=== PATIENT | female | born 1960 | race Caucasian/White ===

== ENCOUNTER → 2018-09-08 | Outpatient (CLI) | payer BC ==
--- NOTE | 2018-09-09 11:33 | CT ---
EXAMINATION TYPE: CT abdomen pelvis w con DATE OF EXAM: 09/08/2018 COMPARISON: 04/06/2013 INDICATION: small bowel obstruction, chronic diarrhea several times a day DLP: 399.50 mGycm, Automated exposure control for dose reduction was used. CONTRAST: 100 mL of Isovue 300. Study performed with Oral Contrast TECHNIQUE: Axial images were obtained from above the diaphragm to the pubic rami in the axial plane a t 5 mm thick sections. Reconstructed images are reviewed on the computer in the coronal plane. FINDINGS: Limited CT sections are obtained the lung bases. There are a few linear areas of opacity most likely atelectasis.. CT ABDOMEN: Liver: Normal Spleen: Normal Pancreas: Normal Adrenal glands: The adrenal glands are normal. Gallbladder: Normal Kidneys: No masses are evident. No hydronephrosis is present. There is a 1.1 cm cyst on the anterio r left mid kidney measuring 19 Hounsfield units. Tiny cortical renal cyst may be posterior medial on the left mid kidney. Aorta: Vascular calcification is within the aorta. Note is made of a stent within the right iliac ar sajan Inferior vena cava: Normal. CT PELVIS: There is some mild diffuse thickening of the sigmoid colon. Some small bowel loops within the pelvis likewise has some diffuse wall thickening. Correlate for colitis. This does not follow a specific vas cular distribution. No suspicious adjacent inflammatory changes are evident. The more proximal small bowel loops may have mild prominence and are filled with contrast.: In the pr oximal and transverse regions appears normal. Appendix: Not identified. There appears to be surgical suture present. Urinary bladder: Normal. Genitourinary structures: Uterus and ovaries are unremarkable Osseous structures: No suspicious lytic or sclerotic lesions. There is reversal of the previous right lower quadrant ostomy. Over the interval with previous ascite s has resolved. Subcutaneous edema likewise has resolved. IMPRESSIONS: 1. There appears to be some mild thickening of the distal colon as well as a few small bowel loops i n the lower quadrant. Correlate for colitis. Some ileitis may be present.
== END | disposition home or self-care (01) ==
LOC: RADCTMAIN 14:40
PROVIDERS: ATTEND Surgery Plastic and Reconstructive Surgery
DX: K56.609 Unspecified intestinal obstruction, unspecified as to partial versus complete obstruction (principal); Z88.2 Allergy status to sulfonamides
CPT/HCPCS: 74177; Q9967

== ENCOUNTER 2019-10-24 08:49 | Day surgery (SDC) | payer BC ==
[2019-10-20 11:06] VITALS: BMI 18.3
[~2019-10-24 08:49] MED LIST: LACTATED RINGERS 1,000 ML IV SCH; LIDOCAINE 1% 20 ML VIAL (10MG/ML) FOR IV START INTRADERMA PRN; MIDAZOLAM 2 MG/2 ML VIAL IV PRN
[2019-10-24 09:25] VITALS: TEMP 97.2
[2019-10-24] MEDS ORDERED: PROPOFOL 10 MG/ML 20 ML VIAL IV ONE (09:36)
[2019-10-24] MEDS ORDERED: LIDOCAINE 1% INJ 10MG/ML (20 ML MDV) ONE (09:36)
[2019-10-24] MEDS ORDERED: GLYCOPYRROLATE 0.2 MG/ML 2 ML VIAL ONE (09:36)
[2019-10-24] MEDS ORDERED: IV FLUID CONTINUATION 275 ML IV ONE (10:22)
--- NOTE | 2019-10-24 10:26 | P.PCN ---
Date of Procedure: 10/24/19 Description of Procedure: Brief history: Patient is a pleasant scheduled for an elective upper endoscopy as well as colonoscopy as a part of evaluation of anemia and diarrhea. Patient has a questionable history of inflammatory bowel disease including Crohn's disease in the past. She previously required a small bowel resection. She was seen in the office with complaints of fatigue and increased frequency of bowel movements. Procedure performed: Esophagogastroduodenoscopy with biopsy Colonoscopy with biopsy Estimated blood loss: Minimal. Preoperative diagnosis: Anemia, diarrhea, altered bowel function, history of IBD Anesthesia: MAC Procedure: After informed consent was obtained from the patient was brought into the endoscopy unit and IV sedation was administered by anesthesia under continuous monitoring. Initially upper endoscopy was done. The Olympus GF 190 video endoscope was inserted into the mouth and esophagus intubated without any difficulty and was gradually advanced into the stomach and duodenum and carefully examined. The bulb and second part of the duodenum appeared normal, with biopsies taken. The scope was then withdrawn into the stomach adequately insufflated with air and upon careful examination the antrum and body, cardia and fundus appeared normal, except for some mild punctate erythema and nodularity in the antrum and body suggestive of mild gastritis with biopsies taken. The scope was then withdrawn into the esophagus. The GE junction was lo cated at 38 cm to the incisors, with a small 1 cm hiatal hernia noted. It appeared regular with no erythema erosions or ulcerations. Rest of the esophagus appeared normal. Patient tolerated the procedure well. At this time the patient continued to remain sedation. Initial digital rectal examination was normal. Olympus CF 190 video colonoscope was then inserted into the rectum and gradually advanced to the cecum without any difficulty. Careful examination was performed as the scope was gradually being withdrawn. The prep was excellent. The cecum, ascending colon, transverse colon, descending colon, sigmoid colon and rectum appeared grossly normal, however there was noted to be erythema and superficial ulcerations/erosions predominantly in the cecum and left colon suggestive of moderate colitis. The terminal ileum could not be intubated due to technical difficulties likely related to the patient's prior intra-abdominal surgeries including small bowel resection and . Retroflexion was performed in the rectum and no lesions were noted, Internal hemorrhoids noted and nonthrombosed external hemorrhoids. Patient tolerated the procedure well. Impression: 1. Mild gastritis antrum body, biopsied. Duodenal biopsies. Small hiatal hernia. 2. Moderate colitis of the cecum and left colon. Terminal ileum unable to be intubated. Recommendations: Findings of this examination were discussed with the patient as well as Her mother. Results will be discussed with Deborah SCHMITZ, with plan for the patient follow-up in the gastroenterology office. Await pathology from biopsies. Further discussion on treatment pending pathology from biopsies. Okay to resume diet.
[2019-10-24 10:52] VITALS: BP 108/62; PULSE 61; RESP 18
== END 2019-10-24 10:52 | disposition home or self-care (01) ==
LOC: ORWHC2ENDO 08:49
PROVIDERS: ATTEND Internal Medicine
DX: K52.9 Noninfective gastroenteritis and colitis, unspecified (principal); K31.89 Other diseases of stomach and duodenum; K29.50 Unspecified chronic gastritis without bleeding; K52.3 Indeterminate colitis; K44.9 Diaphragmatic hernia without obstruction or gangrene; K64.8 Other hemorrhoids; K64.4 Residual hemorrhoidal skin tags; D64.9 Anemia, unspecified; Z90.49 Acquired absence of other specified parts of digestive tract; Z86.718 Personal history of other venous thrombosis and embolism; F17.200 Nicotine dependence, unspecified, uncomplicated; Z97.2 Presence of dental prosthetic device (complete) (partial); Z79.01 Long term (current) use of anticoagulants; Z79.890 Hormone replacement therapy; Z88.2 Allergy status to sulfonamides
CPT/HCPCS: 88305; 45380; 43239; J2001; J2704

== ENCOUNTER 2020-02-22 10:20 | Inpatient (IN) | payer BC ==
[2020-02-22] MEDS ORDERED: SODIUM CHLORIDE 0.9% 1,000 ML IV STA ×2 (10:37)
[2020-02-22] MEDS ORDERED: PANTOPRAZOLE 40 MG/10 ML VIAL IVP ONE (10:38)
[2020-02-22] MEDS ORDERED: PHYTONADIONE ORAL 5 MG/5 ML ORAL.SYRG PO STA (10:41)
--- NOTE | 2020-02-22 10:43 | ED ---
Weakness HPI <Jayson Pro - Last Filed: 02/22/20 11:04> - General Source: patient, family, RN notes reviewed, old records reviewed Mode of arrival: wheelchair Limitations: no limitations <Neda Glass - Last Filed: 02/22/20 13:34> - General Chief complaint: Weakness Stated complaint: low coumadin Time Seen by Provider: 02/22/20 10:27 - History of Present Illness Initial comments: Patient is a 59-year-old female presents emergency department today for elevated Coumadin level, and weakness progressing over the past 3 weeks. She does have a history of Crohn's disease. She's been having some diarrhea and does report some dark stools. She also reports that she slipped and fell 2 days ago causing some right sided rib pain when she attempted to go to the bathroom. Patient states that she is on Coumadin for history of blood clots many years ago. Surgical history includes a bowel resection with colostomy and then later a reversal. (Neda Glass) - Related Data Home Medications Medication Instructions Recorded Confirmed Levothyroxine Sodium [Synthroid] 100 mcg PO DAILY 10/20/19 02/22/20 Warfarin [Coumadin] 2.5 mg PO SUTUTHFR 10/20/19 02/22/20 Warfarin [Coumadin] 3.75 mg PO MOWESA 10/20/19 02/22/20 Allergies Allergy/AdvReac Type Severity Reaction Status Date / Time Sulfa (Sulfonamide Allergy Unknown Verified 02/22/20 11:40 Antibiotics) Review of Systems ROS Other: All systems not noted in ROS Statement are negative. <Jayson Pro - Last Filed: 02/22/20 11:04> ROS Other: All systems not noted in ROS Statement are negative. <Neda Glass - Last Filed: 02/22/20 13:34> ROS Statement: Those systems with pertinent positive or pertinent negative responses have been documented in the HPI. Past Medical History Past Medical History: Deep Vein Thrombosis (DVT) Additional Past Medical History / Comment(s): sinus allergies, diarrhea x1yr, blaine. DVT. heart murmur History of Any Multi-Drug Resistant Organisms: None Reported Past Surgical History: Bowel Resection, Section Additional Past Surgical History / Comment(s): bowel resection with colostomy and then colostomy reversal Past Anesthesia/Blood Transfusion Reactions: No Reported Reaction Past Psychological History: No Psychological Hx Reported Smoking Status: Current every day smoker Past Alcohol Use History: None Reported Past Drug Use History: None Reported - Past Family History Mother Family Medical History: No Reported History <Neda Glass - Last Filed: 02/22/20 13:34> General Exam Limitations: no limitations General appearance: alert Head exam: Present: atraumatic, normocephalic, normal inspection Eye exam: Present: normal appearance, PERRL, EOMI. Absent: scleral icterus, conjunctival injection, periorbital swelling ENT exam: Present: normal exam, mucous membranes moist Neck exam: Present: normal inspection. Absent: tenderness, meningismus, lymphadenopathy Respiratory exam: Present: normal lung sounds bilaterally, other (tenderness over right ribs). Absent: respiratory distress, wheezes, rales, rhonchi, stridor Cardiovascular Exam: Present: regular rate, normal rhythm, normal heart sounds. Absent: systolic murmur, diastolic murmur, rubs, gallop, clicks GI/Abdominal exam: Present: soft, normal bowel sounds. Absent: distended, tenderness, guarding, rebound, rigid Rectal exam: Present: heme (+) stool ( bright red blood per rectum), hemorrh oids. Absent: normal inspection External exam: Present: normal external exam Extremities exam: Present: normal inspection, full ROM, normal capillary refill. Absent: tenderness, pedal edema, joint swelling, calf tenderness Back exam: Present: normal inspection Neurological exam: Present: alert, oriented X3, CN II-XII intact Psychiatric exam: Present: normal affect, normal mood Skin exam: Present: warm, dry, intact, normal color. Absent: rash <Neda Glass - Last Filed: 02/22/20 13:34> - General Exam Comments Initial Comments: 5-year-old female. Alert and oriented 3. Patient appears weak, and pale. (Neda Glass) Course Vital Signs 02/22/20 02/22/20 02/22/20 10:20 10:59 11:00 Temperature 97.6 F Pulse Rate 76 75 Respiratory 18 22 20 Rate Blood Pressure 65/48 82/70 O2 Sat by Pulse 100 100 Oximetry 02/22/20 02/22/20 02/22/20 11:30 11:52 12:00 Temperature Pulse Rate 57 L 56 L 57 L Respiratory 20 16 16 Rate Blood Pressure 82/51 82/70 81/47 O2 Sat by Pulse 100 100 100 Oximetry 02/22/20 02/22/20 12:30 13:16 Temperature 98.0 F Pulse Rate 60 60 Respiratory 18 18 Rate Blood Pressure 101/44 80/47 O2 Sat by Pulse 100 100 Oximetry Medical Decision Making <Jayson Pro - Last Filed: 02/22/20 11:04> - Lab Data Result diagrams: 02/22/20 11:04 02/22/20 10:53 <Neda Glass - Last Filed: 02/22/20 13:34> - Medical Decision Making I, Richard Pro, personally saw and examined the patient. I have reviewed and agree with the PA findings, including all diagnostic interpretations and treatment plans as written unless otherwise stated. I was present for the small portions of any procedures performed and the inclusive time noted for any critical care statement. (Jayson Pro) Patient is a 59-year-old female history of Crohn's disease presents emergency Department today with complaints of elevated INR from lab work yesterday and general weakness for the past few weeks. Also complains some episodes of shortness of breath. Patient appears pale. Hemoglobin yesterday was 8.9. Today on recheck at 7.9. She does have a positive occult test with history of Crohn's disease she reports she's been having flareups for many weeks. Patient was given oral vitamin K when her INR was noted to be elevated at 8.5 yesterday. Today is greater than 10. I Patient is also hypotensive was given 2 L bolus and emergency department. She did fall 2 days ago and x-ray the right ribs shows no acute fractures or any other acute process. Patient will have repeat CBC to compare from the current hemoglobin of 7.9 after receiving fluid boluses. I discussed the case with Dr. Pro who discussed the case with Dr. Aguilar and Dr. Julio. Currently waiting further orders Patient should qualify for Concentra or to start administering blood products. Patient also was found to have low potassium of 2.6. She was given replacement oral as well as IV has been ordered. Sodium is low 129. Patient will be going to the ICU at this time. Consult to GI. (Neda Glass) - Lab Data Lab Results 02/22/20 02/22/20 02/22/20 Range/Units 10:53 10:53 10:53 WBC (3.8-10.6) k/uL RBC (3.80-5.40) m/uL Hgb (11.4-16.0) gm/dL Hct (34.0-46.0) % MCV (80.0-100.0) fL MCH (25.0-35.0) pg MCHC (31.0-37.0) g/dL RDW (11.5-15.5) % Plt Count (150-450) k/uL Neutrophils % % Lymphocytes % % Monocytes % % Eosinophils % % Basophils % % Neutrophils # (1.3-7.7) k/uL Lymphocytes # (1.0-4.8) k/uL Monocytes # (0-1.0) k/uL Eosinophils # (0-0.7) k/uL Basophils # (0-0.2) k/uL PT 127.1 H (9.0-12.0) sec INR >10.0 H* (<1.2) APTT 91.2 H (22.0-30.0) sec Sodium 129 L (137-145) mmol/L Potassium 2.6 L* (3.5-5.1) mmol/L Chloride 96 L (98-107) mmol/L Carbon Dioxide 21 L (22-30) mmol/L Anion Gap 12 mmol/L BUN 54 H (7-17) mg/dL Creatinine 1.60 H (0.52-1.04) mg/dL Est GFR (CKD-EPI)AfAm 40 (>60 ml/min/1.73 sqM) Est GFR (CKD-EPI)NonAf 35 (>60 ml/min/1.73 sqM) Glucose 82 (74-99) mg/dL POC Glucose (mg/dL) (75-99) mg/dL POC Glu [employer] ID Plasma Lactic Acid Ti 0.8 (0.7-2.0) mmol/L Calcium 7.8 L (8.4-10.2) mg/dL Magnesium 1.8 (1.6-2.3) mg/dL Total Bilirubin 0.2 (0.2-1.3) mg/dL AST 15 (14-36) U/L ALT 22 (4-34) U/L Alkaline Phosphatase 103 (38-126) U/L Troponin I (0.000-0.034) ng/mL Total Protein 5.8 L (6.3-8.2) g/dL Albumin 2.6 L (3.5-5.0) g/dL Stool Occult Blood (Negative) Blood Type Blood Type Recheck Bld Type Recheck Status Antibody Screen Spec Expiration Date 02/22/20 02/22/20 02/22/20 Range/Units 10:53 10:53 11:04 WBC 4.6 (3.8-10.6) k/uL RBC 2.77 L (3.80-5.40) m/uL Hgb 7.9 L (11.4-16.0) gm/dL Hct 24.6 L (34.0-46.0) % MCV 89.1 (80.0-100.0) fL MCH 28.4 (25.0-35.0) pg MCHC 31.9 (31.0-37.0) g/dL RDW 14.4 (11.5-15.5) % Plt Count 548 H (150-450) k/uL Neutrophils % 78 % Lymphocytes % 14 % Monocytes % 5 % Eosinophils % 1 % Basophils % 0 % Neutrophils # 3.6 (1.3-7.7) k/uL Lymphocytes # 0.6 L (1.0-4.8) k/uL Monocytes # 0.2 (0-1.0) k/uL Eosinophils # 0.0 (0-0.7) k/uL Basophils # 0.0 (0-0.2) k/uL PT (9.0-12.0) sec INR (<1.2) APTT (22.0-30.0) sec Sodium (137-145) mmol/L Potassium (3.5-5.1) mmol/L Chloride (98-107) mmol/L Carbon Dioxide (22-30) mmol/L Anion Gap mmol/L BUN (7-17) mg/dL Creatinine (0.52-1.04) mg/dL Est GFR (CKD-EPI)AfAm (>60 ml/min/1.73 sqM) Est GFR (CKD-EPI)NonAf (>60 ml/min/1.73 sqM) Glucose (74-99) mg/dL POC Glucose (mg/dL) (75-99) mg/dL POC Glu [employer] ID Plasma Lactic Acid Ti (0.7-2.0) mmol/L Calcium (8.4-10.2) mg/dL Magnesium (1.6-2.3) mg/dL Total Bilirubin (0.2-1.3) mg/dL AST (14-36) U/L ALT (4-34) U/L Alkaline Phosphatase (38-126) U/L Troponin I <0.012 (0.000-0.034) ng/mL Total Protein (6.3-8.2) g/dL Albumin (3.5-5.0) g/dL Stool Occult Blood (Negative) Blood Type A Negative Blood Type Recheck A Neg Bld Type Recheck Status No Antibody Screen NEGATIVE Spec Expiration Date 02/25/2020 - 235202/22/20 02/22/20 Range/Units 11:07 12:38 WBC (3.8-10.6) k/uL RBC (3.80-5.40) m/uL Hgb (11.4-16.0) gm/dL Hct (34.0-46.0) % MCV (80.0-100.0) fL MCH (25.0-35.0) pg MCHC (31.0-37.0) g/dL RDW (11.5-15.5) % Plt Count (150-450) k/uL Neutrophils % % Lymphocytes % % Monocytes % % Eosinophils % % Basophils % % Neutrophils # (1.3-7.7) k/uL Lymphocytes # (1.0-4.8) k/uL Monocytes # (0-1.0) k/uL Eosinophils # (0-0.7) k/uL Basophils # (0-0.2) k/uL PT (9.0-12.0) sec INR (<1.2) APTT (22.0-30.0) sec Sodium (137-145) mmol/L Potassium (3.5-5.1) mmol/L Chloride (98-107) mmol/L Carbon Dioxide (22-30) mmol/L Anion Gap mmol/L BUN (7-17) mg/dL Creatinine (0.52-1.04) mg/dL Est GFR (CKD-EPI)AfAm (>60 ml/min/1.73 sqM) Est GFR (CKD-EPI)NonAf (>60 ml/min/1.73 sqM) Glucose (74-99) mg/dL POC Glucose (mg/dL) 73 L (75-99) mg/dL POC Glu [employer] ID Althea Harp Plasma Lactic Acid Ti (0.7-2.0) mmol/L Calcium (8.4-10.2) mg/dL Magnesium (1.6-2.3) mg/dL Total Bilirubin (0.2-1.3) mg/dL AST (14-36) U/L ALT (4-34) U/L Alkaline Phosphatase (38-126) U/L Troponin I (0.000-0.034) ng/mL Total Protein (6.3-8.2) g/dL Albumin (3.5-5.0) g/dL Stool Occult Blood Positive H (Negative) Blood Type Blood Type Recheck Bld Type Recheck Status Antibody Screen Spec Expiration Date 02/22/20 11:17 EKG performed at 11:14 AM shows normal sinus rhythm normal EKG. Ventricular rate of 62 bpm. Intervals 134 ms. QRS duration is 92 ms. QT QTc is 448/454 ms. (Neda Glass) Critical Care Time Critical Care Time: Yes Total Critical Care Time: 35 <Neda Glass - Last Filed: 02/22/20 13:34> Disposition <Jayson Pro - Last Filed: 02/22/20 11:04> Is patient prescribed a controlled substance at d/c from ED?: No Time of Disposition: 12:59 <Ndea Glass - Last Filed: 02/22/20 13:34> Clinical Impression: GI bleed, Elevated INR, Weakness, Crohn disease, Hypokalemia Disposition: ADMITTED IP TO THIS HOSP Condition: Serious
[2020-02-22] MEDS ORDERED: SODIUM CHLORIDE 0.9% 2,000 ML IV STA (11:17)
[2020-02-22 11:22] LABS: Basophils % (A) 0 %; Eosinophils % (A) 1 %; HCT 24.6 % (34.0-46.0); HGB 7.9 gm/dL (11.4-16.0); Lymphocytes # (A) 0.6 k/uL (1.0-4.8); Lymphocytes % (A) 14 %; MCH 28.4 pg (25.0-35.0); MCHC 31.9 g/dL (31.0-37.0); MCV 89.1 fL (80.0-100.0); Mean Platelet Volume 7.1; Monocytes # (A) 0.2 k/uL (0-1.0); Monocytes % (A) 5 %; Neutrophils # (A) 3.6 k/uL (1.3-7.7); Neutrophils % (A) 78 %; Platelet Count 548 k/uL (150-450); RBC 2.77 m/uL (3.80-5.40); RDW 14.4 % (11.5-15.5); WBC 4.6 k/uL (3.8-10.6)
[2020-02-22] MEDS ORDERED: SODIUM CHLORIDE 0.9% 1,000 ML IV ONE ×2 (11:26→14:31)
--- NOTE | 2020-02-22 11:38 | XR ---
EXAMINATION TYPE: XR chest 2V DATE OF EXAM: 02/22/2020 COMPARISON: Chest x-ray October 23, 2013. HISTORY: Weakness. TECHNIQUE: Frontal and lateral views of the chest are obtained. FINDINGS: There is some chronic parenchymal change without suspicious new focal air space opacity, p leural effusion, or pneumothorax seen. The cardiac silhouette size remains within normal limits. T he osseous structures are demineralized. Overlying EKG leads noted on current study. IMPRESSION: Chronic changes without acute process.
[2020-02-22 12:16] LABS: Prothrombin Time 127.1 sec (9.0-12.0)
[2020-02-22 12:20] LABS: INR >10.0 (<1.2)
[2020-02-22 12:21] LABS: Partial Thromboplastin Time 91.2 sec (22.0-30.0)
[2020-02-22 12:42] LABS: Glucose,Whole Blood 73 mg/dL (75-99)
[2020-02-22] MEDS ORDERED: HYDROmorphone 0.5 MG/0.5 ML SYRINGE IVP PRN (13:00)
[2020-02-22] MEDS ORDERED: IBUPROFEN 400 MG TAB PO PRN (13:00)
[2020-02-22] MEDS ORDERED: MORPHINE SULFATE 4 MG/ML SYRINGE IV PRN (13:00)
[2020-02-22] MEDS ORDERED: ONDANSETRON 4 MG/2 ML VIAL IVP PRN (13:00)
[2020-02-22] MEDS ORDERED: NALOXONE 0.4 MG/ML 1 ML VIAL IV PRN (13:00)
[2020-02-22] MEDS ORDERED: ACETAMINOPHEN TAB 325 MG TAB PO PRN (13:00)
[2020-02-22 13:13] LABS: Albumin 2.6 g/dL (3.5-5.0); Calcium 7.8 mg/dL (8.4-10.2); Magnesium 1.8 mg/dL (1.6-2.3); Total Bilirubin 0.2 mg/dL (0.2-1.3); Total Protein 5.8 g/dL (6.3-8.2)
[2020-02-22 13:17] LABS: Potassium 2.6 mmol/L (3.5-5.1)
[2020-02-22] MEDS ORDERED: Potassium Replacement Protocol 1 EACH MISC MISCELLANE PRN (13:29)
--- NOTE | 2020-02-22 13:40 | P.CNPUL ---
History of Present Illness Consult date: 02/22/20 Requesting physician: Kendall Parish Reason for consult: other (Critical care management) Chief complaint: Elevated INR History of present illness: This is a pleasant 59-year-old female patient who follows with Dr. peacock as her primary care provider. She has a history of chronic and ongoing tobacco dependence, hypothyroidism, Crohn's disease with previous colectomy and subsequent reversal, previous DVT with thrombectomy at [facility] greater than 10 years ago. She has been maintained on warfarin since that time. She takes 2.5 mg on Thursday and 3.75 mg on Thursday and Thursday. She was found to have an elevated INR and directed here to the emergency room this morning for the same. She has been having some diarrhea and reports some dark stools but not too much unusual for her. She states she also had fallen 2 days ago with some right-sided rib pain. Her INR today is greater than 10 and her hemoglobin has dropped to 7.9 and she is also hypotensive. She has received 3 L of fluid resuscitation, 10 mg of vitamin K and IV Protonix. She is seen today in consultation in the emergency room. She is awake and alert in no acute distress. She is maintaining O2 saturation of 100% on room air. She is pale. No shortness of breath, no chest pain. Somewhat dizzy. Current blood pressure 80/47. She's afebrile. 0.9 normal saline at 130 MLS per hour. Review of Systems REVIEW OF SYSTEMS: CONSTITUTIONAL: Positive for weakness. Denies any recent significant weight loss or weight gain. EYES: Denies change in vision. EARS, NOSE, MOUTH, THROAT: Denies headaches, denies sore throat. CARDIOVASCULAR: Denies chest pain, palpitations or syncopal episodes. RESPIRATORY: Denies shortness of breath, cough, congestion or hemoptysis. GASTROINTESTINAL: Positive for dark stool, diarrhea GENITOURINARY: Denies hematuria, denies infections. MUSKULOSKELETAL: Denies pain, denies swelling. INTEGUMENTARY: Denies rash, denies eczema. NEUROLOGICAL: Denies recent memory loss, no recent seizure activity. PSYCHIATRIC: Denies anxiety, denies depression. HEMATOLOGIC/LYMPHATIC: Denies anemia, denies enlarged lymph nodes. Past Medical History Past Medical History: Deep Vein Thrombosis (DVT) Additional Past Medical History / Comment(s): sinus allergies, diarrhea x1yr, blaine. DVT. heart murmur History of Any Multi-Drug Resistant Organisms: None Reported Past Surgical History: Bowel Resection, Section Additional Past Surgical History / Comment(s): bowel resection with colostomy and then colostomy reversal Past Anesthesia/Blood Transfusion Reactions: No Reported Reaction Past Psychological History: No Psychological Hx Reported Smoking Status: Current every day smoker Past Alcohol Use History: None Reported Past Drug Use History: None Reported - Past Family History Mother Family Medical History: No Reported History Medications and Allergies Home Medications Medication Instructions Recorded Confirmed Type Levothyroxine Sodium [Synthroid] 100 mcg PO DAILY 10/20/19 02/22/20 History Warfarin [Coumadin] 2.5 mg PO SUTUTHFR 10/20/19 02/22/20 History Warfarin [Coumadin] 3.75 mg PO MOWESA 10/20/19 02/22/20 History Allergies Allergy/AdvReac Type Severity Reaction Status Date / Time Sulfa (Sulfonamide Allergy Unknown Verified 02/22/20 11:40 Antibiotics) Physical Exam Vitals: Vital Signs Temp Pulse Resp BP Pulse Ox 02/22/20 13:16 98.0 F 60 18 80/47 100 02/22/20 12:30 60 18 101/44 100 02/22/20 12:00 57 L 16 81/47 100 02/22/20 11:52 56 L 16 82/70 100 02/22/20 11:30 57 L 20 82/51 100 02/22/20 11:00 75 20 82/70 100 02/22/20 10:59 22 02/22/20 10:20 97.6 F 76 18 65/48 100 Intake and Output 02/21/20 02/22/20 02/22/20 22:59 06:59 14:59 Other: Weight 54.431 kg GENERAL EXAM: Alert, pale, pleasant 59-year-old female, on room air, comfortable in no apparent distress. HEAD: Normocephalic. EYES: Normal reaction of pupils, equal size. NOSE: Clear with pink turbinates. THROAT: No erythema or exudates. NECK: No masses, no JVD. CHEST: No chest wall deformity. LUNGS: Equal air entry with no crackles, wheeze, rhonchi or dullness. CVS: S1 and S2 normal with no audible murmur, regular rhythm. ABDOMEN: No hepatosplenomegaly, normal bowel sounds, no guarding or rigidity. SPINE: No scoliosis or deformity SKIN: No rashes CENTRAL NERVOUS SYSTEM: No focal deficits, tone is normal in all 4 extremities. EXTREMITIES: There is no peripheral edema. No clubbing, no cyanosis. Peripheral pulses are intact. Results - Laboratory Findings CBC and BMP: 02/22/20 11:04 02/22/20 10:53 PT/INR, D-dimer PT 127.1 sec (9.0-12.0) H 02/22/20 10:53 INR >10.0 (<1.2) H* 02/22/20 10:53 Abnormal lab findings: Abnormal Labs 02/22/20 02/22/20 02/22/20 10:53 10:53 11:04 RBC 2.77 L Hgb 7.9 L Hct 24.6 L Plt Count 548 H Lymphocytes # 0.6 L PT 127.1 H INR >10.0 H* APTT 91.2 H Sodium 129 L Potassium 2.6 L* Chloride 96 L Carbon Dioxide 21 L BUN 54 H Creatinine 1.60 H POC Glucose (mg/dL) Calcium 7.8 L Total Protein 5.8 L Albumin 2.6 L Stool Occult Blood 02/22/20 02/22/20 11:07 12:38 RBC Hgb Hct Plt Count Lymphocytes # PT INR APTT Sodium Potassium Chloride Carbon Dioxide BUN Creatinine POC Glucose (mg/dL) 73 L Calcium Total Protein Albumin Stool Occult Blood Positive H - Diagnostic Findings Chest x-ray: image reviewed (No acute pulmonary process) Assessment and Plan Assessment: 1 Coagulopathy with an INR of greater than 10 and the patient is on chronic warfarin for previous history of DVT 2 Previous history of lower extremity DVT with thrombectomy over 10 years ago at [facility] 3 Anemia secondary to above, stool for occult blood positive 4 Hypokalemia 5 Hyponatremia 6 Acute renal failure 7 History of Crohn's disease 8 History of colectomy with subsequent reversal 9 Hypothyroidism 10 History of chronic tobacco dependence Plan: The patient was seen and evaluated by Dr. Julio The patient will be admitted to the intensive care unit Continue with fluid resuscitation Continue Protonix Replace electrolytes Continue to monitor hemoglobin GI consult pending We'll continue to follow and make further recommendations based on her clinical status I, the cosigning physician, performed a history & physical examination of the patient. Lungs sounds are clear. Maintaining good O2 saturations in the 90s on room air. I discussed the assessment and plan of care with my nurse practitioner, Justine Ochoa. I attest to the above consultation as dictated by her. Time with Patient: Greater than 30
[2020-02-22 13:52] LABS: Basophils % (A) 0 %; Eosinophils % (A) 1 %; Hypochromasia Slight; Lymphocytes # (A) 0.6 k/uL (1.0-4.8); Lymphocytes % (A) 16 %; MCH 28.6 pg (25.0-35.0); MCHC 31.9 g/dL (31.0-37.0); MCV 89.8 fL (80.0-100.0); Mean Platelet Volume 7.5; Monocytes # (A) 0.2 k/uL (0-1.0); Monocytes % (A) 6 %; Neutrophils # (A) 2.7 k/uL (1.3-7.7); Neutrophils % (A) 76 %; Platelet Count 434 k/uL (150-450); RBC 2.07 m/uL (3.80-5.40); RDW 14.4 % (11.5-15.5); WBC 3.6 k/uL (3.8-10.6)
[2020-02-22 14:00] LABS: HGB 5.9 gm/dL (11.4-16.0)
[2020-02-22 14:00] LABS: Glucose,Whole Blood 80 mg/dL (75-99)
[2020-02-22] MEDS ORDERED: POTASSIUM CHLORIDE ER 20 MEQ TAB.ER PO SCH (14:00)
[2020-02-22 14:01] LABS: HCT 18.6 % (34.0-46.0)
[2020-02-22] MEDS: POTASSIUM CHLORIDE 10 MEQ in WATER FOR INJECTION 1 100ML.BAG IVPB SCH ×6 (15:10→20:24)
[2020-02-22] MEDS: methylPREDNISolone SOD SUCCI 40 MG/ML 1 ML VIAL IV SCH (15:42)
--- NOTE | 2020-02-22 17:30 | P.HPIM ---
History of Present Illness H&P Date: 02/22/20 Jacquie Chowdhury, is a 59-year-old female patient of Dr. Ornelas with known history of Crohn's disease with previous colectomy and subsequent reversal, and history of DVT 10 years ago maintained on Coumadin. Who presented to [facility] emergency room with a chief complaint of rectal bleeding, patient stated that she was having small amount of blood per rectum she thought it was related to her hemorrhoids she was evaluated in the emergency room and was found to have an elevated INR She states she also had fallen 2 days ago with some right-sided rib pain. Her INR today is greater than 10 and her hemoglobin has dropped to 7.9 and she is also hypotensive. She has received 3 L of fluid resuscitation, 10 mg of vitamin K and IV Protonix. Patient was admitted to intensive care unit critical care consultation and gastroenterology consultation were requested. Patient was seen and examined in ICU she is alert and oriented in no apparent distress she looks pale she is complaining of mild dizziness otherwise she denies any complaints there is no fever or chills no headache or dizziness no chest pain no shortness of breath no cough no nausea or vomiting no abdominal pain no diarrhea no burning was urination no frequency or urgency no hematuria. Past Medical History Past Medical History: Deep Vein Thrombosis (DVT) Additional Past Medical History / Comment(s): sinus allergies, diarrhea x1yr, blaine. DVT. heart murmur History of Any Multi-Drug Resistant Organisms: None Reported Past Surgical History: Bowel Resection, Section Additional Past Surgical History / Comment(s): bowel resection with colostomy and then colostomy reversal Past Anesthesia/Blood Transfusion Reactions: No Reported Reaction Past Psychological History: No Psychological Hx Reported Smoking Status: Current every day smoker Past Alcohol Use History: None Reported Past Drug Use History: None Reported - Past Family History Mother Family Medical History: No Reported History Medications and Allergies Home Medications Medication Instructions Recorded Confirmed Type Levothyroxine Sodium [Synthroid] 100 mcg PO DAILY 10/20/19 02/22/20 History Warfarin [Coumadin] 2.5 mg PO SUTUTHFR 10/20/19 02/22/20 History Warfarin [Coumadin] 3.75 mg PO MOWESA 10/20/19 02/22/20 History Allergies Allergy/AdvReac Type Severity Reaction Status Date / Time Sulfa (Sulfonamide Allergy Unknown Verified 02/22/20 11:40 Antibiotics) Physical Exam Vitals: Vital Signs Temp Pulse Resp BP Pulse Ox 02/22/20 16:05 63 14 79/48 100 02/22/20 16:00 58 L 12 75/48 100 02/22/20 15:35 97.5 F L 58 L 14 75/48 02/22/20 15:30 59 L 11 L 80/49 100 02/22/20 15:25 97.6 F 61 18 77/42 100 02/22/20 15:00 61 10 L 78/47 99 02/22/20 14:30 62 11 L 82/42 100 02/22/20 14:00 96.5 F L 56 L 20 83/37 99 02/22/20 13:30 16 78/44 100 02/22/20 13:16 98.0 F 60 18 80/47 100 02/22/20 12:30 60 18 101/44 100 02/22/20 12:00 57 L 16 81/47 100 02/22/20 11:52 56 L 16 82/70 100 02/22/20 11:30 57 L 20 82/51 100 02/22/20 11:00 75 20 82/70 100 02/22/20 10:59 22 02/22/20 10:20 97.6 F 76 18 65/48 100 Intake and Output 02/22/20 02/22/20 02/22/20 06:59 14:59 22:59 Intake Total 100 0 Output Total 150 Balance -50 0 Intake: Intake, IV Titration 100 Amount Sodium Chloride 0.9% 1, 100 000 ml @ 999 mls/hr IV . Q1H1M STA Rx#:[id number] Blood Product 0 Rc Pheresis As-3 Unit 0 [id number] Output: Urine 150 Other: Voiding Method Toilet Bedside Commode Weight 54.431 kg In general patient is alert and oriented 3 in no apparent distress HEENT head normocephalic and atraumatic, pale otherwise normal Neck is supple no JVD no goiter no lymphadenopathy Chest exam is clear to auscultation no crackles no wheezing there is tenderness with palpation over the lower right sided ribs Cardiac exam reveals regular heart sounds S1 and S2 no gallops no murmurs Abdomen is soft nontender no organomegaly with normal bowel sounds Extremity exam reveals no edema no cyanosis or clubbing Neurological examination reveals no gross focal deficit Results CBC & Chem 7: 02/22/20 13:09 02/22/20 10:53 Labs: Abnormal Lab Results - Last 24 Hours (Table) 02/22/20 02/22/20 02/22/20 Range/Units 10:53 10:53 10:53 WBC (3.8-10.6) k/uL RBC (3.80-5.40) m/uL Hgb (11.4-16.0) gm/dL Hct (34.0-46.0) % Plt Count (150-450) k/uL Lymphocytes # (1.0-4.8) k/uL PT 127.1 H (9.0-12.0) sec INR >10.0 H* (<1.2) APTT 91.2 H (22.0-30.0) sec Sodium 129 L (137-145) mmol/L Potassium 2.6 L* (3.5-5.1) mmol/L Chloride 96 L (98-107) mmol/L Carbon Dioxide 21 L (22-30) mmol/L BUN 54 H (7-17) mg/dL Creatinine 1.60 H (0.52-1.04) mg/dL POC Glucose (mg/dL) (75-99) mg/dL Calcium 7.8 L (8.4-10.2) mg/dL Total Protein 5.8 L (6.3-8.2) g/dL Albumin 2.6 L (3.5-5.0) g/dL Stool Occult Blood (Negative) Crossmatch See Detail 02/22/20 02/22/20 02/22/20 Range/Units 11:04 11:07 12:38 WBC (3.8-10.6) k/uL RBC 2.77 L (3.80-5.40) m/uL Hgb 7.9 L (11.4-16.0) gm/dL Hct 24.6 L (34.0-46.0) % Plt Count 548 H (150-450) k/uL Lymphocytes # 0.6 L (1.0-4.8) k/uL PT (9.0-12.0) sec INR (<1.2) APTT (22.0-30.0) sec Sodium (137-145) mmol/L Potassium (3.5-5.1) mmol/L Chloride (98-107) mmol/L Carbon Dioxide (22-30) mmol/L BUN (7-17) mg/dL Creatinine (0.52-1.04) mg/dL POC Glucose (mg/dL) 73 L (75-99) mg/dL Calcium (8.4-10.2) mg/dL Total Protein (6.3-8.2) g/dL Albumin (3.5-5.0) g/dL Stool Occult Blood Positive H (Negative) Crossmatch 02/22/20 Range/Units 13:09 WBC 3.6 L (3.8-10.6) k/uL RBC 2.07 L (3.80-5.40) m/uL Hgb 5.9 L* D (11.4-16.0) gm/dL Hct 18.6 L* (34.0-46.0) % Plt Count (150-450) k/uL Lymphocytes # 0.6 L (1.0-4.8) k/uL PT (9.0-12.0) sec INR (<1.2) APTT (22.0-30.0) sec Sodium (137-145) mmol/L Potassium (3.5-5.1) mmol/L Chloride (98-107) mmol/L Carbon Dioxide (22-30) mmol/L BUN (7-17) mg/dL Creatinine (0.52-1.04) mg/dL POC Glucose (mg/dL) (75-99) mg/dL Calcium (8.4-10.2) mg/dL Total Protein (6.3-8.2) g/dL Albumin (3.5-5.0) g/dL Stool Occult Blood (Negative) Crossmatch Thrombosis Risk Factor Assmnt - Choose All That Apply Each Factor Represents 1 point: Age 41-60 years Each Risk Factor Represents 3 Points: History of DVT/PE Thrombosis Risk Factor Assessment Total Risk Factor Score: 4 Thrombosis Risk Factor Assessment Level: Moderate Risk Assessment and Plan Plan: 1. Rectal bleeding with anemia 2. Coagulopathy with INR more than 10 3. Underlying history of Crohn's disease 4. History of DVT more than 10 years ago maintained on Coumadin 5. Acute kidney injury 6. Severe hypokalemia, correcting 7. Underlying history of hypothyroidism 8. Tobacco abuse Plan at this time patient is admitted to intensive care unit She is receiving IV fluid for pressure support Coumadin is held and patient was given vitamin K 10 mg Red blood cell transfusion was ordered Will monitor CBC closely Consultation for critical care and gastroenterology was initiated Will follow closely
[2020-02-22] MEDS: PANTOPRAZOLE 40 MG/10 ML VIAL IV SCH (20:24)
[2020-02-22 21:57] LABS: HCT 28.1 % (34.0-46.0); Hypochromasia Slight; MCH 30.2 pg (25.0-35.0); MCHC 32.6 g/dL (31.0-37.0); MCV 92.7 fL (80.0-100.0); Mean Platelet Volume 7.3; Platelet Count 362 k/uL (150-450); RBC 3.03 m/uL (3.80-5.40); RDW 14.2 % (11.5-15.5)
[2020-02-22 21:59] LABS: HGB 9.1 gm/dL (11.4-16.0)
[2020-02-22] MEDS: SODIUM CHLORIDE 0.9% 1,000 ML IV SCH (22:00)
[2020-02-22] MEDS: NOREPINEPHRINE 4 MG in SODIUM CHLORIDE 0.9% 250 ML IV SCH (22:01)
[2020-02-23] MEDS: methylPREDNISolone SOD SUCCI 40 MG/ML 1 ML VIAL IV SCH ×4 (00:07→23:46)
[2020-02-23] MEDS: SODIUM CHLORIDE 0.9% 1,000 ML IV SCH ×2 (00:09→17:01)
[2020-02-23 01:32] LABS: Appearance,Urine Clear (Clear); Bilirubin,Urine Negative (Negative); Blood,Urine Negative (Negative); Color,Urine Yellow; Glucose,Urine (UA) Negative (Negative); Ketones,Urine Negative (Negative); Leukocyte Esterase,Urine Negative (Negative); Nitrite,Urine Negative (Negative); Protein,Urine Trace (Negative); Specific Gravity,Urine 1.011 (1.001-1.035); Urobilinogen,Urine <2.0 mg/dL (<2.0)
[2020-02-23] MEDS: POTASSIUM BICARBONATE/CIT AC 20 MEQ TABLET.EFF NG-TUBE SCH ×2 (02:07→03:13)
[2020-02-23 05:13] LABS: Basophils % (A) 0 %; Eosinophils % (A) 0 %; HCT 29.3 % (34.0-46.0); HGB 8.9 gm/dL (11.4-16.0); Hypochromasia Slight; Lymphocytes # (A) 0.3 k/uL (1.0-4.8); Lymphocytes % (A) 6 %; MCH 27.9 pg (25.0-35.0); MCHC 30.5 g/dL (31.0-37.0); MCV 91.4 fL (80.0-100.0); Mean Platelet Volume 7.6; Monocytes # (A) 0.1 k/uL (0-1.0); Monocytes % (A) 2 %; Neutrophils # (A) 4.6 k/uL (1.3-7.7); Neutrophils % (A) 91 %; Platelet Count 514 k/uL (150-450); RDW 14.5 % (11.5-15.5)
[2020-02-23 05:26] LABS: C Reactive Protein 63.2 mg/L (<10.0); Calcium 7.1 mg/dL (8.4-10.2); INR 3.2 (<1.2); Prothrombin Time 31.7 sec (9.0-12.0)
[2020-02-23 05:37] LABS: Potassium 4.3 mmol/L (3.5-5.1)
[2020-02-23 06:06] LABS: Erythrocyte Sedimentation Rate 50 mm/hr (0-20)
--- NOTE | 2020-02-23 07:05 | P.CONS ---
History of Present Illness - Reason for Consult Consult date: 02/23/20 Anemia, Crohn's disease Requesting physician: Marcell Aguilar - Chief Complaint Elevated INR - History of Present Illness 59-year-old female with a medical history significant for DVT in the past on anticoagulation therapy as well as Crohn's disease requiring prior partial co lectomy with reversal who presented to the ER secondary to elevation in her INR. The patient had laboratory evaluation performed in the outpatient setting which was significant for elevation in her INR. Recently she fell and reports rib pain secondary to this. She denies any abdominal pain. Of note the patient is a very poor historian. She has had Crohn's disease for approximately 10 years or less per her reports and has required a partial colectomy with subsequent reversal. In the past she has been on biologic therapy with Humira. Currently she was started on an oral agent after colonoscopy a few months ago was significant for active disease however was unable to tolerate the message and stopped it on her own. She reports she is been having 5-6 bowel movements daily. She denies any blood per rectum however on rectal exam in the ER blood was noted. On presentation WBC 3.6, hemoglobin 5.9 and platelet count 434,000. INR on presentation was 10. She has been given reversal agents. Review of Systems REVIEW OF SYSTEMS: CONSTITUTIONAL: Denies any fevers, chills, weight change or fatigue. CARDIOVASCULAR: Denies any chest pain, palpitations high or low blood pressures RESPIRATORY: Denies any shortness of breath, hemoptysis or cough. GENITOURINARY: No dysuria or hematuria. MUSCULOSKELETAL: No weakness reported, does have rib soreness status post mechanical fall. SKIN: Denies any new rashes or lesions, jaundice or pallor. PSYCHIATRIC: Denies any depression or anxiety. NEUROLOGY: Denies headache, denies any new focal deficits. EARS/NOSE/THROAT: No recent hearing change, congestion, nasal discharge or sore throat. EYES: No pain in eyes, discharge or change in vision. GASTROINTESTINAL: As per HPI. Past Medical History Past Medical History: Deep Vein Thrombosis (DVT) Additional Past Medical History / Comment(s): sinus allergies, diarrhea x1yr, blaine. DVT. heart murmur History of Any Multi-Drug Resistant Organisms: None Reported Past Surgical History: Bowel Resection, Section Additional Past Surgical History / Comment(s): bowel resection with colostomy and then colostomy reversal Past Anesthesia/Blood Transfusion Reactions: No Reported Reaction Past Psychological History: No Psychological Hx Reported Smoking Status: Current every day smoker Past Alcohol Use History: None Reported Past Drug Use History: None Reported - Past Family History Mother Family Medical History: No Reported History Medications and Allergies Home Medications Medication Instructions Recorded Confirmed Type Levothyroxine Sodium [Synthroid] 100 mcg PO DAILY 10/20/19 02/22/20 History Warfarin [Coumadin] 2.5 mg PO SUTUTHFR 10/20/19 02/22/20 History Warfarin [Coumadin] 3.75 mg PO MOWESA 10/20/19 02/22/20 History Allergies Allergy/AdvReac Type Severity Reaction Status Date / Time Sulfa (Sulfonamide Allergy Unknown Verified 02/22/20 11:40 Antibiotics) Physical Exam Vitals: Vital Signs Temp Pulse Resp BP Pulse Ox 02/22/20 14:00 96.5 F L 56 L 20 83/37 99 02/22/20 13:30 16 78/44 100 02/22/20 13:16 98.0 F 60 18 80/47 100 02/22/20 12:30 60 18 101/44 100 02/22/20 12:00 57 L 16 81/47 100 02/22/20 11:52 56 L 16 82/70 100 02/22/20 11:30 57 L 20 82/51 100 02/22/20 11:00 75 20 82/70 100 02/22/20 10:59 22 02/22/20 10:20 97.6 F 76 18 65/48 100 Intake and Output 02/21/20 02/22/20 02/22/20 22:59 06:59 14:59 Intake Total 100 Output Total 150 Balance -50 Intake: Intake, IV Titration 100 Amount Sodium Chloride 0.9% 1, 100 000 ml @ 999 mls/hr IV . Q1H1M STA Rx#:[id number] Output: Urine 150 Other: Weight 54.431 kg On physical examination, patient appears comfortable in no apparent distress. HEAD: Normocephalic, atraumatic. EYES: No scleral icterus. No conjunctival injection. MOUTH: No lesions, tongue midline. NECK: Trachea midline, no gross abnormalities. CHEST: Clear to auscultation with no wheezing or rhonchi appreciated. HEART: Regular rate and rhythm. ABDOMEN: Soft, obese. Bowel sounds are positive. No organomegaly. No guarding or rigidity. EXTREMITIES: No pedal edema. SKIN: No rashes, no jaundice. NEUROLOGIC: Alert and oriented x3. No focal deficits. Results CBC & Chem 7: 02/23/20 04:36 02/23/20 04:36 Labs: Abnormal Lab Results - Last 24 Hours (Table) 02/22/20 02/22/20 02/22/20 Range/Units 10:53 10:53 10:53 WBC (3.8-10.6) k/uL RBC (3.80-5.40) m/uL Hgb (11.4-16.0) gm/dL Hct (34.0-46.0) % Plt Count (150-450) k/uL Lymphocytes # (1.0-4.8) k/uL PT 127.1 H (9.0-12.0) sec INR >10.0 H* (<1.2) APTT 91.2 H (22.0-30.0) sec Sodium 129 L (137-145) mmol/L Potassium 2.6 L* (3.5-5.1) mmol/L Chloride 96 L (98-107) mmol/L Carbon Dioxide 21 L (22-30) mmol/L BUN 54 H (7-17) mg/dL Creatinine 1.60 H (0.52-1.04) mg/dL POC Glucose (mg/dL) (75-99) mg/dL Calcium 7.8 L (8.4-10.2) mg/dL Total Protein 5.8 L (6.3-8.2) g/dL Albumin 2.6 L (3.5-5.0) g/dL Stool Occult Blood (Negative) Crossmatch See Detail 02/22/20 02/22/20 02/22/20 Range/Units 11:04 11:07 12:38 WBC (3.8-10.6) k/uL RBC 2.77 L (3.80-5.40) m/uL Hgb 7.9 L (11.4-16.0) gm/dL Hct 24.6 L (34.0-46.0) % Plt Count 548 H (150-450) k/uL Lymphocytes # 0.6 L (1.0-4.8) k/uL PT (9.0-12.0) sec INR (<1.2) APTT (22.0-30.0) sec Sodium (137-145) mmol/L Potassium (3.5-5.1) mmol/L Chloride (98-107) mmol/L Carbon Dioxide (22-30) mmol/L BUN (7-17) mg/dL Creatinine (0.52-1.04) mg/dL POC Glucose (mg/dL) 73 L (75-99) mg/dL Calcium (8.4-10.2) mg/dL Total Protein (6.3-8.2) g/dL Albumin (3.5-5.0) g/dL Stool Occult Blood Positive H (Negative) Crossmatch 02/22/20 Range/Units 13:09 WBC 3.6 L (3.8-10.6) k/uL RBC 2.07 L (3.80-5.40) m/uL Hgb 5.9 L* D (11.4-16.0) gm/dL Hct 18.6 L* (34.0-46.0) % Plt Count (150-450) k/uL Lymphocytes # 0.6 L (1.0-4.8) k/uL PT (9.0-12.0) sec INR (<1.2) APTT (22.0-30.0) sec Sodium (137-145) mmol/L Potassium (3.5-5.1) mmol/L Chloride (98-107) mmol/L Carbon Dioxide (22-30) mmol/L BUN (7-17) mg/dL Creatinine (0.52-1.04) mg/dL POC Glucose (mg/dL) (75-99) mg/dL Calcium (8.4-10.2) mg/dL Total Protein (6.3-8.2) g/dL Albumin (3.5-5.0) g/dL Stool Occult Blood (Negative) Crossmatch Assessment and Plan (1) Crohn disease Narrative/Plan: 59-year-old female with a history of Crohn's disease requiring partial colectomy status post reversal in the past 2 presented due to elevated INR and was found to be anemic. Patient has active disease noted on colonoscopy recently and had been started on an oral agent however stopped this because she was unable to tolerate it. She denies any gross bleeding and his been having 5-6 bowel movements daily. She was scheduled for follow-up with the GI service. Current Visit: Yes Status: Acute Code(s): K50.90 - CROHN'S DISEASE, UNSPECIFIED, WITHOUT COMPLICATIONS SNOMED Code(s): 49164615 (2) Anemia associated with acute blood loss Current Visit: Yes Status: Acute Code(s): D62 - ACUTE POSTHEMORRHAGIC ANEMIA SNOMED Code(s): 327197257 (3) Elevated INR Current Visit: Yes Status: Acute Code(s): R79.1 - ABNORMAL COAGULATION PROFILE SNOMED Code(s): 470108527 Plan: Supportive care Okay for low fiber diet Solu-Medrol 20 every morning initiated Monitor for signs or symptoms of GI bleeding Patient underwent recent colonoscopy with evidence of active disease, no plan for endoscopic evaluation at this time with the patient denying any signs or symptoms of GI bleeding Continue to monitor CBC, CMP INR reversal agents given Patient will need follow-up with the GI service after discharge for optimization of medications Thank you for allowing us to participate in the care of the patient
[2020-02-23] MEDS: PANTOPRAZOLE 40 MG/10 ML VIAL IV SCH ×2 (08:08→20:14)
[2020-02-23] MEDS: NOREPINEPHRINE 4 MG in SODIUM CHLORIDE 0.9% 250 ML IV SCH (08:08)
[2020-02-23] MEDS ORDERED: PANTOPRAZOLE 40 MG/10 ML VIAL IV SCH (09:00)
--- NOTE | 2020-02-23 09:13 | P.PN ---
Subjective Progress Note Date: 02/23/20 Principal diagnosis: Anemia This is a pleasant 59-year-old female patient who follows with Dr. peacock as her primary care provider. She has a history of chronic and ongoing tobacco dependence, hypothyroidism, Crohn's disease with previous colectomy and subsequent reversal, previous DVT with thrombectomy at [facility] greater than 10 years ago. She has been maintained on warfarin since that time. She takes 2.5 mg on Thursday and 3.75 mg on Thursday and Thursday. She was found to have an elevated INR and directed here to the emergency room this morning for the same. She has been having some diarrhea and reports some dark stools but not too much unusual for her. She states she also had fallen 2 days ago with some right-sided rib pain. Her INR today is greater than 10 and her hemoglobin has dropped to 7.9 and she is also hypotensive. She has received 3 L of fluid resuscitation, 10 mg of vitamin K and IV Protonix. She is seen today in consultation in the emergency room. She is awake and alert in no acute distress. She is maintaining O2 saturation of 100% on room air. She is pale. No shortness of breath, no chest pain. Somewhat dizzy. Current blood pressure 80/47. She's afebrile. 0.9 normal saline at 130 MLS per hour. The patient is seen today 02/23/2020 in follow-up in the intensive care unit. She is currently awake and alert in no acute distress. She continues to maintain good O2 saturations up to 100% on room air. She's afebrile. She is bradycardic. She is continuing to require norepinephrine at 4.8 mcg/m. 0.9 normal saline at 125 ML's per hour. He did have a black tarry bowel movement this morning. White count 5.0. Hemoglobin 8.9. INR 3.2. Sodium 129. Potassium 4.3. Chloride 109. Bicarb 15. Creatinine 1.13. She had been seen and evaluated by GI services. She's been initiated on IV Solu-Medrol 20 mg every other day hours. Remains on IV Protonix. She had undergone EGD in 2019. There was evidence of mild gastritis. Small hiatal hernia. Moderate colitis of the cecum and left colon. No plans for repeat procedure at this time. She currently denies any abdominal discomfort. She is status post 2 units of packed red blood cells this admission thus far. Objective - Vital Signs Vital signs: Vital Signs Temp 97.8 F 02/23/20 08:00 Pulse 38 L 02/23/20 08:15 Resp 14 02/23/20 08:15 BP 100/63 02/23/20 08:15 Pulse Ox 100 02/23/20 08:15 Intake & Output 02/22/20 02/23/20 02/23/20 18:59 06:59 18:59 Intake Total 1610 2562.372 22.018 Output Total 350 920 Balance 1260 1642.372 22.018 Weight 54.431 kg 60.9 kg Intake: IV 0 1 Unit PRBC 310 Potassium Chloride 10 meq 100 In Water For Injection 1 100ml.bag @ 100 mls/hr IVPB Q1HR ELVIA Rx#: [id number] Sodium Chloride 0.9% 1, 1640 000 ml @ 130 mls/hr IV . Q7H42M STA Rx#:[id number] Intake, IV Titration 1300 202.372 22.018 Amount Norepinephrine 4 mg In 202.372 22.018 Sodium Chloride 0.9% 250 ml @ 0.05 MCG/KG/MIN 10. 369 mls/hr IV .Q24H ELVIA Rx#:[id number] Potassium Chloride 10 meq 200 In Water For Injection 1 100ml.bag @ 100 mls/hr IVPB Q1HR ELVIA Rx#: [id number] Sodium Chloride 0.9% 1, 1000 000 ml @ 999 mls/hr IV . Q1H1M ONE Rx#:[id number] Sodium Chloride 0.9% 1, 100 000 ml @ 999 mls/hr IV . Q1H1M STA Rx#:[id number] Blood Product 310 310 Rc As-3 Unit 0 310 [id number] Rc Pheresis As-3 Unit 310 [id number] Output: Urine 350 920 Other: Voiding Method Toilet Indwelling Catheter Bedside Commode # Voids 1 # Bowel Movements 1 - Exam GENERAL EXAM: Alert, pale, pleasant 59-year-old female, on room air, comfortable in no apparent distress. HEAD: Normocephalic. EYES: Normal reaction of pupils, equal size. NOSE: Clear with pink turbinates. THROAT: No erythema or exudates. NECK: No masses, no JVD. CHEST: No chest wall deformity. LUNGS: Equal air entry with no crackles, wheeze, rhonchi or dullness. CVS: S1 and S2 normal with no audible murmur, regular rhythm. ABDOMEN: No hepatosplenomegaly, normal bowel sounds, no guarding or rigidity. SPINE: No scoliosis or deformity SKIN: No rashes CENTRAL NERVOUS SYSTEM: No focal deficits, tone is normal in all 4 extremities. EXTREMITIES: There is no peripheral edema. No clubbing, no cyanosis. Peripheral pulses are intact. - Labs CBC & Chem 7: 02/23/20 04:36 02/23/20 04:36 Labs: Abnormal Lab Results - Last 24 Hours (Table) 02/22/20 02/22/20 02/22/20 Range/Units 10:53 10:53 10:53 WBC (3.8-10.6) k/uL RBC (3.80-5.40) m/uL Hgb (11.4-16.0) gm/dL Hct (34.0-46.0) % MCHC (31.0-37.0) g/dL Plt Count (150-450) k/uL Lymphocytes # (1.0-4.8) k/uL ESR (0-20) mm/hr PT 127.1 H (9.0-12.0) sec INR >10.0 H* (<1.2) APTT 91.2 H (22.0-30.0) sec Sodium 129 L (137-145) mmol/L Potassium 2.6 L* (3.5-5.1) mmol/L Chloride 96 L (98-107) mmol/L Carbon Dioxide 21 L (22-30) mmol/L BUN 54 H (7-17) mg/dL Creatinine 1.60 H (0.52-1.04) mg/dL Glucose (74-99) mg/dL POC Glucose (mg/dL) (75-99) mg/dL Calcium 7.8 L (8.4-10.2) mg/dL C-Reactive Protein (<10.0) mg/L Total Protein 5.8 L (6.3-8.2) g/dL Albumin 2.6 L (3.5-5.0) g/dL Urine Protein (Negative) Stool Occult Blood (Negative) Crossmatch See Detail 02/22/20 02/22/20 02/22/20 Range/Units 11:04 11:07 12:38 WBC (3.8-10.6) k/uL RBC 2.77 L (3.80-5.40) m/uL Hgb 7.9 L (11.4-16.0) gm/dL Hct 24.6 L (34.0-46.0) % MCHC (31.0-37.0) g/dL Plt Count 548 H (150-450) k/uL Lymphocytes # 0.6 L (1.0-4.8) k/uL ESR (0-20) mm/hr PT (9.0-12.0) sec INR (<1.2) APTT (22.0-30.0) sec Sodium (137-145) mmol/L Potassium (3.5-5.1) mmol/L Chloride (98-107) mmol/L Carbon Dioxide (22-30) mmol/L BUN (7-17) mg/dL Creatinine (0.52-1.04) mg/dL Glucose (74-99) mg/dL POC Glucose (mg/dL) 73 L (75-99) mg/dL Calcium (8.4-10.2) mg/dL C-Reactive Protein (<10.0) mg/L Total Protein (6.3-8.2) g/dL Albumin (3.5-5.0) g/dL Urine Protein (Negative) Stool Occult Blood Positive H (Negative) Crossmatch 02/22/20 02/22/20 02/23/20 Range/Units 13:09 21:45 00:59 WBC 3.6 L 3.0 L (3.8-10.6) k/uL RBC 2.07 L 3.03 L (3.80-5.40) m/uL Hgb 5.9 L* D 9.1 L D (11.4-16.0) gm/dL Hct 18.6 L* 28.1 L (34.0-46.0) % MCHC (31.0-37.0) g/dL Plt Count (150-450) k/uL Lymphocytes # 0.6 L (1.0-4.8) k/uL ESR (0-20) mm/hr PT (9.0-12.0) sec INR (<1.2) APTT (22.0-30.0) sec Sodium (137-145) mmol/L Potassium (3.5-5.1) mmol/L Chloride (98-107) mmol/L Carbon Dioxide (22-30) mmol/L BUN (7-17) mg/dL Creatinine (0.52-1.04) mg/dL Glucose (74-99) mg/dL POC Glucose (mg/dL) (75-99) mg/dL Calcium (8.4-10.2) mg/dL C-Reactive Protein (<10.0) mg/L Total Protein (6.3-8.2) g/dL Albumin (3.5-5.0) g/dL Urine Protein Trace H (Negative) Stool Occult Blood (Negative) Crossmatch 02/23/20 02/23/20 02/23/20 Range/Units 01:01 04:36 04:36 WBC (3.8-10.6) k/uL RBC 3.20 L (3.80-5.40) m/uL Hgb 8.9 L (11.4-16.0) gm/dL Hct 29.3 L (34.0-46.0) % MCHC 30.5 L (31.0-37.0) g/dL Plt Count 514 H (150-450) k/uL Lymphocytes # 0.3 L (1.0-4.8) k/uL ESR 50 H (0-20) mm/hr PT (9.0-12.0) sec INR (<1.2) APTT (22.0-30.0) sec Sodium 129 L (137-145) mmol/L Potassium 3.4 L (3.5-5.1) mmol/L Chloride 109 H (98-107) mmol/L Carbon Dioxide 15 L (22-30) mmol/L BUN 35 H (7-17) mg/dL Creatinine 1.13 H (0.52-1.04) mg/dL Glucose 107 H (74-99) mg/dL POC Glucose (mg/dL) (75-99) mg/dL Calcium 7.1 L (8.4-10.2) mg/dL C-Reactive Protein 63.2 H (<10.0) mg/L Total Protein (6.3-8.2) g/dL Albumin (3.5-5.0) g/dL Urine Protein (Negative) Stool Occult Blood (Negative) Crossmatch 02/23/20 Range/Units 04:36 WBC (3.8-10.6) k/uL RBC (3.80-5.40) m/uL Hgb (11.4-16.0) gm/dL Hct (34.0-46.0) % MCHC (31.0-37.0) g/dL Plt Count (150-450) k/uL Lymphocytes # (1.0-4.8) k/uL ESR (0-20) mm/hr PT 31.7 H (9.0-12.0) sec INR 3.2 H (<1.2) APTT (22.0-30.0) sec Sodium (137-145) mmol/L Potassium (3.5-5.1) mmol/L Chloride (98-107) mmol/L Carbon Dioxide (22-30) mmol/L BUN (7-17) mg/dL Creatinine (0.52-1.04) mg/dL Glucose (74-99) mg/dL POC Glucose (mg/dL) (75-99) mg/dL Calcium (8.4-10.2) mg/dL C-Reactive Protein (<10.0) mg/L Total Protein (6.3-8.2) g/dL Albumin (3.5-5.0) g/dL Urine Protein (Negative) Stool Occult Blood (Negative) Crossmatch Assessment and Plan Assessment: 1 Coagulopathy with an INR of greater than 10 and the patient is on chronic warfarin for previous history of DVT, current INR 3.2 2 Previous history of lower extremity DVT with thrombectomy over 10 years ago at [facility], bilateral doppler pending today 3 Anemia secondary to above, stool for occult blood positive and is status post 2 units of packed red blood cells. Current hemoglobin 8.9 4 Hypotension secondary to above, currently on norepinephrine 5 Hyponatremia with sodium 129 6 Acute renal failure improving. Current creatinine 1.13 7 History of Crohn's disease 8 History of colectomy with subsequent reversal 9 Hypothyroidism 10 History of chronic tobacco dependence Plan: The patient was seen and evaluated by Dr. Julio Titrate down the norepinephrine as tolerated Continue Protonix Replace electrolytes Continue to monitor hemoglobin GI consult appreciated We'll continue to follow and make further recommendations based on her clinical status I, the cosigning physician, performed a history & physical examination of the patient. Lungs sounds are clear. Maintaining good O2 saturations in the 90s on room air. I discussed the assessment and plan of care with my nurse practitioner, Justine Ochoa. I attest to the above note as dictated by her.
--- NOTE | 2020-02-23 10:42 | US ---
EXAMINATION TYPE: US venous doppler duplex LE DATE OF EXAM: 02/23/2020 9:02 AM COMPARISON: US 2013 CLINICAL HISTORY: rule out DVT. Bilateral leg pain, history of DVT, patient on blood thinners SIDE PERFORMED: Bilateral TECHNIQUE: The lower extremity deep venous system is examined utilizing real time linear array sonog kye with graded compression, doppler sonography and color-flow sonography. VESSELS IMAGED: External Iliac Vein (EIV) Common Femoral Vein Deep Femoral Vein Greater Saphenous Vein * Femoral Vein Popliteal Vein Small Saphenous Vein * Proximal Calf Veins (* superficial vessels) There is normal flow, compressibility, vascular waveforms. Right Leg: Appears negative for DVT Left Leg: Appears negative for DVT IMPRESSION: No evident deep venous thrombosis at or above the knees.
--- NOTE | 2020-02-23 14:30 | CDI ---
Dear Dr. Marcell Aguilar: Your patient has the documented diagnosis of Crohn's disease and Coagulopathy on chronic Coumadin for history of DVTs & history of Crohns disease status post partial colectomy and reversal, per your History & Physical dated 02/21. A relationship between diagnoses cannot be assumed unless documented as such by the attending physician. In order to capture the severity of condition; please document the relationship, if any, between these diagnoses. 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 Clinical Indicators: Patient presented to the ED on 02/21 with rectal bleeding, elevated INR & weakness. Diagnosed with Rectal bleeding with anemia (acute blood loss anemia per GI Consult), Coagulopathy w/INR >10, History of Crohn's disease, History of DVT >10 years ago on [facility] Coumadin. VS 02/21: P 76 - 57*, R 18-22 (sob), BP 65/48 LAB: Hgb 7.9 - 5.9, Hct 24.6* - 18.6, Pl Ct 548^, PT 127.1^, INR >10.0^^, APTT 91.2^, Na 129*, K 2.6. Stool occult blood: Positive. C Diff: Negative Treatment: IV fluid 1,000 mls @ 999/hr x3, IV fluid 1,00 mls @ 130 mls/hr, IV Protonix, po Vit K, IV Kcl, IV Solumedrol, IV Norepinephrine Bitartrate, IV fluid 1,000 @125 mls/hr. Transfused 2 units PRBCs 02/21. GI Consult: Crohn's disease, Anemia associated with acute blood loss, Elevated INR Pulm/Critical Care Consult: Coagulopathy w/INR >10, Anemia sec to above, stool for occult blood positive. Please clarify and document your clinical opinion in the progress notes and discharge summary if any relationship exists between these diagnoses. Please include clinical findings supporting your diagnosis. Crohn's Disease with rectal bleeding Chron's Disease without rectal bleeding Coagulopathy due to [facility] Coumadin (Hemorrhagic disorder due to circulating anticoagulants) Coagulopathy not due to [facility] Coumadin (Hemorrhagic disorder due to circulating anticoagulants) Other explanation of clinical findings (please specify) Unable to determine (no explanation for clinical findings) (Last Revision: June 2017) Coagulopathy de to lng term coumadin MTDD
[2020-02-24] MEDS: NOREPINEPHRINE 4 MG in SODIUM CHLORIDE 0.9% 250 ML IV SCH (01:15)
[2020-02-24] MEDS: SODIUM CHLORIDE 0.9% 1,000 ML IV SCH ×2 (02:33→02:34)
[2020-02-24] MEDS: LEVOTHYROXINE 100 MCG TAB PO SCH ×2 (03:14→03:36)
[2020-02-24 05:07] LABS: Basophils % (A) 0 %; Eosinophils % (A) 1 %; HCT 26.8 % (34.0-46.0); HGB 8.5 gm/dL (11.4-16.0); Hypochromasia Moderate; Lymphocytes # (A) 0.4 k/uL (1.0-4.8); Lymphocytes % (A) 11 %; MCH 29.7 pg (25.0-35.0); MCHC 31.9 g/dL (31.0-37.0); MCV 93.2 fL (80.0-100.0); Mean Platelet Volume 7.2; Monocytes # (A) 0.1 k/uL (0-1.0); Monocytes % (A) 3 %; Neutrophils # (A) 2.9 k/uL (1.3-7.7); Neutrophils % (A) 85 %; Platelet Count 437 k/uL (150-450); RBC 2.88 m/uL (3.80-5.40); RDW 14.6 % (11.5-15.5); WBC 3.4 k/uL (3.8-10.6)
[2020-02-24 05:17] LABS: Prothrombin Time 29.6 sec (9.0-12.0)
[2020-02-24 05:24] LABS: C Reactive Protein 32.6 mg/L (<10.0); Calcium 7.5 mg/dL (8.4-10.2); Total Bilirubin 0.2 mg/dL (0.2-1.3)
[2020-02-24 05:33] LABS: Albumin 2.1 g/dL (3.5-5.0); Potassium 4.2 mmol/L (3.5-5.1)
--- NOTE | 2020-02-24 05:52 | P.PN ---
Subjective Progress Note Date: 02/23/20 Principal diagnosis: Crohn's disease, anemia associated with acute blood loss The patient is seen lying in bed today reporting 2 bowel movements this morning. No signs or symptoms of GI bleeding. No nausea or vomiting. No abdominal pain reported. Objective - Vital Signs Vital signs: Vital Signs Temp 97.7 F 02/23/20 12:00 Pulse 56 L 02/23/20 12:15 Resp 17 02/23/20 12:15 BP 108/62 02/23/20 12:15 Pulse Ox 85 L 02/23/20 12:15 Intake & Output 02/22/20 02/23/20 02/23/20 18:59 06:59 18:59 Intake Total 1610 2562.372 703.599 Output Total 350 920 220 Balance 1260 1642.372 483.599 Weight 54.431 kg 60.9 kg Intake: IV 0 1 Unit PRBC 310 Potassium Chloride 10 meq 100 In Water For Injection 1 100ml.bag @ 100 mls/hr IVPB Q1HR [facility] Rx#: [id number] Sodium Chloride 0.9% 1, 1640 000 ml @ 130 mls/hr IV . Q7H42M STA Rx#:[id number] Intake, IV Titration 1300 202.372 703.599 Amount Norepinephrine 4 mg In 202.372 78.599 Sodium Chloride 0.9% 250 ml @ 0.05 MCG/KG/MIN 10. 369 mls/hr IV .Q24H [facility] Rx#:[id number] Potassium Chloride 10 meq 200 In Water For Injection 1 100ml.bag @ 100 mls/hr IVPB Q1HR [facility] Rx#: [id number] Sodium Chloride 0.9% 1, 625 000 ml @ 125 mls/hr IV . Q8H [facility] Rx#:[id number] Sodium Chloride 0.9% 1, 1000 000 ml @ 999 mls/hr IV . Q1H1M ONE Rx#:[id number] Sodium Chloride 0.9% 1, 100 000 ml @ 999 mls/hr IV . Q1H1M STA Rx#:[id number] Blood Product 310 310 Rc As-3 Unit 0 310 [id number] Rc Pheresis As-3 Unit 310 [id number] Output: Urine 350 920 220 Other: Voiding Method Toilet Indwelling Catheter Indwelling Catheter Bedside Commode # Voids 1 # Bowel Movements 1 1 - Exam On physical examination, patient appears comfortable in no apparent distress. HEAD: Normocephalic, atraumatic. EYES: No scleral icterus. No conjunctival injection. MOUTH: No lesions, tongue midline. NECK: Trachea midline, no gross abnormalities. ABDOMEN: Soft, nontender to palpation. Bowel sounds are positive. No organomegaly. No guarding or rigidity. EXTREMITIES: No pedal edema. SKIN: No rashes, no jaundice. NEUROLOGIC: Alert and oriented x3. No focal deficits. - Labs CBC & Chem 7: 02/24/20 04:40 02/24/20 04:40 Labs: Abnormal Lab Results - Last 24 Hours (Table) 02/22/20 02/22/20 02/22/20 Range/Units 10:53 13:09 21:45 WBC 3.6 L 3.0 L (3.8-10.6) k/uL RBC 2.07 L 3.03 L (3.80-5.40) m/uL Hgb 5.9 L* D 9.1 L D (11.4-16.0) gm/dL Hct 18.6 L* 28.1 L (34.0-46.0) % MCHC (31.0-37.0) g/dL Plt Count (150-450) k/uL Lymphocytes # 0.6 L (1.0-4.8) k/uL ESR (0-20) mm/hr PT (9.0-12.0) sec INR (<1.2) Sodium (137-145) mmol/L Potassium (3.5-5.1) mmol/L Chloride (98-107) mmol/L Carbon Dioxide (22-30) mmol/L BUN (7-17) mg/dL Creatinine (0.52-1.04) mg/dL Glucose (74-99) mg/dL Calcium (8.4-10.2) mg/dL C-Reactive Protein (<10.0) mg/L Urine Protein (Negative) Crossmatch See Detail 02/23/20 02/23/20 02/23/20 Range/Units 00:59 01:01 04:36 WBC (3.8-10.6) k/uL RBC 3.20 L (3.80-5.40) m/uL Hgb 8.9 L (11.4-16.0) gm/dL Hct 29.3 L (34.0-46.0) % MCHC 30.5 L (31.0-37.0) g/dL Plt Count 514 H (150-450) k/uL Lymphocytes # 0.3 L (1.0-4.8) k/uL ESR 50 H (0-20) mm/hr PT (9.0-12.0) sec INR (<1.2) Sodium (137-145) mmol/L Potassium 3.4 L (3.5-5.1) mmol/L Chloride (98-107) mmol/L Carbon Dioxide (22-30) mmol/L BUN (7-17) mg/dL Creatinine (0.52-1.04) mg/dL Glucose (74-99) mg/dL Calcium (8.4-10.2) mg/dL C-Reactive Protein (<10.0) mg/L Urine Protein Trace H (Negative) Crossmatch 02/23/20 02/23/20 Range/Units 04:36 04:36 WBC (3.8-10.6) k/uL RBC (3.80-5.40) m/uL Hgb (11.4-16.0) gm/dL Hct (34.0-46.0) % MCHC (31.0-37.0) g/dL Plt Count (150-450) k/uL Lymphocytes # (1.0-4.8) k/uL ESR (0-20) mm/hr PT 31.7 H (9.0-12.0) sec INR 3.2 H (<1.2) Sodium 129 L (137-145) mmol/L Potassium (3.5-5.1) mmol/L Chloride 109 H (98-107) mmol/L Carbon Dioxide 15 L (22-30) mmol/L BUN 35 H (7-17) mg/dL Creatinine 1.13 H (0.52-1.04) mg/dL Glucose 107 H (74-99) mg/dL Calcium 7.1 L (8.4-10.2) mg/dL C-Reactive Protein 63.2 H (<10.0) mg/L Urine Protein (Negative) Crossmatch Assessment and Plan (1) Crohn disease Narrative/Plan: 59-year-old female with a history of Crohn's disease requiring partial colectomy status post reversal in the past 2 presented due to elevated INR and was found to be anemic. Patient has active disease noted on colonoscopy recently and had been started on an oral agent however stopped this because she was unable to tolerate it. She denies any gross bleeding and his been having 5-6 bowel movements daily. She was scheduled for follow-up with the GI service. Yobani carbajal patient has been initiated on steroid therapy with improvement in symptoms. Current Visit: Yes Status: Acute Code(s): K50.90 - CROHN'S DISEASE, UNSPECIFIED, WITHOUT COMPLICATIONS SNOMED Code(s): 89593320 (2) Anemia associated with acute blood loss Current Visit: Yes Status: Acute Code(s): D62 - ACUTE POSTHEMORRHAGIC ANEMIA SNOMED Code(s): 413611578 (3) Elevated INR Current Visit: Yes Status: Acute Code(s): R79.1 - ABNORMAL COAGULATION PROFILE SNOMED Code(s): 337495025 Plan: Supportive care Okay for low fiber diet Solu-Medrol 20 every 8 hours Monitor for signs or symptoms of GI bleeding Patient underwent recent colonoscopy with evidence of active disease, no plan for endoscopic evaluation at this time with the patient denying any signs or symptoms of GI bleeding Continue to monitor CBC, CMP Patient will need follow-up with the GI service after discharge for optimization of medications Thank you for allowing us to participate in the care of the patient
[2020-02-24 05:59] LABS: Erythrocyte Sedimentation Rate 44 mm/hr (0-20)
[2020-02-24] MEDS: methylPREDNISolone SOD SUCCI 40 MG/ML 1 ML VIAL IV SCH ×3 (07:58→23:58)
[2020-02-24] MEDS: PANTOPRAZOLE 40 MG/10 ML VIAL IV SCH ×2 (07:59→22:22)
--- NOTE | 2020-02-24 08:25 | P.PN ---
Subjective Progress Note Date: 02/24/20 Principal diagnosis: Anemia This is a pleasant 59-year-old female patient who follows with Dr. peacock as her primary care provider. She has a history of chronic and ongoing tobacco dependence, hypothyroidism, Crohn's disease with previous colectomy and subsequent reversal, previous DVT with thrombectomy at [facility] greater than 10 years ago. She has been maintained on warfarin since that time. She takes 2.5 mg on Thursday and 3.75 mg on Thursday and Thursday. She was found to have an elevated INR and directed here to the emergency room this morning for the same. She has been having some diarrhea and reports some dark stools but not too much unusual for her. She states she also had fallen 2 days ago with some right-sided rib pain. Her INR today is greater than 10 and her hemoglobin has dropped to 7.9 and she is also hypotensive. She has received 3 L of fluid resuscitation, 10 mg of vitamin K and IV Protonix. She is seen today in consultation in the emergency room. She is awake and alert in no acute distress. She is maintaining O2 saturation of 100% on room air. She is pale. No shortness of breath, no chest pain. Somewhat dizzy. Current blood pressure 80/47. She's afebrile. 0.9 normal saline at 130 MLS per hour. The patient is seen today 02/23/2020 in follow-up in the intensive care unit. She is currently awake and alert in no acute distress. She continues to maintain good O2 saturations up to 100% on room air. She's afebrile. She is bradycardic. She is continuing to require norepinephrine at 4.8 mcg/m. 0.9 normal saline at 125 ML's per hour. He did have a black tarry bowel movement this morning. White count 5.0. Hemoglobin 8.9. INR 3.2. Sodium 129. Potassium 4.3. Chloride 109. Bicarb 15. Creatinine 1.13. She had been seen and evaluated by GI services. She's been initiated on IV Solu-Medrol 20 mg every other day hours. Remains on IV Protonix. She had undergone EGD in 2019. There was evidence of mild gastritis. Small hiatal hernia. Moderate colitis of the cecum and left colon. No plans for repeat procedure at this time. She currently denies any abdominal discomfort. She is status post 2 units of packed red blood cells this admission thus far. The patient is seen today 02/24/2020 follow-up in the intensive care unit. She is currently sitting up in a chair at the bedside. Awake and alert in no acute distress. He is maintaining O2 saturation in the 90s on room air. She is 0.9 normal sinus 125 ML's per hour. She is still requiring norepinephrine currently at 1.3 mcg/m. Dopplers of the lower extremity were negative. INR 3.0. She did have issues with bradycardia yesterday. Synthroid has been resumed. White count 3.4. Hemoglobin 8.5. Sodium 134. Potassium 4.2. Bicarb 16. Creatinine 1.00. ESR 44. C-reactive protein 32.6. Stools remain dark and tarry. She's on IV Solu-Medrol, Protonix 40 mg IV every 12 hours. Objective - Vital Signs Vital signs: Vital Signs Temp 97.5 F L 02/24/20 04:00 Pulse 43 L 02/24/20 07:00 Resp 16 02/24/20 07:00 BP 82/57 02/24/20 07:00 Pulse Ox 98 02/24/20 07:00 Intake & Output 02/23/20 02/24/20 02/24/20 18:59 06:59 18:59 Intake Total 2330.545 4228.198 125 Output Total 465 537 47 Balance 134.698 9481.198 78 Weight 65.1 kg Intake: IV 1375 125 Sodium Chloride 0.9% 1, 1375 125 000 ml @ 125 mls/hr IV . Q8H [facility] Rx#:[id number] Intake, IV Titration 1453.599 342.198 0 Amount Norepinephrine 4 mg In 78.599 217.198 0 Sodium Chloride 0.9% 250 ml @ 0.05 MCG/KG/MIN 10. 369 mls/hr IV .Q24H [facility] Rx#:[id number] Sodium Chloride 0.9% 1, 1375 125 000 ml @ 125 mls/hr IV . Q8H [facility] Rx#:[id number] Output: Urine 465 537 47 Other: Voiding Method Indwelling Catheter Indwelling Catheter # Bowel Movements 1 1 - Exam GENERAL EXAM: Alert, pale, pleasant 59-year-old female, on room air, comfortable in no apparent distress. HEAD: Normocephalic. EYES: Normal reaction of pupils, equal size. NOSE: Clear with pink turbinates. THROAT: No erythema or exudates. NECK: No masses, no JVD. CHEST: No chest wall deformity. LUNGS: Equal air entry with no crackles, wheeze, rhonchi or dullness. CVS: S1 and S2 normal with no audible murmur, regular rhythm. ABDOMEN: No hepatosplenomegaly, normal bowel sounds, no guarding or rigidity. SPINE: No scoliosis or deformity SKIN: No rashes CENTRAL NERVOUS SYSTEM: No focal deficits, tone is normal in all 4 extremities. EXTREMITIES: There is no peripheral edema. No clubbing, no cyanosis. Peripheral pulses are intact. - Labs CBC & Chem 7: 02/24/20 04:40 02/24/20 04:40 Labs: Abnormal Lab Results - Last 24 Hours (Table) 02/22/20 02/24/20 02/24/20 Range/Units 10:53 04:40 04:40 WBC 3.4 L (3.8-10.6) k/uL RBC 2.88 L (3.80-5.40) m/uL Hgb 8.5 L (11.4-16.0) gm/dL Hct 26.8 L (34.0-46.0) % Lymphocytes # 0.4 L (1.0-4.8) k/uL ESR 44 H (0-20) mm/hr PT 29.6 H (9.0-12.0) sec INR 3.0 H (<1.2) Sodium (137-145) mmol/L Chloride (98-107) mmol/L Carbon Dioxide (22-30) mmol/L BUN (7-17) mg/dL Glucose (74-99) mg/dL Calcium (8.4-10.2) mg/dL AST (14-36) U/L C-Reactive Protein (<10.0) mg/L Total Protein (6.3-8.2) g/dL Albumin (3.5-5.0) g/dL Crossmatch See Detail 02/24/20 Range/Units 04:40 WBC (3.8-10.6) k/uL RBC (3.80-5.40) m/uL Hgb (11.4-16.0) gm/dL Hct (34.0-46.0) % Lymphocytes # (1.0-4.8) k/uL ESR (0-20) mm/hr PT (9.0-12.0) sec INR (<1.2) Sodium 134 L (137-145) mmol/L Chloride 112 H (98-107) mmol/L Carbon Dioxide 16 L (22-30) mmol/L BUN 30 H (7-17) mg/dL Glucose 107 H (74-99) mg/dL Calcium 7.5 L (8.4-10.2) mg/dL AST 12 L (14-36) U/L C-Reactive Protein 32.6 H (<10.0) mg/L Total Protein 5.0 L (6.3-8.2) g/dL Albumin 2.1 L (3.5-5.0) g/dL Crossmatch Assessment and Plan Assessment: 1 Coagulopathy with an INR of greater than 10 and the patient is on chronic warfarin for previous history of DVT, current INR 3.0 2 Previous history of lower extremity DVT with thrombectomy over 10 years ago at [facility], bilateral doppler revealed no evidence of DVT currently 3 Anemia secondary to above, stool for occult blood positive and is status post 2 units of packed red blood cells. Current hemoglobin 8.5 4 Hypotension secondary to above, currently on norepinephrine 5 Hyponatremia with sodium 134, improved 6 Acute renal failure improving. Current creatinine 1.00 7 History of Crohn's disease 8 History of colectomy with subsequent reversal 9 Hypothyroidism 10 History of chronic tobacco dependence 11 Non-anion gap metabolic acidosis sodium corrected to 134, chloride 112, bicarbonate 16 Plan: The patient was seen and evaluated by Dr. Julio Titrate down and off the norepinephrine if tolerated Continue Protonix Discontinue 0.9 normal saline and change to 0.45 normal saline at 40 ML's per hour Continue to monitor hemoglobin We'll continue to follow and make further recommendations based on her clinical status I, the cosigning physician, performed a history & physical examination of the patient. Lungs sounds are clear. Maintaining good O2 saturations in the 90s on room air. I discussed the assessment and plan of care with my nurse practitioner, Justine Ochoa. I attest to the above note as dictated by her.
[2020-02-24] MEDS: SODIUM CHLORIDE 0.45% 1,000 ML IV SCH (09:25)
--- NOTE | 2020-02-24 13:34 | P.PN ---
Subjective Progress Note Date: 02/23/20 Jacquie Chowdhury, is a 59-year-old female patient of Dr. Ornelas with known history of Crohn's disease with previous colectomy and subsequent reversal, and history of DVT 10 years ago maintained on Coumadin. Who presented to [facility] emergency room with a chief complaint of rectal bleeding, patient stated that she was having small amount of blood per rectum she thought it was related to her hemorrhoids she was evaluated in the emergency room and was found to have an elevated INR She states she also had fallen 2 days ago with some right-sided rib pain. Her INR today is greater than 10 and her hemoglobin has dropped to 7.9 and she is also hypotensive. She has received 3 L of fluid resuscitation, 10 mg of vitamin K and IV Protonix. Patient was admitted to intensive care unit critical care consultation and gastroenterology consultation were requested. Patient was seen and examined in ICU she is alert and oriented in no apparent distress she looks pale she is complaining of mild dizziness otherwise she denies any complaints there is no fever or chills no headache or dizziness no chest pain no shortness of breath no cough no nausea or vomiting no abdominal pain no diarrhea no burning was urination no frequency or urgency no hematuria. On 02/23/2020 patient is alert and oriented in no apparent distress she remains in ICU she received 2 units of red blood cell transfusion hemoglobin is 8.9 INR 3.2 patient is denying any obvious bleeding at this time she denying any nausea vomiting abdominal pain or diarrhea there is no fever or chills no headache or dizziness no chest pain no shortness of breath no cough and no urinary symptoms, she remains on IV fluid and pressure support and ICU. GI input reviewed no plans for repeat endoscopy at this time. Objective - Vital Signs Vital signs: Vital Signs Temp 97.8 F 02/23/20 08:00 Pulse 46 L 02/23/20 09:30 Resp 18 02/23/20 09:30 BP 95/71 02/23/20 09:30 Pulse Ox 99 02/23/20 09:30 Intake & Output 02/22/20 02/23/20 02/23/20 18:59 06:59 18:59 Intake Total 1610 2562.372 22.018 Output Total 350 920 Balance 1260 1642.372 22.018 Weight 54.431 kg 60.9 kg Intake: IV 2050 1 Unit PRBC 310 Potassium Chloride 10 meq 100 In Water For Injection 1 100ml.bag @ 100 mls/hr IVPB Q1HR [facility] Rx#: [id number] Sodium Chloride 0.9% 1, 1640 000 ml @ 130 mls/hr IV . Q7H42M STA Rx#:[id number] Intake, IV Titration 1300 202.372 22.018 Amount Norepinephrine 4 mg In 202.372 22.018 Sodium Chloride 0.9% 250 ml @ 0.05 MCG/KG/MIN 10. 369 mls/hr IV .Q24H [facility] Rx#:[id number] Potassium Chloride 10 meq 200 In Water For Injection 1 100ml.bag @ 100 mls/hr IVPB Q1HR [facility] Rx#: [id number] Sodium Chloride 0.9% 1, 1000 000 ml @ 999 mls/hr IV . Q1H1M ONE Rx#:[id number] Sodium Chloride 0.9% 1, 100 000 ml @ 999 mls/hr IV . Q1H1M STA Rx#:[id number] Blood Product 310 310 Rc As-3 Unit 0 310 [id number] Rc Pheresis As-3 Unit 310 [id number] Output: Urine 350 920 Other: Voiding Method Toilet Indwelling Catheter Indwelling Catheter Bedside Commode # Voids 1 # Bowel Movements 1 - Exam In general patient is alert and oriented 3 in no apparent distress HEENT head normocephalic and atraumatic, pale otherwise normal Neck is supple no JVD no goiter no lymphadenopathy Chest exam is clear to auscultation no crackles no wheezing there is tenderness with palpation over the lower right sided ribs Cardiac exam reveals regular heart sounds S1 and S2 no gallops no murmurs Abdomen is soft nontender no organomegaly with normal bowel sounds Extremity exam reveals no edema no cyanosis or clubbing Neurological examination reveals no gross focal deficit - Labs CBC & Chem 7: 02/23/20 04:36 02/23/20 04:36 Labs: Abnormal Lab Results - Last 24 Hours (Table) 02/22/20 02/22/20 02/22/20 Range/Units 10:53 10:53 10:53 WBC (3.8-10.6) k/uL RBC (3.80-5.40) m/uL Hgb (11.4-16.0) gm/dL Hct (34.0-46.0) % MCHC (31.0-37.0) g/dL Plt Count (150-450) k/uL Lymphocytes # (1.0-4.8) k/uL ESR (0-20) mm/hr PT 127.1 H (9.0-12.0) sec INR >10.0 H* (<1.2) APTT 91.2 H (22.0-30.0) sec Sodium 129 L (137-145) mmol/L Potassium 2.6 L* (3.5-5.1) mmol/L Chloride 96 L (98-107) mmol/L Carbon Dioxide 21 L (22-30) mmol/L BUN 54 H (7-17) mg/dL Creatinine 1.60 H (0.52-1.04) mg/dL Glucose (74-99) mg/dL POC Glucose (mg/dL) (75-99) mg/dL Calcium 7.8 L (8.4-10.2) mg/dL C-Reactive Protein (<10.0) mg/L Total Protein 5.8 L (6.3-8.2) g/dL Albumin 2.6 L (3.5-5.0) g/dL Urine Protein (Negative) Stool Occult Blood (Negative) Crossmatch See Detail 02/22/20 02/22/20 02/22/20 Range/Units 11:04 11:07 12:38 WBC (3.8-10.6) k/uL RBC 2.77 L (3.80-5.40) m/uL Hgb 7.9 L (11.4-16.0) gm/dL Hct 24.6 L (34.0-46.0) % MCHC (31.0-37.0) g/dL Plt Count 548 H (150-450) k/uL Lymphocytes # 0.6 L (1.0-4.8) k/uL ESR (0-20) mm/hr PT (9.0-12.0) sec INR (<1.2) APTT (22.0-30.0) sec Sodium (137-145) mmol/L Potassium (3.5-5.1) mmol/L Chloride (98-107) mmol/L Carbon Dioxide (22-30) mmol/L BUN (7-17) mg/dL Creatinine (0.52-1.04) mg/dL Glucose (74-99) mg/dL POC Glucose (mg/dL) 73 L (75-99) mg/dL Calcium (8.4-10.2) mg/dL C-Reactive Protein (<10.0) mg/L Total Protein (6.3-8.2) g/dL Albumin (3.5-5.0) g/dL Urine Protein (Negative) Stool Occult Blood Positive H (Negative) Crossmatch 02/22/20 02/22/20 02/23/20 Range/Units 13:09 21:45 00:59 WBC 3.6 L 3.0 L (3.8-10.6) k/uL RBC 2.07 L 3.03 L (3.80-5.40) m/uL Hgb 5.9 L* D 9.1 L D (11.4-16.0) gm/dL Hct 18.6 L* 28.1 L (34.0-46.0) % MCHC (31.0-37.0) g/dL Plt Count (150-450) k/uL Lymphocytes # 0.6 L (1.0-4.8) k/uL ESR (0-20) mm/hr PT (9.0-12.0) sec INR (<1.2) APTT (22.0-30.0) sec Sodium (137-145) mmol/L Potassium (3.5-5.1) mmol/L Chloride (98-107) mmol/L Carbon Dioxide (22-30) mmol/L BUN (7-17) mg/dL Creatinine (0.52-1.04) mg/dL Glucose (74-99) mg/dL POC Glucose (mg/dL) (75-99) mg/dL Calcium (8.4-10.2) mg/dL C-Reactive Protein (<10.0) mg/L Total Protein (6.3-8.2) g/dL Albumin (3.5-5.0) g/dL Urine Protein Trace H (Negative) Stool Occult Blood (Negative) Crossmatch 02/23/20 02/23/20 02/23/20 Range/Units 01:01 04:36 04:36 WBC (3.8-10.6) k/uL RBC 3.20 L (3.80-5.40) m/uL Hgb 8.9 L (11.4-16.0) gm/dL Hct 29.3 L (34.0-46.0) % MCHC 30.5 L (31.0-37.0) g/dL Plt Count 514 H (150-450) k/uL Lymphocytes # 0.3 L (1.0-4.8) k/uL ESR 50 H (0-20) mm/hr PT (9.0-12.0) sec INR (<1.2) APTT (22.0-30.0) sec Sodium 129 L (137-145) mmol/L Potassium 3.4 L (3.5-5.1) mmol/L Chloride 109 H (98-107) mmol/L Carbon Dioxide 15 L (22-30) mmol/L BUN 35 H (7-17) mg/dL Creatinine 1.13 H (0.52-1.04) mg/dL Glucose 107 H (74-99) mg/dL POC Glucose (mg/dL) (75-99) mg/dL Calcium 7.1 L (8.4-10.2) mg/dL C-Reactive Protein 63.2 H (<10.0) mg/L Total Protein (6.3-8.2) g/dL Albumin (3.5-5.0) g/dL Urine Protein (Negative) Stool Occult Blood (Negative) Crossmatch 02/23/20 Range/Units 04:36 WBC (3.8-10.6) k/uL RBC (3.80-5.40) m/uL Hgb (11.4-16.0) gm/dL Hct (34.0-46.0) % MCHC (31.0-37.0) g/dL Plt Count (150-450) k/uL Lymphocytes # (1.0-4.8) k/uL ESR (0-20) mm/hr PT 31.7 H (9.0-12.0) sec INR 3.2 H (<1.2) APTT (22.0-30.0) sec Sodium (137-145) mmol/L Potassium (3.5-5.1) mmol/L Chloride (98-107) mmol/L Carbon Dioxide (22-30) mmol/L BUN (7-17) mg/dL Creatinine (0.52-1.04) mg/dL Glucose (74-99) mg/dL POC Glucose (mg/dL) (75-99) mg/dL Calcium (8.4-10.2) mg/dL C-Reactive Protein (<10.0) mg/L Total Protein (6.3-8.2) g/dL Albumin (3.5-5.0) g/dL Urine Protein (Negative) Stool Occult Blood (Negative) Crossmatch Assessment and Plan Plan: 1. Rectal bleeding with anemia 2. Coagulopathy with INR more than 10 given vitamin K INR today 3.2 3. Underlying history of Crohn's disease 4. History of DVT more than 10 years ago maintained on Coumadin 5. Acute kidney injury, improved creatinine down from 1.6 yesterday to 1.13 today 6. Severe hypokalemia, correcting 7. Underlying history of hypothyroidism 8. Tobacco abuse Plan at this time patient is admitted to intensive care unit She is receiving IV fluid for pressure support Coumadin is held and patient was given vitamin K 10 mg Red blood cell transfusion was ordered Will monitor CBC closely Consultation for critical care and gastroenterology was initiated Will follow closely
--- NOTE | 2020-02-24 14:17 | P.PN ---
Subjective Progress Note Date: 02/24/20 Jacquie Chowdhury, is a 59-year-old female patient of Dr. Ornelas with known history of Crohn's disease with previous colectomy and subsequent reversal, and history of DVT 10 years ago maintained on Coumadin. Who presented to [facility] emergency room with a chief complaint of rectal bleeding, patient stated that she was having small amount of blood per rectum she thought it was related to her hemorrhoids she was evaluated in the emergency room and was found to have an elevated INR She states she also had fallen 2 days ago with some right-sided rib pain. Her INR today is greater than 10 and her hemoglobin has dropped to 7.9 and she is also hypotensive. She has received 3 L of fluid resuscitation, 10 mg of vitamin K and IV Protonix. Patient was admitted to intensive care unit critical care consultation and gastroenterology consultation were requested. Patient was seen and examined in ICU she is alert and oriented in no apparent distress she looks pale she is complaining of mild dizziness otherwise she denies any complaints there is no fever or chills no headache or dizziness no chest pain no shortness of breath no cough no nausea or vomiting no abdominal pain no diarrhea no burning was urination no frequency or urgency no hematuria. On 02/23/2020 patient is alert and oriented in no apparent distress she remains in ICU she received 2 units of red blood cell transfusion hemoglobin is 8.9 INR 3.2 patient is denying any obvious bleeding at this time she denying any nausea vomiting abdominal pain or diarrhea there is no fever or chills no headache or dizziness no chest pain no shortness of breath no cough and no urinary symptoms, she remains on IV fluid and pressure support and ICU. GI input reviewed no plans for repeat endoscopy at this time. On 02/24/2020 patient was seen and examined in the ICU she is alert and oriented 3 in no apparent distress she is complaining of pain in the rectal area otherwise she denies any complaints she had 3 bowel movements today there is no fever or chills no headache or dizziness no chest pain no shortness of breath no cough no nausea or vomiting no abdominal pain no diarrhea no burning with urination no frequency or urgency and no hematuria. Hemoglobin is 8.5 INR 3.0 kidney function is normalizing Objective - Vital Signs Vital signs: Vital Signs Temp 98.0 F 02/24/20 12:00 Pulse 54 L 02/24/20 12:30 Resp 25 H 02/24/20 12:30 BP 112/64 02/24/20 12:30 Pulse Ox 99 02/24/20 12:30 Intake & Output 02/23/20 02/24/20 02/24/20 18:59 06:59 18:59 Intake Total 8191.973 0257.198 410 Output Total 465 537 322 Balance 073.877 5027.198 88 Weight 65.1 kg Intake: IV 1375 250 Sodium Chloride 0.9% 1, 1375 250 000 ml @ 125 mls/hr IV . Q8H [facility] Rx#:[id number] Intake, IV Titration 1453.599 342.198 160 Amount Norepinephrine 4 mg In 78.599 217.198 0 Sodium Chloride 0.9% 250 ml @ 0.05 MCG/KG/MIN 10. 369 mls/hr IV .Q24H [facility] Rx#:[id number] Sodium Chloride 0.45% 1, 160 000 ml @ 40 mls/hr IV . Q24H [facility] Rx#:[id number] Sodium Chloride 0.9% 1, 1375 125 000 ml @ 125 mls/hr IV . Q8H [facility] Rx#:[id number] Output: Urine 465 537 322 Other: Voiding Method Indwelling Catheter Indwelling Catheter Indwelling Catheter # Bowel Movements 1 1 1 - Exam In general patient is alert and oriented 3 in no apparent distress HEENT head normocephalic and atraumatic, pale otherwise normal Neck is supple no JVD no goiter no lymphadenopathy Chest exam is clear to auscultation no crackles no wheezing there is tenderness with palpation over the lower right sided ribs Cardiac exam reveals regular heart sounds S1 and S2 no gallops no murmurs Abdomen is soft nontender no organomegaly with normal bowel sounds Extremity exam reveals no edema no cyanosis or clubbing Neurological examination reveals no gross focal deficit - Labs CBC & Chem 7: 02/24/20 04:40 02/24/20 04:40 Labs: Abnormal Lab Results - Last 24 Hours (Table) 02/22/20 02/24/20 02/24/20 Range/Units 10:53 04:40 04:40 WBC 3.4 L (3.8-10.6) k/uL RBC 2.88 L (3.80-5.40) m/uL Hgb 8.5 L (11.4-16.0) gm/dL Hct 26.8 L (34.0-46.0) % Lymphocytes # 0.4 L (1.0-4.8) k/uL ESR 44 H (0-20) mm/hr PT 29.6 H (9.0-12.0) sec INR 3.0 H (<1.2) Sodium (137-145) mmol/L Chloride (98-107) mmol/L Carbon Dioxide (22-30) mmol/L BUN (7-17) mg/dL Glucose (74-99) mg/dL Calcium (8.4-10.2) mg/dL AST (14-36) U/L C-Reactive Protein (<10.0) mg/L Total Protein (6.3-8.2) g/dL Albumin (3.5-5.0) g/dL Crossmatch See Detail 02/24/20 Range/Units 04:40 WBC (3.8-10.6) k/uL RBC (3.80-5.40) m/uL Hgb (11.4-16.0) gm/dL Hct (34.0-46.0) % Lymphocytes # (1.0-4.8) k/uL ESR (0-20) mm/hr PT (9.0-12.0) sec INR (<1.2) Sodium 134 L (137-145) mmol/L Chloride 112 H (98-107) mmol/L Carbon Dioxide 16 L (22-30) mmol/L BUN 30 H (7-17) mg/dL Glucose 107 H (74-99) mg/dL Calcium 7.5 L (8.4-10.2) mg/dL AST 12 L (14-36) U/L C-Reactive Protein 32.6 H (<10.0) mg/L Total Protein 5.0 L (6.3-8.2) g/dL Albumin 2.1 L (3.5-5.0) g/dL Crossmatch Assessment and Plan Plan: 1. Rectal bleeding with anemia 2. Coagulopathy with INR more than 10 given vitamin K INR today 3.2 3. Underlying history of Crohn's disease 4. History of DVT more than 10 years ago maintained on Coumadin, patient had 1 episode of bilateral lower extremity DVT requiring thrombectomy at [facility] with consult hematology to assess if there is any need for continued anticoagulation 5. Acute kidney injury, improved creatinine down from 1.6 yesterday to 1.13 today 6. Severe hypokalemia, correcting 7. Underlying history of hypothyroidism 8. Tobacco abuse Plan at this time patient is admitted to intensive care unit She is receiving IV fluid for pressure support Coumadin is held and patient was given vitamin K 10 mg Red blood cell transfusion was ordered Will monitor CBC closely Consultation for critical care and gastroenterology was initiated Will follow closely
[2020-02-24 16:07] LABS: Partial Thromboplastin Time 36.3 sec (22.0-30.0)
--- NOTE | 2020-02-24 19:18 | P.PN ---
Subjective Progress Note Date: 02/24/20 Principal diagnosis: Crohn's disease, anemia associated with acute blood loss The patient is seen lying in bed today reporting 3 bowel movements today. Tolerating diet. No nausea or vomiting. Objective - Vital Signs Vital signs: Vital Signs Temp 98.0 F 02/24/20 12:00 Pulse 65 02/24/20 14:15 Resp 29 H 02/24/20 14:15 BP 98/61 02/24/20 14:15 Pulse Ox 100 02/24/20 14:15 Intake & Output 02/23/20 02/24/20 02/24/20 18:59 06:59 18:59 Intake Total 7572.141 3340.198 410 Output Total 465 537 322 Balance 931.951 8369.198 88 Weight 65.1 kg Intake: IV 1375 250 Sodium Chloride 0.9% 1, 1375 250 000 ml @ 125 mls/hr IV . Q8H [facility] Rx#:[id number] Intake, IV Titration 1453.599 342.198 160 Amount Norepinephrine 4 mg In 78.599 217.198 0 Sodium Chloride 0.9% 250 ml @ 0.05 MCG/KG/MIN 10. 369 mls/hr IV .Q24H [facility] Rx#:[id number] Sodium Chloride 0.45% 1, 160 000 ml @ 40 mls/hr IV . Q24H [facility] Rx#:[id number] Sodium Chloride 0.9% 1, 1375 125 000 ml @ 125 mls/hr IV . Q8H [facility] Rx#:[id number] Output: Urine 465 537 322 Other: Voiding Method Indwelling Catheter Indwelling Catheter Indwelling Catheter # Bowel Movements 1 1 1 - Exam On physical examination, patient appears comfortable in no apparent distress. HEAD: Normocephalic, atraumatic. EYES: No scleral icterus. No conjunctival injection. MOUTH: No lesions, tongue midline. NECK: Trachea midline, no gross abnormalities. ABDOMEN: Soft, nontender to palpation. Bowel sounds are positive. No organomegaly. No guarding or rigidity. EXTREMITIES: No pedal edema. SKIN: No rashes, no jaundice. NEUROLOGIC: Alert and oriented x3. No focal deficits. - Labs CBC & Chem 7: 02/24/20 04:40 02/24/20 04:40 Labs: Abnormal Lab Results - Last 24 Hours (Table) 02/22/20 02/24/20 02/24/20 Range/Units 10:53 04:40 04:40 WBC 3.4 L (3.8-10.6) k/uL RBC 2.88 L (3.80-5.40) m/uL Hgb 8.5 L (11.4-16.0) gm/dL Hct 26.8 L (34.0-46.0) % Lymphocytes # 0.4 L (1.0-4.8) k/uL ESR 44 H (0-20) mm/hr PT 29.6 H (9.0-12.0) sec INR 3.0 H (<1.2) Sodium (137-145) mmol/L Chloride (98-107) mmol/L Carbon Dioxide (22-30) mmol/L BUN (7-17) mg/dL Glucose (74-99) mg/dL Calcium (8.4-10.2) mg/dL AST (14-36) U/L C-Reactive Protein (<10.0) mg/L Total Protein (6.3-8.2) g/dL Albumin (3.5-5.0) g/dL Crossmatch See Detail 02/24/20 Range/Units 04:40 WBC (3.8-10.6) k/uL RBC (3.80-5.40) m/uL Hgb (11.4-16.0) gm/dL Hct (34.0-46.0) % Lymphocytes # (1.0-4.8) k/uL ESR (0-20) mm/hr PT (9.0-12.0) sec INR (<1.2) Sodium 134 L (137-145) mmol/L Chloride 112 H (98-107) mmol/L Carbon Dioxide 16 L (22-30) mmol/L BUN 30 H (7-17) mg/dL Glucose 107 H (74-99) mg/dL Calcium 7.5 L (8.4-10.2) mg/dL AST 12 L (14-36) U/L C-Reactive Protein 32.6 H (<10.0) mg/L Total Protein 5.0 L (6.3-8.2) g/dL Albumin 2.1 L (3.5-5.0) g/dL Crossmatch Assessment and Plan (1) Crohn disease Narrative/Plan: 59-year-old female with a history of Crohn's disease requiring partial colectomy status post reversal in the past 2 presented due to elevated INR and was found to be anemic. Patient has active disease noted on colonoscopy recently and had been started on an oral agent however stopped this because she was unable to tolerate it. She denies any gross bleeding and his been having 5-6 bowel movements daily. She was scheduled for follow-up with the GI service. Currently patient has been initiated on steroid therapy with improvement in symptoms. Current Visit: Yes Status: Acute Code(s): K50.90 - CROHN'S DISEASE, UNSPECIFIED, WITHOUT COMPLICATIONS SNOMED Code(s): 71143987 (2) Anemia associated with acute blood loss Current Visit: Yes Status: Acute Code(s): D62 - ACUTE POSTHEMORRHAGIC ANEMIA SNOMED Code(s): 974736598 (3) Elevated INR Current Visit: Yes Status: Acute Code(s): R79.1 - ABNORMAL COAGULATION PROFILE SNOMED Code(s): 114780143 Plan: Supportive care Okay for low fiber diet Solu-Medrol 20 every 8 hours Monitor for signs or symptoms of GI bleeding Patient underwent recent colonoscopy with evidence of active disease, no plan for endoscopic evaluation at this time with the patient denying any signs or symptoms of GI bleeding Continue to monitor CBC, CMP Patient will need follow-up with the GI service after discharge for optimization of medications Thank you for allowing us to participate in the care of the patient
--- NOTE | 2020-02-24 19:56 | P.CONS ---
History of Present Illness - Reason for Consult Consult date: 02/24/20 Hx: DVT coagulopathy Requesting physician: Marcell Aguilar - Chief Complaint Dark stools - History of Present Illness Ms. Chowdhury is a 59 yr old female patient who has a known history of chronic and ongoing tobacco dependence, hypothyroidism, Crohn's disease with previous col ectomy and subsequent reversal, previous DVT with thrombectomy at [facility] greater than 10 years ago. She was advised to be evaluated in emergency for dark stools and elevated INR. On admission her INR >10. She has been on warfarin for greater than 10 years. S She voiced diarrhea some dark stools but not too much unusual for her. She also noted bright red hemorroidal blood, but again claims mild. On admission her hemoglobin was 5.9, stool OB positive. She did have a recent fall and from that she complains of right-sided rib pain. She was also hypotensive and anemic on admission. PPI, Vitamin K and IV bolus's were administered. Stool for OB was positive. Repeat Ultrasound of BLE negative for new or chronic DVT. She states she has been on medical leave from work since September not only regarding COVID but because she started to experience persistent diarrhea. She has lost over 25lbs since that times approximately. She has decreased appetite and scared to eat because of the diarrhea. She apparently had a GI work-up in October this year and per patient she was diagnosed at that time with chronic colitis. She also states over the past few months she has noticed increase bilateral peripheral neuropathy: from knees down and bilateral hands. She states she will follow-up with her chiropractor and wants to hold off on further diagnostics until then. She states its from working at [employer] she thinks she has "pinched nerves" To her knowledge she never underwent hypercoagulable work-up or seen a registered radiographer. She does not know the indication for lifelong warfarin and only remembers one DVT which they intervened with thrombectomy. Review of Systems A 14 point review of systems assessed and completed and all negative except hpi Past Medical History Past Medical History: Deep Vein Thrombosis (DVT) Additional Past Medical History / Comment(s): sinus allergies, diarrhea x1yr, blaine. DVT. heart murmur History of Any Multi-Drug Resistant Organisms: None Reported Past Surgical History: Bowel Resection, Section Additional Past Surgical History / Comment(s): bowel resection with colostomy and then colostomy reversal Past Anesthesia/Blood Transfusion Reactions: No Reported Reaction Past Psychological History: No Psychological Hx Reported Smoking Status: Current every day smoker Past Alcohol Use History: None Reported Past Drug Use History: None Reported - Past Family History Mother Family Medical History: No Reported History Medications and Allergies Home Medications Medication Instructions Recorded Confirmed Type Levothyroxine Sodium [Synthroid] 100 mcg PO DAILY 10/20/19 02/22/20 History Warfarin [Coumadin] 2.5 mg PO SUTUTHFR 10/20/19 02/22/20 History Warfarin [Coumadin] 3.75 mg PO MOWESA 10/20/19 02/22/20 History Allergies Allergy/AdvReac Type Severity Reaction Status Date / Time Sulfa (Sulfonamide Allergy Unknown Verified 02/22/20 11:40 Antibiotics) Physical Exam Vitals: Vital Signs Temp Pulse Resp BP Pulse Ox 02/24/20 14:15 65 29 H 98/61 100 02/24/20 14:00 49 L 17 98/61 98 02/24/20 13:45 59 L 12 84/58 86 L 02/24/20 13:30 60 17 93/61 100 02/24/20 13:15 61 16 98/62 99 02/24/20 13:00 64 12 109/65 93 L 02/24/20 12:45 61 18 114/63 94 L 02/24/20 12:30 54 L 25 H 112/64 99 02/24/20 12:15 12 97/71 99 02/24/20 12:00 98.0 F 53 L 14 101/65 98 02/24/20 11:45 47 L 13 102/63 97 02/24/20 11:30 42 L 12 106/61 97 02/24/20 11:15 48 L 14 109/62 98 02/24/20 11:00 47 L 13 108/66 98 02/24/20 10:45 42 L 24 96/66 98 02/24/20 10:30 39 L 12 108/63 98 02/24/20 10:15 45 L 12 97/60 100 02/24/20 10:00 47 L 16 102/61 99 02/24/20 09:45 42 L 14 104/73 100 02/24/20 09:30 43 L 13 99/61 100 02/24/20 09:15 52 L 18 95/66 99 02/24/20 09:00 54 L 19 92/61 99 02/24/20 08:45 60 20 86/58 100 02/24/20 08:30 53 L 14 91/58 100 02/24/20 08:15 64 17 89/62 02/24/20 08:00 97.7 F 61 17 107/67 98 02/24/20 07:45 62 18 101/70 02/24/20 07:30 71 20 112/72 91 L 02/24/20 07:15 58 L 17 97/63 89 L 02/24/20 07:00 43 L 16 82/57 98 02/24/20 06:45 44 L 10 L 85/56 97 02/24/20 06:30 44 L 10 L 104/59 96 02/24/20 06:15 38 L 12 117/70 98 02/24/20 06:00 42 L 13 97/62 100 02/24/20 05:45 45 L 14 92/60 99 02/24/20 05:30 45 L 12 110/67 99 02/24/20 05:15 43 L 13 106/60 98 02/24/20 05:00 41 L 11 L 111/63 98 02/24/20 04:45 41 L 13 112/65 98 02/24/20 04:30 51 L 16 121/57 96 02/24/20 04:15 40 L 10 L 119/66 99 02/24/20 04:00 97.5 F L 44 L 15 117/61 98 02/24/20 03:45 41 L 13 126/116 99 02/24/20 03:30 45 L 16 139/118 99 02/24/20 03:15 58 L 14 129/66 98 02/24/20 03:00 35 L 13 123/71 98 02/24/20 02:45 47 L 15 118/68 97 02/24/20 02:30 44 L 15 120/74 97 02/24/20 02:15 47 L 15 114/60 98 02/24/20 02:00 48 L 12 124/60 99 02/24/20 01:45 36 L 11 L 111/57 96 02/24/20 01:30 39 L 14 92/58 97 02/24/20 01:15 37 L 10 L 105/63 98 02/24/20 01:00 42 L 10 L 117/71 97 02/24/20 00:45 44 L 11 L 104/69 97 02/24/20 00:30 52 L 16 103/63 98 02/24/20 00:15 49 L 14 88/55 98 02/24/20 00:00 97.9 F 59 L 13 84/56 97 02/23/20 23:45 44 L 10 L 89/52 97 02/23/20 23:30 49 L 10 L 93/50 97 02/23/20 23:15 48 L 11 L 95/54 97 02/23/20 23:00 47 L 16 110/70 98 02/23/20 22:45 50 L 18 107/64 97 02/23/20 22:30 46 L 14 111/58 97 02/23/20 22:15 39 L 12 108/67 98 02/23/20 22:00 44 L 13 100/61 98 02/23/20 21:45 46 L 15 103/57 98 02/23/20 21:30 44 L 15 83/57 96 02/23/20 21:15 56 L 37 H 91/58 97 02/23/20 21:00 44 L 14 88/58 97 02/23/20 20:45 56 L 16 77/67 96 02/23/20 20:30 54 L 20 95/70 98 02/23/20 20:15 56 L 15 100/65 96 02/23/20 20:00 97.5 F L 47 L 16 82/62 97 02/23/20 19:45 53 L 13 96/62 96 02/23/20 19:30 49 L 14 89/64 97 02/23/20 19:15 51 L 16 95/60 94 L 02/23/20 19:00 52 L 14 78/50 96 02/23/20 18:45 61 12 110/61 98 02/23/20 18:30 47 L 18 91/60 98 02/23/20 18:15 52 L 13 87/57 97 02/23/20 18:00 54 L 16 90/55 97 02/23/20 17:45 57 L 16 89/65 99 02/23/20 17:30 26 H 99/62 86 L 02/23/20 17:15 57 L 18 115/60 90 L 02/23/20 17:00 59 L 21 96/61 98 02/23/20 16:45 44 L 17 98/60 99 02/23/20 16:30 44 L 18 95/56 98 02/23/20 16:15 46 L 15 97/62 99 02/23/20 16:00 97.7 F 51 L 19 94/54 98 02/23/20 15:45 48 L 14 93/62 99 02/23/20 15:30 48 L 12 96/54 100 02/23/20 15:15 48 L 15 96/64 99 Intake and Output 02/24/20 02/24/20 02/24/20 06:59 14:59 22:59 Intake Total 1019.755 410 Output Total 292 322 Balance 727.755 88 Intake: IV 875 250 Sodium Chloride 0.9% 1, 875 250 000 ml @ 125 mls/hr IV . Q8H [facility] Rx#:[id number] Intake, IV Titration 144.755 160 Amount Norepinephrine 4 mg In 144.755 0 Sodium Chloride 0.9% 250 ml @ 0.05 MCG/KG/MIN 10. 369 mls/hr IV .Q24H [facility] Rx#:[id number] Sodium Chloride 0.45% 1, 160 000 ml @ 40 mls/hr IV . Q24H [facility] Rx#:[id number] Output: Urine 292 322 Other: Voiding Method Indwelling Catheter Indwelling Catheter # Bowel Movements 1 1 Weight 65.1 kg - Constitutional General appearance: cooperative, no acute distress - EENT Eyes: EOMI, dentition normal ENT: NA/AT, normal oropharynx - Neck Neck: normal ROM - Respiratory Respiratory: bilateral: CTA - Cardiovascular Rhythm: regular Heart sounds: normal: S1, S2 - Gastrointestinal General gastrointestinal: soft, tenderness - Integumentary Integumentary: pale - Neurologic Neurologic: CNII-XII intact - Musculoskeletal Musculoskeletal: generalized weakness - Psychiatric Psychiatric: A&O x's 3, appropriate affect, intact judgment & insight Results CBC & Chem 7: 02/24/20 04:40 02/24/20 04:40 Labs: Abnormal Lab Results - Last 24 Hours (Table) 02/22/20 02/24/20 02/24/20 Range/Units 10:53 04:40 04:40 WBC 3.4 L (3.8-10.6) k/uL RBC 2.88 L (3.80-5.40) m/uL Hgb 8.5 L (11.4-16.0) gm/dL Hct 26.8 L (34.0-46.0) % Lymphocytes # 0.4 L (1.0-4.8) k/uL ESR 44 H (0-20) mm/hr PT 29.6 H (9.0-12.0) sec INR 3.0 H (<1.2) Sodium (137-145) mmol/L Chloride (98-107) mmol/L Carbon Dioxide (22-30) mmol/L BUN (7-17) mg/dL Glucose (74-99) mg/dL Calcium (8.4-10.2) mg/dL AST (14-36) U/L C-Reactive Protein (<10.0) mg/L Total Protein (6.3-8.2) g/dL Albumin (3.5-5.0) g/dL Crossmatch See Detail 02/24/20 Range/Units 04:40 WBC (3.8-10.6) k/uL RBC (3.80-5.40) m/uL Hgb (11.4-16.0) gm/dL Hct (34.0-46.0) % Lymphocytes # (1.0-4.8) k/uL ESR (0-20) mm/hr PT (9.0-12.0) sec INR (<1.2) Sodium 134 L (137-145) mmol/L Chloride 112 H (98-107) mmol/L Carbon Dioxide 16 L (22-30) mmol/L BUN 30 H (7-17) mg/dL Glucose 107 H (74-99) mg/dL Calcium 7.5 L (8.4-10.2) mg/dL AST 12 L (14-36) U/L C-Reactive Protein 32.6 H (<10.0) mg/L Total Protein 5.0 L (6.3-8.2) g/dL Albumin 2.1 L (3.5-5.0) g/dL Crossmatch Venous US: report reviewed Assessment and Plan (1) Coagulopathy Current Visit: Yes Status: Acute Code(s): D68.9 - COAGULATION DEFECT, UNSPECIFIED SNOMED Code(s): 30674562 (2) Hx of deep venous thrombosis Current Visit: Yes Status: Acute Code(s): Z86.718 - PERSONAL HISTORY OF OTHER VENOUS THROMBOSIS AND EMBOLISM SNOMED Code(s): 527767398 (3) Crohn disease Current Visit: Yes Status: Acute Code(s): K50.90 - CROHN'S DISEASE, UNS PECIFIED, WITHOUT COMPLICATIONS SNOMED Code(s): 21769414 Plan: Assessment and Recommendations: Crohns Disease: - GI is following - Unsure of treatment she received but apparently was on treatment but stopped due to inability to tolerate - Partial Colectomy and reversal in past Persistent Diarrhea: - Acute on Chronic - Persistent last few months requiring her to take time off on a leave from work Normocytic Anemia: - Secondary to GI blood loss, coagulopathy and chronic inflammation - transfuse less than 7 Coagulopathy: - Likely consumptive/absorbtion - Lack of PO intake - Will recheck PTT, fibrinogen, - Check Iron and B12 studies Hypotension and syncopal episodes resulting in falls x2 - ICU monitoring - Complains of right rib pain Unintentional Weight Loss: - Greater than approx 20lbs in 6 months Hx: DVT: - Unclear if she has had full hypercoagulable work-up which has placed her on lifelong anti-coagulation or if because of her chronic inflammatory state, tobacco use, and sedetary lifestyle she was felt to be at increased risk - BLE dopplers are negative at this time. - Warfarin has been held at this time. Would continue to hold until full GI evaluation can confirm no active bleeding. Continue to trend CBC and hemoglobin. Plan and recommendations - Will assess for nutritional deficits B12, Iron studies and folate - Continue to monitor CBC, Coags - Continue to hold anticoagulation until confirmation of no active bleeding - We discussed hypercoagulable work-up and need for life long AC therapy. With her current chronic inflammation and sedetary lifestyle she would be at increased risk for thombolic event, although with decreased absorption and decreased PO intake warfarin use to use as choice for anticoagulation poses increased risk of bleeding and/or potentially clotting. Would recommend trialing on DOAC since this will not affect coagulopathy. - In light of potential GI bleed will need to confirm no active bleeding and would recommend close monitoring on heparin gtt (no bolus) with serial CBC 24 hours prior to switching to DOAC 24 hours and if no evidence of bleeding then close outpatient monitoring CBC and potential infusions of iron. - Will obtain records from [facility] regarding her thrombolic event 10 years ago - Recommend neurological evaluation as outpatient for paresthesia Thank you for allowing us to participate in the care of this patient
[2020-02-24] MEDS: HYDROCORTISONE 2.5% RECTAL CREAM 30 GM TUBE RECTAL SCH (22:23)
[2020-02-25] MEDS: LEVOTHYROXINE 100 MCG TAB PO SCH (06:21)
[2020-02-25 06:24] LABS: Basophils % (A) 0 %; Eosinophils % (A) 1 %; HCT 26.7 % (34.0-46.0); HGB 8.1 gm/dL (11.4-16.0); Hypochromasia Slight; Lymphocytes # (A) 0.4 k/uL (1.0-4.8); Lymphocytes % (A) 16 %; MCH 28.2 pg (25.0-35.0); MCHC 30.3 g/dL (31.0-37.0); MCV 92.9 fL (80.0-100.0); Mean Platelet Volume 7.1; Monocytes # (A) 0.2 k/uL (0-1.0); Monocytes % (A) 7 %; Neutrophils % (A) 75 %; Platelet Count 366 k/uL (150-450); RBC 2.88 m/uL (3.80-5.40); RDW 14.9 % (11.5-15.5); WBC 2.6 k/uL (3.8-10.6)
[2020-02-25 06:27] LABS: INR 3.1 (<1.2); Prothrombin Time 29.8 sec (9.0-12.0)
[2020-02-25 06:57] LABS: Calcium 7.3 mg/dL (8.4-10.2); Potassium 3.9 mmol/L (3.5-5.1)
[2020-02-25] MEDS: PANTOPRAZOLE 40 MG/10 ML VIAL IV SCH ×2 (08:07→20:50)
[2020-02-25] MEDS: methylPREDNISolone SOD SUCCI 40 MG/ML 1 ML VIAL IV SCH ×3 (08:08→23:33)
[2020-02-25] MEDS: HYDROCORTISONE 2.5% RECTAL CREAM 30 GM TUBE RECTAL SCH ×2 (08:08→20:50)
[2020-02-25] MEDS: SODIUM CHLORIDE 0.45% 1,000 ML IV SCH (08:09)
[2020-02-25] MEDS ORDERED: LEVOTHYROXINE 100 MCG TAB PO SCH (09:00)
--- NOTE | 2020-02-25 10:13 | P.PN ---
Subjective Progress Note Date: 02/25/20 Principal diagnosis: Anemia This is a pleasant 59-year-old female patient who follows with Dr. peacock as her primary care provider. She has a history of chronic and ongoing tobacco dependence, hypothyroidism, Crohn's disease with previous colectomy and subsequent reversal, previous DVT with thrombectomy at [facility] greater than 10 years ago. She has been maintained on warfarin since that time. She takes 2.5 mg on Thursday and 3.75 mg on Thursday and Thursday. She was found to have an elevated INR and directed here to the emergency room this morning for the same. She has been having some diarrhea and reports some dark stools but not too much unusual for her. She states she also had fallen 2 days ago with some right-sided rib pain. Her INR today is greater than 10 and her hemoglobin has dropped to 7.9 and she is also hypotensive. She has received 3 L of fluid resuscitation, 10 mg of vitamin K and IV Protonix. She is seen today in consultation in the emergency room. She is awake and alert in no acute distress. She is maintaining O2 saturation of 100% on room air. She is pale. No shortness of breath, no chest pain. Somewhat dizzy. Current blood pressure 80/47. She's afebrile. 0.9 normal saline at 130 MLS per hour. The patient is seen today 02/23/2020 in follow-up in the intensive care unit. She is currently awake and alert in no acute distress. She continues to maintain good O2 saturations up to 100% on room air. She's afebrile. She is bradycardic. She is continuing to require norepinephrine at 4.8 mcg/m. 0.9 normal saline at 125 ML's per hour. He did have a black tarry bowel movement this morning. White count 5.0. Hemoglobin 8.9. INR 3.2. Sodium 129. Potassium 4.3. Chloride 109. Bicarb 15. Creatinine 1.13. She had been seen and evaluated by GI services. She's been initiated on IV Solu-Medrol 20 mg every other day hours. Remains on IV Protonix. She had undergone EGD in 2019. There was evidence of mild gastritis. Small hiatal hernia. Moderate colitis of the cecum and left colon. No plans for repeat procedure at this time. She currently denies any abdominal discomfort. She is status post 2 units of packed red blood cells this admission thus far. The patient is seen today 02/24/2020 follow-up in the intensive care unit. She is currently sitting up in a chair at the bedside. Awake and alert in no acute distress. He is maintaining O2 saturation in the 90s on room air. She is 0.9 normal sinus 125 ML's per hour. She is still requiring norepinephrine currently at 1.3 mcg/m. Dopplers of the lower extremity were negative. INR 3.0. She did have issues with bradycardia yesterday. Synthroid has been resumed. White count 3.4. Hemoglobin 8.5. Sodium 134. Potassium 4.2. Bicarb 16. Creatinine 1.00. ESR 44. C-reactive protein 32.6. Stools remain dark and tarry. She's on IV Solu-Medrol, Protonix 40 mg IV every 12 hours. The patient is seen today 02/25/2020 follow-up in the intensive care unit. She is currently resting comfortably in bed. More awake and alert today. Feeling better. Titrate O2 saturations up to 100% on room air. She's been afebrile. Hemodynamically stable. Off norepinephrine for 24 hours. 0.45% normal saline at 40 ML's per hour. White count 2.6. Hemoglobin 8.1. INR 3.1. Sodium 135. Potassium 3.9. Bicarb 18. Creatinine 1.01. She did have a bowel movement this morning that was brown he remains on IV Solu-Medrol, Protonix. Objective - Vital Signs Vital signs: Vital Signs Temp 98.1 F 02/25/20 08:00 Pulse 53 L 02/25/20 09:00 Resp 14 02/25/20 09:00 BP 105/69 02/25/20 09:00 Pulse Ox 100 02/25/20 09:00 Intake & Output 02/24/20 02/25/20 02/25/20 18:59 06:59 18:59 Intake Total 715.925 440 120 Output Total 567 670 175 Balance 148.925 -230 -55 Weight 69.1 kg Intake: IV 250 440 120 Sodium Chloride 0.45% 1, 440 120 000 ml @ 40 mls/hr IV . Q24H [facility] Rx#:[id number] Sodium Chloride 0.9% 1, 250 000 ml @ 125 mls/hr IV . Q8H [facility] Rx#:[id number] Intake, IV Titration 465.925 Amount Norepinephrine 4 mg In 25.925 Sodium Chloride 0.9% 250 ml @ 0.05 MCG/KG/MIN 10. 369 mls/hr IV .Q24H [facility] Rx#:[id number] Sodium Chloride 0.45% 1, 440 000 ml @ 40 mls/hr IV . Q24H [facility] Rx#:[id number] Output: Urine 567 670 175 Other: Voiding Method Indwelling Catheter Indwelling Catheter Indwelling Catheter # Bowel Movements 1 1 - Exam GENERAL EXAM: Alert, pleasant 59-year-old female, on room air, comfortable in no apparent distress. HEAD: Normocephalic. EYES: Normal reaction of pupils, equal size. NOSE: Clear with pink turbinates. THROAT: No erythema or exudates. NECK: No masses, no JVD. CHEST: No chest wall deformity. LUNGS: Equal air entry with no crackles, wheeze, rhonchi or dullness. CVS: S1 and S2 normal with no audible murmur, regular rhythm. ABDOMEN: No hepatosplenomegaly, normal bowel sounds, no guarding or rigidity. SPINE: No scoliosis or deformity SKIN: No rashes CENTRAL NERVOUS SYSTEM: No focal deficits, tone is normal in all 4 extremities. EXTREMITIES: There is no peripheral edema. No clubbing, no cyanosis. Per ipheral pulses are intact. - Labs CBC & Chem 7: 02/25/20 05:49 02/25/20 05:49 Labs: Abnormal Lab Results - Last 24 Hours (Table) 02/24/20 02/24/20 02/25/20 Range/Units 15:18 15:18 05:49 WBC 2.6 L (3.8-10.6) k/uL RBC 2.88 L (3.80-5.40) m/uL Hgb 8.1 L (11.4-16.0) gm/dL Hct 26.7 L (34.0-46.0) % MCHC 30.3 L (31.0-37.0) g/dL Lymphocytes # 0.4 L (1.0-4.8) k/uL PT (9.0-12.0) sec INR (<1.2) APTT 36.3 H (22.0-30.0) sec Sodium (137-145) mmol/L Chloride (98-107) mmol/L Carbon Dioxide (22-30) mmol/L BUN (7-17) mg/dL Calcium (8.4-10.2) mg/dL Lactate Dehydrogenase 1169 H (313-618) U/L 02/25/20 02/25/20 Range/Units 05:49 05:49 WBC (3.8-10.6) k/uL RBC (3.80-5.40) m/uL Hgb (11.4-16.0) gm/dL Hct (34.0-46.0) % MCHC (31.0-37.0) g/dL Lymphocytes # (1.0-4.8) k/uL PT 29.8 H (9.0-12.0) sec INR 3.1 H (<1.2) APTT (22.0-30.0) sec Sodium 135 L (137-145) mmol/L Chloride 115 H (98-107) mmol/L Carbon Dioxide 18 L (22-30) mmol/L BUN 24 H (7-17) mg/dL Calcium 7.3 L (8.4-10.2) mg/dL Lactate Dehydrogenase (313-618) U/L Assessment and Plan Assessment: 1 Coagulopathy with an INR of greater than 10 and the patient is on chronic warfarin for previous history of DVT, current INR 3.1 2 Previous history of lower extremity DVT with thrombectomy over 10 years ago at [facility], bilateral doppler revealed no evidence of DVT currently 3 Anemia secondary to above, stool for occult blood positive and is status post 2 units of packed red blood cells. Current hemoglobin 8.5 4 Hypotension secondary to above, currently on norepinephrine 5 Hyponatremia with sodium 135, improved 6 Acute renal failure improving. Current creatinine 1.01 7 History of Crohn's disease 8 History of colectomy with subsequent reversal 9 Hypothyroidism 10 History of chronic tobacco dependence 11 Non-anion gap metabolic acidosis sodium corrected to 135, chloride 115, bicarbonate 18 Plan: The patient was seen and evaluated by Dr. Nori Vincent from the critical care standpoint Continue Protonix Continue to monitor hemoglobin We'll continue to follow and make further recommendations based on her clinical status I, the cosigning physician, performed a history & physical examination of the patient. Lungs sounds are clear. Maintaining good O2 saturations in the 90s on room air. I discussed the assessment and plan of care with my nurse practitioner, Justine Ochoa. I attest to the above note as dictated by her.
--- NOTE | 2020-02-25 13:43 | P.PN ---
Subjective Progress Note Date: 02/25/20 Jacquie Chowdhury, is a 59-year-old female patient of Dr. Ornelas with known history of Crohn's disease with previous colectomy and subsequent reversal, and history of DVT 10 years ago maintained on Coumadin. Who presented to [facility] emergency room with a chief complaint of rectal bleeding, patient stated that she was having small amount of blood per rectum she thought it was related to her hemorrhoids she was evaluated in the emergency room and was found to have an elevated INR She states she also had fallen 2 days ago with some right-sided rib pain. Her INR today is greater than 10 and her hemoglobin has dropped to 7.9 and she is also hypotensive. She has received 3 L of fluid resuscitation, 10 mg of vitamin K and IV Protonix. Patient was admitted to intensive care unit critical care consultation and gastroenterology consultation were requested. Patient was seen and examined in ICU she is alert and oriented in no apparent distress she looks pale she is complaining of mild dizziness otherwise she denies any complaints there is no fever or chills no headache or dizziness no chest pain no shortness of breath no cough no nausea or vomiting no abdominal pain no diarrhea no burning was urination no frequency or urgency no hematuria. On 02/23/2020 patient is alert and oriented in no apparent distress she remains in ICU she received 2 units of red blood cell transfusion hemoglobin is 8.9 INR 3.2 patient is denying any obvious bleeding at this time she denying any nausea vomiting abdominal pain or diarrhea there is no fever or chills no headache or dizziness no chest pain no shortness of breath no cough and no urinary symptoms, she remains on IV fluid and pressure support and ICU. GI input reviewed no plans for repeat endoscopy at this time. On 02/24/2020 patient was seen and examined in the ICU she is alert and oriented 3 in no apparent distress she is complaining of pain in the rectal area otherwise she denies any complaints she had 3 bowel movements today there is no fever or chills no headache or dizziness no chest pain no shortness of breath no cough no nausea or vomiting no abdominal pain no diarrhea no burning with urination no frequency or urgency and no hematuria. Hemoglobin is 8.5 INR 3.0 kidney function is normalizing. On 02/25/2020 patient was seen and examined in the ICU he is alert and oriented 3, still complaining of pain in the rectal area otherwise she denies any complaints there is no fever or chills no headache or dizziness no chest pain no shortness of breath no cough no nausea or vomiting no abdominal pain no diarrhea no burning was urination no frequency or urgency no hematuria Objective - Vital Signs Vital signs: Vital Signs Temp 98 F 02/25/20 12:00 Pulse 50 L 02/25/20 12:00 Resp 14 02/25/20 12:00 BP 100/65 02/25/20 12:00 Pulse Ox 98 02/25/20 12:00 Intake & Output 02/24/20 02/25/20 02/25/20 18:59 06:59 18:59 Intake Total 715.925 440 120 Output Total 567 670 175 Balance 148.925 -230 -55 Weight 69.1 kg Intake: IV 250 440 120 Sodium Chloride 0.45% 1, 440 120 000 ml @ 40 mls/hr IV . Q24H [facility] Rx#:[id number] Sodium Chloride 0.9% 1, 250 000 ml @ 125 mls/hr IV . Q8H [facility] Rx#:[id number] Intake, IV Titration 465.925 Amount Norepinephrine 4 mg In 25.925 Sodium Chloride 0.9% 250 ml @ 0.05 MCG/KG/MIN 10. 369 mls/hr IV .Q24H [facility] Rx#:[id number] Sodium Chloride 0.45% 1, 440 000 ml @ 40 mls/hr IV . Q24H [facility] Rx#:[id number] Output: Urine 567 670 175 Other: Voiding Method Indwelling Catheter Indwelling Catheter Indwelling Catheter # Bowel Movements 1 1 - Exam In general patient is alert and oriented 3 in no apparent distress HEENT head normocephalic and atraumatic, pale otherwise normal Neck is supple no JVD no goiter no lymphadenopathy Chest exam is clear to auscultation no crackles no wheezing there is tenderness with palpation over the lower right sided ribs Cardiac exam reveals regular heart sounds S1 and S2 no gallops no murmurs Abdomen is soft nontender no organomegaly with normal bowel sounds Extremity exam reveals no edema no cyanosis or clubbing Neurological examination reveals no gross focal deficit - Labs CBC & Chem 7: 02/25/20 05:49 02/25/20 05:49 Labs: Abnormal Lab Results - Last 24 Hours (Table) 02/24/20 02/24/20 02/25/20 Range/Units 15:18 15:18 05:49 WBC 2.6 L (3.8-10.6) k/uL RBC 2.88 L (3.80-5.40) m/uL Hgb 8.1 L (11.4-16.0) gm/dL Hct 26.7 L (34.0-46.0) % MCHC 30.3 L (31.0-37.0) g/dL Lymphocytes # 0.4 L (1.0-4.8) k/uL PT (9.0-12.0) sec INR (<1.2) APTT 36.3 H (22.0-30.0) sec Sodium (137-145) mmol/L Chloride (98-107) mmol/L Carbon Dioxide (22-30) mmol/L BUN (7-17) mg/dL Calcium (8.4-10.2) mg/dL Lactate Dehydrogenase 1169 H (313-618) U/L 02/25/20 02/25/20 Range/Units 05:49 05:49 WBC (3.8-10.6) k/uL RBC (3.80-5.40) m/uL Hgb (11.4-16.0) gm/dL Hct (34.0-46.0) % MCHC (31.0-37.0) g/dL Lymphocytes # (1.0-4.8) k/uL PT 29.8 H (9.0-12.0) sec INR 3.1 H (<1.2) APTT (22.0-30.0) sec Sodium 135 L (137-145) mmol/L Chloride 115 H (98-107) mmol/L Carbon Dioxide 18 L (22-30) mmol/L BUN 24 H (7-17) mg/dL Calcium 7.3 L (8.4-10.2) mg/dL Lactate Dehydrogenase (313-618) U/L Assessment and Plan Plan: 1. Rectal bleeding with anemia, stable at this time 2. Coagulopathy with INR more than 10 given vitamin K INR today 3.2 3. Underlying history of Crohn's disease 4. History of DVT more than 10 years ago maintained on Coumadin, patient had 1 episode of bilateral lower extremity DVT requiring thrombectomy at [facility], will consult hematology to assess if there is any need for continued anticoagulation 5. Acute kidney injury, improved creatinine down from 1.6 yesterday to 1.13 today 6. Severe hypokalemia, correcting 7. Underlying history of hypothyroidism 8. Tobacco abuse Plan at this time patient is admitted to intensive care unit She is receiving IV fluid for pressure support Coumadin is held and patient was given vitamin K 10 mg Red blood cell transfusion was ordered Will monitor CBC closely Consultation for critical care and gastroenterology was initiated Will follow closely
--- NOTE | 2020-02-25 15:59 | P.PN ---
Subjective Progress Note Date: 02/25/20 Principal diagnosis: Crohn's disease, anemia associated with acute blood loss The patient is seen lying in bed today reporting a normal brown nonbloody bowel movement this morning. Tolerating diet. No abdominal pain reported.. Objective - Vital Signs Vital signs: Vital Signs Temp 97.8 F 02/25/20 04:00 Pulse 45 L 02/25/20 07:00 Resp 12 02/25/20 07:00 BP 96/64 02/25/20 07:00 Pulse Ox 96 02/25/20 06:00 Intake & Output 02/24/20 02/25/20 02/25/20 18:59 06:59 18:59 Intake Total 715.925 440 40 Output Total 567 670 50 Balance 148.925 -230 -10 Weight 69.1 kg Intake: IV 250 440 40 Sodium Chloride 0.45% 1, 440 40 000 ml @ 40 mls/hr IV . Q24H [facility] Rx#:[id number] Sodium Chloride 0.9% 1, 250 000 ml @ 125 mls/hr IV . Q8H [facility] Rx#:[id number] Intake, IV Titration 465.925 Amount Norepinephrine 4 mg In 25.925 Sodium Chloride 0.9% 250 ml @ 0.05 MCG/KG/MIN 10. 369 mls/hr IV .Q24H [facility] Rx#:[id number] Sodium Chloride 0.45% 1, 440 000 ml @ 40 mls/hr IV . Q24H [facility] Rx#:[id number] Output: Urine 567 670 50 Other: Voiding Method Indwelling Catheter Indwelling Catheter # Bowel Movements 1 1 - Exam On physical examination, patient appears comfortable in no apparent distress. HEAD: Normocephalic, atraumatic. EYES: No scleral icterus. No conjunctival injection. MOUTH: No lesions, tongue midline. NECK: Trachea midline, no gross abnormalities. ABDOMEN: Soft, nontender to palpation. Bowel sounds are positive. No organomegaly. No guarding or rigidity. EXTREMITIES: No pedal edema. SKIN: No rashes, no jaundice. NEUROLOGIC: Alert and oriented x3. No focal deficits. - Labs CBC & Chem 7: 02/25/20 05:49 02/25/20 05:49 Labs: Abnormal Lab Results - Last 24 Hours (Table) 02/24/20 02/24/20 02/25/20 Range/Units 15:18 15:18 05:49 WBC 2.6 L (3.8-10.6) k/uL RBC 2.88 L (3.80-5.40) m/uL Hgb 8.1 L (11.4-16.0) gm/dL Hct 26.7 L (34.0-46.0) % MCHC 30.3 L (31.0-37.0) g/dL Lymphocytes # 0.4 L (1.0-4.8) k/uL PT (9.0-12.0) sec INR (<1.2) APTT 36.3 H (22.0-30.0) sec Sodium (137-145) mmol/L Chloride (98-107) mmol/L Carbon Dioxide (22-30) mmol/L BUN (7-17) mg/dL Calcium (8.4-10.2) mg/dL Lactate Dehydrogenase 1169 H (313-618) U/L 02/25/20 02/25/20 Range/Units 05:49 05:49 WBC (3.8-10.6) k/uL RBC (3.80-5.40) m/uL Hgb (11.4-16.0) gm/dL Hct (34.0-46.0) % MCHC (31.0-37.0) g/dL Lymphocytes # (1.0-4.8) k/uL PT 29.8 H (9.0-12.0) sec INR 3.1 H (<1.2) APTT (22.0-30.0) sec Sodium 135 L (137-145) mmol/L Chloride 115 H (98-107) mmol/L Carbon Dioxide 18 L (22-30) mmol/L BUN 24 H (7-17) mg/dL Calcium 7.3 L (8.4-10.2) mg/dL Lactate Dehydrogenase (313-618) U/L Assessment and Plan (1) Crohn disease Narrative/Plan: 59-year-old female with a history of Crohn's disease requiring partial colectomy status post reversal in the past 2 presented due to elevated INR and was found to be anemic. Patient has active disease noted on colonoscopy recently and had been started on an oral agent however stopped this because she was unable to tolerate it. She denies any gross bleeding and his been having 5-6 bowel movements daily. She was scheduled for follow-up with the GI service. Currently patient has been initiated on steroid therapy with improvement in symptoms. Current Visit: Yes Status: Acute Code(s): K50.90 - CROHN'S DISEASE, UNSPECIFIED, WITHOUT COMPLICATIONS SNOMED Code(s): 65391459 (2) Anemia associated with acute blood loss Current Visit: Yes Status: Acute Code(s): D62 - ACUTE POSTHEMORRHAGIC ANEMIA SNOMED Code(s): 324008600 (3) Elevated INR Current Visit: Yes Status: Acute Code(s): R79.1 - ABNORMAL COAGULATION PROFILE SNOMED Code(s): 886148484 Plan: Supportive care Okay for low fiber diet Solu-Medrol 20 every 8 hours Monitor for signs or symptoms of GI bleeding Patient underwent recent colonoscopy with evidence of active disease, no plan for endoscopic evaluation at this time with the patient denying any signs or symptoms of GI bleeding Continue to monitor CBC, CMP Patient will need follow-up with the GI service after discharge for optimization of medications Thank you for allowing us to participate in the care of the patient
[2020-02-26 00:17] VITALS: TEMP 98.1
[2020-02-26 06:15] LABS: INR 2.6 (<1.2); Prothrombin Time 25.8 sec (9.0-12.0)
[2020-02-26] MEDS: LEVOTHYROXINE 100 MCG TAB PO SCH (06:16)
[2020-02-26] MEDS: SODIUM CHLORIDE 0.45% 1,000 ML IV SCH (06:16)
[2020-02-26 06:24] LABS: Basophils % (A) 0 %; Calcium 7.2 mg/dL (8.4-10.2); Eosinophils % (A) 0 %; HCT 27.7 % (34.0-46.0); HGB 8.6 gm/dL (11.4-16.0); Hypochromasia Marked; Lymphocytes # (A) 0.4 k/uL (1.0-4.8); Lymphocytes % (A) 14 %; MCH 29.6 pg (25.0-35.0); MCV 95.4 fL (80.0-100.0); Mean Platelet Volume 7.1; Monocytes # (A) 0.2 k/uL (0-1.0); Monocytes % (A) 7 %; Neutrophils # (A) 2.2 k/uL (1.3-7.7); Neutrophils % (A) 77 %; Platelet Count 387 k/uL (150-450); Potassium 3.9 mmol/L (3.5-5.1); RDW 15.2 % (11.5-15.5); WBC 2.8 k/uL (3.8-10.6)
[2020-02-26] MEDS: methylPREDNISolone SOD SUCCI 40 MG/ML 1 ML VIAL IV SCH (08:11)
[2020-02-26] MEDS: PANTOPRAZOLE 40 MG/10 ML VIAL IV SCH (08:12)
[2020-02-26] MEDS: HYDROCORTISONE 2.5% RECTAL CREAM 30 GM TUBE RECTAL SCH (08:14)
[2020-02-26 08:17] VITALS: BP 92/61; PULSE 61; RESP 16
--- NOTE | 2020-02-26 11:36 | P.PN ---
Subjective Progress Note Date: 02/26/20 Principal diagnosis: Anemia This is a pleasant 59-year-old female patient who follows with Dr. peacock as her primary care provider. She has a history of chronic and ongoing tobacco dependence, hypothyroidism, Crohn's disease with previous colectomy and subsequent reversal, previous DVT with thrombectomy at [facility] greater than 10 years ago. She has been maintained on warfarin since that time. She takes 2.5 mg on Thursday and 3.75 mg on Thursday and Thursday. She was found to have an elevated INR and directed here to the emergency room this morning for the same. She has been having some diarrhea and reports some dark stools but not too much unusual for her. She states she also had fallen 2 days ago with some right-sided rib pain. Her INR today is greater than 10 and her hemoglobin has dropped to 7.9 and she is also hypotensive. She has received 3 L of fluid resuscitation, 10 mg of vitamin K and IV Protonix. She is seen today in consultation in the emergency room. She is awake and alert in no acute distress. She is maintaining O2 saturation of 100% on room air. She is pale. No shortness of breath, no chest pain. Somewhat dizzy. Current blood pressure 80/47. She's afebrile. 0.9 normal saline at 130 MLS per hour. The patient is seen today 02/23/2020 in follow-up in the intensive care unit. She is currently awake and alert in no acute distress. She continues to maintain good O2 saturations up to 100% on room air. She's afebrile. She is bradycardic. She is continuing to require norepinephrine at 4.8 mcg/m. 0.9 normal saline at 125 ML's per hour. He did have a black tarry bowel movement this morning. White count 5.0. Hemoglobin 8.9. INR 3.2. Sodium 129. Potassium 4.3. Chloride 109. Bicarb 15. Creatinine 1.13. She had been seen and evaluated by GI services. She's been initiated on IV Solu-Medrol 20 mg every other day hours. Remains on IV Protonix. She had undergone EGD in 2019. There was evidence of mild gastritis. Small hiatal hernia. Moderate colitis of the cecum and left colon. No plans for repeat procedure at this time. She currently denies any abdominal discomfort. She is status post 2 units of packed red blood cells this admission thus far. The patient is seen today 02/24/2020 follow-up in the intensive care unit. She is currently sitting up in a chair at the bedside. Awake and alert in no acute distress. He is maintaining O2 saturation in the 90s on room air. She is 0.9 normal sinus 125 ML's per hour. She is still requiring norepinephrine currently at 1.3 mcg/m. Dopplers of the lower extremity were negative. INR 3.0. She did have issues with bradycardia yesterday. Synthroid has been resumed. White count 3.4. Hemoglobin 8.5. Sodium 134. Potassium 4.2. Bicarb 16. Creatinine 1.00. ESR 44. C-reactive protein 32.6. Stools remain dark and tarry. She's on IV Solu-Medrol, Protonix 40 mg IV every 12 hours. The patient is seen today 02/25/2020 follow-up in the intensive care unit. She is currently resting comfortably in bed. More awake and alert today. Feeling better. Titrate O2 saturations up to 100% on room air. She's been afebrile. Hemodynamically stable. Off norepinephrine for 24 hours. 0.45% normal saline at 40 ML's per hour. White count 2.6. Hemoglobin 8.1. INR 3.1. Sodium 135. Potassium 3.9. Bicarb 18. Creatinine 1.01. She did have a bowel movement this morning that was brown he remains on IV Solu-Medrol, Protonix. The patient is seen today 02/26/2020 in follow-up in the intensive care unit. She remains a general medical floor over flow. She is maintaining good O2 saturations in the 90s on room air. She's a 0.45 normal saline at 40 mL per hour. Hemoglobin today is 8.6. No black tarry stool. Status post 2 units packed red blood cells this admission. White count 2.8. INR 2.6. Sodium 136. Potassium 3.9. Bicarb 16. Creatinine 1.00. Objective - Vital Signs Vital signs: Vital Signs Temp 98.1 F 02/26/20 00:00 Pulse 61 02/26/20 08:00 Resp 16 02/26/20 08:00 BP 92/61 02/26/20 08:00 Pulse Ox 97 02/26/20 08:00 Intake & Output 02/25/20 02/26/20 02/26/20 18:59 06:59 18:59 Intake Total 320 800 Output Total 725 1850 Balance -405 -1050 Weight 69.9 kg Intake: IV 320 680 Sodium Chloride 0.45% 1, 320 680 000 ml @ 40 mls/hr IV . Q24H [facility] Rx#:[id number] Oral 120 Output: Urine 725 1850 Other: Voiding Method Indwelling Catheter Indwelling Catheter Toilet # Bowel Movements 1 - Exam GENERAL EXAM: Alert, pleasant 59-year-old female, on room air, comfortable in no apparent distress. HEAD: Normocephalic. EYES: Normal reaction of pupils, equal size. NOSE: Clear with pink turbinates. THROAT: No erythema or exudates. NECK: No masses, no JVD. CHEST: No chest wall deformity. LUNGS: Equal air entry with no crackles, wheeze, rhonchi or dullness. CVS: S1 and S2 normal with no audible murmur, regular rhythm. ABDOMEN: No hepatosplenomegaly, normal bowel sounds, no guarding or rigidity. SPINE: No scoliosis or deformity SKIN: No rashes CENTRAL NERVOUS SYSTEM: No focal deficits, tone is normal in all 4 extremities. EXTREMITIES: There is no peripheral edema. No clubbing, no cyanosis. Peripheral pulses are intact. - Labs CBC & Chem 7: 02/26/20 05:55 02/26/20 05:55 Labs: Abnormal Lab Results - Last 24 Hours (Table) 02/26/20 02/26/20 02/26/20 Range/Units 05:55 05:55 05:55 WBC 2.8 L (3.8-10.6) k/uL RBC 2.90 L (3.80-5.40) m/uL Hgb 8.6 L (11.4-16.0) gm/dL Hct 27.7 L (34.0-46.0) % Lymphocytes # 0.4 L (1.0-4.8) k/uL PT 25.8 H (9.0-12.0) sec INR 2.6 H (<1.2) Sodium 136 L (137-145) mmol/L Chloride 117 H (98-107) mmol/L Carbon Dioxide 16 L (22-30) mmol/L BUN 26 H (7-17) mg/dL Calcium 7.2 L (8.4-10.2) mg/dL Assessment and Plan Assessment: 1 Coagulopathy with an INR of greater than 10 and the patient is on chronic warfarin for previous history of DVT, current INR 2.6 2 Previous history of lower extremity DVT with thrombectomy over 10 years ago at [facility], bilateral doppler revealed no evidence of DVT currently 3 Anemia secondary to above, stool for occult blood positive and is status post 2 units of packed red blood cells. Current hemoglobin 8.6 4 Hypotension secondary to above, currently on norepinephrine 5 Hyponatremia with sodium 136, improved 6 Acute renal failure improving. Current creatinine 1.00 7 History of Crohn's disease 8 History of colectomy with subsequent reversal 9 Hypothyroidism 10 History of chronic tobacco dependence 11 Non-anion gap metabolic acidosis sodium corrected to 136, chloride 117, bicarbonate 16 Plan: The patient was seen and evaluated by Dr. Julio Cleared for discharge from the pulmonary standpoint Discontinue IV Solu-Medrol initiate prednisone 20 mg daily Discontinue IV Protonix, oral Protonix daily I, the cosigning physician, performed a history & physical examination of the pa tient. Lungs sounds are clear. Maintaining good O2 saturations in the 90s on room air. I discussed the assessment and plan of care with my nurse practitioner, Justine Ochoa. I attest to the above note as dictated by her.
--- NOTE | 2020-02-26 14:53 | P.DS ---
Providers Date of admission: 02/22/20 13:08 Expected date of discharge: 02/26/20 Attending physician: Marcell Aguilar Consults: 02/22/20 13:00 Consult Physician Stat Consulting Provider: Tatyana Sunshine Consult Reason/Comments: GI bleed, chron's, elevated inr Do you want consulting provider notified?: Yes 02/22/20 13:34 Consult Physician ONCE Consulting Provider: Luca Julio Consult Reason/Comments: GI bleed, icu mgmt Do you want consulting provider notified?: Yes 02/24/20 14:19 Consult Physician Routine Consulting Provider: Myke Katz Consult Reason/Comments: lower extremity DVT 10 years ago ? need for anticoagulation Do you want consulting provider notified?: Yes Primary care physician: Sarahi Ornelas Hospital Course: Diagnosis on discharge: 1. Rectal bleeding with anemia, stable at this time 2. Coagulopathy with INR more than 10 given vitamin K INR today 2.6 3. Underlying history of Crohn's disease 4. History of DVT more than 10 years ago maintained on Coumadin, patient had 1 episode of bilateral lower extremity DVT requiring thrombectomy at [facility], will consult hematology to assess if there is any need for continued anticoagulation. Patient was evaluated by hematology, they will try to obtain her records from 10 years ago from [facility], to assess if patient had any hypercoagulable state testing done. Patient should follow with Dr. Katz within one week for further evaluation and assessment whether patient needs to be on anticoagulation again. I have discussed this case in length with multiple consultants and the consensus was that for the short-term patient should be off anticoagulation, for the medium to fdc she will need to be evaluated to assess if patient needs to be on anticoagulation. Bilateral lower extremity Doppler was done during this visit and was negative for any evidence of DVT. INR at the time of discharge is still 2.6 patient should follow with her primary care physician Dr. Ornelas within one week she should also follow-up with Dr. Katz for further evaluation of long term acute care registered nurse need for anticoagulation. 5. Acute kidney injury, improved creatinine down from 1.6 yesterday to 1.13 today 6. Severe hypokalemia, correcting 7. Underlying history of hypothyroidism 8. Tobacco abuse, patient was counseled during this admission to quit smoking counseling more than 5 minutes Hospital course: Jacquie Chowdhury, is a 59-year-old female patient of Dr. Ornelas with known history of Crohn's disease with previous colectomy and subsequent reversal, and history of DVT 10 years ago maintained on Coumadin. Who presented to [facility] emergency room with a chief complaint of rectal bleeding, patient stated that she was having small amount of blood per rectum she thought it was related to her hemorrhoids she was evaluated in the emergency room and was found to have an elevated INR She states she also had fallen 2 days ago with some right-sided rib pain. Her INR today is greater than 10 and her hemoglobin has dropped to 7.9 and she is also hypotensive. She has received 3 L of fluid resuscitation, 10 mg of vitamin K and IV Protonix. Patient was admitted to intensive care unit critical care consultation and gastroenterology consultation were requested. Patient was seen and examined in ICU she is alert and oriented in no apparent distress she looks pale she is complaining of mild dizziness otherwise she denies any complaints there is no fever or chills no headache or dizziness no chest pain no shortness of breath no cough no nausea or vomiting no abdominal pain no diarrhea no burning was urination no frequency or urgency no hematuria. On 02/23/2020 patient is alert and oriented in no apparent distress she remains in ICU she received 2 units of red blood cell transfusion hemoglobin is 8.9 INR 3.2 patient is denying any obvious bleeding at this time she denying any nausea vomiting abdominal pain or diarrhea there is no fever or chills no headache or dizziness no chest pain no shortness of breath no cough and no urinary symptoms, she remains on IV fluid and pressure support and ICU. GI input reviewed no plans for repeat endoscopy at this time. On 02/24/2020 patient was seen and examined in the ICU she is alert and oriented 3 in no apparent distress she is complaining of pain in the rectal area otherwise she denies any complaints she had 3 bowel movements today there is no fever or chills no headache or dizziness no chest pain no shortness of breath no cough no nausea or vomiting no abdominal pain no diarrhea no burning with urination no frequency or urgency and no hematuria. Hemoglobin is 8.5 INR 3.0 kidney function is normalizing. On 02/25/2020 patient was seen and examined in the ICU he is alert and oriented 3, still complaining of pain in the rectal area otherwise she denies any complaints there is no fever or chills no headache or dizziness no chest pain no shortness of breath no cough no nausea or vomiting no abdominal pain no diarrhea no burning was urination no frequency or urgency no hematuria On 02/26/2020 patient was seen and examined in the ICU he was evaluated by pulmonary and gastroenterology today and was cleared for discharge recommendation was to give patient a course of oral prednisone, there are no clear recommendation from anybody whether patient should be on long-term anticoagulation or not in regard to history of bilateral lower extremity DVT 10 years ago patient should follow-up with Dr. Katz within one week for further evaluation and decision making regarding anticoagulation. Patient had bilateral lower extremity DVT 10 years ago, hematology will try to obtain any testing done back then at [facility] to assess if patient had any hypercoagulable state if no testing were done patient may need to go through testing at this time to assess whether patient needs to be on anticoagulation for the rest of her life or not, patient was encouraged to follow-up with Dr. Katz as soon as possible in the next week Patient Condition at Discharge: Serious Plan - Discharge Summary Discharge Rx Participant: Yes New Discharge Prescriptions: New predniSONE [Deltasone] 20 mg PO DAILY tab Hydrocortisone Pr Cream [Proctosol-Hc 2.5%] 1 applic RECTAL BID applic Pantoprazole [Protonix] 40 mg PO AC-BRKFST tablet.dr Cortés Levothyroxine Sodium [Synthroid] 100 mcg PO DAILY Discontinued Warfarin [Coumadin] 3.75 mg PO MOWESA Warfarin [Coumadin] 2.5 mg PO SUTUTHFR Discharge Medication List Levothyroxine Sodium [Synthroid] 100 mcg PO DAILY 10/20/19 [History] Hydrocortisone Pr Cream [Proctosol-Hc 2.5%] 1 applic RECTAL BID applic 02/26/20 [Rx] Pantoprazole [Protonix] 40 mg PO AC-BRKFST tablet. 02/26/20 [Rx] predniSONE [Deltasone] 20 mg PO DAILY tab 02/26/20 [Rx] Follow up Appointment(s)/Referral(s): Myke Katz MD [STAFF PHYSICIAN] - 2 Weeks Sarahi Ornelas MD [Primary Care Provider] - 1-2 days Nicholas Davila MD [STAFF PHYSICIAN] - 2 Weeks Patient Instructions/Handouts: Rectal Bleeding (DC), Crohn Disease (DC)
--- NOTE | 2020-02-26 15:33 | P.PN ---
Subjective Progress Note Date: 02/26/20 Principal diagnosis: Crohn's disease, anemia associated with acute blood loss The patient is seen lying in bed today, again reporting a brown nonbloody normal bowel movement this morning. Has tolerated her diet. No signs or symptoms of GI bleed. Objective - Vital Signs Vital signs: Vital Signs Temp 98.1 F 02/26/20 00:00 Pulse 61 02/26/20 08:00 Resp 16 02/26/20 08:00 BP 92/61 02/26/20 08:00 Pulse Ox 97 02/26/20 08:00 Intake & Output 02/25/20 02/26/20 02/26/20 18:59 06:59 18:59 Intake Total 320 800 Output Total 725 1850 Balance -405 -1050 Weight 69.9 kg Intake: IV 320 680 Sodium Chloride 0.45% 1, 320 680 000 ml @ 40 mls/hr IV . Q24H [facility] Rx#:[id number] Oral 120 Output: Urine 725 1850 Other: Voiding Method Indwelling Catheter Indwelling Catheter # Bowel Movements 1 - Exam On physical examination, patient appears comfortable in no apparent distress. HEAD: Normocephalic, atraumatic. EYES: No scleral icterus. No conjunctival injection. MOUTH: No lesions, tongue midline. NECK: Trachea midline, no gross abnormalities. ABDOMEN: Soft, nontender to palpation. Bowel sounds are positive. No organomegaly. No guarding or rigidity. EXTREMITIES: No pedal edema. SKIN: No rashes, no jaundice. NEUROLOGIC: Alert and oriented x3. No focal deficits. - Labs CBC & Chem 7: 02/26/20 05:55 02/26/20 05:55 Labs: Abnormal Lab Results - Last 24 Hours (Table) 02/26/20 02/26/20 02/26/20 Range/Units 05:55 05:55 05:55 WBC 2.8 L (3.8-10.6) k/uL RBC 2.90 L (3.80-5.40) m/uL Hgb 8.6 L (11.4-16.0) gm/dL Hct 27.7 L (34.0-46.0) % Lymphocytes # 0.4 L (1.0-4.8) k/uL PT 25.8 H (9.0-12.0) sec INR 2.6 H (<1.2) Sodium 136 L (137-145) mmol/L Chloride 117 H (98-107) mmol/L Carbon Dioxide 16 L (22-30) mmol/L BUN 26 H (7-17) mg/dL Calcium 7.2 L (8.4-10.2) mg/dL Assessment and Plan (1) Crohn disease Narrative/Plan: 59-year-old female with a history of Crohn's disease requiring partial colectomy status post reversal in the past 2 presented due to elevated INR and was found to be anemic. Patient has active disease noted on colonoscopy recently and had been started on an oral agent however stopped this because she was unable to tolerate it. She denies any gross bleeding and his been having 5-6 bowel movements daily. She was scheduled for follow-up with the GI service. Currently patient has been initiated on steroid therapy with improvement in symptoms. Current Visit: Yes Status: Acute Code(s): K50.90 - CROHN'S DISEASE, UNSPECIFIED, WITHOUT COMPLICATIONS SNOMED Code(s): 38122527 (2) Anemia associated with acute blood loss Current Visit: Yes Status: Acute Code(s): D62 - ACUTE POSTHEMORRHAGIC ANEMIA SNOMED Code(s): 594499750 (3) Elevated INR Current Visit: Yes Status: Acute Code(s): R79.1 - ABNORMAL COAGULATION PROFI LE SNOMED Code(s): 923730652 Plan: Supportive care Okay for low fiber diet Solu-Medrol 20 every 8 hours, okay to discharge on steroid taper Monitor for signs or symptoms of GI bleeding Patient underwent recent colonoscopy with evidence of active disease, no plan for endoscopic evaluation at this time with the patient denying any signs or s ymptoms of GI bleeding Continue to monitor CBC, CMP Patient will need follow-up with the GI service after discharge for optimization of medications Thank you for allowing us to participate in the care of the patient
[2020-02-27] MEDS ORDERED: PANTOPRAZOLE 40 MG TABLET PO SCH (07:30)
[2020-02-27] MEDS ORDERED: predniSONE 20 MG TAB PO SCH (09:00)
[2020-02-27 15:02] LABS: APTT 73 Sec(s) (<43); APTT 1:1 Mix 44 Sec(s) (<43); DRVVT 1:1 Mix 45 Sec(s) (<44); DRVVT Confirmation Negative (Negative); Dilute Russell Viper Venom 72 Sec(s) (<44); Hexagonal Phase Neutralization Negative (Negative)
[2020-02-28 09:33] LABS: Methylmalonic Acid 1.37 umol/L (<0.40)
[2020-02-29 16:34] LABS: Fibrinogen Antigen 278 mg/dL (<350)
== END 2020-02-26 15:34 | disposition home or self-care (01) | DRG 378 ==
LOC: EC 10:20 → 2SICU 13:08
PROVIDERS: ADMIT Internal Medicine; ATTEND Internal Medicine
PROC: 30233N1 Transfusion of Nonautologous Red Blood Cells into Peripheral Vein, Percutaneous Approach (ICD-10-PCS; principal; 2020-02-22)
DX: K62.5 Hemorrhage of anus and rectum (principal); D62 Acute posthemorrhagic anemia; E87.1 Hypo-osmolality and hyponatremia; E87.2 Acidosis; K50.90 Crohn's disease, unspecified, without complications; N17.9 Acute kidney failure, unspecified; T45.515A Adverse effect of anticoagulants, initial encounter; E03.9 Hypothyroidism, unspecified; E87.6 Hypokalemia; F17.200 Nicotine dependence, unspecified, uncomplicated; G62.9 Polyneuropathy, unspecified; K44.9 Diaphragmatic hernia without obstruction or gangrene; K64.9 Unspecified hemorrhoids; I95.89 Other hypotension; R00.1 Bradycardia, unspecified; Z11.59 Encounter for screening for other viral diseases; R79.1 Abnormal coagulation profile; R07.81 Pleurodynia; R19.7 Diarrhea, unspecified; R63.4 Abnormal weight loss; Z79.01 Long term (current) use of anticoagulants; Z79.890 Hormone replacement therapy; Z86.718 Personal history of other venous thrombosis and embolism; Z90.49 Acquired absence of other specified parts of digestive tract; Z88.2 Allergy status to sulfonamides; W01.0XXA Fall on same level from slipping, tripping and stumbling without subsequent striking against object, initial encounter
CPT/HCPCS: 36415; 71046; 80048; 80053; 80061; 81003; 82272; 82607; 82728; 82746; 83010; 83036; 83540; 83550; 83605; 83615; 83735; 83921; 84132; 84443; 84484; 85025; 85027; 85384; 85385; 85598; 85610; 85613; 85652; 85730; 85732; 86038; 86140; 86431; 86850; 86900; 86901; 86920; 87324; 93005; 93970; 96360; 96361; 96374; 99291

== ENCOUNTER 2020-04-10 17:53 | Inpatient (IN) | payer BC ==
[2020-04-10] MEDS ORDERED: PANTOPRAZOLE 40 MG/10 ML VIAL IVP STA (18:26)
--- NOTE | 2020-04-10 18:29 | ED ---
General Adult HPI - General Chief complaint: Shortness of Breath Stated complaint: Fatigue Time Seen by Provider: 04/10/20 18:10 Source: patient, RN notes reviewed Mode of arrival: wheelchair Limitations: no limitations - History of Present Illness Initial comments: Patient is a pleasant 59-year-old female presenting to the emergency Department with left leg swelling. Patient was in the hospital with GI bleed around a month ago. Patient was taken off her blood thinner at that time. Patient states she has had increased leg swelling over the past 2 weeks of the left leg. Patient also complains of fatigue and some exertional dyspnea. Patient does have history of previous blood clot in her leg. - Related Data Home Medications Medication Instructions Recorded Confirmed Levothyroxine Sodium [Synthroid] 100 mcg PO DAILY 10/20/19 04/10/20 Multivitamins, Thera Liquid 15 ml PO DAILY 04/10/20 04/10/20 [Theragran Liquid (formulary)] predniSONE 30 mg PO DAILY 04/10/20 04/10/20 Previous Rx's Medication Instructions Recorded Pantoprazole [Protonix] 40 mg PO AC-BRKFST tablet. 02/26/20 Allergies Allergy/AdvReac Type Severity Reaction Status Date / Time Sulfa (Sulfonamide Allergy Unknown Verified 04/10/20 18:58 Antibiotics) Review of Systems ROS Statement: Those systems with pertinent positive or pertinent negative responses have been documented in the HPI. ROS Other: All systems not noted in ROS Statement are negative. Constitutional: Denies: fever, chills Eyes: Denies: eye pain ENT: Denies: ear pain Respiratory: Reports: dyspnea. Denies: cough Cardiovascular: Denies: chest pain Endocrine: Reports: fatigue Gastrointestinal: Denies: abdominal pain, melena, hematochezia Genitourinary: Denies: dysuria Musculoskeletal: Denies: back pain Skin: Denies: rash Neurological: Denies: weakness Past Medical History Past Medical History: Deep Vein Thrombosis (DVT) Additional Past Medical History / Comment(s): sinus allergies, diarrhea x1yr, blaine. DVT. heart murmur History of Any Multi-Drug Resistant Organisms: None Reported Past Surgical History: Bowel Resection, Section Additional Past Surgical History / Comment(s): bowel resection with colostomy and then colostomy reversal Past Anesthesia/Blood Transfusion Reactions: No Reported Reaction Past Psychological History: No Psychological Hx Reported Past Alcohol Use History: None Reported Past Drug Use History: None Reported - Past Family History Mother Family Medical History: No Reported History General Exam Limitations: no limitations General appearance: alert, in no apparent distress Head exam: Present: normocephalic Eye exam: Present: normal appearance ENT exam: Present: normal oropharynx Neck exam: Present: normal inspection Respiratory exam: Present: normal lung sounds bilaterally Cardiovascular Exam: Present: regular rate, normal rhythm Expanded Peripheral pulses: 2+: Dorsalis Pedis (R), Dorsalis Pedis (L) GI/Abdominal exam: Present: soft. Absent: distended, tenderness Extremities exam: Present: calf tenderness, other (Mild to moderate left leg swelling with posterior calf tenderness) Neurological exam: Present: alert Psychiatric exam: Present: normal affect, normal mood Skin exam: Present: rash Course Vital Signs 04/10/20 04/10/20 18:07 19:35 Temperature 98.2 F Pulse Rate 100 87 Respiratory 21 18 Rate Blood Pressure 107/65 94/56 O2 Sat by Pulse 100 100 Oximetry EKG Findings - EKG Comments: EKG Findings:: Normal sinus rhythm 89. LA 150. QRS 86. QT 356. QTc 433. Normal axis. Right atrial enlargement. Normal QRS. Nonspecific ST-T. Medical Decision Making - Medical Decision Making Patient reevaluated. Patient updated on results and plan. Case was discussed in detail with Dr. Aguilar who will admit. Heparin restarted. - Lab Data Result diagrams: 04/10/20 18:38 04/10/20 18:38 Lab Results 04/10/20 04/10/20 04/10/20 Range/Units 18:38 18:38 18:38 WBC 6.9 (3.8-10.6) k/uL RBC 3.44 L (3.80-5.40) m/uL Hgb 10.4 L (11.4-16.0) gm/dL Hct 33.2 L (34.0-46.0) % MCV 96.5 (80.0-100.0) fL MCH 30.1 (25.0-35.0) pg MCHC 31.3 (31.0-37.0) g/dL RDW 17.6 H (11.5-15.5) % Plt Count 250 (150-450) k/uL Neutrophils % 88 % Lymphocytes % 7 % Monocytes % 4 % Eosinophils % 0 % Basophils % 0 % Neutrophils # 6.1 (1.3-7.7) k/uL Lymphocytes # 0.5 L (1.0-4.8) k/uL Monocytes # 0.3 (0-1.0) k/uL Eosinophils # 0.0 (0-0.7) k/uL Basophils # 0.0 (0-0.2) k/uL Hypochromasia Slight Anisocytosis Slight PT 10.3 (9.0-12.0) sec INR 1.0 (<1.2) APTT 26.4 (22.0-30.0) sec Sodium 133 L (137-145) mmol/L Potassium 3.1 L (3.5-5.1) mmol/L Chloride 106 (98-107) mmol/L Carbon Dioxide 22 (22-30) mmol/L Anion Gap 5 mmol/L BUN 19 H (7-17) mg/dL Creatinine 1.30 H (0.52-1.04) mg/dL Est GFR (CKD-EPI)AfAm 52 (>60 ml/min/1.73 sqM) Est GFR (CKD-EPI)NonAf 45 (>60 ml/min/1.73 sqM) Glucose 137 H (74-99) mg/dL Plasma Lactic Acid Ti (0.7-2.0) mmol/L Calcium 7.1 L (8.4-10.2) mg/dL Total Bilirubin 0.5 (0.2-1.3) mg/dL AST 17 (14-36) U/L ALT 11 (4-34) U/L Alkaline Phosphatase 122 (38-126) U/L Troponin I (0.000-0.034) ng/mL NT-Pro-B Natriuret Pep pg/mL Total Protein 5.2 L (6.3-8.2) g/dL Albumin 2.1 L (3.5-5.0) g/dL 04/10/20 04/10/20 04/10/20 Range/Units 18:38 18:38 18:38 WBC (3.8-10.6) k/uL RBC (3.80-5.40) m/uL Hgb (11.4-16.0) gm/dL Hct (34.0-46.0) % MCV (80.0-100.0) fL MCH (25.0-35.0) pg MCHC (31.0-37.0) g/dL RDW (11.5-15.5) % Plt Count (150-450) k/uL Neutrophils % % Lymphocytes % % Monocytes % % Eosinophils % % Basophils % % Neutrophils # (1.3-7.7) k/uL Lymphocytes # (1.0-4.8) k/uL Monocytes # (0-1.0) k/uL Eosinophils # (0-0.7) k/uL Basophils # (0-0.2) k/uL Hypochromasia Anisocytosis PT (9.0-12.0) sec INR (<1.2) APTT (22.0-30.0) sec Sodium (137-145) mmol/L Potassium (3.5-5.1) mmol/L Chloride (98-107) mmol/L Carbon Dioxide (22-30) mmol/L Anion Gap mmol/L BUN (7-17) mg/dL Creatinine (0.52-1.04) mg/dL Est GFR (CKD-EPI)AfAm (>60 ml/min/1.73 sqM) Est GFR (CKD-EPI)NonAf (>60 ml/min/1.73 sqM) Glucose (74-99) mg/dL Plasma Lactic Acid Ti 1.8 (0.7-2.0) mmol/L Calcium (8.4-10.2) mg/dL Total Bilirubin (0.2-1.3) mg/dL AST (14-36) U/L ALT (4-34) U/L Alkaline Phosphatase (38-126) U/L Troponin I <0.012 (0.000-0.034) ng/mL NT-Pro-B Natriuret Pep 899 pg/mL Total Protein (6.3-8.2) g/dL Albumin (3.5-5.0) g/dL - Radiology Data Radiology results: report reviewed (Computed tomography scan as discussed with radiologist shows multilevel pulmonary embolism without heart strain. Ultrasound shows chronic DVT.), image reviewed (Chest x-ray reveals minimal pleural thickening right midlung.) Critical Care Time Critical Care Time: Yes Total Critical Care Time: 32 Disposition Clinical Impression: Pulmonary embolus Disposition: ADMITTED IP TO THIS HOSP Condition: Serious Is patient prescribed a controlled substance at d/c from ED?: No Referrals: Sarahi Ornelas MD [Primary Care Provider] - 1-2 days Decision Time: 20:09
[2020-04-10 18:46] LABS: Anisocytosis Slight; Basophils % (A) 0 %; Eosinophils % (A) 0 %; HCT 33.2 % (34.0-46.0); HGB 10.4 gm/dL (11.4-16.0); Hypochromasia Slight; Lymphocytes # (A) 0.5 k/uL (1.0-4.8); Lymphocytes % (A) 7 %; MCH 30.1 pg (25.0-35.0); MCHC 31.3 g/dL (31.0-37.0); MCV 96.5 fL (80.0-100.0); Monocytes # (A) 0.3 k/uL (0-1.0); Monocytes % (A) 4 %; Neutrophils # (A) 6.1 k/uL (1.3-7.7); Neutrophils % (A) 88 %; Platelet Count 250 k/uL (150-450); RBC 3.44 m/uL (3.80-5.40); RDW 17.6 % (11.5-15.5); WBC 6.9 k/uL (3.8-10.6)
[2020-04-10 18:55] LABS: Albumin 2.1 g/dL (3.5-5.0); Calcium 7.1 mg/dL (8.4-10.2); Potassium 3.1 mmol/L (3.5-5.1); Total Bilirubin 0.5 mg/dL (0.2-1.3); Total Protein 5.2 g/dL (6.3-8.2)
[2020-04-10 18:57] LABS: Partial Thromboplastin Time 26.4 sec (22.0-30.0); Prothrombin Time 10.3 sec (9.0-12.0)
[2020-04-10] MEDS ORDERED: SODIUM CHLORIDE 0.9% 1,000 ML IV STA (19:03)
--- NOTE | 2020-04-10 19:20 | XR ---
EXAMINATION TYPE: XR chest 2V DATE OF EXAM: 04/10/2020 COMPARISON: NONE HISTORY: Weakness TECHNIQUE: 2 views FINDINGS: Heart and mediastinum are normal. Lungs are clear of consolidation. Diaphragm is normal. Wilber ny thorax appears normal. Pulmonary vascularity is normal. There is minimal pleural thickening on the right lateral chest wall. IMPRESSION: Minimal pleural thickening in the lateral right midlung field appears new compared to old exam. Normal heart.
--- NOTE | 2020-04-10 19:40 | US ---
EXAMINATION TYPE: US venous doppler duplex LE LT DATE OF EXAM: 04/10/2020 7:21 PM COMPARISON: US 2019 CLINICAL HISTORY: swelling. Swelling left leg x 2.5 weeks. Hx of DVT. Patient does not take blood thi nners. SIDE PERFORMED: Left TECHNIQUE: The lower extremity deep venous system is examined utilizing real time linear array sonog kye with graded compression, doppler sonography and color-flow sonography. VESSELS IMAGED: External Iliac Vein (EIV) Common Femoral Vein Deep Femoral Vein Greater Saphenous Vein * Femoral Vein Popliteal Vein Small Saphenous Vein * Proximal Calf Veins (* superficial vessels) Left Leg: There appear to be internal echoes from the CFV/GSV down through the popliteal vein. Vesse ls appear noncompressible from CFV/GSV to popliteal vein. Prox calf veins not well seen. IMPRESSION: There is evidence of chronic deep vein thrombosis in the left leg. No definite acute yogesh p vein thrombosis.
--- NOTE | 2020-04-10 20:04 | CT ---
EXAMINATION TYPE: CT angio chest DATE OF EXAM: 04/10/2020 COMPARISON: 06/01/2012 HISTORY: Leg swelling, elevated d-dimer CT DLP: 206.9 mGycm Automated exposure control for dose reduction was used. CONTRAST: Performed with IV Contrast, patient injected with 80 mL of Isovue 370. There are 3-D post processed images. Mediastinum is normal. Thoracic aorta is intact. There is no aortic dissection. Ascending aorta measu res 3.5 cm. There are no hilar masses. Heart size is normal. There is no pericardial effusion. There is some infiltrate and atelectasis at the posterior lung bases bilaterally. There is no pleural effus ion. There is linear filling defect in the left lower lobe pulmonary artery extending into the basal segme nt branches. There is small filling defect in the posterior basal segment branch of the right lower l obe pulmonary artery. There is filling defect in the posterior branch of the left upper lobe pulmonar y artery. There is filling defects in the anterior and posterior branch segments of the right upper l obe pulmonary artery. There is some patchy peripheral reticular nodular infiltrates in the right lung on the posterior late ral chest wall. There is mild pulmonary emphysema. The bony thorax is intact. Sternum is intact. Ther e is 2 cm irregular nodular infiltrate at the left posterior lung base. IMPRESSION: Multiple upper and lower lobe pulmonary emboli bilaterally appear new compared to old exam. Normal he art. No evidence of right heart strain. Multiple peripheral patchy reticular nodular infiltrates with a changing pattern compared to old exam . Exam findings were discussed with Dr. Barba at 8:00 PM.
[2020-04-10] MEDS ORDERED: NALOXONE 0.4 MG/ML 1 ML VIAL IV PRN (20:06)
[2020-04-10] MEDS ORDERED: HEPARIN SODIUM,PORCINE 10,000 UNIT/ML 1 ML VIAL IV ONE (20:06)
[2020-04-10] MEDS ORDERED: HEPARIN SODIUM,PORCINE 5,000 UNIT/ML 1 ML VIAL IV PRN (20:06)
[2020-04-10] MEDS: HEPARIN SOD,PORK IN 0.45% NACL 25,000 UNIT in 0.45% NACL 1 250ML.BAG IV SCH (20:26)
[2020-04-10 22:27] LABS: Glucose,Whole Blood 140 mg/dL (75-99)
[2020-04-11 04:45] LABS: Anisocytosis Slight; Basophils % (A) 0 %; Eosinophils % (A) 1 %; HCT 25.8 % (34.0-46.0); Hypochromasia Moderate; INR 1.1 (<1.2); Lymphocytes # (A) 0.8 k/uL (1.0-4.8); Lymphocytes % (A) 23 %; MCH 30.3 pg (25.0-35.0); MCV 97.6 fL (80.0-100.0); Macrocytosis Slight; Mean Platelet Volume 7.6; Monocytes # (A) 0.2 k/uL (0-1.0); Monocytes % (A) 5 %; Neutrophils # (A) 2.5 k/uL (1.3-7.7); Neutrophils % (A) 70 %; Partial Thromboplastin Time 33.7 sec (22.0-30.0); Platelet Count 197 k/uL (150-450); Prothrombin Time 10.9 sec (9.0-12.0); RBC 2.64 m/uL (3.80-5.40); RDW 17.4 % (11.5-15.5); WBC 3.6 k/uL (3.8-10.6)
[2020-04-11 04:51] LABS: Calcium 6.5 mg/dL (8.4-10.2)
[2020-04-11 04:57] LABS: Potassium 2.4 mmol/L (3.5-5.1)
[2020-04-11] MEDS ORDERED: Potassium Replacement Protocol 1 EACH MISC MISCELLANE PRN ×3 (04:59→17:26)
[2020-04-11] MEDS: POTASSIUM CHLORIDE ER 20 MEQ TAB.ER PO SCH ×6 (05:06→14:30)
[2020-04-11 06:24] LABS: Glucose,Whole Blood 78 mg/dL (75-99)
[2020-04-11] MEDS: PANTOPRAZOLE 40 MG/10 ML VIAL IV SCH (07:58)
[2020-04-11] MEDS ORDERED: PANTOPRAZOLE 40 MG TABLET PO SCH (09:45)
[2020-04-11] MEDS ORDERED: predniSONE 10 MG TAB PO SCH (09:45)
[2020-04-11 10:25] VITALS: BMI 19.8
[2020-04-11] MEDS: LEVOTHYROXINE 100 MCG TAB PO SCH (10:25)
[2020-04-11] MEDS ORDERED: Magnesium Replacement Protocol 1 EACH MISC MISCELLANE PRN (10:43)
[2020-04-11] MEDS: MAGNESIUM SULFATE-D5W PMX 1 GM in DEXTROSE/WATER 1 100ML.BAG IVPB SCH ×3 (12:50→16:51)
--- NOTE | 2020-04-11 14:22 | P.CNPUL ---
History of Present Illness Consult date: 04/11/20 Reason for consult: pulmonary embolism History of present illness: A 59-year-old female patient with a remote history of DVT plasma 10 on long-term medical condition with warfarin. Recently the patient was having difficulties with GI bleeding and she was taken off the antibiotic ventilation approximately 3 months ago. She came into the emergency department yesterday because of pain and swelling of the left lower extremity tingling going on for the past 7-10 days. Subsequently she started having increased shortness of breath and increas ed fatigue and exertional dyspnea. For that reason she came into the hospital. The Doppler of the lower extremity was done and the patient was found to have a DVT and a common femoral vein, greater saphenous vein extending to the popliteal vein. The CTA of the chest was also done that showed multiple peripheral patchy reticulonodular infiltrates in addition to THE upper and lower lobe only artery emboli bilaterally which are new findings. The patient was started on IV heparin. No hemodynamic instability. No hypotension. No pleurisy. No hemoptysis. She is hemodynamically stable at this point in time. Note that she has history of inflammatory bowel disease, Crohn's disease and the patient has undergone previous history of colectomy. The patient also has undergone previous EGD that showed ongoing colitis for which the patient was started on prednisone burst taper and currently she is down to 30 mg as part of her burst taper. She is being followed up by gastroenterology. During her most recent admission of February 2020, she was taken off anticoagulation as the patient came in with a toxic INR of above 10. Noted the patient was also seen by hematology and outpatient hematologic hypercoagulable workup was done and I do not think she was found to have any significant abnormalities. Her current hemoglobin is at 8.0. Review of Systems Constitutional: Denies chills, Denies fever Eyes: denies as per HPI, denies blurred vision, denies bulging eye, denies decreased vision, denies diplopia, denies discharge, denies dry eye, denies irritation, denies itching, denies pain, denies photophobia, denies loss of frances pheral vision, denies loss of vision, denies tunnel vision/blind spots Ears: deny: decreased hearing, ear discharge, earache, tinnitus Ears, nose, mouth and throat: Denies headache, Denies sore throat Breasts: absent: as per HPI, change in shape, gynecomastia, masses, nipple discharge, pain, skin changes, swelling Cardiovascular: Reports decreased exercise tolerance, Reports leg edema Respiratory: Reports dyspnea Gastrointestinal: Reports as per HPI, Reports BRBPR (Previous history of GI bleed), Reports diarrhea Genitourinary: Reports as per HPI Menstruation: Reports as per HPI, Reports cycle > 35 days Musculoskeletal: left: ankle swelling, absent: ankle pain, ankle stiffness Integumentary: Reports as per HPI Neurological: Reports as per HPI Psychiatric: Reports as per HPI Endocrine: Reports as per HPI Hematologic/Lymphatic: Reports as per HPI Allergic/Immunologic: Reports as per HPI Past Medical History Past Medical History: Deep Vein Thrombosis (DVT), GI Bleed, Thyroid Disorder Additional Past Medical History / Comment(s): sinus allergies, history blaine. DVT more than 10 years ago and she has been maintained on Warfarin, cardiac murmur , Gi bleeding and EGD /colonoscopy on 10/24/2019 showing mild gastritis, small HH and colonoscopy showed colitis of the cecum and left colon and biopsy was consistent with colitis, nonspecific. She has history of Crohn's disease and has hisotry of colectomy , chronic anemia History of Any Multi-Drug Resistant Organisms: None Reported Past Surgical History: Bowel Resection, Section Additional Past Surgical History / Comment(s): bowel resection with colostomy and then colostomy reversal Past Anesthesia/Blood Transfusion Reactions: No Reported Reaction Past Psychological History: No Psychological Hx Reported Smoking Status: Current every day smoker Past Alcohol Use History: None Reported Additional Past Alcohol Use History / Comment(s): smoker for 20 years on and off 1/2 ppd or less Past Drug Use History: None Reported - Past Family History Mother Family Medical History: No Reported History Medications and Allergies Home Medications Medication Instructions Recorded Confirmed Type Levothyroxine Sodium [Synthroid] 100 mcg PO DAILY 10/20/19 04/10/20 History Pantoprazole [Protonix] 40 mg PO AC-BRKFST tablet. 02/26/20 04/10/20 Rx Multivitamins, Thera Liquid 15 ml PO DAILY 04/10/20 04/10/20 History [Theragran Liquid (formulary)] predniSONE 30 mg PO DAILY 04/10/20 04/10/20 History Apixaban [Eliquis Starter Pack 0 mg PO DIRECTED 30 Days #1 pack 04/11/20 Rx (for VTE)] Allergies Allergy/AdvReac Type Severity Reaction Status Date / Time Sulfa (Sulfonamide Allergy Unknown Verified 04/10/20 18:58 Antibiotics) Physical Exam Vitals: Vital Signs Temp Pulse Resp BP Pulse Ox 04/11/20 08:00 97.8 F 75 21 111/75 95 04/11/20 07:00 60 16 04/11/20 06:00 60 19 04/11/20 05:00 58 L 10 L 04/11/20 04:00 97.8 F 60 16 97/62 98 04/11/20 00:00 98 F 66 13 99/72 100 04/10/20 22:30 97.8 F 72 24 99/72 94 L 04/10/20 22:11 79 18 103/67 100 04/10/20 20:42 98 F 67 18 95/67 100 04/10/20 19:35 87 18 94/56 100 04/10/20 18:07 98.2 F 100 21 107/65 100 Intake and Output 04/10/20 04/11/20 04/11/20 22:59 06:59 14:59 Intake Total 75 302.010 Balance 75 302.010 Intake: IV 75 225 Sodium Chloride 0.9% 1, 75 225 000 ml @ 75 mls/hr IV . [id number] [facility] Rx#:[id number] Intake, IV Titration 77.010 Amount Heparin Sod,Pork in 0.45% 77.010 NaCl 25,000 unit In 0.45 % NaCl 1 250ml.bag @ 18 UNITS/KG/HR 10.614 mls/hr IV .[id number] [facility] Rx#: [id number] Other: Voiding Method Bedpan Weight 58.967 kg 59.2 kg The patient appeared well nourished and normally developed. Vital signs as documented. Head exam is unremarkable. No scleral icterus or corneal arcus noted. Neck is without jugular venous distension, thyromegaly, or carotid bruits. Carotid upstrokes are brisk bilaterally. Lungs are clear to auscultation and percussion. Cardiac exam reveals the PMI to be normally sized and situated. Rhythm is regular. First and second heart sounds normal. No murmurs, rubs or gallops. Abdominal exam reveals normal bowel sounds, no masses, no organomegaly and no aortic enlargement. Extremities are nonedematous and both femoral and pedal pulses are normal. The left lower extremity slightly swollen compared to the right lower extremity. Examination of the skin revealed no evidence of significant rashes, suspicious appearing nevi or other concerning lesions. Neurologically, the patient is awake and alert and the patient does not have any focal neurological deficit. Cranial nerves are essentially intact. Results - Laboratory Findings CBC and BMP: 04/11/20 04:01 04/11/20 09:09 PT/INR, D-dimer PT 10.9 sec (9.0-12.0) 04/11/20 04:01 INR 1.1 (<1.2) 04/11/20 04:01 Abnormal lab findings: Abnormal Labs 04/10/20 04/10/20 04/10/20 18:38 18:38 22:25 WBC RBC 3.44 L Hgb 10.4 L Hct 33.2 L RDW 17.6 H Lymphocytes # 0.5 L APTT Sodium 133 L Potassium 3.1 L Chloride BUN 19 H Creatinine 1.30 H Glucose 137 H POC Glucose (mg/dL) 140 H Calcium 7.1 L Total Protein 5.2 L Albumin 2.1 L 04/11/20 04/11/20 04/11/20 01:32 04:01 04:01 WBC 3.6 L RBC 2.64 L Hgb 8.0 L D Hct 25.8 L RDW 17.4 H Lymphocytes # 0.8 L APTT 92.3 H 33.7 H Sodium Potassium Chloride BUN Creatinine Glucose POC Glucose (mg/dL) Calcium Total Protein Albumin 04/11/20 04:01 WBC RBC Hgb Hct RDW Lymphocytes # APTT Sodium 134 L Potassium 2.4 L* Chloride 108 H BUN 19 H Creatinine 1.14 H Glucose 66 L POC Glucose (mg/dL) Calcium 6.5 L Total Protein Albumin - Diagnostic Findings Chest x-ray: image reviewed CT scan - chest: image reviewed Assessment and Plan Plan: 1 acute left lower extremity DVT and pulmonary embolism , bilaterally with secondary shortness of breath. The patient has had a remote history of DVT many years back, at least 10 years ago and the patient has been receiving antipro nation a long-term basis and this in the correlation was discontinued as of February 2020 because of concerns of GI bleeding and Coumadin toxicity. 2 remote history of DVT 3 previous history of inflammatory bowel disease and the patient is currently taking a course of steroids with prednisone at 30 mg by mouth daily 4 previous history of rectal bleeding secondary to anticoagulation and inflammatory bowel disease 5 history of Crohn's disease 6 mild gastritis based on the previous EGD 7 hypothyroidism Plan This patient will need long-term anticoagulation. The ongoing concern is the episodes of GI bleed that she may have related to her underlying affirmative bowel disease. For now the patient is being treated adequately regarding her IBD and I'm going to continue the prednisone for now. She is on IV heparin it's reasonable to continue dietary heparin for another 24 hours to watch for any signs of GI bleed. If none, I think it's reasonable to switch this patient to long-term and to coagulation with Eliquis. One concern is the recurrent GI bleed and if this occurs she will be considered for a filter placement due to failure of long-term and to coagulation. I would however give the patient another chance of anticoagulation corporate security officer and I will also ask GI to consult on this patient and assess her risk for bleeding in the future and give further advice regarding her IBD treatment. We'll continue to follow.
[2020-04-11] MEDS: methylPREDNISolone SOD SUCCI 40 MG/ML 1 ML VIAL IV SCH ×2 (16:52→23:38)
[2020-04-11] MEDS ORDERED: POTASSIUM CHLORIDE ER 20 MEQ TAB.ER PO SCH (18:00)
--- NOTE | 2020-04-11 18:11 | P.HPIM ---
History of Present Illness H&P Date: 04/11/20 Jacquie Romo, is a 59-year-old female who presented to [facility] emergency room with a chief complaint of worsening shortness of breath and left lower extremity swelling she was evaluated in the emergency room and had evidence of lower extremity DVT with pulmonary embolism patient was admitted to intensive care unit she was started on IV heparin critical care consultation was requested. Patient was admitted to [facility] 6 weeks ago at that time she had coagulopathy with INR more than 10 and had gastrointestinal bleeding patient was maintained on Coumadin after a history of lower extremity DVT diagnosed 10 years ago, during the last hospitalization patient was seen by gastroenterology and was diagnosed was inflammatory bowel disease she was also seen by hematology for assessment whether she needs to be on anticoagulation or not. Patient was seen by hematology as outpatient she was not restarted on any anticoagulation, she returns now to the hospital with evidence of DVT and pulmonary embolism. Patient is complaining of shortness of breath and left lower extremity edema otherwise she denies any complaints there is no fever or chills no headache no dizziness no chest pain no cough no nausea or vomiting no abdominal pain no diarrhea no blood in the stools no burning with urination no frequency or urgency no hematuria Past Medical History Past Medical History: Deep Vein Thrombosis (DVT), GI Bleed, Thyroid Disorder Additional Past Medical History / Comment(s): sinus allergies, history blaine. DVT more than 10 years ago and she has been maintained on Warfarin, cardiac murmur , Gi bleeding and EGD /colonoscopy on 10/24/2019 showing mild gastritis, small HH and colonoscopy showed colitis of the cecum and left colon and biopsy was consistent with colitis, nonspecific. She has history of Crohn's disease and has hisotry of colectomy , chronic anemia History of Any Multi-Drug Resistant Organisms: None Reported Past Surgical History: Bowel Resection, Section Additional Past Surgical History / Comment(s): bowel resection with colostomy and then colostomy reversal Past Anesthesia/Blood Transfusion Reactions: No Reported Reaction Past Psychological History: No Psychological Hx Reported Smoking Status: Current every day smoker Past Alcohol Use History: None Reported Additional Past Alcohol Use History / Comment(s): smoker for 20 years on and off 1/2 ppd or less Past Drug Use History: None Reported - Past Family History Mother Family Medical History: No Reported History Medications and Allergies Home Medications Medication Instructions Recorded Confirmed Type Levothyroxine Sodium [Synthroid] 100 mcg PO DAILY 10/20/19 04/10/20 History Pantoprazole [Protonix] 40 mg PO [id number] tablet. 02/26/20 04/10/20 Rx Multivitamins, Thera Liquid 15 ml PO DAILY 04/10/20 04/10/20 History [Theragran Liquid (formulary)] predniSONE 30 mg PO DAILY 04/10/20 04/10/20 History Apixaban [Eliquis Starter Pack 0 mg PO DIRECTED 30 Days #1 pack 04/11/20 Rx (for VTE)] Apixaban [Eliquis] 5 mg PO BID 30 Days #60 tab 04/11/20 Rx Allergies Allergy/AdvReac Type Severity Reaction Status Date / Time Sulfa (Sulfonamide Allergy Unknown Verified 04/10/20 18:58 Antibiotics) Physical Exam Vitals: Vital Signs Temp Pulse Resp BP Pulse Ox 04/11/20 16:00 98.2 F 68 16 106/74 95 04/11/20 15:00 65 10 L 04/11/20 14:00 72 13 04/11/20 13:00 84 12 04/11/20 12:00 97.8 F 64 12 98/71 95 04/11/20 11:00 64 10 L 04/11/20 10:00 68 12 04/11/20 09:00 82 14 04/11/20 08:00 97.8 F 75 21 111/75 95 04/11/20 07:00 60 16 04/11/20 06:00 60 19 04/11/20 05:00 58 L 10 L 04/11/20 04:00 97.8 F 60 16 97/62 98 04/11/20 00:00 98 F 66 13 99/72 100 04/10/20 22:30 97.8 F 72 24 99/72 94 L 04/10/20 22:11 79 18 103/67 100 04/10/20 20:42 98 F 67 18 95/67 100 04/10/20 19:35 87 18 94/56 100 04/10/20 18:07 98.2 F 100 21 107/65 100 Intake and Output 04/11/20 04/11/20 04/11/20 06:59 14:59 22:59 Intake Total 302.010 295 50 Output Total 200 Balance 302.010 295 -150 Intake: IV 225 295 50 .9 kvo 220 50 Sodium Chloride 0.9% 1, 225 75 000 ml @ 75 mls/hr IV . [id number] [facility] Rx#:[id number] Intake, IV Titration 77.010 Amount Heparin Sod,Pork in 0.45% 77.010 NaCl 25,000 unit In 0.45 % NaCl 1 250ml.bag @ 18 UNITS/KG/HR 10.614 mls/hr IV .[id number] [facility] Rx#: [id number] Output: Urine 200 Other: Voiding Method Bedpan Bedside Commode Bedside Commode # Voids 1 # Bowel Movements 1 1 Weight 59.2 kg 59.2 kg In general patient is alert and oriented 3 in no apparent distress HEENT head normocephalic and atraumatic Neck is supple no JVD no goiter no lymphadenopathy no carotid bruit Chest exam reveals a scattered crackles bilaterally no wheezing Cardiac exam reveals regular heart sounds no gallops no murmurs Abdomen is soft nontender no organomegaly with normal bowel sounds Extremity exam reveals left sided 2+ edema no cyanosis or clubbing Neurological examination reveals no gross focal deficit Results CBC & Chem 7: 04/11/20 04:01 04/11/20 16:26 Labs: Abnormal Lab Results - Last 24 Hours (Table) 04/10/20 04/10/20 04/10/20 Range/Units 18:38 18:38 22:25 WBC (3.8-10.6) k/uL RBC 3.44 L (3.80-5.40) m/uL Hgb 10.4 L (11.4-16.0) gm/dL Hct 33.2 L (34.0-46.0) % RDW 17.6 H (11.5-15.5) % Lymphocytes # 0.5 L (1.0-4.8) k/uL APTT (22.0-30.0) sec Sodium 133 L (137-145) mmol/L Potassium 3.1 L (3.5-5.1) mmol/L Chloride (98-107) mmol/L BUN 19 H (7-17) mg/dL Creatinine 1.30 H (0.52-1.04) mg/dL Glucose 137 H (74-99) mg/dL POC Glucose (mg/dL) 140 H (75-99) mg/dL Calcium 7.1 L (8.4-10.2) mg/dL Magnesium (1.6-2.3) mg/dL Total Protein 5.2 L (6.3-8.2) g/dL Albumin 2.1 L (3.5-5.0) g/dL 04/11/20 04/11/20 04/11/20 Range/Units 01:32 04:01 04:01 WBC 3.6 L (3.8-10.6) k/uL RBC 2.64 L (3.80-5.40) m/uL Hgb 8.0 L D (11.4-16.0) gm/dL Hct 25.8 L (34.0-46.0) % RDW 17.4 H (11.5-15.5) % Lymphocytes # 0.8 L (1.0-4.8) k/uL APTT 92.3 H 33.7 H (22.0-30.0) sec Sodium (137-145) mmol/L Potassium (3.5-5.1) mmol/L Chloride (98-107) mmol/L BUN (7-17) mg/dL Creatinine (0.52-1.04) mg/dL Glucose (74-99) mg/dL POC Glucose (mg/dL) (75-99) mg/dL Calcium (8.4-10.2) mg/dL Magnesium (1.6-2.3) mg/dL Total Protein (6.3-8.2) g/dL Albumin (3.5-5.0) g/dL 04/11/20 04/11/20 04/11/20 Range/Units 04:01 09:09 09:09 WBC (3.8-10.6) k/uL RBC (3.80-5.40) m/uL Hgb (11.4-16.0) gm/dL Hct (34.0-46.0) % RDW (11.5-15.5) % Lymphocytes # (1.0-4.8) k/uL APTT (22.0-30.0) sec Sodium 134 L (137-145) mmol/L Potassium 2.4 L* 2.6 L* (3.5-5.1) mmol/L Chloride 108 H (98-107) mmol/L BUN 19 H (7-17) mg/dL Creatinine 1.14 H (0.52-1.04) mg/dL Glucose 66 L (74-99) mg/dL POC Glucose (mg/dL) (75-99) mg/dL Calcium 6.5 L (8.4-10.2) mg/dL Magnesium 1.4 L (1.6-2.3) mg/dL Total Protein (6.3-8.2) g/dL Albumin (3.5-5.0) g/dL 04/11/20 Range/Units 11:05 WBC (3.8-10.6) k/uL RBC (3.80-5.40) m/uL Hgb (11.4-16.0) gm/dL Hct (34.0-46.0) % RDW (11.5-15.5) % Lymphocytes # (1.0-4.8) k/uL APTT 55.3 H (22.0-30.0) sec Sodium (137-145) mmol/L Potassium (3.5-5.1) mmol/L Chloride (98-107) mmol/L BUN (7-17) mg/dL Creatinine (0.52-1.04) mg/dL Glucose (74-99) mg/dL POC Glucose (mg/dL) (75-99) mg/dL Calcium (8.4-10.2) mg/dL Magnesium (1.6-2.3) mg/dL Total Protein (6.3-8.2) g/dL Albumin (3.5-5.0) g/dL Thrombosis Risk Factor Assmnt - Choose All That Apply Any of the Below Risk Factors Present?: Yes Each Factor Represents 1 point: Age 41-60 years, Medical pt on bed rest, Swollen legs (current) Other Risk Factors: Yes Each Risk Factor Represents 2 Points: Patient confined to bed Each Risk Factor Represents 3 Points: History of DVT/PE Thrombosis Risk Factor Assessment Total Risk Factor Score: 8 Thrombosis Risk Factor Assessment Level: High Risk Assessment and Plan Plan: 1. Acute left lower extremity DVT with pulmonary embolism 2. Shortness of breath related to pulmonary embolism 3. History of DVT once in the past 10 years ago 4. Recent diagnosis of inflammatory bowel disease patient is maintained on tapering dose of prednisone 5. Recent admission 6 weeks ago with rectal bleeding and coagulopathy 6. Underlying history of hypothyroidism At this time patient was restarted on anticoagulation she is currently on IV heparin Hematology consultation and gastroenterology consultation are requested Likely patient will need to be anticoagulated for life
[2020-04-11] MEDS: HEPARIN SOD,PORK IN 0.45% NACL 25,000 UNIT in 0.45% NACL 1 250ML.BAG IV SCH (20:05)
--- NOTE | 2020-04-11 21:06 | CONS ---
CONSULTATION DATE OF DICTATION: April 11, 2020. REASON FOR CONSULTATION: History of Crohn's colitis, need for anticoagulation because of newly diagnosed pulmonary embolism. HISTORY OF PRESENT ILLNESS: The patient is a 59-year-old pleasant white female came to the emergency room with left lower extremity swelling for the last 2 days duration. She did have a Doppler study that revealed a chronic deep vein thrombosis of the left leg. Subsequently she did have a CT of the chest that revealed pulmonary embolism. We are consulted for possible anticoagulation therapy at this time because of recent episode of GI bleed. The patient has history of Crohn's, longstanding history of Crohn's disease diagnosed about 10 or 12 years ago. In the past, she had a small bowel resection because of refractory Crohn disease, initially had an ileostomy and subsequently was reversed in 2013. She recently had a colonoscopy by Dr. Davila in October of 2019 that revealed mild active colitis involving the right colon as well as in the sigmoid colon. She was subsequently started on low-dose steroids, but she continued to have side effects with prednisone. She was evaluated by my PA Denisse Orta in the office and is being approved for Stelara infusion. About a month ago, she was having active colitis and she was started on prednisone on an outpatient basis. She has longstanding history of DVT for 10 years and has been on Coumadin. She was admitted to the hospital with severe symptomatic anemia and active GI bleed and Coumadin has been on hold since then. Recently, she was started on prednisone on an outpatient basis and presently it appears she is taking Entocort 9 mg daily. She has 3-4 bowel movements daily. No bleeding. No abdominal pain. No nausea, vomiting. PAST MEDICAL HISTORY: Significant for past history of Crohn's colitis diagnosed 10 years ago, status post small bowel resection with colostomy and subsequent reversal in 2013, now with active Crohn's colitis and detected on recent colonoscopy in October of 2019, history of DVT diagnosed 10 years ago, was on Coumadin but stopped because of acute GI bleed. PAST SURGICAL HISTORY: Small bowel resection, ileostomy followed by reversal in 2013. MEDICATIONS: Medications at home include Entocort 9 mg daily, multivitamin, levothyroxine. ALLERGIES: SULFA. SOCIAL HISTORY: No smoking. No alcohol use. FAMILY HISTORY: Unremarkable. REVIEW OF SYSTEMS: CARDIOPULMONARY: No chest pain, shortness of breath. no dysuria or hematuria. MUSCULOSKELETAL unremarkable. Skin unremarkable. Neurological: Unremarkable. ENT: Vision unremarkable. CONSTITUTIONAL: No recent weight loss. No fever, chills, night sweats. PHYSICAL EXAMINATION: She appears comfortable. No apparent distress. Vital signs stable. Blood pressure is 112/86, pulse is 64, temperature 97.8. HEENT examination unremarkable. Conjunctivae pink. Sclerae anicteric. Oral cavity no lesions. NECK no JVD or lymph node enlargement. Chest was clear to auscultation. HEART: Regular rate and rhythm. ABDOMEN: Soft. Bowel sounds are positive. It was nontender. EXTREMITIES: No pedal edema. SKIN no rashes. NEUROLOGIC: Alert and oriented x3. No focal deficits. LABS: Hemoglobin is 8, yesterday 10.4, WBC 3.6, platelets normal. Basic metabolic panel, potassium is 2.4, sodium 134, ALT/AST, T-bilirubin and alk phos are within normal limits. IMPRESSION: 1. Deep vein thrombosis/pulmonary embolism diagnosed on CTA. 2. History of Crohn's colitis with recent hospitalization a month ago with severe symptomatic anemia and hemoglobin of 5 requiring blood transfusions. She has been on prednisone therapy. Coumadin has been on hold since then. Currently not having any active gastrointestinal bleed. Has 3 to 4 bowel movements daily and symptoms are consistent with [id number] actively Crohn's disease. She was seen on outpatient basis 2 weeks ago and being approved for biologic therapy with Mallara on an outpatient basis. 3. History of hypothyroidism. 4. Anemia. RECOMMENDATIONS: 1. Since there is no evidence of active bleeding, recommend to start her on anticoagulation for DVT/PE. 2. We will start her on IV steroids with Solu-Medrol 20 mg q.8 hours. 3. Monitor CBC on a daily basis. 4. Obtain sedimentation rate and CRP. 5. We will follow with you closely. Thank you for this consultation. MMODL / IJN: [id number] /
[2020-04-12] MEDS: LEVOTHYROXINE 100 MCG TAB PO SCH (06:02)
[2020-04-12 07:08] LABS: Anisocytosis Slight; Basophils % (A) 0 %; Eosinophils % (A) 0 %; HCT 28.4 % (34.0-46.0); HGB 8.6 gm/dL (11.4-16.0); Hypochromasia Moderate; Lymphocytes # (A) 0.5 k/uL (1.0-4.8); Lymphocytes % (A) 7 %; MCH 29.3 pg (25.0-35.0); MCHC 30.3 g/dL (31.0-37.0); MCV 96.7 fL (80.0-100.0); Macrocytosis Slight; Mean Platelet Volume 7.9; Monocytes # (A) 0.2 k/uL (0-1.0); Monocytes % (A) 3 %; Neutrophils # (A) 7.1 k/uL (1.3-7.7); Neutrophils % (A) 90 %; Platelet Count 230 k/uL (150-450); RBC 2.94 m/uL (3.80-5.40); RDW 17.6 % (11.5-15.5); WBC 7.9 k/uL (3.8-10.6)
[2020-04-12 07:17] LABS: Albumin 1.6 g/dL (3.5-5.0); Calcium 6.9 mg/dL (8.4-10.2); Magnesium 1.9 mg/dL (1.6-2.3); Potassium 4.5 mmol/L (3.5-5.1); Total Bilirubin 0.3 mg/dL (0.2-1.3)
[2020-04-12 07:18] LABS: Partial Thromboplastin Time 50.5 sec (22.0-30.0); Prothrombin Time 10.5 sec (9.0-12.0)
[2020-04-12] MEDS: methylPREDNISolone SOD SUCCI 40 MG/ML 1 ML VIAL IV SCH ×3 (08:08→22:50)
[2020-04-12] MEDS: PANTOPRAZOLE 40 MG/10 ML VIAL IV SCH (08:08)
--- NOTE | 2020-04-12 11:41 | P.PN ---
Subjective Progress Note Date: 04/12/20 Principal diagnosis: Pulmonary embolism A 59-year-old female patient with a remote history of DVT plasma 10 on long-term medical condition with warfarin. Recently the patient was having difficulties with GI bleeding and she was taken off the antibiotic ventilation approximately 3 months ago. She came into the emergency department yesterday because of pain and swelling of the left lower extremity tingling going on for the past 7-10 days. Subsequently she started having increased shortness of breath and increased fatigue and exertional dyspnea. For that reason she came into the hospital. The Doppler of the lower extremity was done and the patient was found to have a DVT and a common femoral vein, greater saphenous vein extending to the popliteal vein. The CTA of the chest was also done that showed multiple peripheral patchy reticulonodular infiltrates in addition to THE upper and lower lobe only artery emboli bilaterally which are new findings. The patient was started on IV heparin. No hemodynamic instability. No hypotension. No pleurisy. No hemoptysis. She is hemodynamically stable at this point in time. Note that she has history of inflammatory bowel disease, Crohn's disease and the patient has undergone previous history of colectomy. The patient also has undergone previous EGD that showed ongoing colitis for which the patient was started on prednisone burst taper and currently she is down to 30 mg as part of her burst taper. She is being followed up by gastroenterology. During her most recent admission of February 2020, she was taken off anticoagulation as the patient came in with a toxic INR of above 10. Noted the patient was also seen by hematology and outpatient hematologic hypercoagulable workup was done and I do not think she was found to have any significant abnormalities. Her current hemoglobin is at 8.0. The patient is seen today 04/12/2020 in follow-up on the selective care unit. She is awake and alert in no acute distress. Currently resting comfortably in bed. No worsening shortness of breath, cough or congestion noted hemoptysis. She is maintaining good O2 saturations in the 90s on room air. She's been afebrile. Hemodynamically stable. White count 7.9. Hemoglobin 8.6. Sodium 135. Potassium 4.5. Creatinine 1.05. She remains on heparin drip. She been transitioned to Eliquis. Continued on IV Solu-Medrol for her colitis. Objective - Vital Signs Vital signs: Vital Signs Temp 97.7 F 04/12/20 08:00 Pulse 85 04/12/20 08:00 Resp 17 04/12/20 08:00 BP 97/71 04/12/20 08:00 Pulse Ox 96 04/12/20 08:00 Intake & Output 04/11/20 04/12/20 04/12/20 18:59 06:59 18:59 Intake Total 345 390.694 Output Total 200 375 Balance 145 15.694 Weight 59.2 kg Intake: IV 345 120 .9 kvo 270 120 Sodium Chloride 0.9% 1, 75 000 ml @ 75 mls/hr IV . [id number] [facility] Rx#:[id number] Intake, IV Titration 150.694 Amount Heparin Sod,Pork in 0.45% 150.694 NaCl 25,000 unit In 0.45 % NaCl 1 250ml.bag @ 18 UNITS/KG/HR 10.614 mls/hr IV .[id number] [facility] Rx#: [id number] Oral 120 Output: Urine 200 375 Other: Voiding Method Bedside Commode Bedside Commode Toilet # Voids 1 1 1 # Bowel Movements 1 3 - Exam A pleasant 59-year-old female patient, on room air, well nourished and normally developed. Vital signs as documented. Head exam is unremarkable. No scleral icte elly or corneal arcus noted. Neck is without jugular venous distension, thyromegaly, or carotid bruits. Carotid upstrokes are brisk bilaterally. Lungs are clear to auscultation and percussion. Cardiac exam reveals the PMI to be normally sized and situated. Rhythm is regular. First and second heart sounds normal. No murmurs, rubs or gallops. Abdominal exam reveals normal bowel sounds, no masses, no organomegaly and no aortic enlargement. Extremities are nonedematous and both femoral and pedal pulses are normal. The left lower extremity slightly swollen compared to the right lower extremity. Examination of the skin revealed no evidence of significant rashes, suspicious appearing nevi or other concerning lesions. Neurologically, the patient is awake and alert and the patient does not have any focal neurological deficit. Cranial nerves are essentially intact. - Labs CBC & Chem 7: 04/12/20 06:28 04/12/20 06:28 Labs: Abnormal Lab Results - Last 24 Hours (Table) 04/11/20 04/12/20 04/12/20 Range/Units 11:05 06:28 06:28 RBC 2.94 L (3.80-5.40) m/uL Hgb 8.6 L (11.4-16.0) gm/dL Hct 28.4 L (34.0-46.0) % MCHC 30.3 L (31.0-37.0) g/dL RDW 17.6 H (11.5-15.5) % Lymphocytes # 0.5 L (1.0-4.8) k/uL APTT 55.3 H 50.5 H (22.0-30.0) sec Sodium (137-145) mmol/L Chloride (98-107) mmol/L BUN (7-17) mg/dL Creatinine (0.52-1.04) mg/dL Calcium (8.4-10.2) mg/dL AST (14-36) U/L C-Reactive Protein (<10.0) mg/L Total Protein (6.3-8.2) g/dL Albumin (3.5-5.0) g/dL 04/12/20 04/12/20 Range/Units 06:28 06:28 RBC (3.80-5.40) m/uL Hgb (11.4-16.0) gm/dL Hct (34.0-46.0) % MCHC (31.0-37.0) g/dL RDW (11.5-15.5) % Lymphocytes # (1.0-4.8) k/uL APTT (22.0-30.0) sec Sodium 135 L (137-145) mmol/L Chloride 112 H (98-107) mmol/L BUN 20 H (7-17) mg/dL Creatinine 1.05 H (0.52-1.04) mg/dL Calcium 6.9 L (8.4-10.2) mg/dL AST 12 L (14-36) U/L C-Reactive Protein 45.2 H (<10.0) mg/L Total Protein 4.0 L (6.3-8.2) g/dL Albumin 1.6 L (3.5-5.0) g/dL Assessment and Plan Assessment: 1 acute left lower extremity DVT and pulmonary embolism , bilaterally with secondary shortness of breath. The patient has had a remote history of DVT many years back, at least 10 years ago and the patient has been receiving antipronation a long-term basis and this in the correlation was discontinued as of February 2020 because of concerns of GI bleeding and Coumadin toxicity. 2 remote history of DVT 3 previous history of inflammatory bowel disease and the patient is currently taking a course of steroids with prednisone at 30 mg by mouth daily 4 previous history of rectal bleeding secondary to anticoagulation and inflammatory bowel disease 5 history of Crohn's disease 6 mild gastritis based on the previous EGD 7 hypothyroidism Plan The patient was seen and evaluated by Dr. China Vincent from the pulmonary standpoint To be transitioned to Eliquis Increase her activity as tolerated We'll continue to follow I, the cosigning physician, performed a history & physical examination of the patient. Lungs sounds are clear. Maintaining good O2 saturations in the 90s on room air. I discussed the assessment and plan of care with my nurse practitioner, Justine Ochoa. I attest to the above note as dictated by her.
[2020-04-12] MEDS: DICYCLOMINE 10 MG CAP PO PRN ×2 (15:31→20:15)
[2020-04-12] MEDS: APIXABAN 5 MG TAB PO SCH ×2 (15:33→21:09)
--- NOTE | 2020-04-12 18:25 | P.CONS ---
History of Present Illness - Reason for Consult Consult date: 04/12/20 PE Requesting physician: Marcell Aguilar - Chief Complaint SOB - History of Present Illness Mrs. Romo is a very pleasant 59-year-old female with a history of Crohn's disease, previous colectomy and subsequent reversal, no systemic treatment other then steroids. She also has a history of a DVT with thrombectomy at [facility] more than 10 years ago. Just admitted to [facility] in February for black stools, INR was greater than 10 on admission. She was anemic at that time. Anticoagulation was held. Patient is now presenting with shortness of breath, workup showing bilateral pulmonary emboli, she also has a left lower extremity DVT. Review of Systems 14 point ROS is negative except as stated in HPI Past Medical History Past Medical History: Deep Vein Thrombosis (DVT), GI Bleed, Thyroid Disorder Additional Past Medical History / Comment(s): sinus allergies, history blaine. DVT more than 10 years ago and she has been maintained on Warfarin, cardiac murmur , Gi bleeding and EGD /colonoscopy on 10/24/2019 showing mild gastritis, small HH and colonoscopy showed colitis of the cecum and left colon and biopsy was consistent with colitis, nonspecific. She has history of Crohn's disease and has hisotry of colectomy , chronic anemia History of Any Multi-Drug Resistant Organisms: None Reported Past Surgical History: Bowel Resection, Section Additional Past Surgical History / Comment(s): bowel resection with colostomy and then colostomy reversal Past Anesthesia/Blood Transfusion Reactions: No Reported Reaction Past Psychological History: No Psychological Hx Reported Smoking Status: Current every day smoker Past Alcohol Use History: None Reported Additional Past Alcohol Use History / Comment(s): smoker for 20 years on and off 1/2 ppd or less Past Drug Use History: None Reported - Past Family History Mother Family Medical History: No Reported History Medications and Allergies Home Medications Medication Instructions Recorded Confirmed Type Levothyroxine Sodium [Synthroid] 100 mcg PO DAILY 10/20/19 04/10/20 History Pantoprazole [Protonix] 40 mg PO AC-[id number] tablet. 02/26/20 04/10/20 Rx Multivitamins, Thera Liquid 15 ml PO DAILY 04/10/20 04/10/20 History [Theragran Liquid (formulary)] predniSONE 30 mg PO DAILY 04/10/20 04/10/20 History Apixaban [Eliquis Starter Pack 0 mg PO DIRECTED 30 Days #1 pack 04/11/20 Rx (for VTE)] Apixaban [Eliquis] 5 mg PO BID 30 Days #60 tab 04/11/20 Rx Allergies Allergy/AdvReac Type Severity Reaction Status Date / Time Sulfa (Sulfonamide Allergy Unknown Verified 04/10/20 18:58 Antibiotics) Physical Exam Vitals: Vital Signs Temp Pulse Pulse Resp BP BP Pulse Ox 04/12/20 08:00 97.7 F 85 17 97/71 96 04/12/20 04:00 98.2 F 83 15 108/67 95 04/12/20 00:00 97.9 F 63 12 98/76 97 04/11/20 20:00 98 F 79 17 103/72 95 04/11/20 16:00 98.2 F 68 16 106/74 95 04/11/20 15:00 65 10 L 04/11/20 14:00 72 13 04/11/20 13:00 84 12 Intake and Output 04/11/20 04/12/20 04/12/20 22:59 06:59 14:59 Intake Total 240.694 200 Output Total 375 200 Balance -134.306 0 Intake: IV 90 80 .9 kvo 90 80 Intake, IV Titration 150.694 Amount Heparin Sod,Pork in 0.45% 150.694 NaCl 25,000 unit In 0.45 % NaCl 1 250ml.bag @ 18 UNITS/KG/HR 10.614 mls/hr IV .[id number] [facility] Rx#: [id number] Oral 120 Output: Urine 375 200 Other: Voiding Method Bedside Commode Bedside Commode Toilet # Voids 1 1 # Bowel Movements 1 3 - Constitutional General appearance: average body habitus, cooperative, no acute distress - EENT Eyes: anicteric sclerae, EOMI ENT: hearing grossly normal, normal oropharynx - Neck Neck: no lymphadenopathy - Respiratory Respiratory: bilateral: CTA - Cardiovascular Rhythm: regular Heart sounds: normal: S1, S2 Abnormal Heart Sounds: no systolic murmur, no diastolic murmur, no rub, no S3 Gallop, no S4 Gallop, no click, no other leg Peripheral Edema: bilateral: None - Gastrointestinal General gastrointestinal: no absent bowel sounds, no decreased bowel sounds, no distended, no hepatomegaly, no hyperactive bowel sounds, normal bowel sounds, no organomegaly, no rigid, no scaphoid, soft, no splenomegaly, no tenderness, no umbilical hernia, no ventral hernia - Neurologic Neurologic: CNII-XII intact - Musculoskeletal Musculoskeletal: strength equal bilaterally - Psychiatric Psychiatric: A&O x's 3, appropriate affect, intact judgment & insight Results CBC & Chem 7: 04/12/20 06:28 04/12/20 06:28 Labs: Abnormal Lab Results - Last 24 Hours (Table) 04/12/20 04/12/20 04/12/20 Range/Units 06:28 06:28 06:28 RBC 2.94 L (3.80-5.40) m/uL Hgb 8.6 L (11.4-16.0) gm/dL Hct 28.4 L (34.0-46.0) % MCHC 30.3 L (31.0-37.0) g/dL RDW 17.6 H (11.5-15.5) % Lymphocytes # 0.5 L (1.0-4.8) k/uL APTT 50.5 H (22.0-30.0) sec Sodium 135 L (137-145) mmol/L Chloride 112 H (98-107) mmol/L BUN 20 H (7-17) mg/dL Creatinine 1.05 H (0.52-1.04) mg/dL Calcium 6.9 L (8.4-10.2) mg/dL AST 12 L (14-36) U/L C-Reactive Protein (<10.0) mg/L Total Protein 4.0 L (6.3-8.2) g/dL Albumin 1.6 L (3.5-5.0) g/dL 04/12/20 Range/Units 06:28 RBC (3.80-5.40) m/uL Hgb (11.4-16.0) gm/dL Hct (34.0-46.0) % MCHC (31.0-37.0) g/dL RDW (11.5-15.5) % Lymphocytes # (1.0-4.8) k/uL APTT (22.0-30.0) sec Sodium (137-145) mmol/L Chloride (98-107) mmol/L BUN (7-17) mg/dL Creatinine (0.52-1.04) mg/dL Calcium (8.4-10.2) mg/dL AST (14-36) U/L C-Reactive Protein 45.2 H (<10.0) mg/L Total Protein (6.3-8.2) g/dL Albumin (3.5-5.0) g/dL CT scan - chest: report reviewed Venous US: report reviewed (reviewed bilateral lower extremity Doppler from February 2020) Assessment and Plan (1) Pulmonary embolus Current Visit: Yes Status: Acute Priority: High Code(s): I26.99 - OTHER PULMONARY EMBOLISM WITHOUT ACUTE COR PULMONALE SNOMED Code(s): 24976389 (2) Hx of deep venous thrombosis Current Visit: Yes Status: Acute Priority: High Code(s): Z86.718 - PERSONAL HISTORY OF OTHER VENOUS THROMBOSIS AND EMBOLISM SNOMED Code(s): 190171108 (3) Anemia Narrative/Plan: Anemia workup ordered, also evaluate for paraproteinemia Current Visit: Yes Status: Acute Priority: Medium Code(s): D64.9 - ANEMIA, UNSPECIFIED SNOMED Code(s): 031682290 Plan: Patient has a history of DVT with thrombectomy many years ago. 02/23/20 patient had a Doppler that was negative for bilateral lower extremity DVT. The 04/10/20 report is stating a chronic left lower extremity DVT but there was no DVT evident on 02/23/20 so, we are going to call this is an acute. The bilateral pulmonary emboli are also acute. Patient was taken off anticoagulation in February for bleeding. The bleeding was felt to be secondary to significantly elevated INR. Recommendation is for patient to be anticoagulated with an injectable such as Arixtra, for a few months, until her Crohn's is under control. Patient is going to be starting still ANGEL soon. Then, once Crohn's is controlled, patient can be transitioned to an oral agent. Patient is going to need to be on indefinite anticoagulation due to her underlying medical history, chronic inflammatory medical condition and her history of blood clots. Doctor attests: I performed a history and physical examination of this patient, developed impression and plan of care, discussed with dictator. I agree with dictators note, documented as a scribe.
--- NOTE | 2020-04-12 18:53 | P.PN ---
Subjective Progress Note Date: 04/12/20 Jacquie Romo, is a 59-year-old female who presented to [facility] emergency room with a chief complaint of worsening shortness of breath and left lower extremity swelling she was evaluated in the emergency room and had evidence of lower extremity DVT with pulmonary embolism patient was admitted to intensive care unit she was started on IV heparin critical care consultation was requested. Patient was admitted to [facility] 6 weeks ago at that time she had coagulopathy with INR more than 10 and had gastrointestinal bleeding patient was maintained on Coumadin after a history of lower extremity DVT diagnosed 10 years ago, during the last hospitalization patient was seen by gastroenterology and was diagnosed was inflammatory bowel disease she was also seen by hematology for assessment whether she needs to be on anticoagulation or not. Patient was seen by hematology as outpatient she was not restarted on any anticoagulation, she returns now to the hospital with evidence of DVT and pulmonary embolism. Patient is complaining of shortness of breath and left lower extremity edema otherwise she denies any complaints there is no fever or chills no headache no dizziness no chest pain no cough no nausea or vomiting no abdominal pain no diarrhea no blood in the stools no burning with urination no frequency or urgency no hematuria On 04/12/2020 patient was seen and examined on the medical floor she is alert and oriented 3 in no apparent distress she is complaining of shortness of breath with activity she is also complaining of pain and swelling in the left l ower extremity otherwise she denies any complaints there is no fever or chills no headache or dizziness no chest pain no cough no nausea or vomiting no abdominal pain no diarrhea no burning with urination no frequency or urgency no hematuria no blood in the urine or in the stools Objective - Vital Signs Vital signs: Vital Signs Temp 98.4 F 04/12/20 16:00 Pulse 77 04/12/20 16:00 Resp 16 04/12/20 16:00 BP 105/77 04/12/20 16:00 Pulse Ox 96 04/12/20 16:00 Intake & Output 04/11/20 04/12/20 04/12/20 18:59 06:59 18:59 Intake Total 345 390.694 0 Output Total 200 375 Balance 145 15.694 0 Weight 59.2 kg Intake: IV 345 120 .9 kvo 270 120 Sodium Chloride 0.9% 1, 75 000 ml @ 75 mls/hr IV . [id number] [facility] Rx#:[id number] Intake, IV Titration 150.694 Amount Heparin Sod,Pork in 0.45% 150.694 NaCl 25,000 unit In 0.45 % NaCl 1 250ml.bag @ 18 UNITS/KG/HR 10.614 mls/hr IV .[id number] [facility] Rx#: [id number] Oral 120 0 Output: Urine 200 375 Other: Voiding Method Bedside Commode Bedside Commode Toilet # Voids 1 1 3 # Bowel Movements 1 4 - Exam In general patient is alert and oriented 3 in no apparent distress HEENT head normocephalic and atraumatic Neck is supple no JVD no goiter no lymphadenopathy no carotid bruit Chest exam reveals a scattered crackles bilaterally no wheezing Cardiac exam reveals regular heart sounds no gallops no murmurs Abdomen is soft nontender no organomegaly with normal bowel sounds Extremity exam reveals left sided 2+ edema no cyanosis or clubbing Neurological examination reveals no gross focal deficit - Labs CBC & Chem 7: 04/12/20 06:28 04/12/20 06:28 Labs: Abnormal Lab Results - Last 24 Hours (Table) 04/12/20 04/12/20 04/12/20 Range/Units 06:28 06:28 06:28 RBC 2.94 L (3.80-5.40) m/uL Hgb 8.6 L (11.4-16.0) gm/dL Hct 28.4 L (34.0-46.0) % MCHC 30.3 L (31.0-37.0) g/dL RDW 17.6 H (11.5-15.5) % Lymphocytes # 0.5 L (1.0-4.8) k/uL APTT 50.5 H (22.0-30.0) sec Sodium 135 L (137-145) mmol/L Chloride 112 H (98-107) mmol/L BUN 20 H (7-17) mg/dL Creatinine 1.05 H (0.52-1.04) mg/dL Calcium 6.9 L (8.4-10.2) mg/dL AST 12 L (14-36) U/L C-Reactive Protein (<10.0) mg/L Total Protein 4.0 L (6.3-8.2) g/dL Albumin 1.6 L (3.5-5.0) g/dL 04/12/20 Range/Units 06:28 RBC (3.80-5.40) m/uL Hgb (11.4-16.0) gm/dL Hct (34.0-46.0) % MCHC (31.0-37.0) g/dL RDW (11.5-15.5) % Lymphocytes # (1.0-4.8) k/uL APTT (22.0-30.0) sec Sodium (137-145) mmol/L Chloride (98-107) mmol/L BUN (7-17) mg/dL Creatinine (0.52-1.04) mg/dL Calcium (8.4-10.2) mg/dL AST (14-36) U/L C-Reactive Protein 45.2 H (<10.0) mg/L Total Protein (6.3-8.2) g/dL Albumin (3.5-5.0) g/dL Assessment and Plan Plan: 1. Acute left lower extremity DVT with pulmonary embolism 2. Shortness of breath related to pulmonary embolism 3. History of DVT once in the past 10 years ago 4. Recent diagnosis of inflammatory bowel disease patient is maintained on tapering dose of prednisone 5. Recent admission 6 weeks ago with rectal bleeding and coagulopathy 6. Underlying history of hypothyroidism At this time patient was restarted on anticoagulation she is currently on IV heparin Hematology consultation and gastroenterology consultation are requested Likely patient will need to be anticoagulated for life
--- NOTE | 2020-04-12 20:14 | PN ---
PROGRESS NOTE DATE OF DICTATION: 04/12/2020 This patient is a 59-year-old white female with history of active Crohn's colitis, status post small bowel resection several years ago, admitted to the hospital with acute pulmonary embolism. She is on IV heparin and was started on Eliquis today. She continues to have 4 to 5 soft bowel movements daily. No bleeding. She continues to complain of cramping and lower abdominal pain. She is also on IV steroids Solu-Medrol 20 mg q.8 hours for active Crohn's colitis. PHYSICAL EXAMINATION: She appears comfortable. No apparent distress. Vital signs are stable. Blood pressure 112/82, pulse rate 77, temperature 98.4. HEENT examination unremarkable. Conjunctivae pink. Sclerae anicteric. Oral cavity no lesions. NECK: No JVD or lymph node enlargement. CHEST: Clear to auscultation. HEART: Regular rate and rhythm. ABDOMEN: Mild diffuse tenderness. EXTREMITIES: No pedal edema. SKIN: No rashes. NEUROLOGIC: Alert and oriented x3. No focal deficits. LABS: Labs from today show WBC 7.6, hemoglobin 8.6, platelets 230. Basic metabolic panel is within normal limits. CRP is 45.2, albumin 1.6. BUN 20, creatinine 1.05. IMPRESSION: 1. Acute pulmonary embolism, on Eliquis. 2. Active Crohn's colitis, status post colonoscopy in October of this year that showed active colitis noted in the right colon as well as in the sigmoid colon. Presently on IV Solu-Medrol 20 mg q.8 hours. Patient being approved for Stelara on an outpatient basis. 3. Cramping lower abdominal pain secondary to active Crohn's colitis. 4. Elevated BUN and creatinine consistent with acute kidney injury. RECOMMENDATIONS: 1. Continue Eliquis. 2. Continue Solu-Medrol 20 mg q.8 hours. 3. Start her on Bentyl 10 mg 3 times daily. 4. Continue with clear liquid diet. 5. Repeat labs in the morning. Will follow with you closely. Thank you for this consultation. MMODL / IJN: [id number] /
[2020-04-12] MEDS: IOPAMIDOL CONTRAST (ORAL USE) VIAL PO PRN ×2 (20:15→21:08)
--- NOTE | 2020-04-12 22:21 | CT ---
EXAMINATION TYPE: CT abdomen pelvis w con DATE OF EXAM: 04/12/2020 COMPARISON: September 08, 2018 HISTORY: Abdominal pain CT DLP: 638.4 mGycm Automated exposure control for dose reduction was used. CONTRAST: Performed with IV Contrast, patient injected with 100 mL of Isovue 300. Exam performed with oral and IV contrast. There is some mild reticular infiltrate and atelectasis at the posterior lung bases. Heart size is no rmal. There is no pericardial effusion. Liver spleen pancreas stomach appear intact. Bile ducts are not dilated. Gallbladder is intact. There is no adrenal mass. Kidneys show satisfactory contrast opacification. There is no hydronephrosis. Th ere is very little contrast in the collecting systems on the delayed images that suggests some renal failure. There is 2 cm cortical cyst anterior left kidney. Ureters are not dilated. There is no retroperitoneal adenopathy. Abdominal aorta is atheromatous. The re is apparent stent in the right iliac vein. Bladder distends smoothly. There is no inguinal hernia. Uterus appears normal. Lumbar vertebra have normal alignment. There is some osteopenia. Posterior el ements are intact. Bony pelvis is intact. Appendix is not definitely seen. There is no sign of thicke humble appendix. There is oral contrast in the small bowel with some dilated loops of small bowel in the mid abdomen t hat measure up to 4.3 cm. There is some wall thickening and dilation of the distal ileum. Distal ileu m measures up to 6 cm. There is high attenuation material in the large bowel that could be pre-existi ng contrast. The oral contrast for this exam does not appear to reach the large bowel. Size of the de scending colon and rectosigmoid colon is normal. There is mild dilation of the ascending colon. The c ecum measures 6.8 cm in diameter. There is no free air. There is no ascites. IMPRESSION: Dilated small bowel and proximal large bowel consistent with severe ileus or partial mechanical obstr uction.Obstructing lesion not identified.. Extensive atherosclerotic vascular disease. Dilated bowel increased compared to old exam. Mild infiltrate and atelectasis at the posterior lung b ases increased compared to old exam. Decreased delayed renal excretion suggestive of some degree of renal failure.
[2020-04-13 03:21] LABS: Ferritin 201.4 ng/mL (10.0-291.0)
[2020-04-13 04:20] LABS: % Iron Saturation 15.33 (12.00-45.00)
[2020-04-13 05:05] LABS: Protein, Total 3.8 g/dL (6.2-8.2)
[2020-04-13 06:53] LABS: Anisocytosis Slight; Basophils % (A) 0 %; Eosinophils % (A) 0 %; HCT 31.7 % (34.0-46.0); HGB 9.4 gm/dL (11.4-16.0); Hypochromasia Marked; Lymphocytes # (A) 0.6 k/uL (1.0-4.8); Lymphocytes % (A) 13 %; MCH 29.4 pg (25.0-35.0); MCHC 29.5 g/dL (31.0-37.0); MCV 99.8 fL (80.0-100.0); Macrocytosis Slight; Monocytes # (A) 0.2 k/uL (0-1.0); Monocytes % (A) 3 %; Neutrophils # (A) 4.2 k/uL (1.3-7.7); Neutrophils % (A) 83 %; Platelet Count 254 k/uL (150-450); RBC 3.18 m/uL (3.80-5.40); RDW 17.5 % (11.5-15.5); WBC 5.1 k/uL (3.8-10.6)
[2020-04-13 07:00] LABS: INR 1.1 (<1.2); Prothrombin Time 11.6 sec (9.0-12.0)
[2020-04-13 07:15] LABS: Albumin 1.7 g/dL (3.5-5.0); Potassium 4.5 mmol/L (3.5-5.1); Total Bilirubin 0.4 mg/dL (0.2-1.3); Total Protein 4.4 g/dL (6.3-8.2)
[2020-04-13] MEDS: APIXABAN 5 MG TAB PO SCH ×3 (09:19→21:52)
[2020-04-13] MEDS: PANTOPRAZOLE 40 MG TABLET PO SCH (10:05)
[2020-04-13] MEDS: LEVOTHYROXINE 100 MCG TAB PO SCH (10:05)
[2020-04-13] MEDS: methylPREDNISolone SOD SUCCI 40 MG/ML 1 ML VIAL IV SCH ×3 (10:05→23:08)
[2020-04-13 10:50] LABS: Free Kappa Lt Chain Qnt, Serum 4.86 mg/dL (0.33-1.94)
--- NOTE | 2020-04-13 12:24 | P.PN ---
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 Recently the patient was having difficulties with GI bleeding and she was taken off the antibiotic ventilation approximately 3 months ago. She came into the emergency department yesterday because of pain and swelling of the left lower extremity tingling going on for the past 7-10 days. Subsequently she started having increased shortness of breath and increased fatigue and exertional dyspnea. For that reason she came into the hospital. The Doppler of the lower extremity was done and the patient was found to have a DVT and a common femoral vein, greater saphenous vein extending to the popliteal vein. The CTA of the chest was also done that showed multiple peripheral patchy reticulonodular infiltrates in addition to THE upper and lower lobe only artery emboli bilaterally which are new findings. The patient was started on IV heparin. No hemodynamic instability. No hypotension. No pleurisy. No hemoptysis. She is hemodynamically stable at this point in time. Note that she has history of inflammatory bowel disease, Crohn's disease and the patient has undergone previous history of colectomy. The patient also has undergone previous EGD that showed ongoing colitis for which the patient was started on prednisone burst taper and currently she is down to 30 mg as part of her burst taper. She is being followed up by gastroenterology. During her most recent admission of February 2020, she was taken off anticoagulation as the patient came in with a toxic INR of above 10. Noted the patient was also seen by hematology and outpatient hematologic hypercoagulable workup was done and I do not think she was found to have any significant abnormalities. Her current hemoglobin is at 8.0. The patient is seen today 04/12/2020 in follow-up on the selective care unit. She is awake and alert in no acute distress. Currently resting comfortably in bed. No worsening shortness of breath, cough or congestion noted hemoptysis. She is maintaining good O2 saturations in the 90s on room air. She's been afebrile. Hemodynamically stable. White count 7.9. Hemoglobin 8.6. Sodium 135. Potassium 4.5. Creatinine 1.05. She remains on heparin drip. She been transitioned to Eliquis. Continued on IV Solu-Medrol for her colitis. On 04/13/2020 patient seen in follow-up on selective care unit, she is awake and alert, she is in no acute distress, resting comfortably in bed, yesterday she had some increased abdominal discomfort, and CT of the abdomen and pelvis showed severe ileus or partial mechanical obstruction, patient has been passing bowel movements, she had 5 or 6 overnight, and she is passing some gas, her abdomen is less distended on today's exam. She denies any difficulty breathing, room air pulse ox is 100%, she does have some exertional dyspnea, but no acute distress, vital signs have been stable, she has been started on oral Eliquis for acute pulmonary embolism she has had no recurrent GI bleeding and her hemoglobin is 9.4 on today's labs. Renal profile is stable, sodium is 132, potassium is 4.5, chloride is 110, CO2 is 20. She remains on IV Solu-Medrol 20 mg every 8 hours. GI service is following. Objective - Vital Signs Vital signs: Vital Signs Temp 97.7 F 04/13/20 08:00 Pulse 89 04/13/20 08:00 Resp 20 04/13/20 08:00 BP 93/62 04/13/20 08:00 Pulse Ox 100 04/13/20 08:00 Intake & Output 04/12/20 04/13/20 04/13/20 18:59 06:59 18:59 Intake Total 0 Balance 0 Weight 58.4 kg Intake: Oral 0 Other: Voiding Method Toilet Toilet # Voids 3 3 # Bowel Movements 4 3 - Exam GENERAL EXAM: Alert, very pleasant 59-year-old white female, on room air with a pulse also 100% comfortable in no apparent distress. HEAD: Normocephalic/atraumatic. EYES: Normal reaction of pupils, equal size. Conjunctiva pink, sclera white. NOSE: Clear with pink turbinates. THROAT: No erythema or exudates. NECK: No masses, no JVD, no thyroid enlargement, no adenopathy. CHEST: No chest wall deformity. Symmetrical expansion. LUNGS: Equal air entry with no crackles, wheeze, rhonchi or dullness. CVS: Regular rate and rhythm, normal S1 and S2, no gallops, no murmurs, no rubs ABDOMEN: Soft, nontender. No hepatosplenomegaly, normal bowel sounds, no guarding or rigidity. EXTREMITIES: No clubbing, swelling 1+ edema in her left lower extremity, and trace edema in her right lower extremity no cyanosis, 2+ pulses and upper and l ower extremities. MUSCULOSKELETAL: Muscle strength and tone normal. SPINE: No scoliosis or deformity SKIN: No rashes CENTRAL NERVOUS SYSTEM: Alert and oriented -3. No focal deficits, tone is normal in all 4 extremities. PSYCHIATRIC: Alert and oriented -3. Appropriate affect. Intact judgment and insight. - Labs CBC & Chem 7: 04/13/20 05:53 04/13/20 05:53 Labs: Abnormal Lab Results - Last 24 Hours (Table) 04/12/20 04/12/20 04/13/20 Range/Units 06:28 06:28 05:53 RBC 3.18 L (3.80-5.40) m/uL Hgb 9.4 L (11.4-16.0) gm/dL Hct 31.7 L (34.0-46.0) % MCHC 29.5 L (31.0-37.0) g/dL RDW 17.5 H (11.5-15.5) % Lymphocytes # 0.6 L (1.0-4.8) k/uL Sodium (137-145) mmol/L Chloride (98-107) mmol/L Carbon Dioxide (22-30) mmol/L BUN (7-17) mg/dL Creatinine (0.52-1.04) mg/dL Glucose (74-99) mg/dL Calcium (8.4-10.2) mg/dL Iron 23 L (50-170) ug/dL TIBC 150 L (228-460) ug/dL Total Protein (6.3-8.2) g/dL Total Protein (PEP) 3.8 L (6.2-8.2) g/dL Albumin (3.5-5.0) g/dL Free [place] LC, Quant 4.86 H (0.33-1.94) mg/dL Free [place] LC, Quant 5.41 H (0.57-2.63) mg/dL 04/13/20 Range/Units 05:53 RBC (3.80-5.40) m/uL Hgb (11.4-16.0) gm/dL Hct (34.0-46.0) % MCHC (31.0-37.0) g/dL RDW (11.5-15.5) % Lymphocytes # (1.0-4.8) k/uL Sodium 132 L (137-145) mmol/L Chloride 110 H (98-107) mmol/L Carbon Dioxide 20 L (22-30) mmol/L BUN 25 H (7-17) mg/dL Creatinine 1.09 H (0.52-1.04) mg/dL Glucose 70 L (74-99) mg/dL Calcium 7.0 L (8.4-10.2) mg/dL Iron (50-170) ug/dL TIBC (228-460) ug/dL Total Protein 4.4 L (6.3-8.2) g/dL Total Protein (PEP) (6.2-8.2) g/dL Albumin 1.7 L (3.5-5.0) g/dL Free [place] LC, Quant (0.33-1.94) mg/dL Free [place] LC, Quant (0.57-2.63) mg/dL Assessment and Plan Plan: 1 acute left lower extremity DVT and pulmonary embolism , bilaterally with secondary shortness of breath. The patient has had a remote history of DVT many years back, at least 10 years ago and the patient has been receiving antipronation a long-term basis and this in the correlation was discontinued as of February 2020 because of concerns of GI bleeding and Coumadin toxicity. 2 remote history of DVT 3 previous history of inflammatory bowel disease and the patient is currently taking a course of steroids with prednisone at 30 mg by mouth daily 4 previous history of rectal bleeding secondary to anticoagulation and inflammatory bowel disease 5 history of Crohn's disease 6 mild gastritis based on the previous EGD 7 hypothyroidism 8 severe ileus or partial bowel obstruction, however patient is passing bowel movements and gas, abdomen is less tender and distended on today's exam on 04/13/2020 Plan: We'll continue oral anticoagulation for now, we considered switching the patient to IV heparin in case of surgical intervention was needed for small bowel obstruction however patient is passing bowel movements and gas, and abdomen is less tender, if surgical intervention is needed we'll switch to IV heparin. Otherwise hemodynamically she has remained stable no difficulty breathing, no chest pain. We'll continue to follow with the primary care team I performed a history & physical examination of the patient and discussed their management with my nurse practitioner, Mariely Mcmanus. I reviewed the nurse practitioner's note and agree with the documented findings and plan of care. Lung sounds are positive for diminished breath sounds. The findings and the impression was discussed with the patient. I attest to the documentation by the nurse practitioner. Time with Patient: Less than 30
--- NOTE | 2020-04-13 12:37 | P.PN ---
Subjective Progress Note Date: 04/13/20 Principal diagnosis: Bilateral Pulmonary Emoboli and LLE DVT (Acute) Resting comfortably, She complained of increased abdominal pain and CT abdomen and pelvis revealed severe ileus or partial mechanical obstruction, + flatus +wattery stools. SOB improved and oxygenating well on RA. Eliquis has been initiated and her cbc is being monitored closely and holding hemoglobin 9.4 tod ay Objective - Vital Signs Vital signs: Vital Signs Temp 97.7 F 04/13/20 08:00 Pulse 89 04/13/20 08:00 Resp 20 04/13/20 08:00 BP 93/62 04/13/20 08:00 Pulse Ox 100 04/13/20 08:00 Intake & Output 04/12/20 04/13/20 04/13/20 18:59 06:59 18:59 Intake Total 0 Balance 0 Weight 58.4 kg Intake: Oral 0 Other: Voiding Method Toilet Toilet # Voids 3 3 # Bowel Movements 4 3 - Exam - Constitutional General appearance: average body habitus, cooperative, no acute distress - EENT Eyes: anicteric sclerae, EOMI ENT: hearing grossly normal, normal oropharynx - Neck Neck: no lymphadenopathy - Respiratory Respiratory: bilateral: CTA - Cardiovascular Rhythm: regular Heart sounds: normal: S1, S2 Abnormal Heart Sounds: no systolic murmur, no diastolic murmur, no rub, no S3 Gallop, no S4 Gallop, no click, no other leg Peripheral Edema: bilateral: None - Gastrointestinal General gastrointestinal: no absent bowel sounds, no decreased bowel sounds, no distended, no hepatomegaly, no hyperactive bowel sounds, normal bowel sounds, no organomegaly, no rigid, no scaphoid, soft, no splenomegaly, no tenderness, no umbilical hernia, no ventral hernia - Neurologic Neurologic: CNII-XII intact - Musculoskeletal Musculoskeletal: strength equal bilaterally - Psychiatric Psychiatric: A&O x's 3, appropriate affect, intact judgment & insight - Labs CBC & Chem 7: 04/13/20 05:53 04/13/20 05:53 Labs: Abnormal Lab Results - Last 24 Hours (Table) 04/12/20 04/12/20 04/13/20 Range/Units 06:28 06:28 05:53 RBC 3.18 L (3.80-5.40) m/uL Hgb 9.4 L (11.4-16.0) gm/dL Hct 31.7 L (34.0-46.0) % MCHC 29.5 L (31.0-37.0) g/dL RDW 17.5 H (11.5-15.5) % Lymphocytes # 0.6 L (1.0-4.8) k/uL Sodium (137-145) mmol/L Chloride (98-107) mmol/L Carbon Dioxide (22-30) mmol/L BUN (7-17) mg/dL Creatinine (0.52-1.04) mg/dL Glucose (74-99) mg/dL Calcium (8.4-10.2) mg/dL Iron 23 L (50-170) ug/dL TIBC 150 L (228-460) ug/dL Total Protein (6.3-8.2) g/dL Total Protein (PEP) 3.8 L (6.2-8.2) g/dL Albumin (3.5-5.0) g/dL Free [place] LC, Quant 4.86 H (0.33-1.94) mg/dL Free [place] LC, Quant 5.41 H (0.57-2.63) mg/dL 04/13/20 Range/Units 05:53 RBC (3.80-5.40) m/uL Hgb (11.4-16.0) gm/dL Hct (34.0-46.0) % MCHC (31.0-37.0) g/dL RDW (11.5-15.5) % Lymphocytes # (1.0-4.8) k/uL Sodium 132 L (137-145) mmol/L Chloride 110 H (98-107) mmol/L Carbon Dioxide 20 L (22-30) mmol/L BUN 25 H (7-17) mg/dL Creatinine 1.09 H (0.52-1.04) mg/dL Glucose 70 L (74-99) mg/dL Calcium 7.0 L (8.4-10.2) mg/dL Iron (50-170) ug/dL TIBC (228-460) ug/dL Total Protein 4.4 L (6.3-8.2) g/dL Total Protein (PEP) (6.2-8.2) g/dL Albumin 1.7 L (3.5-5.0) g/dL Free [place] LC, Quant (0.33-1.94) mg/dL Free [place] LC, Quant (0.57-2.63) mg/dL Assessment and Plan Plan: CT scan - chest: report reviewed Venous US: report reviewed (reviewed bilateral lower extremity Doppler from February 2020) Assessment and Plan Pulmonary embolus Current Visit: Yes Status: Acute Priority: High Code(s): I26.99 - OTHER PULMONARY EMBOLISM WITHOUT ACUTE COR PULMONALE SNOMED Code(s): 49263909 Hx of deep venous thrombosis Current Visit: Yes Status: Acute Priority: High Code(s): Z86.718 - PERSONAL HISTORY OF OTHER VENOUS THROMBOSIS AND EMBOLISM SNOMED Code(s): 141764723 Anemia Current Visit: Yes Status: Acute Priority: Medium Code(s): D64.9 - ANEMIA, UNSPECIFIED SNOMED Code(s): 677752720 Acute Bilateral Pulmonary Emboli and Chronic LLE DVT (Determined to be Acute) found on 04/10/20 (Although Negative LLE doppler in February, therefore question of Chronic definition). - recommendations patient continue anticoagulation with DOAC or Arixtra at this time. She has been started on Eliquis due to copay on arixtra - She is high risk for recurrent thrombolic events as mentioned previously with chronic inflammation from crohns, sedetary lifestyle, tobacco abuse, and hx: PE/DVTs - She will need close monitoring for her persistent anemia and likely parental iron infusions. Recent Coagulopathy Acute Blood Loss Anemia while on Anti-coagulation: Normocytic Anemia: - Secondary to GI blood loss, coagulopathy and chronic inflammation - Coumadin Coagulopathy secondary to - Transfuse less than 7 - Full anemia work-up was completed in February, although there was QNS and this was never redrawn. Therefore a repeat anemia work-up has been ordered. Crohns Disease: - Unsure of treatment she received but apparently was on treatment but stopped due to inability to tolerate - Partial Colectomy and reversal in past Persistent Diarrhea: - Acute on Chronic - Persistent last few months requiring her to take time off on a leave from work Recent Hospitalization with Hypotension and syncopal episodes resulting in falls x2 - This was in February 2020, secondary to severe dehydration (persistent diarrhea/crohns) and severe anemia with coumadin coagulapathy. - Hematology recommended patient continue on lifelong AC therapy after GI cleared and to be discharged on DOAC Unintentional Weight Loss: - Greater than approx 20lbs in 6 months Physician Attest: I have completed the full history and physical and developed the complete assessment and plan. Agree with dictation by [employer], Dictated as a scribe
--- NOTE | 2020-04-13 13:38 | P.PN ---
Subjective Progress Note Date: 04/13/20 Jacquie Romo, is a 59-year-old female who presented to [facility] emergency room with a chief complaint of worsening shortness of breath and left lower extremity swelling she was evaluated in the emergency room and had evidence of lower extremity DVT with pulmonary embolism patient was admitted to intensive care unit she was started on IV heparin critical care consultation was requested. Patient was admitted to [facility] 6 weeks ago at that time she had coagulopathy with INR more than 10 and had gastrointestinal bleeding patient was maintained on Coumadin after a history of lower extremity DVT diagnosed 10 years ago, during the last hospitalization patient was seen by gastroenterology and was diagnosed was inflammatory bowel disease she was also seen by hematology for assessment whether she needs to be on anticoagulation or not. Patient was seen by hematology as outpatient she was not restarted on any anticoagulation, she returns now to the hospital with evidence of DVT and pulmonary embolism. Patient is complaining of shortness of breath and left lower extremity edema otherwise she denies any complaints there is no fever or chills no headache no dizziness no chest pain no cough no nausea or vomiting no abdominal pain no diarrhea no blood in the stools no burning with urination no frequency or urgency no hematuria On 04/12/2020 patient was seen and examined on the medical floor she is alert and oriented 3 in no apparent distress she is complaining of shortness of breath with activity she is also complaining of pain and swelling in the left l ower extremity otherwise she denies any complaints there is no fever or chills no headache or dizziness no chest pain no cough no nausea or vomiting no abdominal pain no diarrhea no burning with urination no frequency or urgency no hematuria no blood in the urine or in the stools On 04/13/2020 patient was seen and examined on the medical floor she is alert and oriented 3 in no apparent distress she is having multiple bowel movements today she states her abdominal pain has improved significantly , she is still complaining of left lower extremity swelling and some shortness of breath with activity otherwise she denies any complaints there is no fever or chills no headache or dizziness no chest pain no cough no nausea or vomiting no abdominal pain no diarrhea no blood in the stools no burning with urination no frequency or urgency and no hematuria. Objective - Vital Signs Vital signs: Vital Signs Temp 97.7 F 04/13/20 08:00 Pulse 68 04/13/20 12:00 Resp 20 04/13/20 12:00 BP 110/69 04/13/20 12:00 Pulse Ox 97 04/13/20 12:00 Intake & Output 04/12/20 04/13/20 04/13/20 18:59 06:59 18:59 Intake Total 0 Balance 0 Weight 58.4 kg Intake: Oral 0 Other: Voiding Method Toilet Toilet # Voids 3 3 # Bowel Movements 4 3 - Exam In general patient is alert and oriented 3 in no apparent distress HEENT head normocephalic and atraumatic Neck is supple no JVD no goiter no lymphadenopathy no carotid bruit Chest exam reveals a scattered crackles bilaterally no wheezing Cardiac exam reveals regular heart sounds no gallops no murmurs Abdomen is soft nontender no organomegaly with normal bowel sounds Extremity exam reveals left sided 2+ edema no cyanosis or clubbing Neurological examination reveals no gross focal deficit - Labs CBC & Chem 7: 04/13/20 05:53 04/13/20 05:53 Labs: Abnormal Lab Results - Last 24 Hours (Table) 04/12/20 04/12/20 04/13/20 Range/Units 06:28 06:28 05:53 RBC 3.18 L (3.80-5.40) m/uL Hgb 9.4 L (11.4-16.0) gm/dL Hct 31.7 L (34.0-46.0) % MCHC 29.5 L (31.0-37.0) g/dL RDW 17.5 H (11.5-15.5) % Lymphocytes # 0.6 L (1.0-4.8) k/uL Sodium (137-145) mmol/L Chloride (98-107) mmol/L Carbon Dioxide (22-30) mmol/L BUN (7-17) mg/dL Creatinine (0.52-1.04) mg/dL Glucose (74-99) mg/dL Calcium (8.4-10.2) mg/dL Iron 23 L (50-170) ug/dL TIBC 150 L (228-460) ug/dL Total Protein (6.3-8.2) g/dL Total Protein (PEP) 3.8 L (6.2-8.2) g/dL Albumin (3.5-5.0) g/dL Free [place] LC, Quant 4.86 H (0.33-1.94) mg/dL Free [place] LC, Quant 5.41 H (0.57-2.63) mg/dL 04/13/20 Range/Units 05:53 RBC (3.80-5.40) m/uL Hgb (11.4-16.0) gm/dL Hct (34.0-46.0) % MCHC (31.0-37.0) g/dL RDW (11.5-15.5) % Lymphocytes # (1.0-4.8) k/uL Sodium 132 L (137-145) mmol/L Chloride 110 H (98-107) mmol/L Carbon Dioxide 20 L (22-30) mmol/L BUN 25 H (7-17) mg/dL Creatinine 1.09 H (0.52-1.04) mg/dL Glucose 70 L (74-99) mg/dL Calcium 7.0 L (8.4-10.2) mg/dL Iron (50-170) ug/dL TIBC (228-460) ug/dL Total Protein 4.4 L (6.3-8.2) g/dL Total Protein (PEP) (6.2-8.2) g/dL Albumin 1.7 L (3.5-5.0) g/dL Free [place] LC, Quant (0.33-1.94) mg/dL Free [place] LC, Quant (0.57-2.63) mg/dL Assessment and Plan Plan: 1. Acute left lower extremity DVT with pulmonary embolism 2. Shortness of breath related to pulmonary embolism 3. History of DVT once in the past 10 years ago 4. Recent diagnosis of inflammatory bowel disease patient is maintained on tapering dose of prednisone 5. Recent admission 6 weeks ago with rectal bleeding and coagulopathy 6. Underlying history of hypothyroidism 7. Evidence of bowel obstruction on computed tomography scan however clinically patient is improving her abdominal pain has improved and she is having multiple bowel movements will monitor closely, surgical consultation was requested in case patient fails to improve At this time patient was restarted on anticoagulation she is currently on IV heparin Hematology consultation and gastroenterology consultation are requested Likely patient will need to be anticoagulated for life
[2020-04-14] MEDS: PANTOPRAZOLE 40 MG TABLET PO SCH (06:57)
[2020-04-14] MEDS: LEVOTHYROXINE 100 MCG TAB PO SCH (06:57)
--- NOTE | 2020-04-14 07:25 | XR ---
EXAMINATION TYPE: XR abdomen 2V DATE OF EXAM: 04/14/2020 COMPARISON: 21/01/2013 HISTORY: Pain TECHNIQUE: One view abdominal series FINDINGS: The osseous structures are intact. The bowel gas pattern is nonspecific. Occasional air-fluid levels are seen. Contrast is noted within the left colon. Lung bases clear. Contrast in the bladder seen. P unctate calcification overlying the lower pole right kidney could be related to tiny renal stone. Vas cular stent noted in the right pelvis. IMPRESSION: 1. Nonspecific abdomen with occasional air-fluid levels. Correlate for ileus, enteritis or partial ob struction.
[2020-04-14] MEDS: methylPREDNISolone SOD SUCCI 40 MG/ML 1 ML VIAL IV SCH ×3 (08:24→23:01)
[2020-04-14] MEDS: APIXABAN 5 MG TAB PO SCH ×2 (08:24→20:16)
--- NOTE | 2020-04-14 10:53 | P.GSCN ---
History of Present Illness Consult date: 04/14/20 Reason for Consult: Abdominal pain History of present illness: 59-year-old female with history of known Crohn's disease and history of previous DVT came to the hospital with left leg swelling and shortness of breath. She was found to have acute PE with DVT. During this hospital stay the patient had abdominal bloating and increased abdominal pain. CAT scan performed 2 nights ago showed significant bowel distention. Later after CAT scan patient had multiple loose stools and her pain resolved. She is pain-free currently. X-ray nonspecific at this time. History of previous right colectomy by Dr. May 6 years ago. White blood cell count 5.1. Did have 2 [place] today. Yesterday had multiple loose stools. She is being followed by GI. Last colonoscopy in October. Review of Systems The patient denies any acute changes in vision or hearing, no dysphagia or odynophagia, no chest pain or shortness of breath, no dysuria or hematuria, no headache, no runny nose, no unexplained weight loss Past Medical History Past Medical History: Deep Vein Thrombosis (DVT), GI Bleed, Thyroid Disorder Additional Past Medical History / Comment(s): sinus allergies, history blaine. DVT more than 10 years ago and she has been maintained on Warfarin, cardiac murmur , Gi bleeding and EGD /colonoscopy on 10/24/2019 showing mild gastritis, small HH a nd colonoscopy showed colitis of the cecum and left colon and biopsy was consistent with colitis, nonspecific. She has history of Crohn's disease and has hisotry of colectomy , chronic anemia History of Any Multi-Drug Resistant Organisms: None Reported Past Surgical History: Bowel Resection, Section Additional Past Surgical History / Comment(s): bowel resection with colostomy and then colostomy reversal Past Anesthesia/Blood Transfusion Reactions: No Reported Reaction Past Psychological History: No Psychological Hx Reported Smoking Status: Current every day smoker Past Alcohol Use History: None Reported Additional Past Alcohol Use History / Comment(s): smoker for 20 years on and off 1/2 ppd or less Past Drug Use History: None Reported - Past Family History Mother Family Medical History: No Reported History Medications and Allergies Home Medications Medication Instructions Recorded Confirmed Type Levothyroxine Sodium [Synthroid] 100 mcg PO DAILY 10/20/19 04/10/20 History Pantoprazole [Protonix] 40 mg PO [id number] tablet. 02/26/20 04/10/20 Rx Multivitamins, Thera Liquid 15 ml PO DAILY 04/10/20 04/10/20 History [Theragran Liquid (formulary)] predniSONE 30 mg PO DAILY 04/10/20 04/10/20 History Apixaban [Eliquis Starter Pack 0 mg PO DIRECTED 30 Days #1 pack 04/11/20 Rx (for VTE)] Apixaban [Eliquis] 5 mg PO BID 30 Days #60 tab 04/11/20 Rx Allergies Allergy/AdvReac Type Severity Reaction Status Date / Time Sulfa (Sulfonamide Allergy Unknown Verified 04/10/20 18:58 Antibiotics) Surgical - Exam Vital Signs Temp Pulse Resp BP Pulse Ox 98.2 F 100 21 107/65 100 04/10/20 18:07 04/10/20 18:07 04/10/20 18:07 04/10/20 18:07 04/10/20 18:07 Physical exam: General: Well-developed, well-nourished HEENT: Normocephalic, sclerae nonicteric Abdomen: Nontender, nondistended Extremities: No edema Neuro: Alert and oriented Results - Labs 04/13/20 05:53 04/13/20 05:53 Abnormal Lab Results - Last 24 Hours (Table) 04/12/20 Range/Units 06:28 Free [place] LC, Quant 4.86 H (0.33-1.94) mg/dL Assessment and Plan (1) Abdominal pain Narrative/Plan: 59-year-old female with history of Crohn's disease and recent complaints of abdominal pain that has resolved. Patient doing well currently. Will advance diet at this time. Possible discharge tomorrow. Current Visit: Yes Status: Acute Code(s): R10.9 - UNSPECIFIED ABDOMINAL PAIN SNOMED Code(s): 28007436
--- NOTE | 2020-04-14 12:02 | P.PN ---
Subjective Progress Note Date: 04/13/20 Principal diagnosis: Crohn's colitis, abdominal pain Patient is seen lying in bed still reporting some abdominal pain but improved. Still having some was bowel movements. Tolerating her diet. Objective - Vital Signs Vital signs: Vital Signs Temp 97.7 F 04/13/20 08:00 Pulse 82 04/13/20 16:00 Resp 20 04/13/20 16:00 BP 94/64 04/13/20 16:00 Pulse Ox 98 04/13/20 16:00 Intake & Output 04/12/20 04/13/20 04/13/20 18:59 06:59 18:59 Intake Total 0 240 Balance 0 240 Weight 58.4 kg Intake: Oral 0 240 Other: Voiding Method Toilet Toilet # Voids 3 3 1 # Bowel Movements 4 3 - Exam On physical examination, patient appears comfortable in no apparent distress. HEAD: Normocephalic, atraumatic. EYES: No scleral icterus. No conjunctival injection. MOUTH: No lesions, tongue midline. NECK: Trachea midline, no gross abnormalities. ABDOMEN: Soft, mildly tender to palpation. Bowel sounds are positive. No organomegaly. No guarding or rigidity. EXTREMITIES: No pedal edema. SKIN: No rashes, no jaundice. NEUROLOGIC: Alert and oriented x3. No focal deficits. - Labs CBC & Chem 7: 04/13/20 05:53 04/13/20 05:53 Labs: Abnormal Lab Results - Last 24 Hours (Table) 04/12/20 04/12/20 04/13/20 Range/Units 06:28 06:28 05:53 RBC 3.18 L (3.80-5.40) m/uL Hgb 9.4 L (11.4-16.0) gm/dL Hct 31.7 L (34.0-46.0) % MCHC 29.5 L (31.0-37.0) g/dL RDW 17.5 H (11.5-15.5) % Lymphocytes # 0.6 L (1.0-4.8) k/uL Sodium (137-145) mmol/L Chloride (98-107) mmol/L Carbon Dioxide (22-30) mmol/L BUN (7-17) mg/dL Creatinine (0.52-1.04) mg/dL Glucose (74-99) mg/dL Calcium (8.4-10.2) mg/dL Iron 23 L (50-170) ug/dL TIBC 150 L (228-460) ug/dL Total Protein (6.3-8.2) g/dL Total Protein (PEP) 3.8 L (6.2-8.2) g/dL Albumin (3.5-5.0) g/dL Free [place] LC, Quant 4.86 H (0.33-1.94) mg/dL Free Lambda LC, Quant 5.41 H (0.57-2.63) mg/dL 04/13/20 Range/Units 05:53 RBC (3.80-5.40) m/uL Hgb (11.4-16.0) gm/dL Hct (34.0-46.0) % MCHC (31.0-37.0) g/dL RDW (11.5-15.5) % Lymphocytes # (1.0-4.8) k/uL Sodium 132 L (137-145) mmol/L Chloride 110 H (98-107) mmol/L Carbon Dioxide 20 L (22-30) mmol/L BUN 25 H (7-17) mg/dL Creatinine 1.09 H (0.52-1.04) mg/dL Glucose 70 L (74-99) mg/dL Calcium 7.0 L (8.4-10.2) mg/dL Iron (50-170) ug/dL TIBC (228-460) ug/dL Total Protein 4.4 L (6.3-8.2) g/dL Total Protein (PEP) (6.2-8.2) g/dL Albumin 1.7 L (3.5-5.0) g/dL Free [place] LC, Quant (0.33-1.94) mg/dL Free Lambda LC, Quant (0.57-2.63) mg/dL Assessment and Plan (1) Crohn disease Narrative/Plan: 59-year-old female with a history of active Crohn's colitis status post colonoscopy in October which showed active colitis in the right colon as well as the sigmoid colon. The patient is followed up in the outpatient setting with plans for initiation of biologic therapy. Current Visit: No Status: Acute Code(s): K50.90 - CROHN'S DISEASE, UNSPECIFIED, WITHOUT COMPLICATIONS SNOMED Code(s): 34332858 (2) Abdominal pain Current Visit: Yes Status: Acute Code(s): R10.9 - UNSPECIFIED ABDOMINAL PAIN SNOMED Code(s): 87745672 Plan: Supportive care Okay to continue Eliquis Continue Solu-Medrol 20 mg every 8 hours Patient started on Bentyl 10 mg 3 times a day Okay to continue clear liquid diet, advance to low fiber, low residual diet as tolerated Continue monitor CBC, BMP Thank you for allowing us to participate in the care of the patient
--- NOTE | 2020-04-14 13:23 | P.PN ---
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 Recently the patient was having difficulties with GI bleeding and she was taken off the antibiotic ventilation approximately 3 months ago. She came into the emergency department yesterday because of pain and swelling of the left lower extremity tingling going on for the past 7-10 days. Subsequently she started having increased shortness of breath and increased fatigue and exertional dyspnea. For that reason she came into the hospital. The Doppler of the lower extremity was done and the patient was found to have a DVT and a common femoral vein, greater saphenous vein extending to the popliteal vein. The CTA of the chest was also done that showed multiple peripheral patchy reticulonodular infiltrates in addition to THE upper and lower lobe only artery emboli bilaterally which are new findings. The patient was started on IV heparin. No hemodynamic instability. No hypotension. No pleurisy. No hemoptysis. She is hemodynamically stable at this point in time. Note that she has history of inflammatory bowel disease, Crohn's disease and the patient has undergone previous history of colectomy. The patient also has undergone previous EGD that showed ongoing colitis for which the patient was started on prednisone burst taper and currently she is down to 30 mg as part of her burst taper. She is being followed up by gastroenterology. During her most recent admission of February 2020, she was taken off anticoagulation as the patient came in with a toxic INR of above 10. Noted the patient was also seen by hematology and outpatient hematologic hypercoagulable workup was done and I do not think she was found to have any significant abnormalities. Her current hemoglobin is at 8.0. The patient is seen today 04/12/2020 in follow-up on the selective care unit. She is awake and alert in no acute distress. Currently resting comfortably in bed. No worsening shortness of breath, cough or congestion noted hemoptysis. She is maintaining good O2 saturations in the 90s on room air. She's been afebrile. Hemodynamically stable. White count 7.9. Hemoglobin 8.6. Sodium 135. Potassium 4.5. Creatinine 1.05. She remains on heparin drip. She been transitioned to Eliquis. Continued on IV Solu-Medrol for her colitis. The patient is seen today 04/14/2020 in follow-up on the selective care unit. She is awake and alert in no acute distress. No shortness of breath, cough or congestion. Maintaining O2 saturations in the high 90s on room air. Afebrile. Hemodynamically stable. No significant abdominal discomfort. Currently on Eliquis. Objective - Vital Signs Vital signs: Vital Signs Temp 98.0 F 04/14/20 11:17 Pulse 76 04/14/20 11:17 Resp 16 04/14/20 11:17 BP 91/60 04/14/20 11:17 Pulse Ox 99 04/14/20 11:17 Intake & Output 04/13/20 04/14/20 04/14/20 18:59 06:59 18:59 Intake Total 240 240 Balance 240 240 Weight 59.5 kg Intake: Oral 240 240 Other: Voiding Method Toilet Toilet # Voids 1 - Exam A pleasant 59-year-old female patient, on room air, well nourished and normally developed. Vital signs as documented. Head exam is unremarkable. No scleral icterus or corneal arcus noted. Neck is without jugular venous distension, thyromegaly, or carotid bruits. Carotid upstrokes are brisk bilaterally. Lungs are clear to auscultation and percussion. Cardiac exam reveals the PMI to be normally sized and situated. Rhythm is regular. First and second heart sounds normal. No murmurs, rubs or gallops. Abdominal exam reveals normal bowel sounds, no masses, no organomegaly and no aortic enlargement. Extremities are nonedem atous and both femoral and pedal pulses are normal. The left lower extremity slightly swollen compared to the right lower extremity. Examination of the skin revealed no evidence of significant rashes, suspicious appearing nevi or other concerning lesions. Neurologically, the patient is awake and alert and the patient does not have any focal neurological deficit. Cranial nerves are essentially intact. - Labs CBC & Chem 7: 04/13/20 05:53 04/13/20 05:53 Assessment and Plan Assessment: 1 acute left lower extremity DVT and pulmonary embolism , bilaterally with secondary shortness of breath. The patient has had a remote history of DVT many years back, at least 10 years ago and the patient has been receiving anticoagulation a long-term basis and this in the correlation was discontinued as of February 2020 because of concerns of GI bleeding and Coumadin toxicity. Currently on Eliquis. 2 remote history of DVT 3 previous history of inflammatory bowel disease and the patient is currently taking a course of steroids with prednisone at 30 mg by mouth daily 4 previous history of rectal bleeding secondary to anticoagulation and inflammatory bowel disease 5 history of Crohn's disease 6 mild gastritis based on the previous EGD 7 hypothyroidism Plan The patient was seen and evaluated by Dr. China Vincent from the pulmonary standpoint Home once cleared medically I, the cosigning physician, performed a history & physical examination of the patient. Lungs sounds are clear. Maintaining good O2 saturations in the 90s on room air. I discussed the assessment and plan of care with my nurse practitioner, Justine Ochoa. I attest to the above note as dictated by her.
--- NOTE | 2020-04-14 14:44 | P.PN ---
Subjective Progress Note Date: 04/14/20 Jacquie Romo, is a 59-year-old female who presented to [facility] emergency room with a chief complaint of worsening shortness of breath and left lower extremity swelling she was evaluated in the emergency room and had evidence of lower extremity DVT with pulmonary embolism patient was admitted to intensive care unit she was started on IV heparin critical care consultation was requested. Patient was admitted to [facility] 6 weeks ago at that time she had coagulopathy with INR more than 10 and had gastrointestinal bleeding patient was maintained on Coumadin after a history of lower extremity DVT diagnosed 10 years ago, during the last hospitalization patient was seen by gastroenterology and was diagnosed was inflammatory bowel disease she was also seen by hematology for assessment whether she needs to be on anticoagulation or not. Patient was seen by hematology as outpatient she was not restarted on any anticoagulation, she returns now to the hospital with evidence of DVT and pulmonary embolism. Patient is complaining of shortness of breath and left lower extremity edema otherwise she denies any complaints there is no fever or chills no headache no dizziness no chest pain no cough no nausea or vomiting no abdominal pain no diarrhea no blood in the stools no burning with urination no frequency or urgency no hematuria On 04/12/2020 patient was seen and examined on the medical floor she is alert and oriented 3 in no apparent distress she is complaining of shortness of breath with activity she is also complaining of pain and swelling in the left l ower extremity otherwise she denies any complaints there is no fever or chills no headache or dizziness no chest pain no cough no nausea or vomiting no abdominal pain no diarrhea no burning with urination no frequency or urgency no hematuria no blood in the urine or in the stools On 04/13/2020 patient was seen and examined on the medical floor she is alert and oriented 3 in no apparent distress she is having multiple bowel movements today she states her abdominal pain has improved significantly , she is still complaining of left lower extremity swelling and some shortness of breath with activity otherwise she denies any complaints there is no fever or chills no headache or dizziness no chest pain no cough no nausea or vomiting no abdominal pain no diarrhea no blood in the stools no burning with urination no frequency or urgency and no hematuria. On 04/14/2020 patient was seen and examined on the medical floor she is alert and oriented 3 in no distress, she is complaining of abdominal discomfort and diarrhea otherwise she denies any complaints there is no fever or chills no headache or dizziness no chest pain or shortness of breath has improved significantly there is no cough, no nausea or vomiting no blood in the stools no burning with urination no frequency or urgency no hematuria Objective - Vital Signs Vital signs: Vital Signs Temp 98.0 F 04/14/20 11:17 Pulse 76 04/14/20 11:17 Resp 16 04/14/20 11:17 BP 91/60 04/14/20 11:17 Pulse Ox 99 04/14/20 11:17 Intake & Output 04/13/20 04/14/20 04/14/20 18:59 06:59 18:59 Intake Total 240 720 Balance 240 720 Weight 59.5 kg Intake: Oral 240 720 Other: Voiding Method Toilet Toilet # Voids 1 - Exam In general patient is alert and oriented 3 in no apparent distress HEENT head normocephalic and atraumatic Neck is supple no JVD no goiter no lymphadenopathy no carotid bruit Chest exam reveals a scattered crackles bilaterally no wheezing Cardiac exam reveals regular heart sounds no gallops no murmurs Abdomen is soft nontender no organomegaly with normal bowel sounds Extremity exam reveals left sided 2+ edema no cyanosis or clubbing Neurological examination reveals no gross focal deficit - Labs CBC & Chem 7: 04/13/20 05:53 04/13/20 05:53 Assessment and Plan Plan: 1. Acute left lower extremity DVT with pulmonary embolism 2. Shortness of breath related to pulmonary embolism 3. History of DVT once in the past 10 years ago 4. Recent diagnosis of inflammatory bowel disease patient is maintained on tapering dose of prednisone 5. Recent admission 6 weeks ago with rectal bleeding and coagulopathy 6. Underlying history of hypothyroidism 7. Evidence of bowel obstruction on computed tomography scan however clinically patient is improving her abdominal pain has improved and she is having multiple bowel movements will monitor closely, surgical consultation was requested in case patient fails to improve, patient is having diarrhea, she is tolerating diet well Will monitor closely At this time patient was restarted on anticoagulation she is currently on IV heparin Hematology consultation and gastroenterology consultation are requested Likely patient will need to be anticoagulated for life
[2020-04-14 19:59] VITALS: RESP 18
--- NOTE | 2020-04-14 21:49 | P.PN ---
Subjective Progress Note Date: 04/14/20 Principal diagnosis: Crohn's colitis, abdominal pain Patient is seen lying in bed reporting some loose bowel movements overnight, however only 2 bowel movements today. Tolerating diet. Abdominal pain improving. Objective - Vital Signs Vital signs: Vital Signs Temp 98.0 F 04/14/20 11:17 Pulse 76 04/14/20 11:17 Resp 16 04/14/20 11:17 BP 91/60 04/14/20 11:17 Pulse Ox 99 04/14/20 11:17 Intake & Output 04/13/20 04/14/20 04/14/20 18:59 06:59 18:59 Intake Total 240 720 Balance 240 720 Weight 59.5 kg Intake: Oral 240 720 Other: Voiding Method Toilet Toilet # Voids 1 - Exam On physical examination, patient appears comfortable in no apparent distress. HEAD: Normocephalic, atraumatic. EYES: No scleral icterus. No conjunctival injection. MOUTH: No lesions, tongue midline. NECK: Trachea midline, no gross abnormalities. ABDOMEN: Soft, mildly tender to palpation. Bowel sounds are positive. No organomegaly. No guarding or rigidity. EXTREMITIES: No pedal edema. SKIN: No rashes, no jaundice. NEUROLOGIC: Alert and oriented x3. No focal deficits. - Labs CBC & Chem 7: 04/13/20 05:53 04/13/20 05:53 Assessment and Plan (1) Crohn disease Narrative/Plan: 59-year-old female with a history of active Crohn's colitis status post colonoscopy in October which showed active colitis in the right colon as well a s the sigmoid colon. The patient is followed up in the outpatient setting with plans for initiation of biologic therapy. Current Visit: No Status: Acute Code(s): K50.90 - CROHN'S DISEASE, UNSPECIFIED, WITHOUT COMPLICATIONS SNOMED Code(s): 92607883 (2) Abdominal pain Current Visit: Yes Status: Acute Code(s): R10.9 - UNSPECIFIED ABDOMINAL PAIN SNOMED Code(s): 05512499 Plan: Supportive care Okay to continue Eliquis Continue Solu-Medrol 20 mg every 8 hours Patient started on Bentyl 10 mg 3 times a day Okay to continue clear liquid diet, advance to low fiber, low residual diet as tolerated Continue monitor CBC, BMP Thank you for allowing us to participate in the care of the patient
[2020-04-15] MEDS: PANTOPRAZOLE 40 MG TABLET PO SCH (06:31)
[2020-04-15] MEDS: LEVOTHYROXINE 100 MCG TAB PO SCH (06:31)
[2020-04-15] MEDS: APIXABAN 5 MG TAB PO SCH (10:30)
[2020-04-15] MEDS: methylPREDNISolone SOD SUCCI 40 MG/ML 1 ML VIAL IV SCH (10:31)
[2020-04-15 10:36] VITALS: TEMP 98
--- NOTE | 2020-04-15 11:03 | P.PN ---
Subjective Progress Note Date: 04/15/20 Principal diagnosis: Abdominal pain Patient doing well today. No pain. She still having bowel movements. Tolerating regular diet. She would like to go home. Objective - Vital Signs Vital signs: Vital Signs Temp 98.0 F 04/15/20 09:45 Pulse 98 04/15/20 09:45 Resp 18 04/15/20 09:45 BP 97/54 04/15/20 09:45 Pulse Ox 100 04/15/20 09:45 Intake & Output 04/14/20 04/15/20 04/15/20 18:59 06:59 18:59 Intake Total 960 360 Balance 960 360 Weight 58.5 kg Intake: Oral 960 360 Other: Voiding Method Toilet Toilet Toilet # Voids 1 1 # Bowel Movements 2 - Exam Abdomen: Soft, nontender, nondistended - Labs CBC & Chem 7: 04/13/20 05:53 04/13/20 05:53 Assessment and Plan (1) Abdominal pain Narrative/Plan: Continue diet as tolerated. Continue medications for Crohn's. May discharge from my point of view. Current Visit: Yes Status: Acute Code(s): R10.9 - UNSPECIFIED ABDOMINAL PAIN SNOMED Code(s): 14089808
[2020-04-15 11:19] LABS: Anisocytosis Slight; Basophils % (A) 0 %; Eosinophils % (A) 0 %; HCT 27.7 % (34.0-46.0); HGB 8.4 gm/dL (11.4-16.0); Hypochromasia Marked; Lymphocytes # (A) 0.5 k/uL (1.0-4.8); Lymphocytes % (A) 12 %; MCHC 30.5 g/dL (31.0-37.0); MCV 98.6 fL (80.0-100.0); Macrocytosis Slight; Monocytes # (A) 0.2 k/uL (0-1.0); Monocytes % (A) 4 %; Neutrophils # (A) 3.2 k/uL (1.3-7.7); Neutrophils % (A) 82 %; Platelet Count 177 k/uL (150-450); RBC 2.81 m/uL (3.80-5.40); RDW 17.3 % (11.5-15.5); WBC 3.8 k/uL (3.8-10.6)
[2020-04-15 11:26] LABS: Albumin 1.5 g/dL (3.5-5.0); Calcium 6.7 mg/dL (8.4-10.2); Potassium 3.8 mmol/L (3.5-5.1); Total Bilirubin 0.3 mg/dL (0.2-1.3)
--- NOTE | 2020-04-15 12:24 | P.DS ---
Providers Date of admission: 04/10/20 20:06 Expected date of discharge: 04/15/20 Attending physician: Marcell Aguilar Consults: 04/10/20 20:07 Consult Physician Urgent Consulting Provider: Dylan Atkinson Consult Reason/Comments: pe Do you want consulting provider notified?: Yes 04/11/20 18:11 Consult Physician Routine Consulting Provider: Myke Katz Consult Reason/Comments: DVT PE Do you want consulting provider notified?: Yes 04/13/20 13:24 Consult Physician Routine Consulting Provider: Jerry Mclaughlin Consult Reason/Comments: bowel obstruction Do you want consulting provider notified?: Yes Primary care physician: Sarahi Ornelas Hospital Course: Diagnosis on discharge: 1. Acute left lower extremity DVT with pulmonary embolism 2. Shortness of breath related to pulmonary embolism 3. History of DVT once in the past 10 years ago 4. Recent diagnosis of inflammatory bowel disease patient is maintained on tapering dose of prednisone 5. Recent admission 6 weeks ago with rectal bleeding and coagulopathy 6. Underlying history of hypothyroidism 7. Evidence of bowel obstruction on computed tomography scan however clinically patient is improving her abdominal pain has improved and she is having multiple bowel movements will monitor closely, surgical consultation was requested in case patient fails to improve, patient is having diarrhea, she is tolerating diet well Will monitor closely Hospital course: Jacquie Romo, is a 59-year-old female who presented to [facility] emergency room with a chief complaint of worsening shortness of breath and left lower extremity swelling she was evaluated in the emergency room and had evidence of lower extremity DVT with pulmonary embolism patient was admitted to intensive care unit she was started on IV heparin critical care consultation was requested. Patient was admitted to [facility] 6 weeks ago at that time she had coagulopathy with INR more than 10 and had gastrointestinal bleeding patient was maintained on Coumadin after a history of lower extremity DVT diagnosed 10 years ago, during the last hospitalization patient was seen by gastroenterology and was diagnosed was inflammatory bowel disease she was also seen by hematology for assessment whether she needs to be on anticoagulation or not. Patient was seen by hematology as outpatient she was not restarted on any anticoagulation, she returns now to the hospital with evidence of DVT and pulmonary embolism. Patient is complaining of shortness of breath and left lower extremity edema otherwise she denies any complaints there is no fever or chills no headache no dizziness no chest pain no cough no nausea or vomiting no abdominal pain no diarrhea no blood in the stools no burning with urination no frequency or urgency no hematuria On 04/12/2020 patient was seen and examined on the medical floor she is alert and oriented 3 in no apparent distress she is complaining of shortness of breath with activity she is also complaining of pain and swelling in the left lower extremity otherwise she denies any complaints there is no fever or chills no headache or dizziness no chest pain no cough no nausea or vomiting no abdominal pain no diarrhea no burning with urination no frequency or urgency no hematuria no blood in the urine or in the stools On 04/13/2020 patient was seen and examined on the medical floor she is alert and oriented 3 in no apparent distress she is having multiple bowel movements today she states her abdominal pain has improved significantly , she is still complaining of left lower extremity swelling and some shortness of breath with activity otherwise she denies any complaints there is no fever or chills no headache or dizziness no chest pain no cough no nausea or vomiting no abdominal pain no diarrhea no blood in the stools no burning with urination no frequency or urgency and no hematuria. On 04/14/2020 patient was seen and examined on the medical floor she is alert and oriented 3 in no distress, she is complaining of abdominal discomfort and diarrhea otherwise she denies any complaints there is no fever or chills no headache or dizziness no chest pain or shortness of breath has improved significantly there is no cough, no nausea or vomiting no blood in the stools no burning with urination no frequency or urgency no hematuria On 04/15/2020 patient was seen and examined on the telemetry floor she is alert and oriented 3 in no apparent distress there is no fever or chills no headache or dizziness no chest pain no shortness of breath no cough no nausea or vomiting no abdominal pain no diarrhea no burning with urination no frequency or urgency and no hematuria. Patient wants to go home, she was started on oral Eliquis and IV heparin was stopped, she was able to obtain her Eliquis prescription from the pharmacy. Patient will be discharged home today she will follow-up with her [facility] care physician Dr. Ornelas within 1 week, she also needs to follow with gastroenterology and hematology as outpatient. Patient Condition at Discharge: Serious Plan - Discharge Summary Discharge Rx Participant: No New Discharge Prescriptions: New Apixaban [Eliquis Starter Pack (for VTE)] 0 mg PO DIRECTED 30 Days #1 pack Apixaban [Eliquis] 5 mg PO BID 30 Days #60 tab Dicyclomine [Bentyl] 10 mg PO TID PRN cap PRN Reason: Dyspepsia Continue Levothyroxine Sodium [Synthroid] 100 mcg PO DAILY Pantoprazole [Protonix] 40 mg PO AC-BRKFST tablet. predniSONE 30 mg PO DAILY Multivitamins, Thera Liquid [Theragran Liquid (formulary)] 15 ml PO DAILY Discharge Medication List Levothyroxine Sodium [Synthroid] 100 mcg PO DAILY 10/20/19 [History] Pantoprazole [Protonix] 40 mg PO AC-BRKFST tablet. 02/26/20 [Rx] Multivitamins, Thera Liquid [Theragran Liquid (formulary)] 15 ml PO DAILY 04/10/20 [History] predniSONE 30 mg PO DAILY 04/10/20 [History] Apixaban [Eliquis Starter Pack (for VTE)] 0 mg PO DIRECTED 30 Days #1 pack 04/11/20 [Rx] Apixaban [Eliquis] 5 mg PO BID 30 Days #60 tab 04/11/20 [Rx] Dicyclomine [Bentyl] 10 mg PO TID PRN cap 04/15/20 [Rx] Follow up Appointment(s)/Referral(s): Sarahi Ornelas MD [Primary Care Provider] - 1-2 days Activity/Diet/Wound Care/Special Instructions: Eliquis starter pack filled at [facility] - filled with free day coupon - tow picker from pharmacy prior to discharge Refills @[facility] - copay $120/month - $10 copay card given to patient to reduce copay
--- NOTE | 2020-04-15 12:43 | P.PN ---
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 Recently the patient was having difficulties with GI bleeding and she was taken off the antibiotic ventilation approximately 3 months ago. She came into the emergency department yesterday because of pain and swelling of the left lower extremity tingling going on for the past 7-10 days. Subsequently she started having increased shortness of breath and increased fatigue and exertional dyspnea. For that reason she came into the hospital. The Doppler of the lower extremity was done and the patient was found to have a DVT and a common femoral vein, greater saphenous vein extending to the popliteal vein. The CTA of the chest was also done that showed multiple peripheral patchy reticulonodular infiltrates in addition to THE upper and lower lobe only artery emboli bilaterally which are new findings. The patient was started on IV heparin. No hemodynamic instability. No hypotension. No pleurisy. No hemoptysis. She is hemodynamically stable at this point in time. Note that she has history of inflammatory bowel disease, Crohn's disease and the patient has undergone previous history of colectomy. The patient also has undergone previous EGD that showed ongoing colitis for which the patient was started on prednisone burst taper and currently she is down to 30 mg as part of her burst taper. She is being followed up by gastroenterology. During her most recent admission of February 2020, she was taken off anticoagulation as the patient came in with a toxic INR of above 10. Noted the patient was also seen by hematology and outpatient hematologic hypercoagulable workup was done and I do not think she was found to have any significant abnormalities. Her current hemoglobin is at 8.0. The patient is seen today 04/12/2020 in follow-up on the selective care unit. She is awake and alert in no acute distress. Currently resting comfortably in bed. No worsening shortness of breath, cough or congestion noted hemoptysis. She is maintaining good O2 saturations in the 90s on room air. She's been afebrile. Hemodynamically stable. White count 7.9. Hemoglobin 8.6. Sodium 135. Potassium 4.5. Creatinine 1.05. She remains on heparin drip. She been transitioned to Eliquis. Continued on IV Solu-Medrol for her colitis. The patient is seen today 04/14/2020 in follow-up on the selective care unit. She is awake and alert in no acute distress. No shortness of breath, cough or congestion. Maintaining O2 saturations in the high 90s on room air. Afebrile. Hemodynamically stable. No significant abdominal discomfort. Currently on Eliquis. The patient is seen today 04/15/2020 in follow-up on the selective care unit. She is resting comfortably in bed. Awake and alert in no acute distress. No chest pain. No palpitations. No worsening shortness of breath, cough or congestion. No hemoptysis. O2 saturations up to 100% on room air. Afebrile. Hemodynamically stable. White count 3.8. Hemoglobin 8.4. Sodium 133. Potassium 3.8. Creatinine 1.10. Objective - Vital Signs Vital signs: Vital Signs Temp 98.0 F 04/15/20 09:45 Pulse 98 04/15/20 09:45 Resp 18 04/15/20 09:45 BP 97/54 04/15/20 09:45 Pulse Ox 100 04/15/20 09:45 Intake & Output 04/14/20 04/15/20 04/15/20 18:59 06:59 18:59 Intake Total 960 360 Balance 960 360 Weight 58.5 kg Intake: Oral 960 360 Other: Voiding Method Toilet Toilet Toilet # Voids 1 1 # Bowel Movements 2 - Exam A pleasant 59-year-old female patient, on room air, O2 saturation 100%, well nourished and normally developed. Vital signs as documented. Head exam is unremarkable. No scleral icterus or corneal arcus noted. Neck is without jugular venous distension, thyromegaly, or carotid bruits. Carotid upstrokes are brisk bilaterally. Lungs are clear to auscultation and percussion. Cardiac exam reveals the PMI to be normally sized and situated. Rhythm is regular. First and second heart sounds normal. No murmurs, rubs or gallops. Abdominal exam reveals normal bowel sounds, no masses, no organomegaly and no aortic enlargement. Extremities are nonedematous and both femoral and pedal pulses are normal. The left lower extremity slightly swollen compared to the right lower extremity. Examination of the skin revealed no evidence of significant rashes, suspicious appearing nevi or other concerning lesions. Neurologically, the patient is awake and alert and the patient does not have any focal neurological deficit. Cranial nerves are essentially intact. - Labs CBC & Chem 7: 04/15/20 11:02 04/15/20 11:02 Labs: Abnormal Lab Results - Last 24 Hours (Table) 04/15/20 04/15/20 Range/Units 11:02 11:02 RBC 2.81 L (3.80-5.40) m/uL Hgb 8.4 L (11.4-16.0) gm/dL Hct 27.7 L (34.0-46.0) % MCHC 30.5 L (31.0-37.0) g/dL RDW 17.3 H (11.5-15.5) % Lymphocytes # 0.5 L (1.0-4.8) k/uL Sodium 133 L (137-145) mmol/L Chloride 108 H (98-107) mmol/L BUN 19 H (7-17) mg/dL Creatinine 1.10 H (0.52-1.04) mg/dL Calcium 6.7 L (8.4-10.2) mg/dL AST 12 L (14-36) U/L Total Protein 4.0 L (6.3-8.2) g/dL Albumin 1.5 L (3.5-5.0) g/dL Assessment and Plan Assessment: 1 acute left lower extremity DVT and pulmonary embolism , bilaterally with secondary shortness of breath. The patient has had a remote history of DVT many years back, at least 10 years ago and the patient has been receiving antico agulation a long-term basis and this in the correlation was discontinued as of February 2020 because of concerns of GI bleeding and Coumadin toxicity. Currently on Eliquis. 2 remote history of DVT 3 previous history of inflammatory bowel disease and the patient is currently taking a course of steroids with prednisone at 30 mg by mouth daily 4 previous history of rectal bleeding secondary to anticoagulation and inflammatory bowel disease 5 history of Crohn's disease 6 mild gastritis based on the previous EGD 7 hypothyroidism Plan The patient was seen and evaluated by Dr. Atkinson Cleared for discharge from the pulmonary standpoint I, the cosigning physician, performed a history & physical examination of the patient. Lungs sounds are clear. Maintaining good O2 saturations in the 90s on room air. I discussed the assessment and plan of care with my nurse Justine grady. I attest to the above note as dictated by her.
[2020-04-15 12:53] VITALS: BP 104/65; PULSE 88
[2020-04-17 13:30] LABS: Albumin 1.43 g/dL (3.80-4.90); Gamma Globulin 1.04 g/dL (0.70-1.50)
== END 2020-04-15 14:51 | disposition home or self-care (01) | DRG 299 ==
LOC: EC 17:53 → 2SICU 20:06 → 3SCARD 04-12 04:41
PROVIDERS: ADMIT Internal Medicine; ATTEND Internal Medicine
DX: I82.412 Acute embolism and thrombosis of left femoral vein (principal); I26.99 Other pulmonary embolism without acute cor pulmonale; K50.112 Crohn's disease of large intestine with intestinal obstruction; N17.9 Acute kidney failure, unspecified; Z68.1 Body mass index [BMI] 19.9 or less, adult; I82.432 Acute embolism and thrombosis of left popliteal vein; F17.200 Nicotine dependence, unspecified, uncomplicated; E03.9 Hypothyroidism, unspecified; E86.0 Dehydration; K29.70 Gastritis, unspecified, without bleeding; D64.9 Anemia, unspecified; R63.4 Abnormal weight loss; Z11.59 Encounter for screening for other viral diseases; Z79.01 Long term (current) use of anticoagulants; Z79.52 Long term (current) use of systemic steroids; Z79.890 Hormone replacement therapy; Z88.2 Allergy status to sulfonamides; Z90.49 Acquired absence of other specified parts of digestive tract; Z98.890 Other specified postprocedural states; Z98.891 History of uterine scar from previous surgery; Z93.3 Colostomy status; Z87.19 Personal history of other diseases of the digestive system
CPT/HCPCS: 36415; 71046; 71275; 74019; 74177; 80048; 80053; 82607; 82728; 82747; 83540; 83550; 83605; 83735; 83880; 83883; 84132; 84165; 84484; 85025; 85610; 85652; 85730; 86140; 86334; 93005; 96365; 96366; 96375; 96376; 99291

== ENCOUNTER 2020-05-12 11:39 | Inpatient (IN) | payer BC ==
[2020-05-12] MEDS ORDERED: SODIUM CHLORIDE 0.9% 1,000 ML IV STA ×2 (11:46→15:32)
--- NOTE | 2020-05-12 11:52 | ED ---
General Adult HPI - General Stated complaint: Weakness Time Seen by Provider: 05/12/20 11:39 Source: patient, RN notes reviewed, old records reviewed - History of Present Illness Initial comments: This is a 60-year-old female presents emergency Department with a past medical history significant for pulmonary embolisms and the patient is on eliquis. Patient states she's had this in the past about 10 years ago but more recently they stopped her blood thinner and then she developed a pulmonary embolisms again. Patient states she also has Crohn's disease. Patient states ever since she started the blood thinner about 3 weeks ago she's been feeling weaker and weaker and her legs have become more more swollen over the last 3 weeks. Patient denies any chest pain patient states she is mildly short of breath. Patient denies any fever chills or cough per patient denies abdominal pain patient denies nausea vomiting diarrhea. Patient states she's not noted any bright red blood per rectum. Patient states she does feel lightheaded. She states she's been extremely weak. - Related Data Home Medications Medication Instructions Recorded Confirmed Levothyroxine Sodium [Synthroid] 100 mcg PO DAILY 10/20/19 05/12/20 Multivitamins, Thera Liquid 15 ml PO DAILY 04/10/20 05/12/20 [Theragran Liquid (formulary)] predniSONE 30 mg PO DAILY 04/10/20 05/12/20 Previous Rx's Medication Instructions Recorded Pantoprazole [Protonix] 40 mg PO AC-BRKFST tablet. 02/26/20 Apixaban [Eliquis] 5 mg PO BID 30 Days #60 tab 04/11/20 Dicyclomine [Bentyl] 10 mg PO TID PRN cap 04/15/20 Allergies Allergy/AdvReac Type Severity Reaction Status Date / Time Sulfa (Sulfonamide Allergy Unknown Verified 05/12/20 13:22 Antibiotics) Review of Systems ROS Statement: Those systems with pertinent positive or pertinent negative responses have been documented in the HPI. ROS Other: All systems not noted in ROS Statement are negative. Past Medical History Past Medical History: Deep Vein Thrombosis (DVT), GI Bleed, Thyroid Disorder Additional Past Medical History / Comment(s): sinus allergies, history blaine. DVT more than 10 years ago and she has been maintained on Warfarin, cardiac murmur , Gi bleeding and EGD /colonoscopy on 10/24/2019 showing mild gastritis, small HH and colonoscopy showed colitis of the cecum and left colon and biopsy was consistent with colitis, nonspecific. She has history of Crohn's disease and has hisotry of colectomy , chronic anemia History of Any Multi-Drug Resistant Organisms: None Reported Past Surgical History: Bowel Resection, Section Additional Past Surgical History / Comment(s): bowel resection with colostomy and then colostomy reversal Past Anesthesia/Blood Transfusion Reactions: No Reported Reaction Past Psychological History: No Psychological Hx Reported Smoking Status: Current every day smoker Past Alcohol Use History: None Reported Additional Past Alcohol Use History / Comment(s): smoker for 20 years on and off 1/2 ppd or less Past Drug Use History: None Reported - Past Family History Mother Family Medical History: No Reported History General Exam - General Exam Comments Initial Comments: GENERAL: Patient is well-developed and well-nourished. Patient is nontoxic and well- hydrated and is in mild distress. ENT: Neck is soft and supple. No significant lymphadenopathy is noted. Oropharynx is clear. Moist mucous membranes. Neck has full range of motion without elicit ing any pain. EYES: The sclera were anicteric and conjunctiva were pink and moist. Extraocular mov ements were intact and pupils were equal round and reactive to light. Eyelids were unremarkable. PULMONARY: Unlabored respirations. Good breath sounds bilaterally. No audible rales rhonchi or wheezing was noted. CARDIOVASCULAR: There is a regular rate and rhythm without any murmurs gallops or rubs. ABDOMEN: Soft and nontender with normal bowel sounds. No palpable organomegaly was noted. There is no palpable pulsatile mass. SKIN: Patient has sacral decubitus wound stage 2. Patient is very pale NEUROLOGIC: Patient is alert and oriented x3. Cranial nerves II through XII are grossly i ntact. Motor and sensory are also intact. Normal speech, volume and content. Symmetrical smile. MUSCULOSKELETAL: Normal extremities with adequate strength and full range of motion. 1+ edema bilaterally LYMPHATICS: No significant lymphadenopathy is noted PSYCHIATRIC: Normal psychiatric evaluation. Course Vital Signs 05/12/20 05/12/20 05/12/20 11:42 12:30 13:34 Temperature 97.5 F L Pulse Rate 96 80 83 Respiratory 18 18 16 Rate Blood Pressure 75/52 80/59 83/65 O2 Sat by Pulse 100 100 100 Oximetry Medical Decision Making - Medical Decision Making Patient is hypocalcemic psychiatric the patient thousand milligrams of calcium chloride. Patient also received a liter of 0.9 normal saline. Patient's EKG shows normal sinus rhythm at 87 bpm WA interval 124 QRS is 68 QT interval 346 QTC is 416. Patient's EKG shows no ST segment elevation or depression. - Lab Data Result diagrams: 05/12/20 12:02 05/12/20 12:02 Lab Results 05/12/20 05/12/20 05/12/20 Range/Units 12:02 12:02 12:02 WBC 5.3 (3.8-10.6) k/uL RBC 2.73 L (3.80-5.40) m/uL Hgb 8.3 L (11.4-16.0) gm/dL Hct 26.9 L (34.0-46.0) % MCV 98.4 (80.0-100.0) fL MCH 30.4 (25.0-35.0) pg MCHC 30.9 L (31.0-37.0) g/dL RDW 14.2 (11.5-15.5) % Plt Count 102 L (150-450) k/uL Neutrophils % 91 % Lymphocytes % 5 % Monocytes % 3 % Eosinophils % 0 % Basophils % 0 % Neutrophils # 4.8 (1.3-7.7) k/uL Lymphocytes # 0.3 L (1.0-4.8) k/uL Monocytes # 0.1 (0-1.0) k/uL Eosinophils # 0.0 (0-0.7) k/uL Basophils # 0.0 (0-0.2) k/uL Hypochromasia Slight PT 15.4 H (9.0-12.0) sec INR 1.6 H (<1.2) APTT 43.3 H (22.0-30.0) sec Sodium (137-145) mmol/L Potassium (3.5-5.1) mmol/L Chloride (98-107) mmol/L Carbon Dioxide (22-30) mmol/L Anion Gap mmol/L BUN (7-17) mg/dL Creatinine (0.52-1.04) mg/dL Est GFR (CKD-EPI)AfAm (>60 ml/min/1.73 sqM) Est GFR (CKD-EPI)NonAf (>60 ml/min/1.73 sqM) Glucose (74-99) mg/dL Calcium (8.4-10.2) mg/dL Magnesium (1.6-2.3) mg/dL Total Bilirubin (0.2-1.3) mg/dL AST (14-36) U/L ALT (4-34) U/L Alkaline Phosphatase (38-126) U/L Troponin I (0.000-0.034) ng/mL Total Protein (6.3-8.2) g/dL Albumin (3.5-5.0) g/dL Stool Occult Blood Positive H (Negative) Blood Type Blood Type Recheck Bld Type Recheck Status Antibody Screen Spec Expiration Date 05/12/20 05/12/20 05/12/20 Range/Units 12:02 12:02 12:02 WBC (3.8-10.6) k/uL RBC (3.80-5.40) m/uL Hgb (11.4-16.0) gm/dL Hct (34.0-46.0) % MCV (80.0-100.0) fL MCH (25.0-35.0) pg MCHC (31.0-37.0) g/dL RDW (11.5-15.5) % Plt Count (150-450) k/uL Neutrophils % % Lymphocytes % % Monocytes % % Eosinophils % % Basophils % % Neutrophils # (1.3-7.7) k/uL Lymphocytes # (1.0-4.8) k/uL Monocytes # (0-1.0) k/uL Eosinophils # (0-0.7) k/uL Basophils # (0-0.2) k/uL Hypochromasia PT (9.0-12.0) sec INR (<1.2) APTT (22.0-30.0) sec Sodium 125 L (137-145) mmol/L Potassium 3.8 (3.5-5.1) mmol/L Chloride 99 (98-107) mmol/L Carbon Dioxide 20 L (22-30) mmol/L Anion Gap 6 mmol/L BUN 71 H (7-17) mg/dL Creatinine 2.29 H (0.52-1.04) mg/dL Est GFR (CKD-EPI)AfAm 26 (>60 ml/min/1.73 sqM) Est GFR (CKD-EPI)NonAf 22 (>60 ml/min/1.73 sqM) Glucose 78 (74-99) mg/dL Calcium 6.4 L* (8.4-10.2) mg/dL Magnesium 1.6 (1.6-2.3) mg/dL Total Bilirubin 0.5 (0.2-1.3) mg/dL AST 13 L (14-36) U/L ALT 15 (4-34) U/L Alkaline Phosphatase 101 (38-126) U/L Troponin I <0.012 (0.000-0.034) ng/mL Total Protein 3.6 L (6.3-8.2) g/dL Albumin 1.4 L (3.5-5.0) g/dL Stool Occult Blood (Negative) Blood Type A Negative Blood Type Recheck A Neg Bld Type Recheck Status No Antibody Screen NEGATIVE Spec Expiration Date 05/15/2020 - 2301 Disposition Clinical Impression: History of pulmonary embolism, GI bleed, Generalized weakness, Acute renal failure, Hypocalcemia, Hyponatremia, Anemia Disposition: ADMITTED IP TO THIS [facility] Time of Disposition: 13:10
[2020-05-12 12:13] LABS: Basophils % (A) 0 %; Eosinophils % (A) 0 %; HCT 26.9 % (34.0-46.0); HGB 8.3 gm/dL (11.4-16.0); Hypochromasia Slight; Lymphocytes # (A) 0.3 k/uL (1.0-4.8); Lymphocytes % (A) 5 %; MCH 30.4 pg (25.0-35.0); MCHC 30.9 g/dL (31.0-37.0); MCV 98.4 fL (80.0-100.0); Mean Platelet Volume 9.2; Monocytes # (A) 0.1 k/uL (0-1.0); Monocytes % (A) 3 %; Neutrophils # (A) 4.8 k/uL (1.3-7.7); Neutrophils % (A) 91 %; Platelet Count 102 k/uL (150-450); RBC 2.73 m/uL (3.80-5.40); RDW 14.2 % (11.5-15.5); WBC 5.3 k/uL (3.8-10.6)
[2020-05-12 12:22] LABS: Albumin 1.4 g/dL (3.5-5.0); Magnesium 1.6 mg/dL (1.6-2.3); Potassium 3.8 mmol/L (3.5-5.1); Total Bilirubin 0.5 mg/dL (0.2-1.3); Total Protein 3.6 g/dL (6.3-8.2)
[2020-05-12 12:24] LABS: INR 1.6 (<1.2); Partial Thromboplastin Time 43.3 sec (22.0-30.0); Prothrombin Time 15.4 sec (9.0-12.0)
[2020-05-12 12:45] LABS: Calcium 6.4 mg/dL (8.4-10.2)
[2020-05-12] MEDS ORDERED: CALCIUM CHLORIDE 100 MG/ML 10 ML SYRINGE IVP STA (12:54)
[2020-05-12] MEDS ORDERED: SODIUM CHLORIDE 0.9% 1,000 ML IV ONE ×2 (13:13→17:03)
[2020-05-12 13:43] LABS: Appearance,Urine Clear (Clear); Bilirubin,Urine 1+ (Negative); Blood,Urine Negative (Negative); Color,Urine Yellow; Glucose,Urine (UA) Negative (Negative); Ketones,Urine Negative (Negative); Leukocyte Esterase,Urine Negative (Negative); Nitrite,Urine Negative (Negative); PH, Urine 5.5 (5.0-8.0); Protein,Urine Trace (Negative); Specific Gravity,Urine 1.015 (1.001-1.035); Urobilinogen,Urine <2.0 mg/dL (<2.0)
--- NOTE | 2020-05-12 17:28 | P.NPCON ---
History of Present Illness - Reason for Consult Consult date: 05/12/20 acute renal failure - Chief Complaint Weakness - History of Present Illness 60-year-old white female coming to the hospital with the above complaints. She was recently in the hospital diagnosed with pulmonary embolism and discharge on a liquids. Since discharge she is unwell, decreased oral intake associated with nausea and diarrhea. She does have history of Crohn's disease and takes prednisone 30 mg daily. Blood pressures are low. She is weak and unable to get in and out of the bed. No syncopal episodes. Still of NSAID use or recent contrast studies. Admits making urine but unable to quantify degree output. While in the ER she is getting IV fluid boluses her systolic is between 70-80. Baseline creatinine is 1.0-1.1 MG per DL, admitted with a creatinine of 2.2 MG per DL. Review of Systems Constitutional: Reports as per HPI Past Medical History Past Medical History: Deep Vein Thrombosis (DVT), GI Bleed, Thyroid Disorder Additional Past Medical History / Comment(s): sinus allergies, history blaine. DVT more than 10 years ago and she has been maintained on Warfarin, cardiac murmur , Gi bleeding and EGD /colonoscopy on 10/24/2019 showing mild gastritis, small HH and colonoscopy showed colitis of the cecum and left colon and biopsy was consistent with colitis, nonspecific. She has history of Crohn's disease and has hisotry of colectomy , chronic anemia History of Any Multi-Drug Resistant Organisms: None Reported Past Surgical History: Bowel Resection, Section Additional Past Surgical History / Comment(s): bowel resection with colostomy and then colostomy reversal Past Anesthesia/Blood Transfusion Reactions: No Reported Reaction Past Psychological History: No Psychological Hx Reported Smoking Status: Current every day smoker Past Alcohol Use History: None Reported Additional Past Alcohol Use History / Comment(s): smoker for 20 years on and off 1/2 ppd or less Past Drug Use History: None Reported - Past Family History Mother Family Medical History: No Reported History Medications and Allergies Home Medications Medication Instructions Recorded Confirmed Type Levothyroxine Sodium [Synthroid] 100 mcg PO DAILY 10/20/19 05/12/20 History Pantoprazole [Protonix] 40 mg PO AC-BRKFST tablet. 02/26/20 05/12/20 Rx Multivitamins, Thera Liquid 15 ml PO DAILY 04/10/20 05/12/20 History [Theragran Liquid (formulary)] predniSONE 30 mg PO DAILY 04/10/20 05/12/20 History Apixaban [Eliquis] 5 mg PO BID 30 Days #60 tab 04/11/20 05/12/20 Rx Dicyclomine [Bentyl] 10 mg PO TID PRN cap 04/15/20 05/12/20 Rx Allergies Allergy/AdvReac Type Severity Reaction Status Date / Time Sulfa (Sulfonamide Allergy Unknown Verified 05/12/20 13:22 Antibiotics) Physical Exam Vitals: Vital Signs Temp Pulse Resp BP Pulse Ox 05/12/20 17:05 92 16 85/61 100 05/12/20 15:05 94 16 81/61 100 05/12/20 13:34 83 16 83/65 100 05/12/20 12:30 80 18 80/59 100 05/12/20 11:42 97.5 F L 96 18 75/52 100 Intake and Output 05/12/20 05/12/20 05/12/20 06:59 14:59 22:59 Other: Weight 58.967 kg No acute distress S1-S2 heard Diminished breath sounds Abdomen soft Trace edema Results - Lab Results Most recent lab results Calcium 6.4 mg/dL (8.4-10.2) L* 05/12/20 12:02 Magnesium 1.6 mg/dL (1.6-2.3) 05/12/20 12:02 05/12/20 12:02 05/12/20 12:02 Assessment and Plan Assessment: #1 acute kidney injury suspect hemodynamic ATN with low blood pressures. #2 hyponatremia secondary to volume depletion. #3 severe hypotension with impending shock. #4 chronic disease with a suspected acute flare. #5 metabolic acidosis, anion gap secondary to acute kidney injury and also diarrhea. #6 DVT/PE on eliquis Plan: 1. c/w IVF resusitation, consider ICU eval for need of pressors 2. septic w/p to r/o ongoing sepsis. if negative might need steroids for possible chrons flare 3. bahena cather for I/O 4. Check serum and urine osmolality, urine electrolytes, TSH , Cortisol. 5. bmp q6 6. add midodrine for hemodynamic support
[2020-05-12 17:54] LABS: Basophils % (A) 0 %; Eosinophils % (A) 1 %; HCT 22.4 % (34.0-46.0); Hypochromasia Marked; Lymphocytes # (A) 0.2 k/uL (1.0-4.8); Lymphocytes % (A) 6 %; MCV 99.8 fL (80.0-100.0); Monocytes # (A) 0.1 k/uL (0-1.0); Monocytes % (A) 3 %; Neutrophils # (A) 3.1 k/uL (1.3-7.7); Neutrophils % (A) 90 %; RBC 2.25 m/uL (3.80-5.40); WBC 3.5 k/uL (3.8-10.6)
[2020-05-12 18:03] LABS: HGB 6.7 gm/dL (11.4-16.0); Platelet Count 84 k/uL (150-450)
[2020-05-12 18:13] LABS: Ionized Calcium 4.5 mg/dL (4.5-5.3)
[2020-05-12 18:29] LABS: Phosphorus 5.3 mg/dL (2.5-4.5)
[2020-05-12] MEDS: MIDODRINE 5 MG TAB PO SCH (18:59)
[2020-05-12 20:40] LABS: Glucose,Whole Blood 70 mg/dL (75-99)
[2020-05-12 23:54] LABS: Glucose,Whole Blood 81 mg/dL (75-99)
[2020-05-12] MEDS: PANTOPRAZOLE 40 MG/10 ML VIAL IVP SCH (23:59)
[2020-05-13 00:33] LABS: Basophils % (A) 0 %; Eosinophils % (A) 0 %; HCT 32.5 % (34.0-46.0); Hypochromasia Slight; Lymphocytes # (A) 0.3 k/uL (1.0-4.8); Lymphocytes % (A) 5 %; MCHC 30.9 g/dL (31.0-37.0); MCV 97.1 fL (80.0-100.0); Mean Platelet Volume 9.7; Monocytes # (A) 0.1 k/uL (0-1.0); Monocytes % (A) 2 %; Neutrophils # (A) 4.7 k/uL (1.3-7.7); Neutrophils % (A) 91 %; RBC 3.35 m/uL (3.80-5.40); RDW 14.3 % (11.5-15.5); WBC 5.2 k/uL (3.8-10.6)
[2020-05-13 00:40] LABS: HGB 10.1 gm/dL (11.4-16.0)
[2020-05-13 01:01] LABS: Platelet Count 91 k/uL (150-450)
[2020-05-13 03:12] LABS: HCT 35.6 % (34.0-46.0); Hypochromasia Moderate; MCH 29.9 pg (25.0-35.0); MCHC 30.8 g/dL (31.0-37.0); MCV 96.8 fL (80.0-100.0); RBC 3.68 m/uL (3.80-5.40); RDW 14.9 % (11.5-15.5); WBC 5.6 k/uL (3.8-10.6)
[2020-05-13 03:14] LABS: Calcium 6.5 mg/dL (8.4-10.2); Potassium 3.7 mmol/L (3.5-5.1)
[2020-05-13 03:16] LABS: Platelet Count 88 k/uL (150-450)
[2020-05-13 03:52] LABS: Band Neutrophils % 22 %; Lymphocytes # (M) 0.17 k/uL (1.0-4.8); Monocytes # (M) 0.22 k/uL (0-1.0); Neutrophils % (M) 72 %; Nucleated Red Blood Cells 0 /100 WBC (0-0); Total Cells Counted 200
[2020-05-13 03:54] LABS: Anisocytosis (M) Present; Poikilocytosis (M) Present
[2020-05-13] MEDS: NOREPINEPHRINE 4 MG in SODIUM CHLORIDE 0.9% 250 ML IV SCH ×2 (05:14→21:10)
[2020-05-13 06:05] LABS: Glucose,Whole Blood 76 mg/dL (75-99)
[2020-05-13] MEDS: MIDODRINE 5 MG TAB PO SCH ×3 (06:52→16:29)
[2020-05-13] MEDS: PANTOPRAZOLE 40 MG/10 ML VIAL IVP SCH ×2 (08:07→21:12)
[2020-05-13] MEDS ORDERED: SODIUM CHLORIDE 0.9% 1,000 ML IV ONE ×2 (09:48→15:20)
--- NOTE | 2020-05-13 10:10 | P.PN ---
Subjective Progress Note Date: 05/13/20 Follow-up for hyponatremia. Transfer to ICU overnight. Currently on levofed. Urine output marginal. Also getting IV fluid boluses. Alert oriented. Objective - Vital Signs Vital signs: Vital Signs Temp 98.6 F 05/13/20 08:00 Pulse 86 05/13/20 08:00 Resp 13 05/13/20 08:00 BP 86/58 05/13/20 08:00 Pulse Ox 97 05/13/20 08:00 Intake & Output 05/12/20 05/13/20 05/13/20 18:59 06:59 18:59 Intake Total 1230 75 Output Total 265 32 Balance 965 43 Weight 58.967 kg 66.1 kg Intake: IV 75 Sodium Chloride 0.9% 1, 75 000 ml @ 75 mls/hr IV . [id number] ONE Rx#:[id number] Intake, IV Titration 300 Amount Sodium Chloride 0.9% 1, 300 000 ml @ 75 mls/hr IV . [id number] ONE Rx#:[id number] Blood Product 930 Rc As-1 Unit 310 [id number] Rc As-1 Unit 310 [id number] Rc Pheresis 2 As3 Unit 310 [id number] Output: Urine 265 32 Other: Voiding Method Bedpan Indwelling Catheter Indwelling Catheter - Exam No acute distress S1-S2 heard Decreased breath sounds Abdomen soft Edema - Labs CBC & Chem 7: 05/13/20 02:41 05/13/20 02:41 Labs: Abnormal Lab Results - Last 24 Hours (Table) 05/12/20 05/12/20 05/12/20 Range/Units 12:02 12:02 12:02 WBC (3.8-10.6) k/uL RBC 2.73 L (3.80-5.40) m/uL Hgb 8.3 L (11.4-16.0) gm/dL Hct 26.9 L (34.0-46.0) % MCHC 30.9 L (31.0-37.0) g/dL Plt Count 102 L (150-450) k/uL Lymphocytes # 0.3 L (1.0-4.8) k/uL Lymphocytes # (Manual) (1.0-4.8) k/uL PT 15.4 H (9.0-12.0) sec INR 1.6 H (<1.2) APTT 43.3 H (22.0-30.0) sec Sodium (137-145) mmol/L Carbon Dioxide (22-30) mmol/L BUN (7-17) mg/dL Creatinine (0.52-1.04) mg/dL Glucose (74-99) mg/dL POC Glucose (mg/dL) (75-99) mg/dL Calcium (8.4-10.2) mg/dL Phosphorus (2.5-4.5) mg/dL AST (14-36) U/L Total Protein (6.3-8.2) g/dL Albumin (3.5-5.0) g/dL Urine Protein (Negative) Urine Bilirubin (Negative) Stool Occult Blood Positive H (Negative) Crossmatch 05/12/20 05/12/20 05/12/20 Range/Units 12:02 12:02 13:13 WBC (3.8-10.6) k/uL RBC (3.80-5.40) m/uL Hgb (11.4-16.0) gm/dL Hct (34.0-46.0) % MCHC (31.0-37.0) g/dL Plt Count (150-450) k/uL Lymphocytes # (1.0-4.8) k/uL Lymphocytes # (Manual) (1.0-4.8) k/uL PT (9.0-12.0) sec INR (<1.2) APTT (22.0-30.0) sec Sodium 125 L (137-145) mmol/L Carbon Dioxide 20 L (22-30) mmol/L BUN 71 H (7-17) mg/dL Creatinine 2.29 H (0.52-1.04) mg/dL Glucose (74-99) mg/dL POC Glucose (mg/dL) (75-99) mg/dL Calcium 6.4 L* (8.4-10.2) mg/dL Phosphorus (2.5-4.5) mg/dL AST 13 L (14-36) U/L Total Protein 3.6 L (6.3-8.2) g/dL Albumin 1.4 L (3.5-5.0) g/dL Urine Protein Trace H (Negative) Urine Bilirubin 1+ H (Negative) Stool Occult Blood (Negative) Crossmatch See Detail 05/12/20 05/12/20 05/12/20 Range/Units 17:41 17:41 20:39 WBC 3.5 L (3.8-10.6) k/uL RBC 2.25 L (3.80-5.40) m/uL Hgb 6.7 L* D (11.4-16.0) gm/dL Hct 22.4 L (34.0-46.0) % MCHC 30.0 L (31.0-37.0) g/dL Plt Count 84 L (150-450) k/uL Lymphocytes # 0.2 L (1.0-4.8) k/uL Lymphocytes # (Manual) (1.0-4.8) k/uL PT (9.0-12.0) sec INR (<1.2) APTT (22.0-30.0) sec Sodium (137-145) mmol/L Carbon Dioxide (22-30) mmol/L BUN (7-17) mg/dL Creatinine (0.52-1.04) mg/dL Glucose (74-99) mg/dL POC Glucose (mg/dL) 70 L (75-99) mg/dL Calcium (8.4-10.2) mg/dL Phosphorus 5.3 H (2.5-4.5) mg/dL AST (14-36) U/L Total Protein (6.3-8.2) g/dL Albumin (3.5-5.0) g/dL Urine Protein (Negative) Urine Bilirubin (Negative) Stool Occult Blood (Negative) Crossmatch 05/12/20 05/13/20 05/13/20 Range/Units 23:42 02:41 02:41 WBC (3.8-10.6) k/uL RBC 3.35 L 3.68 L (3.80-5.40) m/uL Hgb 10.1 L D 11.0 L (11.4-16.0) gm/dL Hct 32.5 L (34.0-46.0) % MCHC 30.9 L 30.8 L (31.0-37.0) g/dL Plt Count 91 L 88 L (150-450) k/uL Lymphocytes # 0.3 L (1.0-4.8) k/uL Lymphocytes # (Manual) 0.17 L (1.0-4.8) k/uL PT (9.0-12.0) sec INR (<1.2) APTT (22.0-30.0) sec Sodium 128 L (137-145) mmol/L Carbon Dioxide 19 L (22-30) mmol/L BUN 67 H (7-17) mg/dL Creatinine 2.43 H (0.52-1.04) mg/dL Glucose 64 L (74-99) mg/dL POC Glucose (mg/dL) (75-99) mg/dL Calcium 6.5 L (8.4-10.2) mg/dL Phosphorus (2.5-4.5) mg/dL AST (14-36) U/L Total Protein (6.3-8.2) g/dL Albumin (3.5-5.0) g/dL Urine Protein (Negative) Urine Bilirubin (Negative) Stool Occult Blood (Negative) Crossmatch Assessment and Plan Assessment: #1 acute kidney injury suspect hemodynamic ATN with low blood pressures. #2 hyponatremia secondary to volume depletion. #3 shock on pressors. Cause unclear. 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 #4 chrons disease with a suspected acute flare. #5 metabolic acidosis, anion gap secondary to acute kidney injury and also diarrhea. #6 DVT/PE on eliquis Plan: #1 Currently on levo fed. #2 Consider septic workup and IV antibiotics for persistent hypotension. Random cortisol level high rules out adrenal insufficiency. #3. Monitor strict ins and outs. #4. midodrine for hemodynamic support #5 ICU care #6 avoid nephrotoxic agents and hypotensive episodes.
--- NOTE | 2020-05-13 10:25 | P.HPIM ---
History of Present Illness H&P Date: 05/13/20 Jacquie Cohwdhury, he is a 60-year-old female who presented to [facility] emergency room with severe weakness, lightheadedness and worsening lower extremity swelling, she was evaluated in emergency room, her vital exam on presentation was significant for blood pressure of 75/52 heart rate of 96, her laboratory data was significant for anemia with hemoglobin of 10.1 renal insufficiency with a BUN of 71 and a creatinine of 2.29, hyponatremia with sodium of 125, and hypocalcemia with calcium of 6.4 her stool Hemoccult was positive, she was admitted to intensive care unit and was started on IV fluid, she was given a dose of calcium in the emergency room. On review of systems patient denies any fever or chills, she denies any headache, there is no chest pain or shortness of breath no cough, no nausea or vomiting no abdominal pain, she has loose stool but no significant diarrhea, she denies any blood in her stools, no burning with urination no frequency or urgency no hematuria. Patient has a known history of pulmonary embolism, she was maintained on anticoagulation for more than 10 years, this was stopped recently but patient developed pulmonary embolism regained, she was restarted on Eliquis. Patient also has a known history of Crohn's disease. Past Medical History Past Medical History: Deep Vein Thrombosis (DVT), GI Bleed, Thyroid Disorder Additional Past Medical History / Comment(s): sinus allergies, history blaine. DVT more than 10 years ago and she has been maintained on Warfarin, cardiac murmur , Gi bleeding and EGD /colonoscopy on 10/24/2019 showing mild gastritis, small HH and colonoscopy showed colitis of the cecum and left colon and biopsy was consistent with colitis, nonspecific. She has history of Crohn's disease and has hisotry of colectomy , chronic anemia History of Any Multi-Drug Resistant Organisms: None Reported Past Surgical History: Bowel Resection, Section Additional Past Surgical History / Comment(s): bowel resection with colostomy and then colostomy reversal Past Anesthesia/Blood Transfusion Reactions: No Reported Reaction Past Psychological History: No Psychological Hx Reported Smoking Status: Light tobacco smoker Past Alcohol Use History: None Reported Additional Past Alcohol Use History / Comment(s): smoker for 20 years on and off 1/2 ppd or less Past Drug Use History: None Reported - Past Family History Mother Family Medical History: No Reported History Medications and Allergies Home Medications Medication Instructions Recorded Confirmed Type Levothyroxine Sodium [Synthroid] 100 mcg PO DAILY 10/20/19 05/12/20 History Pantoprazole [Protonix] 40 mg PO [id number] tablet. 02/26/20 05/12/20 Rx Multivitamins, Thera Liquid 15 ml PO DAILY 04/10/20 05/12/20 History [Theragran Liquid (formulary)] predniSONE 30 mg PO DAILY 04/10/20 05/12/20 History Apixaban [Eliquis] 5 mg PO BID 30 Days #60 tab 04/11/20 05/12/20 Rx Dicyclomine [Bentyl] 10 mg PO TID PRN cap 04/15/20 05/12/20 Rx Allergies Allergy/AdvReac Type Severity Reaction Status Date / Time Sulfa (Sulfonamide Allergy Unknown Verified 05/12/20 13:22 Antibiotics) Physical Exam Vitals: Vital Signs Temp Pulse Pulse Resp BP BP Pulse Ox 05/13/20 10:00 82 18 84/72 99 05/13/20 09:30 88 14 87/61 99 05/13/20 09:00 85 13 86/30 97 05/13/20 08:30 84 18 84/63 98 05/13/20 08:00 98.6 F 86 13 86/58 97 05/13/20 07:30 93 21 90/48 96 05/13/20 07:00 85 16 87/56 96 05/13/20 06:30 84 12 81/58 99 05/13/20 06:00 86 13 90/63 98 05/13/20 05:30 92 22 93/58 98 05/13/20 05:00 90 17 92/48 97 05/13/20 04:35 97.9 F 82 17 92/59 98 05/13/20 04:30 82 11 L 88/58 98 05/13/20 04:00 97.7 F 82 90 11 L 92/59 96 05/13/20 03:33 97.7 F 86 13 83/53 98 05/13/20 03:30 83 10 L 89/52 98 05/13/20 03:03 97.9 F 83 11 L 87/56 98 05/13/20 03:00 88 23 86/63 96 05/13/20 02:53 97.7 F 87 16 86/63 96 05/13/20 02:30 84 14 79/56 99 05/13/20 02:00 80 11 L 84/53 98 05/13/20 01:56 98 F 82 13 84/53 98 05/13/20 01:55 98.0 F 82 13 84/53 97 05/13/20 01:30 85 15 97/66 97 05/13/20 01:15 98.1 F 81 15 87/60 99 05/13/20 01:02 98.1 F 85 15 87/61 97 05/13/20 01:00 85 13 81/55 98 05/13/20 00:32 97.8 F 84 17 82/55 98 05/13/20 00:30 83 21 87/55 98 05/13/20 00:22 98 F 87 16 85/55 98 05/13/20 00:02 87 11 L 84/57 98 05/13/20 00:00 98.0 F 86 11 L 84/57 98 05 23:31 90 05/12/20 23:30 98.0 F 81 10 L 84/58 99 05/12/20 23:00 84 12 83/51 98 05/12/20 22:36 98.0 F 87 16 85/55 98 05/12/20 22:30 84 16 82/55 99 05/12/20 22:00 84 13 82/51 98 05/12/20 21:45 97.8 F 82 17 82/55 99 05 21:30 87 10 L 84/52 98 05/12/20 21:15 97.7 F 87 15 86/54 97 05 21:05 98.0 F 91 16 82/57 98 05 21:00 97.8 F 99 32 H 95/55 99 05 20:50 88 15 81/60 98 05 20:40 23 78/56 98 05 20:38 99 05/12/20 19:11 87 16 97/52 95 05 18:25 97.6 F 90 16 76/49 99 05/12/20 17:05 92 16 85/61 100 05/12/20 15:05 94 16 81/61 100 05/12/20 13:34 83 16 83/65 100 05/12/20 12:30 80 18 80/59 100 05/12/20 11:42 97.5 F L 96 18 75/52 100 Intake and Output 05/12/20 05/13/20 05/13/20 22:59 06:59 14:59 Intake Total 280 867 7348 Output Total 0 265 52 Balance 478 144 8203 Intake: IV 1075 Sodium Chloride 0.9% 1, 75 000 ml @ 75 mls/hr IV . [id number] ONE Rx#:[id number] Sodium Chloride 0.9% 1, 1000 000 ml @ 999 mls/hr IV . [id number] ONE Rx#:[id number] Intake, IV Titration 75 225 Amount Sodium Chloride 0.9% 1, 75 225 000 ml @ 75 mls/hr IV . [id number] ONE Rx#:[id number] Blood Product 310 620 Rc As-1 Unit 310 [id number] Rc As-1 Unit 310 [id number] Rc Pheresis 2 As3 Unit 310 [id number] Output: Urine 0 265 52 Other: Voiding Method Bedpan Indwelling Catheter Indwelling Catheter Weight 58.967 kg 66.1 kg In general patient is alert and oriented 3 in no apparent distress maintained on oxygen via nasal cannula HEENT head normocephalic and atraumatic Neck is supple no JVD no goiter no lymphadenopathy Chest exam is clear to auscultation no crackles no wheezing Cardiac exam reveals regular heart sounds S1 and S2 no gallops no murmurs Abdomen is soft, with mild diffuse tenderness no organomegaly no palpable masses was normal bowel sounds Extremity exam reveals 2+ edema bilaterally, no cyanosis or clubbing Neurological examination reveals no gross focal deficit Results CBC & Chem 7: 05/13/20 02:41 05/13/20 02:41 Labs: Abnormal Lab Results - Last 24 Hours (Table) 05/12/20 05/12/20 05/12/20 Range/Units 12:02 12:02 12:02 WBC (3.8-10.6) k/uL RBC 2.73 L (3.80-5.40) m/uL Hgb 8.3 L (11.4-16.0) gm/dL Hct 26.9 L (34.0-46.0) % MCHC 30.9 L (31.0-37.0) g/dL Plt Count 102 L (150-450) k/uL Lymphocytes # 0.3 L (1.0-4.8) k/uL Lymphocytes # (Manual) (1.0-4.8) k/uL PT 15.4 H (9.0-12.0) sec INR 1.6 H (<1.2) APTT 43.3 H (22.0-30.0) sec Sodium (137-145) mmol/L Carbon Dioxide (22-30) mmol/L BUN (7-17) mg/dL Creatinine (0.52-1.04) mg/dL Glucose (74-99) mg/dL POC Glucose (mg/dL) (75-99) mg/dL Calcium (8.4-10.2) mg/dL Phosphorus (2.5-4.5) mg/dL AST (14-36) U/L Total Protein (6.3-8.2) g/dL Albumin (3.5-5.0) g/dL Urine Protein (Negative) Urine Bilirubin (Negative) Stool Occult Blood Positive H (Negative) Crossmatch 05/12/20 05/12/20 05/12/20 Range/Units 12:02 12:02 13:13 WBC (3.8-10.6) k/uL RBC (3.80-5.40) m/uL Hgb (11.4-16.0) gm/dL Hct (34.0-46.0) % MCHC (31.0-37.0) g/dL Plt Count (150-450) k/uL Lymphocytes # (1.0-4.8) k/uL Lymphocytes # (Manual) (1.0-4.8) k/uL PT (9.0-12.0) sec INR (<1.2) APTT (22.0-30.0) sec Sodium 125 L (137-145) mmol/L Carbon Dioxide 20 L (22-30) mmol/L BUN 71 H (7-17) mg/dL Creatinine 2.29 H (0.52-1.04) mg/dL Glucose (74-99) mg/dL POC Glucose (mg/dL) (75-99) mg/dL Calcium 6.4 L* (8.4-10.2) mg/dL Phosphorus (2.5-4.5) mg/dL AST 13 L (14-36) U/L Total Protein 3.6 L (6.3-8.2) g/dL Albumin 1.4 L (3.5-5.0) g/dL Urine Protein Trace H (Negative) Urine Bilirubin 1+ H (Negative) Stool Occult Blood (Negative) Crossmatch See Detail 05/12/20 05/12/20 05/12/20 Range/Units 17:41 17:41 20:39 WBC 3.5 L (3.8-10.6) k/uL RBC 2.25 L (3.80-5.40) m/uL Hgb 6.7 L* D (11.4-16.0) gm/dL Hct 22.4 L (34.0-46.0) % MCHC 30.0 L (31.0-37.0) g/dL Plt Count 84 L (150-450) k/uL Lymphocytes # 0.2 L (1.0-4.8) k/uL Lymphocytes # (Manual) (1.0-4.8) k/uL PT (9.0-12.0) sec INR (<1.2) APTT (22.0-30.0) sec Sodium (137-145) mmol/L Carbon Dioxide (22-30) mmol/L BUN (7-17) mg/dL Creatinine (0.52-1.04) mg/dL Glucose (74-99) mg/dL POC Glucose (mg/dL) 70 L (75-99) mg/dL Calcium (8.4-10.2) mg/dL Phosphorus 5.3 H (2.5-4.5) mg/dL AST (14-36) U/L Total Protein (6.3-8.2) g/dL Albumin (3.5-5.0) g/dL Urine Protein (Negative) Urine Bilirubin (Negative) Stool Occult Blood (Negative) Crossmatch 05/12/20 05/13/20 05/13/20 Range/Units 23:42 02:41 02:41 WBC (3.8-10.6) k/uL RBC 3.35 L 3.68 L (3.80-5.40) m/uL Hgb 10.1 L D 11.0 L (11.4-16.0) gm/dL Hct 32.5 L (34.0-46.0) % MCHC 30.9 L 30.8 L (31.0-37.0) g/dL Plt Count 91 L 88 L (150-450) k/uL Lymphocytes # 0.3 L (1.0-4.8) k/uL Lymphocytes # (Manual) 0.17 L (1.0-4.8) k/uL PT (9.0-12.0) sec INR (<1.2) APTT (22.0-30.0) sec Sodium 128 L (137-145) mmol/L Carbon Dioxide 19 L (22-30) mmol/L BUN 67 H (7-17) mg/dL Creatinine 2.43 H (0.52-1.04) mg/dL Glucose 64 L (74-99) mg/dL POC Glucose (mg/dL) (75-99) mg/dL Calcium 6.5 L (8.4-10.2) mg/dL Phosphorus (2.5-4.5) mg/dL AST (14-36) U/L Total Protein (6.3-8.2) g/dL Albumin (3.5-5.0) g/dL Urine Protein (Negative) Urine Bilirubin (Negative) Stool Occult Blood (Negative) Crossmatch Thrombosis Risk Factor Assmnt - Choose All That Apply Each Risk Factor Represents 2 Points: Age 61-74 years Thrombosis Risk Factor Assessment Total Risk Factor Score: 2 Thrombosis Risk Factor Assessment Level: Low Risk Assessment and Plan Plan: 1. Hypotension with severe weakness 2. Dehydration with acute renal failure 3. Underlying history of Crohn's disease 4. Underlying history of pulmonary embolism 5. Severe electrolyte imbalance with hyponatremia and hypocalcemia 6. Metabolic acidosis due to acute kidney injury At this time patient is admitted to ICU, pulmonary critical care consultation requested, patient was started on IV fluid, and is being monitored to assess need for vasopressors. Obtain cultures to rule out sepsis, no clear source of infection at this time Obtain echocardiogram Nephrology and critical care consult soft following, will add gastroenterology consult for Crohn's disease evaluation Will follow closely prognosis is guarded
[2020-05-13 11:14] VITALS: BMI 22.1
[2020-05-13] MEDS: methylPREDNISolone SOD SUCCI 40 MG/ML 1 ML VIAL IV SCH ×2 (11:55→16:26)
[2020-05-13] MEDS: LEVOTHYROXINE 100 MCG TAB PO SCH (11:55)
[2020-05-13] MEDS: SODIUM CHLORIDE 0.9% 1,000 ML IV SCH ×2 (11:57→21:10)
[2020-05-13 12:07] LABS: Glucose,Whole Blood 74 mg/dL (75-99)
--- NOTE | 2020-05-13 12:26 | CONS ---
CONSULTATION DATE OF CONSULTATION: 05/13/2020 REQUESTING PHYSICIAN: Dr. Aguilar. REASON FOR CONSULTATION: Abdominal pain, history of Crohn's disease. HISTORY OF PRESENT ILLNESS: The patient is a 60-year-old pleasant white female with history of DVT, on anticoagulation therapy, as well as longstanding history of Crohn's ileitis. She came to the emergency room yesterday complaining of lower extremity swelling, severe weakness, dizziness, not feeling well for the last few weeks duration. She also has been noted to have a hemoglobin of 6.3 g/dL requiring 3 units of blood transmission. Hemoglobin today is 10 g/dL. She has been complaining of abdominal pain with intermittent diarrhea, usually bowel movements 3-4 a day which are loose to watery in consistency but no blood or mucus in the stool. She has been on Eliquis for DVT for the last several months duration. The patient has history of Crohn's ileitis diagnosed approximately 10 years ago. She underwent a small bowel and right colon resection by Dr. May about 6 years ago. In the past she was on biologic therapy with Humira. Her last colonoscopy was done by Dr. Davila in October of this year, which revealed moderate active colitis of the cecum and the left colon and terminal ileum could not be intubated. The upper endoscopy revealed mild gastritis. The patient was seen by my physician rehabilitation assistant in the office Deborah Orta and apparently is being considered to be started on Stelara, which has not yet been approved by her insurance company. In the meantime, she has been maintained on prednisone for the last 2 months. Prior to hospitalization, she was on 30 mg daily. PAST MEDICAL HISTORY: DVT on Eliquis. Longstanding history of Crohn's disease, hypothyroidism. MEDICATIONS AT HOME: Include Synthroid, multivitamin, prednisone 30 mg daily. ALLERGIES: SULFA. PAST SURGICAL HISTORY: Partial bowel resection and . SOCIAL HISTORY: Chronic smoker. No alcohol use. FAMILY HISTORY: Mother healthy. REVIEW OF SYSTEMS: CARDIOPULMONARY: Unremarkable. ENDOCRINE: Unremarkable. PSYCHIATRIC: Unremarkable except for anxiety and depression. NEUROLOGY: Unremarkable. ENT/VISION: Unremarkable. CONSTITUTIONAL: Fatigue, weakness, lightheadedness. No weight loss. GI: As mentioned above. MUSCULOSKELETAL: Unremarkable. PHYSICAL EXAMINATION: VITAL SIGNS: Show blood pressure of 84/72, pulse 82 and afebrile. HEENT: Examination unremarkable. Conjunctivae pink. Sclerae anicteric. Oral cavity no lesions. NECK: No JVD or lymph node enlargement. CHEST: Clear to auscultation. HEART: Regular rate and rhythm. ABDOMEN: Mild tenderness diffusely. EXTREMITIES: 2+ pedal edema. SKIN: No rashes. NEURO: She is awake, oriented to name and place. LABS: Labs in the time of admission to hospital hemoglobin was 6.5 requiring 2 units of blood transfusion From yesterday WBC 5.2, hemoglobin 10.1, platelets 91,000. Basic metabolic panel showed a BUN of 67, creatinine 2.43. AST, ALT normal. T bilirubin, alkaline phosphatase are within normal limits. Ferritin is 201, iron 23, TIBC 150. Stool occult blood was positive. IMPRESSION: 1. Longstanding history of Crohn's disease, status post partial bowel resection approximately [address] May. Recent colonoscopy in October of this year showed active colitis involving the right colon. The patient has been maintained on steroids for the last 2 or 3 months duration. She is being followed by my PA in the office and apparently being approved for [facility] at the present time. In the past, was treated with Humira with no response. Presently on prednisone 30 mg daily for active Crohn's colitis. 2. severe symptomatic anemia with no active GI bleed. A 6.5 g/dL and is status post 3 units of PRBC C transmission. Most likely bleeding related to active Crohn's colitis. 3. History of recurrent deep venous thrombosis, on Eliquis. 4. Lower extremity swelling. 5. Acute kidney injury. RECOMMENDATIONS: 1. Start on Solu-Medrol 20 mg q.8 hours. 2. Discontinue oral prednisone. 3. Continue Protonix 40 mg daily. 4. Start on clear liquid diet and advance as tolerated. 5. Monitor CBC on a daily basis and obtain CRP and sed rate 6. We will follow with you closely. Thank you for this consultation. MMODL / IJN: [id number] / ERASTO
--- NOTE | 2020-05-13 13:04 | P.CNPUL ---
History of Present Illness Consult date: 05/13/20 Requesting physician: Marcell Aguilar Reason for consult: other (Acute and recurrent GI bleeding) Chief complaint: Weakness lightheadedness and swelling of lower extremities. History of present illness: This is a 60-year-old female with history of deep vein thrombosis, history of pulmonary embolism, and she was last seen by Dr. Atkinson on 04/11/20. On that admission patient presented with acute left lower extremity deep vein thrombosis and pulmonary embolism. Patient had previous remote history of DVT at least 10 years ago, and has been on long-term anticoagulation therapy. However as the p [facility] started having intermittent episodes of GI bleeding, her anticoagulations therapy was discontinued in February of 2020. On her last admission last month, patient was placed back on anticoagulation therapy/Eliquis. Yesterday, patient came into the ER complaining of profound weakness, lightheadedness, swelling of lower extremities for the last few days. She was noted to be hypotensive with blood pressure of 75/52, and she was also noted to have low hemoglobin. She was also noted to have low sodium of 125, hypocalcemic, and arrangements were made to transfer the patient to the ICU considering the recurrent episodes of GI bleeding, positive Hemoccult stools, and her hemoglobin was as low as 6.7. Patient received a total of 3 units of packed RBCs, remained hypotensive, hence norepinephrine was started and she is now on 0.1 mcg/kilo/min patient was given multiple fluid boluses, I saw her this morning, and I recommended central line placement, I also recommended arterial line placement, and I recommended vascular surgery evaluation for possible IVC filter placement. Recommended the titration of Norepinephrine to a mean arterial pressure of above 60. And possibly discontinue norepinephrine if the patient responds to fluids and responds to the amount of blood she received so far. Patient is known to have history of Crohn's disease, and had multiple episodes of GI bleeding in the past related to her Crohn's disease Review of Systems Constitutional: Denies chills, Denies fever, patient has mostly generalized weakness fatigue and lightheadedness. Eyes: Negative Ears: Negative Ears, nose, mouth and throat: Negative Breasts: Negative Cardiovascular: Increased swelling of lower extremities Respiratory: Some shortness of breath on exertion. Gastrointestinal: As noted in HPI, history of recurrent episodes of GI bleeding secondary to colitis/Crohn's colitis. Genitourinary: Negative Musculoskeletal: Lower extremity swelling. Integumentary: Negative Neurological: Negative except for lightheadedness and weakness. Psychiatric: Negative Endocrine: No heat or cold intolerance. Hematologic/Lymphatic: Negative Past Medical History Past Medical History: Deep Vein Thrombosis (DVT), GI Bleed, Thyroid Disorder Additional Past Medical History / Comment(s): sinus allergies, history blaine. DVT more than 10 years ago and she has been maintained on Warfarin, cardiac murmur , Gi bleeding and EGD /colonoscopy on 10/24/2019 showing mild gastritis, small HH and colonoscopy showed colitis of the cecum and left colon and biopsy was consistent with colitis, nonspecific. She has history of Crohn's disease and has hisotry of colectomy , chronic anemia History of Any Multi-Drug Resistant Organisms: None Reported Past Surgical History: Bowel Resection, Section Additional Past Surgical History / Comment(s): bowel resection with colostomy and then colostomy reversal Past Anesthesia/Blood Transfusion Reactions: No Reported Reaction Past Psychological History: No Psychological Hx Reported Smoking Status: Light tobacco smoker Past Alcohol Use History: None Reported Additional Past Alcohol Use History / Comment(s): smoker for 20 years on and off 1/2 ppd or less Past Drug Use History: None Reported - Past Family History Mother Family Medical History: No Reported History Medications and Allergies Home Medications Medication Instructions Recorded Confirmed Type Levothyroxine Sodium [Synthroid] 100 mcg PO DAILY 10/20/19 05/12/20 History Pantoprazole [Protonix] 40 mg PO AC-BRKFST tablet. 02/26/20 05/12/20 Rx Multivitamins, Thera Liquid 15 ml PO DAILY 04/10/20 05/12/20 History [Theragran Liquid (formulary)] predniSONE 30 mg PO DAILY 04/10/20 05/12/20 History Apixaban [Eliquis] 5 mg PO BID 30 Days #60 tab 04/11/20 05/12/20 Rx Dicyclomine [Bentyl] 10 mg PO TID PRN cap 04/15/20 05/12/20 Rx Allergies Allergy/AdvReac Type Severity Reaction Status Date / Time Sulfa (Sulfonamide Allergy Unknown Verified 05/12/20 13:22 Antibiotics) Physical Exam Vitals: Vital Signs Temp Pulse Pulse Resp BP BP Pulse Ox 09/06/20 11:30 84 21 98 05/13/20 11:00 84 15 92/62 99 05/13/20 10:30 82 11 L 84/57 99 05/13/20 10:00 82 18 84/72 99 05/13/20 09:30 88 14 87/61 99 05/13/20 09:00 85 13 86/30 97 05/13/20 08:30 84 18 84/63 98 05/13/20 08:00 98.6 F 86 13 86/58 97 05/13/20 07:30 93 21 90/48 96 05/13/20 07:00 85 16 87/56 96 05/13/20 06:30 84 12 81/58 99 05/13/20 06:00 86 13 90/63 98 05/13/20 05:30 92 22 93/58 98 05/13/20 05:00 90 17 92/48 97 05/13/20 04:35 97.9 F 82 17 92/59 98 05/13/20 04:30 82 11 L 88/58 98 05/13/20 04:00 97.7 F 82 90 11 L 92/59 96 05/13/20 03:33 97.7 F 86 13 83/53 98 05/13/20 03:30 83 10 L 89/52 98 05/13/20 03:03 97.9 F 83 11 L 87/56 98 06 03:00 88 23 86/63 96 05/13/20 02:53 97.7 F 87 16 86/63 96 05/13/20 02:30 84 14 79/56 99 05/13/20 02:00 80 11 L 84/53 98 05/13/20 01:56 98 F 82 13 84/53 98 05/13/20 01:55 98.0 F 82 13 84/53 97 05/13/20 01:30 85 15 97/66 97 05/13/20 01:15 98.1 F 81 15 87/60 99 05/13/20 01:02 98.1 F 85 15 87/61 97 05/13/20 01:00 85 13 81/55 98 05/13/20 00:32 97.8 F 84 17 82/55 98 05/13/20 00:30 83 21 87/55 98 05/13/20 00:22 98 F 87 16 85/55 98 05/13/20 00:02 87 11 L 84/57 98 05/13/20 00:00 98.0 F 86 11 L 84/57 98 05/12/20 23:31 90 05/12/20 23:30 98.0 F 81 10 L 84/58 99 05/12/20 23:00 84 12 83/51 98 05/12/20 22:36 98.0 F 87 16 85/55 98 05/12/20 22:30 84 16 82/55 99 05/12/20 22:00 84 13 82/51 98 05/12/20 21:45 97.8 F 82 17 82/55 99 05/12/20 21:30 87 10 L 84/52 98 05/12/20 21:15 97.7 F 87 15 86/54 97 05/12/20 21:05 98.0 F 91 16 82/57 98 05/12/20 21:00 97.8 F 99 32 H 95/55 99 05/12/20 20:50 88 15 81/60 98 05/12/20 20:40 23 78/56 98 05/12/20 20:38 99 05/12/20 19:11 87 16 97/52 95 05/12/20 18:25 97.6 F 90 16 76/49 99 05/12/20 17:05 92 16 85/61 100 05/12/20 15:05 94 16 81/61 100 05/12/20 13:34 83 16 83/65 100 Intake and Output 05/12/20 05/13/20 05/13/20 22:59 06:59 14:59 Intake Total 369 425 7491.838 Output Total 0 265 87 Balance 574 660 7434.838 Intake: IV 1325 Sodium Chloride 0.9% 1, 250 000 ml @ 125 mls/hr IV . Q8H [facility] Rx#:[id number] Sodium Chloride 0.9% 1, 75 000 ml @ 75 mls/hr IV . [id number] ONE Rx#:[id number] Sodium Chloride 0.9% 1, 1000 000 ml @ 999 mls/hr IV . Q1H1M ONE Rx#:[id number] Intake, IV Titration 75 225 34.838 Amount Norepinephrine 4 mg In 34.838 Sodium Chloride 0.9% 250 ml @ 0.05 MCG/KG/MIN 12. 592 mls/hr IV .[id number] [facility] Rx#:[id number] Sodium Chloride 0.9% 1, 75 225 000 ml @ 75 mls/hr IV . [id number] ONE Rx#:[id number] Blood Product 310 620 Rc As-1 Unit 310 [id number] Rc As-1 Unit 310 [id number] Rc Pheresis 2 As3 Unit 310 [id number] Output: Urine 0 265 87 Other: Voiding Method Bedpan Indwelling Catheter Indwelling Catheter Weight 58.967 kg 66.1 kg 66.1 kg ABP, PAP, CO, CI - Last 8 Hours Arterial Blood Pressure 124/68 GENERAL: Revealed 60-year-old female, pleasant, looks chronically ill, in no form of respiratory distress. Head: Atraumatic, normocephalic. ENT: Neck is soft and supple. No significant lymphadenopathy is noted. Oropharynx is clear. Moist mucous membranes. Neck has full range of motion without eliciting any pain. EYES: PERRLA, EOMI, no icterus. Cardiac: Normal S1 and S2, no S3 gallop. Chest: Clear breath sound bilaterally no crackles or rhonchi or wheezes. Symmetrical chest expansion Abdomen: Soft nontender no megaly no rebound no guarding, positive bowel sounds. SKIN: Patient has sacral decubitus wound stage 2. Patient is very pale NEUROL alert and oriented 3, no gross focal neurologic deficits. Musculoskeletal: Normal extremities with adequate strength and full range of motion. 2+ edema bilaterally LYMPHATICS: No significant lymphadenopathy is noted PSYCHIATRIC: Normal mood, affect and normal mental status examination. Results - Laboratory Findings CBC and BMP: 05/13/20 02:41 05/13/20 02:41 PT/INR, D-dimer PT 15.4 sec (9.0-12.0) H 05/12/20 12:02 INR 1.6 (<1.2) H 05/12/20 12:02 Abnormal lab findings: Abnormal Labs 05/12/20 05/12/20 05/12/20 12:02 12:02 12:02 WBC RBC 2.73 L Hgb 8.3 L Hct 26.9 L MCHC 30.9 L Plt Count 102 L Lymphocytes # 0.3 L Lymphocytes # (Manual) PT 15.4 H INR 1.6 H APTT 43.3 H Sodium Carbon Dioxide BUN Creatinine Glucose POC Glucose (mg/dL) Calcium Phosphorus AST Total Protein Albumin Urine Protein Urine Bilirubin Stool Occult Blood Positive H Crossmatch 05/12/20 05/12/20 05/12/20 12:02 12:02 13:13 WBC RBC Hgb Hct MCHC Plt Count Lymphocytes # Lymphocytes # (Manual) PT INR APTT Sodium 125 L Carbon Dioxide 20 L BUN 71 H Creatinine 2.29 H Glucose POC Glucose (mg/dL) Calcium 6.4 L* Phosphorus AST 13 L Total Protein 3.6 L Albumin 1.4 L Urine Protein Trace H Urine Bilirubin 1+ H Stool Occult Blood Crossmatch See Detail 05/12/20 05/12/20 05/12/20 17:41 17:41 20:39 WBC 3.5 L RBC 2.25 L Hgb 6.7 L* D Hct 22.4 L MCHC 30.0 L Plt Count 84 L Lymphocytes # 0.2 L Lymphocytes # (Manual) PT INR APTT Sodium Carbon Dioxide BUN Creatinine Glucose POC Glucose (mg/dL) 70 L Calcium Phosphorus 5.3 H AST Total Protein Albumin Urine Protein Urine Bilirubin Stool Occult Blood Crossmatch 05/12/20 05/13/20 05/13/20 23:42 02:41 02:41 WBC RBC 3.35 L 3.68 L Hgb 10.1 L D 11.0 L Hct 32.5 L MCHC 30.9 L 30.8 L Plt Count 91 L 88 L Lymphocytes # 0.3 L Lymphocytes # (Manual) 0.17 L PT INR APTT Sodium 128 L Carbon Dioxide 19 L BUN 67 H Creatinine 2.43 H Glucose 64 L POC Glucose (mg/dL) Calcium 6.5 L Phosphorus AST Total Protein Albumin Urine Protein Urine Bilirubin Stool Occult Blood Crossmatch 05/13/20 12:05 WBC RBC Hgb Hct MCHC Plt Count Lymphocytes # Lymphocytes # (Manual) PT INR APTT Sodium Carbon Dioxide BUN Creatinine Glucose POC Glucose (mg/dL) 74 L Calcium Phosphorus AST Total Protein Albumin Urine Protein Urine Bilirubin Stool Occult Blood Crossmatch Assessment and Plan Assessment: Impression: Recurrent GI bleeding secondary to right sided colitis noted on her most recent colonoscopy. Patient is on prednisone 30 mg daily as recommended by gastroenterology. Failed the treatment with Humira, and supposed to be approved for stelara. This is being addressed by gastroenterology on the case. 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 Blood loss anemia, patient received 3 units of packed RBCs on this admission. Hypotension, felt to be multifactorial, patient not significantly improved with blood transfusion, and fluid boluses, apparently she has chronic history of hypotension and she is on midodrine. Exact etiology of her hypotension is not pinpointed. No history of adrenal insufficiency. Long-standing history of lower extremities edema most likely secondary to deep vein thromboses and venous insufficiency. Acute kidney injury. Possible some component of hypovolemia. And dehydration. Severe electrolyte imbalance, most likely secondary to hypovolemia. And acute kidney injury. Status post placement of right femoral triple-lumen catheter and femoral arterial line for hemodynamic monitoring. And for adequate IV access. Pos toperative day #0 Recommendation: Continue IV fluids. Titrate and discontinue norepinephrine if blood pressure is maintained at a mean of above 60. Continue Solu-Medrol as recommended by gastroenterology. Continue Protonix. I did recommend a vascular surgery evaluation, patient will likely require IVC filter placement since she may have to be chronically on anticoagulation therapy for hypercoagulable state with recurrent DVT and pulmonary embolism, but considering her recurrent GI bleeding, this may be a major issue. I would recommend vascular surgery consult and GI to advised regarding anticoagulation therapy therapy considering her GI issues. We'll continue to follow. Time with Patient: Greater than 30
--- NOTE | 2020-05-13 13:56 | OP ---
OPERATIVE REPORT PROCEDURE: Placement of right femoral triple-lumen catheter. PREOPERATIVE DIAGNOSIS: Acute GI bleeding and hypotension. POSTOPERATIVE DIAGNOSIS: Acute GI bleeding and hypotension. ANESTHESIA USED: 2 mL of 1% lidocaine. DESCRIPTION OF PROCEDURE: The patient was placed in a supine position, the right groin was prepared in a sterile fashion and drapes were applied. The area was locally anesthetized with lidocaine. Then the right femoral vein was easily cannulated, a guidewire was placed, the area around the guidewire was dilated, and then a triple-lumen catheter was inserted over the guidewire, and the guidewire was removed. There was good blood flow in the three different ports of the triple-lumen catheter. The line was secured using 3.0 silk sutures. No evidence of any immediate complications. MMODL / IJN: [id number] /
--- NOTE | 2020-05-13 14:02 | OP ---
OPERATIVE REPORT PROCEDURE: Placement of right femoral arterial line. PREOPERATIVE DIAGNOSIS: Hypotension and GI bleeding. POSTOPERATIVE DIAGNOSIS: Hypotension and GI bleeding. ANESTHESIA USED: 2 mL of 1% lidocaine. DESCRIPTION OF PROCEDURE: The patient was placed in supine position. The right groin was prepared in a sterile fashion and drapes were applied. The right femoral artery was palpated, easily cannulated, and a guidewire was placed. A femoral catheter was inserted over the guidewire, the guidewire was removed. Good blood flow and good waveform noted. No evidence of any immediate complications. The line was secured using 3.0 silk sutures. MMODL / IJN: [id number] /
[2020-05-13] MEDS: DICYCLOMINE 10 MG CAP PO PRN ×2 (14:04→22:13)
--- NOTE | 2020-05-13 14:06 | US ---
EXAMINATION TYPE: US venous doppler duplex LE DATE OF EXAM: 05/13/2020 1:13 PM COMPARISON: Left lower extremity venous Doppler 04/10/2020. CLINICAL HISTORY: rule out dvt. ICU pt with h/o PE's and left leg DVT SIDE PERFORMED: Bilateral TECHNIQUE: The lower extremity deep venous system is examined utilizing real time linear array sonog kye with graded compression, doppler sonography and color-flow sonography. VESSELS IMAGED: External Iliac Vein (EIV) Common Femoral Vein Deep Femoral Vein Greater Saphenous Vein * Femoral Vein Popliteal Vein Small Saphenous Vein * Proximal Calf Veins (* superficial vessels) extensive swelling in bilateral legs limits exam as well as patient is barley able to tolerate any pressure with transducer, absolutely unable to attempt compression images due to this. Right Leg: Patient has IV line within right groin, able to image color flow and doppler of vein from right popiteal extending up through right proximal femoral vein, thready flow noted. Left Le flow noted within the deep femoral vein. There is redemonstrated collateral vessels adj acent to the mid femoral vein, with no color Doppler or spectral waveform of the mid or distal femora l vein. There is extensive edema in the region of the popliteal fossa and unable to view vessels with in popiteal region due to edema and patients pain tolerance. IMPRESSION: 1. No definitive acute deep venous thrombosis of the bilateral lower extremities. 2. Redemonstrated chronic deep venous thrombosis of the left femoral vein with adjacent collateral fl ow. 3. Left popliteal vessels are not visualized due to extensive edema and patient's pain.
--- NOTE | 2020-05-13 15:42 | P.GSCN ---
History of Present Illness Consult date: 05/13/20 History of present illness: The patient is a 60-year-old female with a history of DVT and PE, as well as a history of a remote DVT for which she had been on Coumadin for many years. She was having issues with maintaining her INR and therefore was transitioned over to eliquis earlier this year. She has been having intermittent issues with anemia, and was subsequently stopped from the anitcoaguilation in February. In late March she apparently had increasing issues with breathing and therefore had a computed tomography scan revealing some distal pulmonary emboli. She was initiated back on her anticoagulation. She presented to the ER at this time with weakness, lightheadedness. She was noted to be hypotensive with a hemoglobin of 6.7. She received 3 units of blood to bring her hemoglobin back up to 11. She also has a known history of Crohn's disease with resection. Her last colonoscopy was back in October. She denies any overt bleeding. She denies any dark tarry stools. She was Hemoccult positive. At this time she complains only of having cramping significant abdominal pain. Past Medical History Past Medical History: Deep Vein Thrombosis (DVT), GI Bleed, Thyroid Disorder Additional Past Medical History / Comment(s): sinus allergies, history blaine. DVT more than 10 years ago and she has been maintained on Warfarin, cardiac murmur , Gi bleeding and EGD /colonoscopy on 10/24/2019 showing mild gastritis, small HH and colonoscopy showed colitis of the cecum and left colon and biopsy was consistent with colitis, nonspecific. She has history of Crohn's disease and has hisotry of colectomy , chronic anemia History of Any Multi-Drug Resistant Organisms: None Reported Past Surgical History: Bowel Resection, Section Additional Past Surgical History / Comment(s): bowel resection with colostomy and then colostomy reversal Past Anesthesia/Blood Transfusion Reactions: No Reported Reaction Past Psychological History: No Psychological Hx Reported Smoking Status: Light tobacco smoker Past Alcohol Use History: None Reported Additional Past Alcohol Use History / Comment(s): smoker for 20 years on and off 1/2 ppd or less Past Drug Use History: None Reported - Past Family History Mother Family Medical History: No Reported History Medications and Allergies Home Medications Medication Instructions Recorded Confirmed Type Levothyroxine Sodium [Synthroid] 100 mcg PO DAILY 10/20/19 05/12/20 History Pantoprazole [Protonix] 40 mg PO AC-BRKFST tablet. 02/26/20 05/12/20 Rx Multivitamins, Thera Liquid 15 ml PO DAILY 04/10/20 05/12/20 History [Theragran Liquid (formulary)] predniSONE 30 mg PO DAILY 04/10/20 05/12/20 History Apixaban [Eliquis] 5 mg PO BID 30 Days #60 tab 04/11/20 05/12/20 Rx Dicyclomine [Bentyl] 10 mg PO TID PRN cap 04/15/20 05/12/20 Rx Allergies Allergy/AdvReac Type Severity Reaction Status Date / Time Sulfa (Sulfonamide Allergy Unknown Verified 05/12/20 13:22 Antibiotics) Surgical - Exam Vital Signs Temp Pulse Resp BP Pulse Ox 97.5 F L 96 18 75/52 100 05/12/20 11:42 05/12/20 11:42 05/12/20 11:42 05/12/20 11:42 05/12/20 11:42 Gen. is a pleasant cooperative but somewhat chronically ill-appearing female in no acute distress. HEENT is normal cephalic, atraumatic, extraocular motion intact. Heart is slowly tachycardic. Lungs are clear bilaterally. Abdomen is soft, mild voluntary guarding. No rigidity. Mild distention in the lower abdomen. Extremities show no clubbing or cyanosis pitches 2+ edema throughout her legs. Motor sensory intact. There is a right femoral central line. Anx ious mood, flattened affect. Results Bilateral lower extremity ultrasound shows no evidence of acute DVT. Chronic previous DVT noted in the left femoral. - Labs 05/13/20 02:41 05/13/20 02:41 Abnormal Lab Results - Last 24 Hours (Table) 05/12/20 05/12/20 05/12/20 Range/Units 12:02 12:02 17:41 WBC 3.5 L (3.8-10.6) k/uL RBC 2.25 L (3.80-5.40) m/uL Hgb 6.7 L* D (11.4-16.0) gm/dL Hct 22.4 L (34.0-46.0) % MCHC 30.0 L (31.0-37.0) g/dL Plt Count 84 L (150-450) k/uL Lymphocytes # 0.2 L (1.0-4.8) k/uL Lymphocytes # (Manual) (1.0-4.8) k/uL Sodium (137-145) mmol/L Carbon Dioxide (22-30) mmol/L BUN (7-17) mg/dL Creatinine (0.52-1.04) mg/dL Glucose (74-99) mg/dL POC Glucose (mg/dL) (75-99) mg/dL Calcium (8.4-10.2) mg/dL Phosphorus (2.5-4.5) mg/dL PTH Intact 232.2 H (14.0-72.0) pg/mL Crossmatch See Detail 05/12/20 05/12/20 05/12/20 Range/Units 17:41 20:39 23:42 WBC (3.8-10.6) k/uL RBC 3.35 L (3.80-5.40) m/uL Hgb 10.1 L D (11.4-16.0) gm/dL Hct 32.5 L (34.0-46.0) % MCHC 30.9 L (31.0-37.0) g/dL Plt Count 91 L (150-450) k/uL Lymphocytes # 0.3 L (1.0-4.8) k/uL Lymphocytes # (Manual) (1.0-4.8) k/uL Sodium (137-145) mmol/L Carbon Dioxide (22-30) mmol/L BUN (7-17) mg/dL Creatinine (0.52-1.04) mg/dL Glucose (74-99) mg/dL POC Glucose (mg/dL) 70 L (75-99) mg/dL Calcium (8.4-10.2) mg/dL Phosphorus 5.3 H (2.5-4.5) mg/dL PTH Intact (14.0-72.0) pg/mL Crossmatch 05/13/20 05/13/20 05/13/20 Range/Units 02:41 02:41 12:05 WBC (3.8-10.6) k/uL RBC 3.68 L (3.80-5.40) m/uL Hgb 11.0 L (11.4-16.0) gm/dL Hct (34.0-46.0) % MCHC 30.8 L (31.0-37.0) g/dL Plt Count 88 L (150-450) k/uL Lymphocytes # (1.0-4.8) k/uL Lymphocytes # (Manual) 0.17 L (1.0-4.8) k/uL Sodium 128 L (137-145) mmol/L Carbon Dioxide 19 L (22-30) mmol/L BUN 67 H (7-17) mg/dL Creatinine 2.43 H (0.52-1.04) mg/dL Glucose 64 L (74-99) mg/dL POC Glucose (mg/dL) 74 L (75-99) mg/dL Calcium 6.5 L (8.4-10.2) mg/dL Phosphorus (2.5-4.5) mg/dL PTH Intact (14.0-72.0) pg/mL Crossmatch Diabetes panel 05/13/20 Range/Units 02:41 Sodium 128 L (137-145) mmol/L Potassium 3.7 (3.5-5.1) mmol/L Chloride 105 (98-107) mmol/L Carbon Dioxide 19 L (22-30) mmol/L BUN 67 H (7-17) mg/dL Creatinine 2.43 H (0.52-1.04) mg/dL Glucose 64 L (74-99) mg/dL Calcium 6.5 L (8.4-10.2) mg/dL Thyroid panel 05/12/20 Range/Units 17:41 TSH 0.652 (0.465-4.680) mIU/L Calcium panel 05/12/20 05/13/20 Range/Units 17:41 02:41 Calcium 6.5 L (8.4-10.2) mg/dL Ionized Calcium Margy 4.5 (4.5-5.3) mg/dL Phosphorus 5.3 H (2.5-4.5) mg/dL Pituitary panel 05/12/20 05/13/20 Range/Units 17:41 02:41 Sodium 128 L (137-145) mmol/L Potassium 3.7 (3.5-5.1) mmol/L Chloride 105 (98-107) mmol/L Carbon Dioxide 19 L (22-30) mmol/L BUN 67 H (7-17) mg/dL Creatinine 2.43 H (0.52-1.04) mg/dL Glucose 64 L (74-99) mg/dL Calcium 6.5 L (8.4-10.2) mg/dL TSH 0.652 (0.465-4.680) mIU/L Adrenal panel 05/13/20 Range/Units 02:41 Sodium 128 L (137-145) mmol/L Potassium 3.7 (3.5-5.1) mmol/L Chloride 105 (98-107) mmol/L Carbon Dioxide 19 L (22-30) mmol/L BUN 67 H (7-17) mg/dL Creatinine 2.43 H (0.52-1.04) mg/dL Glucose 64 L (74-99) mg/dL Calcium 6.5 L (8.4-10.2) mg/dL Assessment and Plan Assessment: #1 anemia #2 previous DVT/PE #3 abdominal pain #4 Hemoccult positive stool #5 chronic left femoral DVT Plan: At this time studies are reviewed. All imaging reveals chronic thrombus. No evidence of acute thrombus in the lower extremities. There is no overwhelming indication currently for a an IVC filter. She is not tolerating her anticoagulation, but again there is no lower extremity DVT. In the next few days, if she has evidence of renal recovery or improvement, I would like to order a CT venous of her abdomen and pelvis to evaluate for iliac system for any more proximal thrombus. Continue GI evaluation and workup for source of bleeding. Even if she is able to tolerate a low-dose of the anticoagulation, 2.5 twice a day of Eliquis this would be beneficial although not necessary at this time. Hematology workup
[2020-05-13] MEDS ORDERED: APIXABAN 5 MG TAB PO SCH (21:00)
[2020-05-14] MEDS: methylPREDNISolone SOD SUCCI 40 MG/ML 1 ML VIAL IV SCH ×3 (00:24→15:52)
[2020-05-14] MEDS ORDERED: FUROSEMIDE 10 MG/ML 4 ML VIAL IV STA (01:54)
[2020-05-14] MEDS: SODIUM CHLORIDE 0.9% 1,000 ML IV SCH ×3 (02:25→20:20)
[2020-05-14 04:42] LABS: Basophils % (A) 0 %; Eosinophils % (A) 0 %; HCT 36.1 % (34.0-46.0); HGB 11.5 gm/dL (11.4-16.0); Hypochromasia Slight; Lymphocytes # (A) 0.2 k/uL (1.0-4.8); Lymphocytes % (A) 3 %; MCH 29.6 pg (25.0-35.0); MCV 92.6 fL (80.0-100.0); Mean Platelet Volume 8.9; Monocytes # (A) 0.1 k/uL (0-1.0); Monocytes % (A) 1 %; Neutrophils # (A) 5.3 k/uL (1.3-7.7); Neutrophils % (A) 95 %; Poikilocytosis Slight; RDW 15.7 % (11.5-15.5); WBC 5.6 k/uL (3.8-10.6)
[2020-05-14 04:49] LABS: Platelet Count 72 k/uL (150-450)
[2020-05-14 05:00] LABS: Albumin 1.2 g/dL (3.5-5.0); Potassium 3.3 mmol/L (3.5-5.1); Total Bilirubin 0.9 mg/dL (0.2-1.3); Total Protein 3.3 g/dL (6.3-8.2)
[2020-05-14 05:16] LABS: Calcium 6.3 mg/dL (8.4-10.2)
[2020-05-14] MEDS ORDERED: Potassium Replacement Protocol 1 EACH MISC MISCELLANE PRN ×2 (06:15→11:42)
[2020-05-14] MEDS: MIDODRINE 5 MG TAB PO SCH ×3 (06:26→18:40)
[2020-05-14] MEDS: PANTOPRAZOLE 40 MG TABLET PO SCH (06:27)
[2020-05-14] MEDS: LEVOTHYROXINE 100 MCG TAB PO SCH (06:27)
[2020-05-14 06:45] LABS: Glucose,Whole Blood 113 mg/dL (75-99)
[2020-05-14] MEDS ORDERED: POTASSIUM CHLORIDE ER 20 MEQ TAB.ER PO SCH (07:00)
--- NOTE | 2020-05-14 07:54 | XR ---
EXAMINATION TYPE: XR chest 1V portable DATE OF EXAM: 05/14/2020 Comparison: 04/10/2020 Clinical History: 60-year-old female assess lungs. Aspiration. Findings: Heart normal size. Aorta and pulmonary vasculature within normal limits. Mild hyperinflation. Mild st carmen left basilar atelectasis. No consolidation or pleural effusion. Some mild patchy density at the periphery of the right midlung has decreased. Impression: Correlate for underlying COPD. Mild strandy left basilar atelectasis. Otherwise, no acute process see n.
[2020-05-14] MEDS ORDERED: predniSONE 10 MG TAB PO SCH (09:00)
[2020-05-14] MEDS: PANTOPRAZOLE 40 MG/10 ML VIAL IVP SCH ×2 (09:22→20:22)
[2020-05-14] MEDS: MULTIVITAMINS, THERA LIQUID 237 ML BOTTLE PO SCH (09:22)
[2020-05-14] MEDS: POTASSIUM CHLORIDE 20 MEQ in WATER FOR INJECTION 1 100ML.BAG IVPB SCH ×2 (09:23→12:16)
--- NOTE | 2020-05-14 10:53 | P.PN ---
Subjective Progress Note Date: 05/14/20 Principal diagnosis: Acute and recurrent GI bleed This is a 60-year-old female with history of deep vein thrombosis, history of pulmonary embolism, and she was last seen by Dr. Atkinson on 04/11/20. On that admission patient presented with acute left lower extremity deep vein thrombosis and pulmonary embolism. Patient had previous remote history of DVT at least 10 years ago, and has been on long-term anticoagulation therapy. However as the patient started having intermittent episodes of GI bleeding, her anticoagulations therapy was discontinued in February of 2020. On her last admission last month, patient was placed back on anticoagulation therapy/Eliquis. Yesterday, patient came into the ER complaining of profound weakness, lightheadedness, swelling of lower extremities for the last few days. She was noted to be hypotensive with blood pressure of 75/52, and she was also noted to have low hemoglobin. She was also noted to have low sodium of 125, hypocalcemic, and arrangements were made to transfer the patient to the ICU considering the recurrent episodes of GI bleeding, positive Hemoccult stools, and her hemoglobin was as low as 6.7. Patient received a total of 3 units of packed RBCs, remained hypotensive, hence norepinephrine was started and she is now on 0.1 mcg/kilo/min patient was given multiple fluid boluses, I saw her this morning, and I recommended central line placement, I also recommended arterial line placement, and I recommended vascular surgery evaluation for possible IVC filter placement. Recommended the titration of Norepinephrine to a mean arterial pressure of above 60. And possibly discontinue norepinephrine if the patient responds to fluids and responds to the amount of blood she received so far. Patient is known to have history of Crohn's disease, and had multiple episodes of GI bleeding in the past related to her Crohn's disease The patient was seen today 05/14/2020 in follow-up in the intensive care unit. She is currently awake and alert in no acute distress. No further GI bleeding noted. Hemoglobin 11.5. She is status post 3 units of packed red blood cells this admission. She denies any shortness of breath, cough or congestion. She is maintaining O2 saturations in the 90s on 4 L/m per nasal cannula. She has been afebrile. Hemodynamically stable. Off pressors. White count 5.6. Platelets 72,000. Sodium 1:30. Potassium 3.3. Bicarb 13. Creatinine 2.15. She is positive 4 liters. Currently receiving 0.9 normal saline at 75 ML's per hour. Potassium being replaced. Remains off Eliquis. Dopplers of the lower extremity revealed no acute DVT. There is a chronic thrombus in the left femoral vein with adjacent collateral flow. She did have an episode of choking on her pills and was slightly hypoxic, recovered. Objective - Vital Signs Vital signs: Vital Signs Temp 98.2 F 05/14/20 04:00 Pulse 100 05/14/20 07:00 Resp 19 05/14/20 07:00 BP 88/56 05/13/20 21:00 Pulse Ox 93 L 05/14/20 07:00 Intake & Output 05/13/20 05/14/20 05/14/20 18:59 06:59 18:59 Intake Total 3404.000 1500 250 Output Total 344 510 160 Balance 3060.000 990 90 Weight 66.1 kg 68.1 kg Intake: IV 2950 1500 250 Sodium Chloride 0.9% 1, 875 1500 250 000 ml @ 125 mls/hr IV . Q8H [facility] Rx#:[id number] Sodium Chloride 0.9% 1, 75 000 ml @ 75 mls/hr IV . [id number] [facility] Rx#:[id number] Sodium Chloride 0.9% 1, 1000 000 ml @ 999 mls/hr IV . Q1H1M [facility] Rx#:[id number] Sodium Chloride 0.9% 1, 1000 000 ml @ 999 mls/hr IV . Q1H1M [facility] Rx#:[id number] Intake, IV Titration 254.000 Amount Norepinephrine 4 mg In 254.000 Sodium Chloride 0.9% 250 ml @ 0.05 MCG/KG/MIN 12. 592 mls/hr IV .[id number] [facility] Rx#:[id number] Oral 200 Output: Urine 344 510 160 Other: Voiding Method Indwelling Catheter Indwelling Catheter Indwelling Catheter ABP, PAP, CO, CI - Last Documented Arterial Blood Pressure 105/58 - Exam GENERAL EXAM: Alert, pale, weak 60-year-old female patient, on 4 L nasal cannula, comfortable in no apparent distress. HEAD: Normocephalic. EYES: Normal reaction of pupils, equal size. NOSE: Clear with pink turbinates. THROAT: No erythema or exudates. NECK: No masses, no JVD. CHEST: No chest wall deformity. LUNGS: Equal air entry with no crackles, wheeze, rhonchi or dullness. CVS: S1 and S2 normal with no audible murmur, regular rhythm. ABDOMEN: No hepatosplenomegaly, normal bowel sounds, no guarding or rigidity. SPINE: No scoliosis or deformity SKIN: No rashes CENTRAL NERVOUS SYSTEM: No focal deficits, tone is normal in all 4 extremities. EXTREMITIES: Right femoral triple-lumen catheter and arterial line in place. There is 1-2+ peripheral edema. No clubbing, no cyanosis. Peripheral pulses are intact. - Labs CBC & Chem 7: 05/14/20 04:30 05/14/20 04:30 Labs: Abnormal Lab Results - Last 24 Hours (Table) 05/12/20 05/13/20 05/14/20 Range/Units 12:02 12:05 04:30 RDW 15.7 H (11.5-15.5) % Plt Count 72 L (150-450) k/uL Lymphocytes # 0.2 L (1.0-4.8) k/uL Sodium (137-145) mmol/L Potassium (3.5-5.1) mmol/L Chloride (98-107) mmol/L Carbon Dioxide (22-30) mmol/L BUN (7-17) mg/dL Creatinine (0.52-1.04) mg/dL Glucose (74-99) mg/dL POC Glucose (mg/dL) 74 L (75-99) mg/dL Calcium (8.4-10.2) mg/dL Total Protein (6.3-8.2) g/dL Albumin (3.5-5.0) g/dL PTH Intact 232.2 H (14.0-72.0) pg/mL 05/14/20 05/14/20 Range/Units 04:30 06:43 RDW (11.5-15.5) % Plt Count (150-450) k/uL Lymphocytes # (1.0-4.8) k/uL Sodium 130 L (137-145) mmol/L Potassium 3.3 L (3.5-5.1) mmol/L Chloride 111 H (98-107) mmol/L Carbon Dioxide 13 L (22-30) mmol/L BUN 63 H (7-17) mg/dL Creatinine 2.15 H (0.52-1.04) mg/dL Glucose 112 H (74-99) mg/dL POC Glucose (mg/dL) 113 H (75-99) mg/dL Calcium 6.3 L* (8.4-10.2) mg/dL Total Protein 3.3 L (6.3-8.2) g/dL Albumin 1.2 L (3.5-5.0) g/dL PTH Intact (14.0-72.0) pg/mL Assessment and Plan Assessment: Recurrent GI bleeding secondary to right sided colitis noted on her most recent colonoscopy. Patient is on prednisone 30 mg daily as recommended by gastroenterology. Failed the treatment with Humira, and supposed to be approved for stelara. This is being addressed by gastroenterology on the case. 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 Capillary reveals no acute DVT bilaterally. 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 Blood loss anemia, patient received 3 units of packed RBCs on this admission. Stable. Current hemoglobin 11.5. Hypotension, felt to be multifactorial, patient not significantly improved with blood transfusion, and fluid boluses, apparently she has chronic history of hypotension and she is on midodrine. Exact etiology of her hypotension is not pinpointed. No history of adrenal insufficiency. Recovered. Currently off pressors Long-standing history of lower extremities edema most likely secondary to deep vein thromboses and venous insufficiency. Acute kidney injury. Possible some component of hypovolemia. And dehydration. Current creatinine 2.15 Severe electrolyte imbalance, most likely secondary to hypovolemia. And acute kidney injury. Status post placement of right femoral triple-lumen catheter and femoral arterial line for hemodynamic monitoring. And for adequate IV access. Plan: The patient was seen and evaluated by Dr. Barrera Vascular consult appreciated Remains off Eliquis for now Hemoglobin is stable No further active bleeding noted We'll continue to monitor hemoglobin Currently off pressors Titrate down the FiO2 We will continue to follow and make further recommendations based on her clinical status I, the cosigning physician, performed a history & physical examination of the patient. Lungs sounds are clear. Maintaining good O2 saturations in the 90s on 4 L/m per nasal cannula. I discussed the assessment and plan of care with my nurse practitioner, Justine Ochoa. I attest to the above note as dictated by her.
[2020-05-14 11:50] LABS: Glucose,Whole Blood 116 mg/dL (75-99)
--- NOTE | 2020-05-14 11:52 | PN ---
PROGRESS NOTE DATE OF SERVICE: 05/14/2020 INTERVAL HISTORY: Patient is a 60-year-old pleasant white female admitted to the hospital with lower extremity swelling, fatigue, weakness, unable to walk for the last few days duration. Also had hemoglobin of 6.5 requiring 3 units of blood transfusion. She has been having 4-5 loose watery bowel movements daily with occasional blood in the stool. She has history of DVT and is on Eliquis currently. She was started on IV Solu-Medrol 20 mg q.8 hours yesterday for active Crohn's colitis. She is feeling a little bit better this morning. Abdominal pain has improved. No nausea, vomiting. Tolerating full liquids well. PHYSICAL EXAMINATION: She appears comfortable. No apparent distress. VITAL SIGNS: Stable. Blood pressure is 105/58, pulse 93, temperature 100. HEENT: Examination unremarkable. Conjunctivae are pink. Sclerae anicteric. Oral cavity no lesions. NECK: No JVD or lymph node enlargement. CHEST: Clear to auscultation. HEART: Regular rate and rhythm. ABDOMEN: Soft. There was mild tenderness in the right lower quadrant area. Rest of the abdomen was benign. Bowel sounds are positive. EXTREMITIES: No pedal edema. NEURO: She is alert and oriented x3. No focal deficits. LABS: From today WBC 5.6, hemoglobin 11.5, platelets 72,000. Basic metabolic panel showed a sodium of 130, potassium 3.3, chloride 101, CO2 13, BUN 63, creatinine 2.15. Albumin is 1.2. IMPRESSION: 1. Severe symptomatic anemia status post 3 units of blood transfusion. Most likely occult gastrointestinal blood loss from active Crohn's colitis. 2. Active Crohn's colitis status post colonoscopy by Dr. Davila in October of this year that showed active right-sided colitis. The patient presently is steroid dependent for the last 2 months. She was started on IV Solu-Medrol 20 mg q.8 hours yesterday and doing somewhat better. Awaiting approval for biologics. 3. Deep venous thrombosis/pulmonary embolism. On Eliquis. 4. Lower extremity swelling. 5. Severe hypoalbuminemia from ongoing protein calorie malnutrition. RECOMMENDATIONS: 1. Continue with Solu-Medrol 20 mg q.8 hours. 2. Advance to a regular diet. 3. If her oral intake does not improve, she may be a candidate for total parenteral nutrition. 4. Obtain CRP and sedimentation rate. 5. We will follow with you closely. Thank you for this consultation. MMANUML / IJN: [id number] /
[2020-05-14] MEDS ORDERED: ONDANSETRON 4 MG/2 ML VIAL IVP PRN (12:07)
--- NOTE | 2020-05-14 12:21 | P.PN ---
Subjective Progress Note Date: 05/14/20 Jacquie Chowdhury, he is a 60-year-old female who presented to [facility] emergency room with severe weakness, lightheadedness and worsening lower extremity swelling, she was evaluated in emergency room, her vital exam on presentation was significant for blood pressure of 75/52 heart rate of 96, her laboratory data was significant for anemia with hemoglobin of 10.1 renal insufficiency with a BUN of 71 and a creatinine of 2.29, hyponatremia with sodium of 125, and hypocalcemia with calcium of 6.4 her stool Hemoccult was positive, she was admitted to intensive care unit and was started on IV fluid, she was given a dose of calcium in the emergency room. On review of systems patient denies any fever or chills, she denies any headache, there is no chest pain or shortness of breath no cough, no nausea or vomiting no abdominal pain, she has loose stool but no significant diarrhea, she denies any blood in her stools, no burning with urination no frequency or urgency no hematuria. Patient has a known history of pulmonary embolism, she was maintained on anticoagulation for more than 10 years, this was stopped recently but patient developed pulmonary embolism regained, she was restarted on Eliquis. Patient also has a known history of Crohn's disease. On 05/14/2020 patient was seen and examined in the ICU, she is alert and oriented 3 in no apparent distress, she is complaining of nausea and abdominal discomfort, otherwise she denies any complaints there is no fever or chills no headache or dizziness no chest pain no shortness of breath, no cough no diarrhea no blood in the stools no burning with urination no frequency or urgency no hematuria. Potassium is low at 3.3 she was started on potassium replacement protocol, calcium is low she was started on calcium with vitamin D 1 twice a day, patient has evidence of severe protein calorie malnutrition with albumin of 1.2 nutri tional consult was initiated. Objective - Vital Signs Vital signs: Vital Signs Temp 98.2 F 05/14/20 04:00 Pulse 100 05/14/20 07:00 Resp 19 05/14/20 07:00 BP 88/56 05/13/20 21:00 Pulse Ox 93 L 05/14/20 07:00 Intake & Output 05/13/20 05/14/20 05/14/20 18:59 06:59 18:59 Intake Total 3404.000 1500 250 Output Total 344 510 160 Balance 3060.000 990 90 Weight 66.1 kg 68.1 kg Intake: IV 2950 1500 250 Sodium Chloride 0.9% 1, 875 1500 250 000 ml @ 125 mls/hr IV . Q8H [facility] Rx#:[id number] Sodium Chloride 0.9% 1, 75 000 ml @ 75 mls/hr IV . [id number] [facility] Rx#:[id number] Sodium Chloride 0.9% 1, 1000 000 ml @ 999 mls/hr IV . Q1H1M [facility] Rx#:[id number] Sodium Chloride 0.9% 1, 1000 000 ml @ 999 mls/hr IV . Q1H1M [facility] Rx#:[id number] Intake, IV Titration 254.000 Amount Norepinephrine 4 mg In 254.000 Sodium Chloride 0.9% 250 ml @ 0.05 MCG/KG/MIN 12. 592 mls/hr IV .[id number] [facility] Rx#:[id number] Oral 200 Output: Urine 344 510 160 Other: Voiding Method Indwelling Catheter Indwelling Catheter Indwelling Catheter ABP, PAP, CO, CI - Last Documented Arterial Blood Pressure 105/58 - Exam In general patient is alert and oriented 3 in no apparent distress maintained on oxygen via nasal cannula HEENT head normocephalic and atraumatic Neck is supple no JVD no goiter no lymphadenopathy Chest exam is clear to auscultation no crackles no wheezing Cardiac exam reveals regular heart sounds S1 and S2 no gallops no murmurs Abdomen is soft, with mild diffuse tenderness no organomegaly no palpable masses was normal bowel sounds Extremity exam reveals 2+ edema bilaterally, no cyanosis or clubbing Neurological examination reveals no gross focal deficit - Labs CBC & Chem 7: 05/14/20 04:30 05/14/20 04:30 Labs: Abnormal Lab Results - Last 24 Hours (Table) 05/12/20 05/13/20 05/14/20 Range/Units 12:02 12:05 04:30 RDW 15.7 H (11.5-15.5) % Plt Count 72 L (150-450) k/uL Lymphocytes # 0.2 L (1.0-4.8) k/uL Sodium (137-145) mmol/L Potassium (3.5-5.1) mmol/L Chloride (98-107) mmol/L Carbon Dioxide (22-30) mmol/L BUN (7-17) mg/dL Creatinine (0.52-1.04) mg/dL Glucose (74-99) mg/dL POC Glucose (mg/dL) 74 L (75-99) mg/dL Calcium (8.4-10.2) mg/dL Total Protein (6.3-8.2) g/dL Albumin (3.5-5.0) g/dL PTH Intact 232.2 H (14.0-72.0) pg/mL 05/14/20 05/14/20 Range/Units 04:30 06:43 RDW (11.5-15.5) % Plt Count (150-450) k/uL Lymphocytes # (1.0-4.8) k/uL Sodium 130 L (137-145) mmol/L Potassium 3.3 L (3.5-5.1) mmol/L Chloride 111 H (98-107) mmol/L Carbon Dioxide 13 L (22-30) mmol/L BUN 63 H (7-17) mg/dL Creatinine 2.15 H (0.52-1.04) mg/dL Glucose 112 H (74-99) mg/dL POC Glucose (mg/dL) 113 H (75-99) mg/dL Calcium 6.3 L* (8.4-10.2) mg/dL Total Protein 3.3 L (6.3-8.2) g/dL Albumin 1.2 L (3.5-5.0) g/dL PTH Intact (14.0-72.0) pg/mL Assessment and Plan Plan: 1. Hypotension with severe weakness, improving gradually 2. Dehydration with acute renal failure, kidney function improving gradually her creatinine is down to 2.15 today 3. Underlying history of Crohn's disease, patient was evaluated by gastr oenterology, she is maintained on IV Solu-Medrol at this time 4. Underlying history of pulmonary embolism, a request was discontinued by vascular surgery in anticipation of [place] filter placement, will start patient on Lovenox 30 mg subcu daily 5. Severe electrolyte imbalance with hyponatremia and hypocalcemia 6. Metabolic acidosis due to acute kidney injury At this time patient is admitted to ICU, pulmonary critical care consultation requested, patient was started on IV fluid, and is being monitored to assess need for vasopressors. Obtain cultures to rule out sepsis, no clear source of infection at this time Obtain echocardiogram Nephrology and critical care consult soft following, will add gastroenterology consult for Crohn's disease evaluation Will follow closely prognosis is guarded
--- NOTE | 2020-05-14 12:43 | XR ---
EXAMINATION TYPE: XR abdomen 1V DATE OF EXAM: 05/14/2020 Comparison: 04/26/2020 Clinical History: 60-year-old female abdominal cramping and vomiting Findings: Supine imaging limited for assessment of free air. There seems to be small bowel loops dilated up to 4.7 cm. Post surgical change at the right lower david drant from prior related to colonic anastomosis. Some scattered colonic air is present. Impression: 1. Small bowel loops dilated up to 4.7 cm. Small bowel obstruction not excluded. 2. Scattered colonic air could represent early small bowel obstruction or alternatively, an ileus.
[2020-05-14] MEDS ORDERED: SODIUM CHLORIDE 0.9% 1,000 ML IV ONE (13:20)
--- NOTE | 2020-05-14 13:53 | P.PN ---
Subjective Progress Note Date: 05/14/20 Follow-up for hyponatremia. Hemodynamically better, currently off levo fed. Urine output increased. Had one dose of Lasix yesterday. Objective - Vital Signs Vital signs: Vital Signs Temp 98 F 05/14/20 12:00 Pulse 96 05/14/20 12:30 Resp 17 05/14/20 12:30 BP 88/56 05/13/20 21:00 Pulse Ox 98 05/14/20 12:30 Intake & Output 05/13/20 05/14/20 05/14/20 18:59 06:59 18:59 Intake Total 3404.000 1500 650 Output Total 344 510 310 Balance 3060.000 990 340 Weight 66.1 kg 68.1 kg Intake: IV 2950 1500 550 Sodium Chloride 0.9% 1, 75 000 ml @ 75 mls/hr IV . [id number] [facility] Rx#:[id number] Sodium Chloride 0.9% 1, 875 1500 550 000 ml @ 75 mls/hr IV . [id number] [facility] Rx#:[id number] Sodium Chloride 0.9% 1, 1000 000 ml @ 999 mls/hr IV . Q1H1M [facility] Rx#:[id number] Sodium Chloride 0.9% 1, 1000 000 ml @ 999 mls/hr IV . Q1H1M [facility] Rx#:[id number] Intake, IV Titration 254.000 Amount Norepinephrine 4 mg In 254.000 Sodium Chloride 0.9% 250 ml @ 0.05 MCG/KG/MIN 12. 592 mls/hr IV .[id number] [facility] Rx#:[id number] Oral 200 100 Output: Urine 344 510 310 Other: Voiding Method Indwelling Catheter Indwelling Catheter Indwelling Catheter ABP, PAP, CO, CI - Last Documented Arterial Blood Pressure 107/48 - Exam No acute distress S1-S2 heard Decreased breath sounds Abdomen soft Edema - Labs CBC & Chem 7: 05/14/20 04:30 05/14/20 04:30 Labs: Abnormal Lab Results - Last 24 Hours (Table) 05/14/20 05/14/20 05/14/20 Range/Units 04:30 04:30 06:43 RDW 15.7 H (11.5-15.5) % Plt Count 72 L (150-450) k/uL Lymphocytes # 0.2 L (1.0-4.8) k/uL Sodium 130 L (137-145) mmol/L Potassium 3.3 L (3.5-5.1) mmol/L Chloride 111 H (98-107) mmol/L Carbon Dioxide 13 L (22-30) mmol/L BUN 63 H (7-17) mg/dL Creatinine 2.15 H (0.52-1.04) mg/dL Glucose 112 H (74-99) mg/dL POC Glucose (mg/dL) 113 H (75-99) mg/dL Calcium 6.3 L* (8.4-10.2) mg/dL Total Protein 3.3 L (6.3-8.2) g/dL Albumin 1.2 L (3.5-5.0) g/dL 05/14/20 Range/Units 11:48 RDW (11.5-15.5) % Plt Count (150-450) k/uL Lymphocytes # (1.0-4.8) k/uL Sodium (137-145) mmol/L Potassium (3.5-5.1) mmol/L Chloride (98-107) mmol/L Carbon Dioxide (22-30) mmol/L BUN (7-17) mg/dL Creatinine (0.52-1.04) mg/dL Glucose (74-99) mg/dL POC Glucose (mg/dL) 116 H (75-99) mg/dL Calcium (8.4-10.2) mg/dL Total Protein (6.3-8.2) g/dL Albumin (3.5-5.0) g/dL Assessment and Plan Assessment: #1 acute kidney injury suspect hemodynamic ATN with low blood pressures. #2 hyponatremia euvolemic #3 shock resolved off pressors. #4 chrons disease with a suspected acute flare. #5 metabolic acidosis, anion gap secondary to acute kidney injury and also diarrhea. #6 DVT/PE on eliquis #7 hypocalcemia, corrected with albumin within normal limits Plan: #1 hemodynamically stable currently on IV fluids. #2 Monitor strict ins and outs. #3 midodrine for hemodynamic support #4 ICU care #5 avoid nephrotoxic agents and hypotensive episodes.
[2020-05-14] MEDS: ENOXAPARIN 30 MG/0.3 ML SYRINGE SQ SCH (15:49)
[2020-05-14] MEDS: CALCIUM CARB-VIT D 500MG-200UN 1 EACH TAB PO SCH (18:42)
[2020-05-14] MEDS: NOREPINEPHRINE 4 MG in SODIUM CHLORIDE 0.9% 250 ML IV SCH (20:19)
[2020-05-14] MEDS: DICYCLOMINE 10 MG CAP PO PRN (20:37)
[2020-05-14] MEDS ORDERED: SODIUM CHLORIDE 0.9% 500 ML 500 ML IV ONE (23:28)
[2020-05-15] MEDS: methylPREDNISolone SOD SUCCI 40 MG/ML 1 ML VIAL IV SCH ×3 (00:37→16:52)
[2020-05-15 05:30] LABS: Albumin 1.2 g/dL (3.5-5.0); Potassium 3.8 mmol/L (3.5-5.1); Total Bilirubin 0.7 mg/dL (0.2-1.3); Total Protein 3.2 g/dL (6.3-8.2)
[2020-05-15 05:31] LABS: Basophils % (A) 0 %; Eosinophils % (A) 0 %; HCT 36.1 % (34.0-46.0); HGB 11.7 gm/dL (11.4-16.0); Hypochromasia Slight; Lymphocytes # (A) 0.1 k/uL (1.0-4.8); Lymphocytes % (A) 3 %; MCH 30.1 pg (25.0-35.0); MCHC 32.4 g/dL (31.0-37.0); Mean Platelet Volume 9.7; Monocytes # (A) 0.1 k/uL (0-1.0); Monocytes % (A) 2 %; Neutrophils # (A) 4.7 k/uL (1.3-7.7); Neutrophils % (A) 95 %; Poikilocytosis Slight; RBC 3.89 m/uL (3.80-5.40); RDW 15.7 % (11.5-15.5)
[2020-05-15 05:36] LABS: Platelet Count 51 k/uL (150-450)
[2020-05-15 05:44] LABS: Calcium 6.2 mg/dL (8.4-10.2)
[2020-05-15] MEDS ORDERED: FUROSEMIDE 10 MG/ML 4 ML VIAL IV STA (06:20)
[2020-05-15] MEDS: LEVOTHYROXINE 100 MCG TAB PO SCH (06:38)
[2020-05-15] MEDS: CALCIUM CARB-VIT D 500MG-200UN 1 EACH TAB PO SCH ×2 (06:38→16:52)
[2020-05-15] MEDS: PANTOPRAZOLE 40 MG TABLET PO SCH (06:38)
[2020-05-15] MEDS: MIDODRINE 5 MG TAB PO SCH ×3 (06:38→16:52)
[2020-05-15] MEDS ORDERED: CALCIUM GLUCONATE 1 GM in SODIUM CHLORIDE 0.9% 100 ML IVPB ONE (07:00)
[2020-05-15] MEDS: ENOXAPARIN 30 MG/0.3 ML SYRINGE SQ SCH (08:28)
[2020-05-15] MEDS: PANTOPRAZOLE 40 MG/10 ML VIAL IVP SCH ×2 (08:29→21:37)
[2020-05-15] MEDS ORDERED: HYDROmorphone 0.5 MG/0.5 ML SYRINGE IVP PRN (08:49)
[2020-05-15] MEDS: MULTIVITAMINS, THERA LIQUID 237 ML BOTTLE PO SCH (08:56)
[2020-05-15] MEDS ORDERED: POTASSIUM BICARBONATE/CIT AC 20 MEQ TABLET.EFF PO SCH (09:00)
--- NOTE | 2020-05-15 09:02 | P.PN ---
Subjective Patient is seen in follow-up for acute kidney injury. Renal function stable. Remains quite acidotic. Bicarb level XII today. She did receive dose of IV Lasix this morning and also 1500 mL bolus of normal saline overnight. Urine output remains low in the range of 10-30 mL an hour. Patient complains of pain on her buttock. She has been incontinent of stool. No chest pain or shortness of breath. Remains off vasopressors. Vital signs are stable. General: The patient appeared well nourished and normally developed. HEENT: Head exam is unremarkable. Neck is without jugular venous distension. LUNGS: Breath sounds decreased. HEART: Rate and Rhythm are regular. ABDOMEN: Soft, nontender. EXTREMITITES: 2+ edema. Objective - Vital Signs Vital signs: Vital Signs Temp 97.9 F 05/15/20 04:00 Pulse 99 05/15/20 07:00 Resp 21 05/15/20 07:00 BP 88/64 05/14/20 19:00 Pulse Ox 99 05/15/20 07:00 Intake & Output 05/14/20 05/15/20 05/15/20 18:59 06:59 18:59 Intake Total 2225 1400 150 Output Total 605 300 45 Balance 1620 1100 105 Weight 68.7 kg Intake: IV 1925 1400 150 Sodium Chloride 0.9% 1, 925 900 150 000 ml @ 75 mls/hr IV . [id number] [facility] Rx#:[id number] Sodium Chloride 0.9% 1, 1000 000 ml @ 999 mls/hr IV . Q1H1M [facility] Rx#:[id number] Sodium Chloride 0.9% 500 500 ml 500 ml @ 999 mls/hr IV .Q31M [facility] Rx#:[id number] Oral 300 Output: Urine 605 300 45 Other: Voiding Method Indwelling Catheter Indwelling Catheter ABP, PAP, CO, CI - Last Documented Arterial Blood Pressure 94/57 - Labs CBC & Chem 7: 05/15/20 04:35 05/15/20 04:35 Labs: Abnormal Lab Results - Last 24 Hours (Table) 05/14/20 05/14/20 05/15/20 Range/Units 04:30 11:48 04:35 RDW 15.7 H (11.5-15.5) % Plt Count 51 L (150-450) k/uL Lymphocytes # 0.1 L (1.0-4.8) k/uL Sodium (137-145) mmol/L Chloride (98-107) mmol/L Carbon Dioxide (22-30) mmol/L BUN (7-17) mg/dL Creatinine (0.52-1.04) mg/dL POC Glucose (mg/dL) 116 H (75-99) mg/dL Calcium (8.4-10.2) mg/dL Ionized Calcium Margy (4.5-5.3) mg/dL AST (14-36) U/L C-Reactive Protein 178.9 H (<10.0) mg/L Total Protein (6.3-8.2) g/dL Albumin (3.5-5.0) g/dL 05/15/20 05/15/20 Range/Units 04:35 05:50 RDW (11.5-15.5) % Plt Count (150-450) k/uL Lymphocytes # (1.0-4.8) k/uL Sodium 132 L (137-145) mmol/L Chloride 114 H (98-107) mmol/L Carbon Dioxide 12 L (22-30) mmol/L BUN 63 H (7-17) mg/dL Creatinine 2.12 H (0.52-1.04) mg/dL POC Glucose (mg/dL) (75-99) mg/dL Calcium 6.2 L* (8.4-10.2) mg/dL Ionized Calcium Margy 4.4 L (4.5-5.3) mg/dL AST 12 L (14-36) U/L C-Reactive Protein (<10.0) mg/L Total Protein 3.2 L (6.3-8.2) g/dL Albumin 1.2 L (3.5-5.0) g/dL Microbiology - Last 24 Hours (Table) 05/13/20 11:40 Blood Culture - Preliminary Blood No Growth after 24 hours Assessment and Plan Plan: Assessment: 1. Acute kidney injury secondary to ATN secondary to acute blood loss anemia as well as hypotension. Creatinine stable at 2.12 today. Baseline creatinine 1- 1.1. UA fairly benign. 2. Metabolic acidosis secondary to IV fluids, acute kidney injury, diarrhea. 3. Hypokalemia from poor intake and diuretics. Rule out magnesium deficiency. 4. Hypocalcemia secondary to hypoalbuminemia. Corrected calcium normal. 5. History of Crohn's disease. 6. Severe protein calorie malnutrition with third spacing. Plan: Discontinue normal saline. Start isotonic bicarbonate drip to be run at 75 mL an hour. 25 g IV albumin 4 doses. Encouraged oral intake, particularly protein. Hold off on further diuretics at this time. She did receive 40 mg IV Lasix this morning. Maintain midodrine. Monitor blood pressure closely. May need to resume Levophed. Continue to monitor renal function and urine output.
[2020-05-15] MEDS: ALBUMIN HUMAN 25% 50 ML in EMPTY BAG 1 BAG IVPB SCH ×4 (09:26→22:46)
[2020-05-15] MEDS: DEXTROSE 5% IN WATER 1,000 ML with SODIUM BICARB (1 MEQ/ML) 150 ML IV SCH (09:31)
[2020-05-15] MEDS: NOREPINEPHRINE 4 MG in SODIUM CHLORIDE 0.9% 250 ML IV SCH ×3 (09:41→23:04)
--- NOTE | 2020-05-15 12:24 | PN ---
PROGRESS NOTE PULMONARY/CRITICAL CARE PROGRESS NOTE: DATE OF SERVICE: 05/15/2020 This is a 60-year-old female who was admitted to the hospital back on May 12. She came in initially with a GI bleed. Her hemoglobin was down to 6.7. Since she has been here, she has received a total of 3 units of PRBCs. Currently, she is on O2 at 2 L by nasal cannula and D5W with 3 amps of bicarb at 75 mL an hour. In addition, her norepinephrine has recently been placed on hold. She has a history of Crohn's disease, diverticular disease, hypothyroidism, colectomy, and pulmonary embolism recently in April of this year. Currently, she is complaining of pain. She apparently has some breakdown on her backside. I did ask the nurse to give her some pain medication. Current vital signs are reviewed, temperature is 97 degrees, heart rate 97, respiratory rate 18, blood pressure 93/47, 2 L saturation 99%. Appears in no acute distress. HEENT: Examination is grossly unremarkable. NECK: Supple, full range of motion. No adenopathy. Neck veins are flat. CARDIOVASCULAR: Examination reveals regular rhythm and rate. Heart rate 97. S1, S2 normal. LUNGS: Clear, breath sounds equal. ABDOMEN: Soft. Bowel sounds are noted. EXTREMITIES: Intact. There is significant bilateral lower extremity edema. SKIN: Without rash. NEUROLOGIC: Examination is nonfocal. LABS: Reviewed. White count 5, hemoglobin 11.7, hematocrit 30.1, platelet count 51,000, sodium 132, potassium 3.8, chloride 114, CO2 is 12, anion gap is 6. BUN and creatinine were 63 and 2.12 compared to 63 and 2.15 yesterday. Calcium is 6.2, ionized calcium 4.4, her albumin is only 1.2. Microbiology thus far is negative. The most recent x-ray was done yesterday. It was an abdominal film which shows small bowel loops dilated at 4.7 cm. Small bowel obstruction was not excluded. And there were scattered colonic air, which could represent relate small bowel obstruction. CURRENT MEDICATIONS: Reviewed. She is on IV albumin, calcium, vitamin D, D5W with sodium bicarbonate, Bentyl, Lovenox, Dilaudid, levothyroxine, Solu-Medrol, midodrine, multivitamins, Zofran, Protonix, potassium replacement, and the IV of D5W with 3 amps of bicarb at 75 mL an hour. ASSESSMENT: 1. Recurrent gastrointestinal bleed secondary to right-sided colitis. 2. 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 3. Blood loss anemia, status post 3 units of PRBCs. 4. Hypotension, multifactorial, in part related to underlying anemia, hypoalbuminemia, third-spacing of fluids, among other things. 5. Longstanding history of lower extremity edema with DVT and venous insufficiency. 6. Acute kidney injury. 7. Severe electrolyte disturbance. 8. Status post placement of a right femoral triple-lumen catheter and femoral arterial line. PLAN: Currently, the patient is off the norepinephrine. She remains on D5W with 3 amps of sodium bicarbonate at 75 mL an hour. She has received a total of 3 units of PRBCs. She will need something for pain. I have asked the nurse to give her some Dilaudid p.r.n. Additional recommendations and suggestions are forthcoming. Prognosis is guarded. MMODL / IJN: [id number] /
--- NOTE | 2020-05-15 17:35 | P.PN ---
Subjective Progress Note Date: 05/15/20 Jacquie Chowdhury, he is a 60-year-old female who presented to [facility] emergency room with severe weakness, lightheadedness and worsening lower extremity swelling, she was evaluated in emergency room, her vital exam on presentation was significant for blood pressure of 75/52 heart rate of 96, her laboratory data was significant for anemia with hemoglobin of 10.1 renal insufficiency with a BUN of 71 and a creatinine of 2.29, hyponatremia with sodium of 125, and hypocalcemia with calcium of 6.4 her stool Hemoccult was positive, she was admitted to intensive care unit and was started on IV fluid, she was given a dose of calcium in the emergency room. On review of systems patient denies any fever or chills, she denies any headache, there is no chest pain or shortness of breath no cough, no nausea or vomiting no abdominal pain, she has loose stool but no significant diarrhea, she denies any blood in her stools, no burning with urination no frequency or urgency no hematuria. Patient has a known history of pulmonary embolism, she was maintained on anticoagulation for more than 10 years, this was stopped recently but patient developed pulmonary embolism regained, she was restarted on Eliquis. Patient also has a known history of Crohn's disease. On 05/14/2020 patient was seen and examined in the ICU, she is alert and oriented 3 in no apparent distress, she is complaining of nausea and abdominal discomfort, otherwise she denies any complaints there is no fever or chills no headache or dizziness no chest pain no shortness of breath, no cough no diarrhea no blood in the stools no burning with urination no frequency or urgency no hematuria. Potassium is low at 3.3 she was started on potassium replacement protocol, calcium is low she was started on calcium with vitamin D 1 twice a day, patient has evidence of severe protein calorie malnutrition with albumin of 1.2 nutri tional consult was initiated. On 05/15/2020 patient was seen and examined in the ICU, she is alert responsive in no distress, she had very poor oral intake today, she is still complaining of abdominal pain and nausea otherwise she denies any complaints, Eliquis has been on hold in anticipation of [place] filter placement, patient has been maintained on subcu Lovenox 30 mg once daily for DVT prophylaxis, there is no fever or chills no headache or dizziness no chest pain no shortness of breath no cough no burning with urination no frequency or urgency no hematuria. Blood pressure has been marginal and patient has been on and off levophed today. Urine output was low this morning she received IV fluid bolus and IV Lasix. Objective - Vital Signs Vital signs: Vital Signs Temp 98.8 F 05/15/20 12:00 Pulse 107 H 05/15/20 15:00 Resp 12 05/15/20 15:10 BP 0/0 05/15/20 15:00 Pulse Ox 96 05/15/20 15:00 Intake & Output 05/14/20 05/15/20 05/15/20 18:59 06:59 18:59 Intake Total 2225 1654 804.654 Output Total 605 300 245 Balance 1620 1354 559.654 Weight 68.7 kg Intake: IV 1925 1400 675 Dextrose 5% in Water 1, 525 000 ml @ 75 mls/hr IV . [id number] ELVIA with Sodium Bicarb (1 Meq/ml) 150 ml Rx#:[id number] Sodium Chloride 0.9% 1, 925 900 150 000 ml @ 75 mls/hr IV . [id number] ELVIA Rx#:[id number] Sodium Chloride 0.9% 1, 1000 000 ml @ 999 mls/hr IV . Q1H1M ONE Rx#:[id number] Sodium Chloride 0.9% 500 500 ml 500 ml @ 999 mls/hr IV .Q31M ONE Rx#:[id number] Intake, IV Titration 254 9.654 Amount Norepinephrine 4 mg In 254 9.654 Sodium Chloride 0.9% 250 ml @ 0.05 MCG/KG/MIN 12. 592 mls/hr IV .[id number] ELVIA Rx#:[id number] Oral 300 120 Output: Urine 605 300 245 Other: Voiding Method Indwelling Catheter Indwelling Catheter Indwelling Catheter ABP, PAP, CO, CI - Last Documented Arterial Blood Pressure 103/51 - Exam In general patient is alert and oriented 3 in no apparent distress maintained on oxygen via nasal cannula HEENT head normocephalic and atraumatic Neck is supple no JVD no goiter no lymphadenopathy Chest exam is clear to auscultation no crackles no wheezing Cardiac exam reveals regular heart sounds S1 and S2 no gallops no murmurs Abdomen is soft, with mild diffuse tenderness no organomegaly no palpable masses was normal bowel sounds Extremity exam reveals 2+ edema bilaterally, no cyanosis or clubbing Neurological examination reveals no gross focal deficit - Labs CBC & Chem 7: 05/15/20 04:35 05/15/20 04:35 Labs: Abnormal Lab Results - Last 24 Hours (Table) 05/14/20 05/15/20 05/15/20 Range/Units 04:30 04:35 04:35 RDW 15.7 H (11.5-15.5) % Plt Count 51 L (150-450) k/uL Lymphocytes # 0.1 L (1.0-4.8) k/uL Sodium 132 L (137-145) mmol/L Chloride 114 H (98-107) mmol/L Carbon Dioxide 12 L (22-30) mmol/L BUN 63 H (7-17) mg/dL Creatinine 2.12 H (0.52-1.04) mg/dL Calcium 6.2 L* (8.4-10.2) mg/dL Ionized Calcium Margy (4.5-5.3) mg/dL Magnesium (1.6-2.3) mg/dL AST 12 L (14-36) U/L C-Reactive Protein 178.9 H (<10.0) mg/L Total Protein 3.2 L (6.3-8.2) g/dL Albumin 1.2 L (3.5-5.0) g/dL 05/15/20 05/15/20 Range/Units 05:50 05:50 RDW (11.5-15.5) % Plt Count (150-450) k/uL Lymphocytes # (1.0-4.8) k/uL Sodium (137-145) mmol/L Chloride (98-107) mmol/L Carbon Dioxide (22-30) mmol/L BUN (7-17) mg/dL Creatinine (0.52-1.04) mg/dL Calcium (8.4-10.2) mg/dL Ionized Calcium Margy 4.4 L (4.5-5.3) mg/dL Magnesium 1.3 L (1.6-2.3) mg/dL AST (14-36) U/L C-Reactive Protein (<10.0) mg/L Total Protein (6.3-8.2) g/dL Albumin (3.5-5.0) g/dL Microbiology - Last 24 Hours (Table) 05/13/20 11:40 Blood Culture - Preliminary Blood No Growth after 48 hours Assessment and Plan Plan: 1. Hypotension with severe weakness, improving gradually 2. Dehydration with acute renal failure, kidney function improving gradually her creatinine is down to 2.15 today 3. Underlying history of Crohn's disease, patient was evaluated by gastroe nterology, she is maintained on IV Solu-Medrol at this time 4. Underlying history of pulmonary embolism, a request was discontinued by vascular surgery in anticipation of [place] filter placement, will start patient on Lovenox 30 mg subcu daily 5. Severe electrolyte imbalance with hyponatremia and hypocalcemia 6. Metabolic acidosis due to acute kidney injury At this time patient is admitted to ICU, pulmonary critical care consultation requested, patient was started on IV fluid, and is being monitored to assess need for vasopressors. Obtain cultures to rule out sepsis, no clear source of infection at this time Obtain echocardiogram Nephrology and critical care consult soft following, will add gastroenterology consult for Crohn's disease evaluation Will follow closely prognosis is guarded
--- NOTE | 2020-05-15 18:36 | P.PN ---
Subjective Progress Note Date: 05/15/20 Patient seen and examined. No significant changes. Currently tolerating daily Lovenox. Hemoglobin has maintained stability. Still complains of abdominal pain. Objective - Vital Signs Vital signs: Vital Signs Temp 98.8 F 05/15/20 12:00 Pulse 112 H 05/15/20 17:00 Resp 16 05/15/20 17:00 BP 0/0 05/15/20 15:00 Pulse Ox 97 05/15/20 17:00 Intake & Output 05/14/20 05/15/20 05/15/20 18:59 06:59 18:59 Intake Total 2225 1654 1078.304 Output Total 605 300 275 Balance 1620 1354 803.304 Weight 68.7 kg Intake: IV 1925 1400 825 Dextrose 5% in Water 1, 675 000 ml @ 75 mls/hr IV . [id number] ELVIA with Sodium Bicarb (1 Meq/ml) 150 ml Rx#:[id number] Sodium Chloride 0.9% 1, 925 900 150 000 ml @ 75 mls/hr IV . [id number] ELVIA Rx#:[id number] Sodium Chloride 0.9% 1, 1000 000 ml @ 999 mls/hr IV . Q1H1M ONE Rx#:[id number] Sodium Chloride 0.9% 500 500 ml 500 ml @ 999 mls/hr IV .Q31M ONE Rx#:[id number] Intake, IV Titration 254 133.304 Amount Norepinephrine 4 mg In 254 133.304 Sodium Chloride 0.9% 250 ml @ 0.05 MCG/KG/MIN 12. 592 mls/hr IV .[id number] ELVIA Rx#:[id number] Oral 300 120 Output: Urine 605 300 275 Other: Voiding Method Indwelling Catheter Indwelling Catheter Indwelling Catheter ABP, PAP, CO, CI - Last Documented Arterial Blood Pressure 87/49 - Exam No acute distress, but resting and only briefly awakening to answer questions. Heart is regular at this time. Lungs are clear. Abdomen is soft, mild voluntary guarding. Extremities with continued edema. Right femoral lines noted - Labs CBC & Chem 7: 05/15/20 04:35 05/15/20 04:35 Labs: Abnormal Lab Results - Last 24 Hours (Table) 09/07/20 09/08/20 09/08/20 Range/Units 04:30 04:35 04:35 RDW 15.7 H (11.5-15.5) % Plt Count 51 L (150-450) k/uL Lymphocytes # 0.1 L (1.0-4.8) k/uL Sodium 132 L (137-145) mmol/L Chloride 114 H (98-107) mmol/L Carbon Dioxide 12 L (22-30) mmol/L BUN 63 H (7-17) mg/dL Creatinine 2.12 H (0.52-1.04) mg/dL Calcium 6.2 L* (8.4-10.2) mg/dL Ionized Calcium Margy (4.5-5.3) mg/dL Magnesium (1.6-2.3) mg/dL AST 12 L (14-36) U/L C-Reactive Protein 178.9 H (<10.0) mg/L Total Protein 3.2 L (6.3-8.2) g/dL Albumin 1.2 L (3.5-5.0) g/dL 05/15/20 05/15/20 Range/Units 05:50 05:50 RDW (11.5-15.5) % Plt Count (150-450) k/uL Lymphocytes # (1.0-4.8) k/uL Sodium (137-145) mmol/L Chloride (98-107) mmol/L Carbon Dioxide (22-30) mmol/L BUN (7-17) mg/dL Creatinine (0.52-1.04) mg/dL Calcium (8.4-10.2) mg/dL Ionized Calcium Margy 4.4 L (4.5-5.3) mg/dL Magnesium 1.3 L (1.6-2.3) mg/dL AST (14-36) U/L C-Reactive Protein (<10.0) mg/L Total Protein (6.3-8.2) g/dL Albumin (3.5-5.0) g/dL Microbiology - Last 24 Hours (Table) 05/13/20 11:40 Blood Culture - Preliminary Blood No Growth after 48 hours Assessment and Plan Assessment: #1 anemiaresolved currently #2 previous DVT/PE #3 abdominal pain #4 Hemoccult positive stool #5 chronic left femoral DVT Plan: At this time the patient continues to be tolerating her prophylactic dose of anticoagulation. Possibly trial Eliquis 2.5mg BID as ongoing dose no current indication for filter as or is no bilateral lower extremity DVTs. Continue compression and elevation of lower extremities
[2020-05-15] MEDS: MAGNESIUM SULFATE-D5W PMX 1 GM in DEXTROSE/WATER 1 100ML.BAG IVPB SCH ×3 (18:49→22:47)
[2020-05-15 18:53] LABS: HCT 35.4 % (34.0-46.0); HGB 10.9 gm/dL (11.4-16.0); Hypochromasia Slight; MCH 29.2 pg (25.0-35.0); MCHC 30.9 g/dL (31.0-37.0); MCV 94.3 fL (80.0-100.0); Mean Platelet Volume 10.6; RBC 3.75 m/uL (3.80-5.40); RDW 15.7 % (11.5-15.5)
[2020-05-15 19:08] LABS: Glucose,Whole Blood 97 mg/dL (75-99)
[2020-05-15 19:10] LABS: ABG Base Excess -16.5 mmol/L; ABG Oxygen Saturation 91.5 % (94-97); ABG PH 7.34 (7.35-7.45); ABG PO2 68 mmHg (83-108); ABG TCO2 10 mmol/L (19-24); Allen Test Performed? Yes
[2020-05-15 19:33] LABS: Albumin 1.3 g/dL (3.5-5.0); Calcium 6.5 mg/dL (8.4-10.2); Potassium 3.9 mmol/L (3.5-5.1); Total Protein 3.2 g/dL (6.3-8.2)
[2020-05-15 19:44] LABS: ABG HCO3 9 mmol/L (21-25); ABG PCO2 17 mmHg (35-45)
[2020-05-15 20:07] LABS: Band Neutrophils % 39 %; Lymphocytes # (M) 0.15 k/uL (1.0-4.8); Metamyelocytes # (M) 0.09 k/uL (0); Metamyelocytes % 3 %; Monocytes # (M) 0.06 k/uL (0-1.0); Neutrophils % (M) 52 %; Nucleated Red Blood Cells 0 /100 WBC (0-0); Total Cells Counted 200; Toxic Granulation Present; Toxic Vacuolation Present
[2020-05-15 20:08] LABS: Platelet Count 40 k/uL (150-450)
[2020-05-15 20:21] LABS: ABG Base Excess -17.1 mmol/L; ABG HCO3 13 mmol/L (21-25); ABG Oxygen Saturation 97.6 % (94-97); ABG PCO2 40 mmHg (35-45); ABG PO2 308 mmHg (83-108); ABG TCO2 14 mmol/L (19-24); Allen Test Performed? Yes
[2020-05-15] MEDS ORDERED: SODIUM BICARB 8.4% 50 ML SYR (1 MEQ/ML) IV STA (20:39)
--- NOTE | 2020-05-15 20:51 | XR ---
EXAMINATION TYPE: XR chest 1V portable DATE OF EXAM: 05/15/2020 COMPARISON: 05/14/2020 INDICATION: Abnormal lung sounds difficulty breathing TECHNIQUE: Single frontal view of the chest is obtained. FINDINGS: The heart size is normal. The pulmonary vasculature is normal. There is a large consolidation in the right upper lobe. A large consolidation is in the left lower lo be. Endotracheal tube is been placed with the tip in the distal trachea 2.6 cm above the jaxon IMPRESSION: 1. Right upper and left lower lobe infiltrates. Correlate for pneumonia.
--- NOTE | 2020-05-15 22:27 | XR ---
EXAMINATION TYPE: XR chest 1V portable DATE OF EXAM: 05/15/2020 COMPARISON: 05/15/2020 HISTORY: Check tube placement. TECHNIQUE: Single view FINDINGS: Endotracheal tube is 5.5 cm from the jaxon. Nasogastric tube is partly looped in the stoma ch. There is airspace consolidation in the right upper lobe and left lower lobe. There is no gross he art failure. Heart size is fairly normal. There are chest leads. IMPRESSION: Bilateral airspace consolidation unchanged. NG tube in good position in the stomach.
[2020-05-15 22:29] VITALS: BP 66/54
[2020-05-15 23:57] LABS: Glucose,Whole Blood 87 mg/dL (75-99)
[2020-05-16] MEDS: DEXTROSE 5% IN WATER 1,000 ML with SODIUM BICARB (1 MEQ/ML) 150 ML IV SCH (00:11)
[2020-05-16] MEDS: NOREPINEPHRINE 4 MG in SODIUM CHLORIDE 0.9% 250 ML IV SCH ×4 (00:49→05:59)
[2020-05-16] MEDS ORDERED: CISATRACURIUM 2 MG/ML 5 ML VIAL IV ONE (01:08)
[2020-05-16] MEDS ORDERED: SODIUM CHLORIDE 0.9% 1,000 ML IV ONE ×2 (01:11→02:19)
[2020-05-16] MEDS ORDERED: CISATRACURIUM 200 MG in SODIUM CHLORIDE 0.9% 180 ML IV SCH (01:15)
[2020-05-16] MEDS ORDERED: SODIUM CHLORIDE 0.9% 50 ML with VASOPRESSIN 20 UNIT IVPB SCH ×2 (01:45)
[2020-05-16 02:11] VITALS: TEMP 97.6
[2020-05-16] MEDS: methylPREDNISolone SOD SUCCI 40 MG/ML 1 ML VIAL IV SCH (03:00)
[2020-05-16] MEDS ORDERED: DEXTROSE 50% SYRINGE 50 ML IVP ONE (04:02)
[2020-05-16 04:04] LABS: Glucose,Whole Blood 50 mg/dL (75-99)
[2020-05-16 04:23] LABS: HCT 27.6 % (34.0-46.0); Hypochromasia Marked; MCHC 30.2 g/dL (31.0-37.0); Macrocytosis Slight; Mean Platelet Volume 10.2; RBC 2.77 m/uL (3.80-5.40); RDW 15.7 % (11.5-15.5)
[2020-05-16 04:33] LABS: HGB 8.3 gm/dL (11.4-16.0); MCV 99.6 fL (80.0-100.0); Platelet Count 7 k/uL (150-450)
[2020-05-16 04:34] LABS: WBC 0.4 k/uL (3.8-10.6)
[2020-05-16 05:02] LABS: Albumin 1.1 g/dL (3.5-5.0); Potassium 3.6 mmol/L (3.5-5.1); Total Bilirubin 1.4 mg/dL (0.2-1.3); Total Protein 2.3 g/dL (6.3-8.2)
[2020-05-16 05:10] LABS: Calcium 6.1 mg/dL (8.4-10.2)
[2020-05-16] MEDS ORDERED: EPINEPHrine 10 ML SYRINGE (0.1 MG/ML) ONE ×2 (05:27→06:33)
[2020-05-16] MEDS ORDERED: SODIUM BICARB 8.4% 50 ML SYR (1 MEQ/ML) ONE ×3 (05:27→06:24)
[2020-05-16] MEDS ORDERED: CALCIUM CHLORIDE 100 MG/ML 10 ML SYRINGE ONE (05:27)
[2020-05-16] MEDS ORDERED: SODIUM CHLORIDE 0.9% 1,000 ML BAG ONE (05:27)
[2020-05-16] MEDS ORDERED: PROPOFOL 10 MG/ML 20 ML VIAL IV ONE (05:27)
[2020-05-16 05:30] LABS: Glucose,Whole Blood 89 mg/dL (75-99)
[2020-05-16 05:59] LABS: ABG Base Excess -10.2 mmol/L; ABG HCO3 21 mmol/L (21-25); ABG Oxygen Saturation 80.2 % (94-97); ABG PO2 62 mmHg (83-108); ABG TCO2 23 mmol/L (19-24); Allen Test Performed? Yes
[2020-05-16 06:07] LABS: ABG PH 7.01 (7.35-7.45)
[2020-05-16 06:08] LABS: ABG PCO2 83 mmHg (35-45)
--- NOTE | 2020-05-16 06:08 | P.EN ---
Brad carter called on the patient , with PEA CPR initiated following ACLS protocol , CPR effort continued for about 8 minutes before ROSC. patient received 3 rounds of epi and 2 amps of bicarb due to severe acidosis, patient also given calcium due to hypocalcemia no shock delivered (PEA) please refer to paper charting of brad carter for exact events. family was updated questions answered patient continues to be full code per family. Dr Julio notified by RN primary team paged await call back continue with levophed (maxed out), vent care follow up labs patient given 2 more amps of bicarb continue bicarb drip (1 L D5 with 3 amps of bicarb) ICU care 40 minutes spent in critical care time including couseling and coordinating care.
[2020-05-16 07:37] LABS: D-Dimer 0.95 mg/L FEU (<0.60); INR 4.1 (<1.2); Prothrombin Time 40.6 sec (9.0-12.0)
[2020-05-16 07:40] VITALS: PULSE 116; RESP 0
[2020-05-16 08:05] LABS: Fibrinogen <70 mg/dL (200-500)
[2020-05-16 08:33] LABS: Partial Thromboplastin Time >200.0 sec (22.0-30.0)
[2020-05-16] MEDS ORDERED: ALBUMIN HUMAN 25% 50 ML in EMPTY BAG 1 BAG IVPB SCH ×2 (09:00→21:00)
--- NOTE | 2020-05-20 09:53 | CDI ---
Documentation Clarification Form Date: 05/20/20 From: Shanthi Ramesh CCS Phone: If you have a question about this query, please contact Cate Barrera, Sheriffs at [phone] between 8am and 5pm. Admit Date: 05/12/20 Discharge Date:05/16/20 Patient Name: Jacquie Chowdhury Visit Number: [id number] ATTENTION: The Clinical Documentation Specialists (CDI) and [facility] Coding Staff appreciate your assistance in clarifying documentation. Please respond to the clarification below the line at the bottom and electronically sign. The CDI & [facility] Coding staff will review the response and follow-up if needed. Please note: Queries are made part of the Legal Health Record. If you have any questions, please contact the author of this message via ITS. Dear Dr. Aguilar, Documentation states: 05/15 Lab values - pC02 17, 05/16 83- pO2 05/15 308- pH 05/15 7.34, 05/16 7.01- O2 Sat 05/15 91.5, 05/16 80.2 PN 05/15 documents: At this time patient is admitted to ICU, pulmonary critical care consultation requested, patient was started on IV fluid, and is being monitored to assess need for vasopressors. 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 Please clarify what abnormal laboratory signifies: Acute hypoxic respiratory failure Acute hypercapnic respiratory failure Acute respiratory distress Disease process, please specify Infectious process, please specify Abnormal Lab Value Unable to determine Other, please specify abnormal lab value MTDD
--- NOTE | 2020-05-20 10:08 | CDI ---
Documentation Clarification Form Date: 05/20/20 From: Shanthi Ramesh CCS Phone: If you have a question about this query, please contact Cate Barrera, Crm Marketing Executive at [phone] between 8am and 5pm. Admit Date: 05/12/20 Discharge Date: 05/16/20 Patient Name: Jacquie Chowdhury Visit Number: [id number] ATTENTION: The Clinical Documentation Specialists (CDI) and [facility] Coding Staff appreciate your assistance in clarifying documentation. Please respond to the clarification below the line at the bottom and electronically sign. The CDI & [facility] Coding staff will review the response and follow-up if needed. Please note: Queries are made part of the Legal Health Record. If you have any questions, please contact the author of this message via ITS. Dear Dr. Aguilar, Shock is documented in the PNs, Consult. Patient history/risk factors: ATN, Malnutrition, ABLA, Cardiac arrest, DVT, Crohn's w/ bleed and obstruction Clinical Indicators: Shock, Intubated on 05/15, Code Blue Record 05/16 Vitals: BP 79/56, RR 1\43, ID 84, Treatment: Levophed 4 mg IV, Fluid bolus In your professional opinion, can you please specify the type of shock if known? Septic Shock Suspected or known causative organism Any associated organ failure Cardiogenic Shock Cause Hypovolemic Shock Cause Other, please specify Unable to determine unable to determine MTDD
--- NOTE | 2020-06-08 14:01 | P.DS ---
Providers Date of admission: 05/12/20 13:13 Expected date of discharge: 05/16/20 Attending physician: Marcell Aguilar Consults: 05/12/20 13:13 Consult Physician Urgent Consulting Provider: Tawana Galan Consult Reason/Comments: Acute renal failure Do you want consulting provider notified?: Yes 05/12/20 13:21 Consult Physician Urgent Consulting Provider: Tatyana Sunshine Consult Reason/Comments: GI bleed Do you want consulting provider notified?: Yes 05/12/20 23:44 Consult Physician Routine Consulting Provider: Mahesh Pimentel Consult Reason/Comments: evaluate for ivc filter placement in am/recurrent gi bleeding on anticoags Do you want consulting provider notified?: Yes 05/13/20 09:45 Consult Physician Routine Consulting Provider: Shobha Barrera Consult Reason/Comments: icu management Do you want consulting provider notified?: Already Contacted 05/13/20 10:45 Consult Physician Routine Consulting Provider: Tatyana Sunshine Consult Reason/Comments: crohn's disease Do you want consulting provider notified?: Yes Primary care physician: Sarahi Ornelas Hospital Course: Discharge Diagnosis expiration Patient 05/16/2020 1. Hypotension with severe weakness 2. Dehydration with acute renal failure, kidney function improving gradually her creatinine is down to 2.15 today 3. Underlying history of Crohn's disease, patient was evaluated by gastroenterology, she is maintained on IV Solu-Medrol at this time 4. Underlying history of pulmonary embolism, a request was discontinued by vascular surgery in anticipation of [place] filter placement, will start patient on Lovenox 30 mg subcu daily 5. Severe electrolyte imbalance with hyponatremia and hypocalcemia 6. Metabolic acidosis due to acute kidney injury 7. Reoccuring GI bleed secondary to right sided colits. Hospital Course Jacquie Chowdhury, he is a 60-year-old female who presented to [facility] emergency room with severe weakness, lightheadedness and worsening lower extremity swelling, she was evaluated in emergency room, her vital exam on presentation was significant for blood pressure of 75/52 heart rate of 96, her laboratory data was significant for anemia with hemoglobin of 10.1 renal insufficiency with a BUN of 71 and a creatinine of 2.29, hyponatremia with sodium of 125, and hypocalcemia with calcium of 6.4 her stool Hemoccult was positive, she was admitted to intensive care unit and was started on IV fluid, she was given a dose of calcium in the emergency room. On review of systems patient denies any fever or chills, she denies any headache, there is no chest pain or shortness of breath no cough, no nausea or vomiting no abdominal pain, she has loose stool but no significant diarrhea, she denies any blood in her stools, no burning with urination no frequency or urgency no hematuria. Patient has a known history of pulmonary embolism, she was maintained on anticoagulation for more than 10 years, this was stopped recently but patient developed pulmonary embolism regained, she was restarted on Eliquis. Patient also has a known history of Crohn's disease. On 05/14/2020 patient was seen and examined in the ICU, she is alert and oriented 3 in no apparent distress, she is complaining of nausea and abdominal discomfort, otherwise she denies any complaints there is no fever or chills no headache or dizziness no chest pain no shortness of breath, no cough no diarrhea no blood in the stools no burning with urination no frequency or urgency no hematuria. Potassium is low at 3.3 she was started on potassium replacement protocol, calcium is low she was started on calcium with vitamin D 1 twice a day, patient has evidence of severe protein calorie malnutrition with albumin of 1.2 nutritional consult was initiated. On 05/15/2020 patient was seen and examined in the ICU, she is alert responsive in no distress, she had very poor oral intake today, she is still complaining of abdominal pain and nausea otherwise she denies any complaints, Eliquis has been on hold in anticipation of [place] filter placement, patient has been maintained on subcu Lovenox 30 mg once daily for DVT prophylaxis, there is no fever or chills no headache or dizziness no chest pain no shortness of breath no cough no burning with urination no frequency or urgency no hematuria. Blood pressure has been marginal and patient has been on and off levophed today. Urine output was low this morning she received IV fluid bolus and IV Lasix. 05/16/2020 According to record Code Blue was called around 0600, Patient was in [facility]. According to records patient coded twice and family made the decision to stop CPR This was charted on behalf of Dr. Aguilar, I did not personally examine patient Plan - Discharge Summary Discharge Rx Participant: Yes New Discharge Prescriptions: No Action Levothyroxine Sodium [Synthroid] 100 mcg PO DAILY Pantoprazole [Protonix] 40 mg PO AC-BRKFST tablet. predniSONE 30 mg PO DAILY Multivitamins, Thera Liquid [Theragran Liquid (formulary)] 15 ml PO DAILY Apixaban [Eliquis] 5 mg PO BID 30 Days #60 tab Dicyclomine [Bentyl] 10 mg PO TID PRN cap PRN Reason: Dyspepsia Discharge Medication List Levothyroxine Sodium [Synthroid] 100 mcg PO DAILY 10/20/19 [History] Pantoprazole [Protonix] 40 mg PO AC-BRKFST tablet. 02/26/20 [Rx] Multivitamins, Thera Liquid [Theragran Liquid (formulary)] 15 ml PO DAILY 04/10/20 [History] predniSONE 30 mg PO DAILY 04/10/20 [History] Apixaban [Eliquis] 5 mg PO BID 30 Days #60 tab 04/11/20 [Rx] Dicyclomine [Bentyl] 10 mg PO TID PRN cap 04/15/20 [Rx] Follow up Appointment(s)/Referral(s): Sarahi Ornelas MD [Primary Care Provider] - 1-2 days Discharge Disposition: - Preliminary Cause of Preliminary Cause of : severe acidosis secondary to electrolyte disturbance and GI bleed
== END 2020-05-16 11:35 | disposition expired | DRG 385 ==
LOC: EC 11:39 → 3SCARD 13:13 → 2SICU 21:47
PROVIDERS: ADMIT Internal Medicine; ATTEND Internal Medicine
PROC: 30233N1 Transfusion of Nonautologous Red Blood Cells into Peripheral Vein, Percutaneous Approach (ICD-10-PCS; principal; 2020-05-12)
PROC: 3E033XZ Introduction of Vasopressor into Peripheral Vein, Percutaneous Approach (ICD-10-PCS; 2020-05-13)
PROC: 04HY32Z Insertion of Monitoring Device into Lower Artery, Percutaneous Approach (ICD-10-PCS; 2020-05-13)
PROC: 4A133J1 Monitoring of Arterial Pulse, Peripheral, Percutaneous Approach (ICD-10-PCS; 2020-05-13)
PROC: 4A133B1 Monitoring of Arterial Pressure, Peripheral, Percutaneous Approach (ICD-10-PCS; 2020-05-13)
PROC: 06HM33Z Insertion of Infusion Device into Right Femoral Vein, Percutaneous Approach (ICD-10-PCS; 2020-05-13)
PROC: 0D9670Z Drainage of Stomach with Drainage Device, Via Natural or Artificial Opening (ICD-10-PCS; 2020-05-15)
PROC: 0BH17EZ Insertion of Endotracheal Airway into Trachea, Via Natural or Artificial Opening (ICD-10-PCS; 2020-05-15)
PROC: 5A1935Z Respiratory Ventilation, Less than 24 Consecutive Hours (ICD-10-PCS; 2020-05-15)
PROC: 5A12012 Performance of Cardiac Output, Single, Manual (ICD-10-PCS; 2020-05-16)
DX: K50.811 Crohn's disease of both small and large intestine with rectal bleeding (principal); N17.0 Acute kidney failure with tubular necrosis; E43 Unspecified severe protein-calorie malnutrition; R57.9 Shock, unspecified; E87.2 Acidosis; E87.1 Hypo-osmolality and hyponatremia; D62 Acute posthemorrhagic anemia; I82.512 Chronic embolism and thrombosis of left femoral vein; E27.40 Unspecified adrenocortical insufficiency; K50.812 Crohn's disease of both small and large intestine with intestinal obstruction; L89.152 Pressure ulcer of sacral region, stage 2; E83.51 Hypocalcemia; I46.9 Cardiac arrest, cause unspecified; F17.210 Nicotine dependence, cigarettes, uncomplicated; E86.0 Dehydration; E03.9 Hypothyroidism, unspecified; R09.02 Hypoxemia; R15.9 Full incontinence of feces; E87.6 Hypokalemia; K57.90 Diverticulosis of intestine, part unspecified, without perforation or abscess without bleeding; R26.2 Difficulty in walking, not elsewhere classified; R01.1 Cardiac murmur, unspecified; I87.2 Venous insufficiency (chronic) (peripheral); Z71.3 Dietary counseling and surveillance; E86.1 Hypovolemia; Z68.22 Body mass index [BMI] 22.0-22.9, adult; Z79.899 Other long term (current) drug therapy; Z79.01 Long term (current) use of anticoagulants; Z79.890 Hormone replacement therapy; Z79.52 Long term (current) use of systemic steroids; Z86.711 Personal history of pulmonary embolism; Z87.19 Personal history of other diseases of the digestive system; Z90.49 Acquired absence of other specified parts of digestive tract; Z98.891 History of uterine scar from previous surgery; Z88.2 Allergy status to sulfonamides
CPT/HCPCS: 36415; 36600; 51701; 71045; 74018; 80048; 80053; 81003; 82272; 82330; 82533; 82805; 83605; 83735; 83930; 83935; 83970; 84100; 84133; 84300; 84443; 84484; 85025; 85379; 85384; 85610; 85652; 85730; 86140; 86850; 86900; 86901; 86920; 87040; 93005; 93970; 94002; 94003; 96361; 96374; 99285